=== PATIENT | female | born 1935 | race Caucasian/White ===

== ENCOUNTER 2020-01-14 09:18 | Emergency (ER) | payer MEDICARE, SELFPAY ==
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
[2020-01-14 09:28] VITALS: BP 134/74; PULSE 62; RESP 17; TEMP 36.7; O2SAT 100
--- NOTE | 2020-01-14 09:28 | ECG_ITS ---
Measurements Intervals [place] Rate: 64 P: 54 SC: 182 QRS: 3 QRSD: 95 T: -9 QT: 421 QTc: 435 Interpretive Statements SINUS RHYTHM BORDERLINE ST-T WAVE ABNORMALITY- ANTEROLAT/INF LEADS BASELINE ARTIFACT- V5 BORDERLINE ECG Electronically Signed On 01-14-2020 9:55:29 PRODUCT BUILDER by Chaparro Arambula D.O.
--- NOTE | 2020-01-14 09:38 | ED.WEAKNESS ---
HPI - Weakness General Chief complaint: Weakness Stated complaint: Weakness Time Seen by Provider: 01/14/20 09:28 Source: patient and RN notes reviewed Mode of arrival: ambulatory Limitations: no limitations History of Present Illness HPI Narrative: Pt is a 85 y/o female who presents to the ED with c/o weakness in her bilateral legs starting 2 days ago. According to the pt's son, she has a Hx of A-Fib, and is currently taking Xarelto. She notes that she has had weakness in her bilateral legs for the past several mornings. Pt reports palpitations accompanying her weakness 2 days ago, stating that her heart was pounding. She notes that she developed weakness in her bilateral legs and lightheadedness earlier this morning, which prompted her to come to the ED. Pt denies any LOC. She also reports nausea accompanying her weakness, but denies any CP, diaphoresis, vomiting, back pain, numbness/tingling, LE edema, LE pain, or dysuria. She notes that she has still been able to walk at home recently. MD Complaint: generalized weakness Onset (ago): day(s) (2) Location: LLE and RLE Associated symptoms: nausea/vomiting (nausea) and other (palpitations) Related Data Home Medications Medication Instructions Recorded Confirmed furosemide 01/14/20 potassium chloride meq PO 01/14/20 raloxifene mg 01/14/20 01/14/20 rivaroxaban [Xarelto] mg 01/14/20 solifenacin [Vesicare] mg PO 01/14/20 sotalol 01/14/20 valsartan-hydrochlorothiazide tablet 01/14/20 Allergies Allergy/AdvReac Type Severity Reaction Status Date / Time No Known Allergies Allergy Verified 01/14/20 09:32 Review of Systems Review of Systems: Narrative: CONSTITUTIONAL: Denies fever, chills, or sweats. Reports weakness in bilateral legs. CARDIOVASCULAR: Denies chest pain or LE edema. Reports palpitations. RESPIRATORY: Denies cough or dyspnea. GASTROINTESTINAL: Denies abdominal pain, vomiting, or diarrhea. Reports nausea. GENITOURINARY: Denies dysuria or hematuria. MUSCULOSKELETAL: Denies back pain, LE pain, joint pain, or myalgia. NEUROLOGIC: Denies headache, numbness, or LOC. All systems reviewed & are unremarkable except as noted in HPI and below PMFSH Past Medical History Medical History A-fib Anemia Arthritis Back pain Breast cancer, left Cataracts, bilateral CHF (congestive heart failure) Fibromyalgia Fracture of right patella Gastric ulcer GI bleed Glaucoma HLD (hyperlipidemia) HTN (hypertension) Kidney stones Osteoporosis UTI (urinary tract infection) Surgical History Surgical History History of lumpectomy of left breast Hx of cataract surgery Family History Family History (Updated 12/17/15 @ 10:57 by DOCTOR UNKNOWN) Other Cerebrovascular accident Family history of arthritis Family history of malignant neoplasm Family history of seizure disorder Social History Social History Smoking status: Never smoker Alcohol intake: never Gender identity (if verbalized by the patient): Female Exam Narrative: Exam Narrative: GENERAL: Well-appearing, well-nourished, and in no acute distress. HEAD: Normocephalic, atraumatic. EYES: PERRLA and EOMI. ENT: Nares clear, no rhinorrhea or epistaxis. Mucous membranes moist. NECK: Supple. CHEST: Clear to auscultation. No respiratory distress. HEART: Regular rate and rhythm. No murmur heard. Normal peripheral pulses. ABDOMEN: Soft, nontender, nondistended, normal active bowel sounds. EXTREMITIES: Normal range of motion. No edema. SKIN: Warm, dry, no rash. NEURO: No focal deficits. Alert and oriented. Finger to nose intact bilaterally. EOMs intact without nystagmus. No facial droop/asymmetry noted bilaterally. Grimace intact. Intact sensation in face. Hearing intact bilaterally. Shoulder shrug intact. Strength 5/5 bilateral upper extremities. Strength 5/5 bilatera
[2020-01-14 09:52] LABS: Glucose Point of Care 102 (65-105)
[2020-01-14] MEDS: SODIUM CHLORIDE 0.9% IV 1,000 ML 999 ML IV CONT (10:05)
[2020-01-14 10:12] LABS: Basophils Percent Auto 0.5 % (0.2-1.2); Eosinophils Absolute Auto 0.1 K/mm3 (0-0.3); Eosinophils Percent Auto 1.3 % (0-4.4); Hematocrit 38.8 % (37.0-47.0); Hemoglobin 12.2 g/dL (12.0-15.0); Immature Granulocyte Absolute 0.02 K/mm3 (0.00-0.031); Immature Granulocyte Percent A 0.3 % (0-0.5); Lymphocytes Absolute Auto 1.97 K/mm3 (0.9-3.2); Lymphocytes Percent Auto 24.8 % (18.3-44.2); Mean Corpuscular HGB Conc 31.4 g/dl (32-36); Mean Corpuscular Hemoglobin 29.1 pg (26-34); Mean Corpuscular Volume 92.6 fl (80-100); Mean Platelet Volume 10.3 fl (7.4-10.4); Monocytes Absolute Auto 0.6 K/mm3 (0.1-0.6); Monocytes Percent Auto 7.3 % (2.6-8.5); Neutrophils Absolute Auto 5.2 K/mm3 (1.3-6.7); Neutrophils Percent Auto 65.8 % (45.5-73.1); Platelet Count Result 201 k/mm3 (150-375); Red Blood Count 4.19 M/mm3 (4.2-5.4); Red Cell Distribution Width 16.7 % (11.5-14.5)
[2020-01-14 10:30] LABS: Alanine Aminotransferase 14 U/L (4-35); Albumin Level 3.7 g/dL (3.5-5.1); Alkaline Phosphatase 78 U/L (38-126); Aspartate Amino Transferase 22 U/L (14-36); Bilirubin,Total 0.5 mg/dL (0.2-1.3); Blood Urea Nitrogen 17 mg/dL (7-17); Calcium 10.2 mg/dL (8.4-10.2); Carbon Dioxide 33 mmol/L (22-30); Chloride 100 mmol/L (98-107); Estimated Glomerular Filt Rate > 60; Glucose 107 mg/dL (65-105); Potassium 4.2 mmol/L (3.4-5.0); Sodium 137 mmol/L (137-145)
[2020-01-14 10:42] LABS: Add Urine Microscopic? YES; Appearance Urine Clear (Clear); Bacteria Urine Trace /hpf; Bilirubin Urine Negative (Negative); Blood Urine Negative (Negative); Color Urine Straw (Yellow); Glucose Urine UA Negative (Negative); Ketones Urine Negative (Negative); Leukocyte Esterase Ur 1+ LEU/UL (Negative); Nitrate Urine Negative (Negative); Protein Urine Negative (Negative); RBC Urine 0-2 /hpf (0-2); Squamous Epithelial Cell Urine Rare /hpf (Few); Urobilinogen Urine Negative mg/dL (<2.0); WBC Urine 0-3 /hpf
[2020-01-14 10:44] LABS: Specific Grav Ur 1.004 (1.001-1.035)
[2020-01-14 10:46] LABS: Troponin I < 0.012 ng/mL (0.000-0.034)
[2020-01-14 11:07] LABS: INR 1.3
[2020-01-14 11:08] LABS: Partial Thromboplastin Time 33.7 SECONDS (22.3-36.8)
--- NOTE | 2020-01-14 11:49 | PC.NURSE ---
Pt called out to use restroom. This RN went into room and used bedside commode.
[2020-01-14 13:01] LABS: Troponin I < 0.012 ng/mL (0.000-0.034)
[2020-01-14 13:30] VITALS: BP 124/64; PULSE 61; RESP 17; O2SAT 100
== END 2020-01-14 13:32 | disposition home or self-care (01) ==
PROVIDERS: Emergency Provider Emergency Medicine; PCP Internal Medicine
DX: R53.1 Weakness (principal); R00.2 Palpitations; Z85.3 Personal history of malignant neoplasm of breast; I48.91 Unspecified atrial fibrillation; Z79.01 Long term (current) use of anticoagulants; M19.90 Unspecified osteoarthritis, unspecified site; I50.9 Heart failure, unspecified; M79.7 Fibromyalgia; H40.9 Unspecified glaucoma; E78.5 Hyperlipidemia, unspecified; I11.0 Hypertensive heart disease with heart failure; Z87.442 Personal history of urinary calculi; M81.0 Age-related osteoporosis without current pathological fracture; Z87.440 Personal history of urinary (tract) infections; Z98.49 Cataract extraction status, unspecified eye; I51.7 Cardiomegaly; K44.9 Diaphragmatic hernia without obstruction or gangrene; Z86.2 Personal history of diseases of the blood and blood-forming organs and certain disorders involving the immune mechanism
CPT/HCPCS: 36415; 70450; 71275; 80053; 81001; 82948; 84484; 85025; 85610; 85730; 93005; 96360; 96361; 99284; J7030; Q9967

== ENCOUNTER 2021-01-26 11:36 | Outpatient (CLI) | payer MEDICARE, SELFPAY ==
[2021-01-26 12:52] LABS: Anion Gap 3 mmol/L (8-16); Blood Urea Nitrogen 17 mg/dL (7-17); Calcium 10.3 mg/dL (8.4-10.2); Carbon Dioxide 35 mmol/L (22-30); Chloride 103 mmol/L (98-107); Estimated Glomerular Filt Rate > 60; Glucose 116 mg/dL (65-105); Potassium 4.1 mmol/L (3.4-5.0); Sodium 141 mmol/L (137-145)
== END 2021-01-26 11:37 | disposition home or self-care (01) ==
LOC: ANHLAB 11:40
PROVIDERS: PCP Internal Medicine; Visit Provider Nurse Practitioner Adult Health
DX: R60.0 Localized edema (principal)
CPT/HCPCS: 36415; 80048

== ENCOUNTER 2021-03-31 11:18 | Outpatient (CLI) | payer MEDICARE, SELFPAY ==
[2021-03-31 12:07] LABS: Anion Gap 3 mmol/L (8-16); Blood Urea Nitrogen 19 mg/dL (7-17); Calcium 10.1 mg/dL (8.4-10.2); Carbon Dioxide 37 mmol/L (22-30); Chloride 101 mmol/L (98-107); Estimated Glomerular Filt Rate > 60; Glucose 156 mg/dL (65-105); Potassium 5.3 mmol/L (3.4-5.0); Sodium 141 mmol/L (137-145)
== END 2021-03-31 11:19 | disposition home or self-care (01) ==
PROVIDERS: PCP Internal Medicine; Visit Provider Specialist
DX: R60.0 Localized edema (principal); I50.32 Chronic diastolic (congestive) heart failure
CPT/HCPCS: 36415; 80048

== ENCOUNTER 2021-05-04 11:52 | Outpatient (CLI) | payer MEDICARE, SELFPAY ==
[2021-05-04 12:49] LABS: Anion Gap 7 mmol/L (8-16); Blood Urea Nitrogen 16 mg/dL (7-17); Calcium 10.7 mg/dL (8.4-10.2); Carbon Dioxide 34 mmol/L (22-30); Chloride 101 mmol/L (98-107); Estimated Glomerular Filt Rate > 60; Glucose 116 mg/dL (65-105); Potassium 4.4 mmol/L (3.4-5.0); Sodium 142 mmol/L (137-145)
== END 2021-05-04 11:53 | disposition home or self-care (01) ==
LOC: ANHLAB 11:56
PROVIDERS: PCP Internal Medicine; Visit Provider Nurse Practitioner Adult Health
DX: I48.0 Paroxysmal atrial fibrillation (principal)
CPT/HCPCS: 36415; 80048

== ENCOUNTER 2023-07-01 22:53 | Emergency (ER) | payer MEDICARE, SELFPAY ==
[2023-07-01 23:01] VITALS: BP 149/92; PULSE 77; RESP 19; TEMP 36.2; O2SAT 96
--- NOTE | 2023-07-02 03:20 | PC.NURSE ---
Assumed care of patient at this time.
[2023-07-02 03:24] VITALS: BP 144/96; PULSE 84; RESP 16; O2SAT 96
--- NOTE | 2023-07-02 03:44 | ED.GENADULT ---
HPI - General Adult General Chief complaint: Dental/Oral Stated complaint: oral bleeding Time Seen by Provider: 07/02/23 02:55 History of Present Illness HPI narrative: Patient is a 8-year-old female who presents the emergency department with chief complaint of bleeding from gums. Patient reports that she had a dental extraction and reports that she was held on her anticoagulant and started the back several days ago the patient reports now she is continuing to ooze from the site and has attempted to apply teabags to the area to control the bleeding. Related Data Home Medications Medication Instructions Recorded Confirmed furosemide 40 mg tablet 01/14/20 potassium chloride 20 mEq meq PO 01/14/20 tablet,extended release(part/cryst) raloxifene 60 mg tablet mg 01/14/20 01/14/20 rivaroxaban 20 mg tablet (Xarelto) mg 01/14/20 solifenacin 5 mg tablet (Vesicare) mg PO 01/14/20 sotalol 80 mg tablet 01/14/20 valsartan 160 tablet 01/14/20 mg-hydrochlorothiazide 25 mg tablet Allergies Allergy/AdvReac Type Severity Reaction Status Date / Time No Known Allergies Allergy Verified 07/02/23 03:23 Review of Systems Review of Systems: A 10 system review of systems was completed on the patient and is negative except for what is stated in the HPI. Nursing and ancillary documentation was reviewed. [facility] Past Medical History Medical History A-fib Anemia Arthritis Back pain Breast cancer, left Cataracts, bilateral CHF (congestive heart failure) Fibromyalgia Fracture of right patella Gastric ulcer GI bleed Glaucoma HLD (hyperlipidemia) HTN (hypertension) Kidney stones Osteoporosis UTI (urinary tract infection) Surgical History Surgical History History of lumpectomy of left breast Hx of cataract surgery Family History Family History Other Cerebrovascular accident Family history of arthritis Family history of malignant neoplasm Family history of seizure disorder Social History Social History Smoking status: Never smoker Alcohol intake: never Gender identity (if verbalized by the patient): Female Exam Narrative: GENERAL: Well-appearing, well-nourished, and in no acute distress. HEAD: Normocephalic, atraumatic. EYES: PERRLA and EOMI. there is a subconjunctival hemorrhage on the right ENT: Nares clear, no rhinorrhea or epistaxis. Mucous membranes moist. Bleeding from left upper molar site where a tooth was extracted NECK: Supple. CHEST: Clear to auscultation. No respiratory distress. HEART: Regular rate and rhythm. No murmur heard. Normal peripheral pulses. ABDOMEN: Soft, nontender, nondistended, normal active bowel sounds. EXTREMITIES: Normal range of motion. No edema. SKIN: Warm, dry, no rash. NEURO: No focal deficits. Alert and oriented x3. PSYCH: Normal mood and affect. Course Vital Signs Vital signs: Vital Signs Temperature 36.2 C L 07/01/23 23:01 Pulse Rate 77 07/01/23 23:01 Respiratory Rate 19 07/01/23 23:01 Blood Pressure 149/92 H 07/01/23 23:01 Pulse Oximetry 96 07/01/23 23:01 Oxygen Delivery Room Air 07/01/23 23:01 Temperature 36.2 C L 07/01/23 23:01 Pulse Rate 84 07/02/23 03:24 Respiratory Rate 16 07/02/23 03:24 Blood Pressure 144/96 H 07/02/23 03:24 Pulse Oximetry 96 07/02/23 03:24 Oxygen Delivery Room Air 07/01/23 23:01 Medical Decision Making Vital Signs Vital Signs: Vital Signs Temperature 36.2 C L 07/01/23 23:01 Pulse Rate 77 07/01/23 23:01 Respiratory Rate 19 07/01/23 23:01 Blood Pressure 149/92 H 07/01/23 23:01 Pulse Oximetry 96 07/01/23 23:01 Oxygen Delivery Room Air 07/01/23 23:01 Temperature 36.2 C L 07/01/23 23:01 Pulse Ra
== END 2023-07-02 04:26 | disposition home or self-care (01) ==
PROVIDERS: Emergency Provider Emergency Medicine; PCP Pediatrics Adolescent Medicine
DX: K91.840 Postprocedural hemorrhage of a digestive system organ or structure following a digestive system procedure (principal); I48.91 Unspecified atrial fibrillation; I50.9 Heart failure, unspecified; I11.0 Hypertensive heart disease with heart failure; E78.5 Hyperlipidemia, unspecified; M81.0 Age-related osteoporosis without current pathological fracture; M79.7 Fibromyalgia; M19.90 Unspecified osteoarthritis, unspecified site; Z85.3 Personal history of malignant neoplasm of breast; Z87.442 Personal history of urinary calculi; Z87.440 Personal history of urinary (tract) infections; Z79.01 Long term (current) use of anticoagulants; Z98.49 Cataract extraction status, unspecified eye
CPT/HCPCS: 99282

== ENCOUNTER 2023-11-22 13:56 | Inpatient (IN) | payer MEDICARE, SELFPAY ==
[2023-11-22] VITALS (11 sets, daily range): BP systolic 101–115; BP diastolic 74–94; PULSE 79–99; RESP 15–23; TEMP 36.5–36.7; O2SAT 93–100; BMI 31.1
--- NOTE | ~2023-11-22 | XR_ITS ---
XR chest 1V portable 12/05/2023 10:01 Indication: Oxygen requirements Procedure: AP portable chest Comparison: Comparison to multiple prior studies sequentially, with oldest reviewed study dated 05/2015. Findings: Cardiomegaly with interstitial edema. Large hiatal hernia. Small pleural effusions. No pneu mothorax. No acute osseous abnormality. Impression: 1: Cardiomegaly with interstitial edema. 2: Large hiatal hernia. Reviewed, dictated and finalized at location B. TRO MECHANICAL ENGINEER Impression: 1: Cardiomegaly with interstitial edema. 2: Large hiatal hernia.
--- NOTE | ~2023-11-22 | XR_ITS ---
EXAMINATION: XR chest 2V DATE: 11/24/2023 14:18 INDICATION: Shortness of breath TECHNIQUE: frontal and lateral views of the chest were obtained. COMPARISON: Chest radiograph dated 12/02/2023 FINDINGS: Airspace opacity left mid to lower lung zone and at the posterior right lower lung zone consistent wi th small bilateral pleural effusions, left greater than right with associated atelectasis and/or pneu monia. No pulmonary edema or pneumothorax. Heart size is normal. Air-fluid level within a large hiata l hernia. Calcified mediastinal and right hilar lymph nodes consistent with old granulomatous disease . Mild thoracic kyphosis with S-shaped thoracolumbar scoliosis and severe spondylosis. IMPRESSION: 1. Small bilateral pleural effusions, left greater than right, with associated atelectasis and/or pne umonia. 2. Large hiatal hernia. Reviewed, dictated and finalized at location A. D LAYER IMPRESSION: 1. Small bilateral pleural effusions, left greater than right, with associated atelectasis and/or pneumonia. 2. Large hiatal hernia.
--- NOTE | ~2023-11-22 | US_ITS ---
EXAMINATION: US venous doppler UE DATE: 12/02/2023 11:13 INDICATION: Left upper limb swelling and induration. TECHNIQUE: Grayscale ultrasound images without and with compression and Doppler ultrasound images of the left upper extremity veins were obtained. COMPARISON: None. FINDINGS: The visualized portions of the left internal jugular vein, subclavian vein, axillary vein, brachial v eins, basilic vein, cephalic vein, radial vein, and ulnar vein are patent. There is subcutaneous lane a in the forearm. IMPRESSION: 1. No deep venous thrombosis. Reviewed, dictated and finalized at location E. D DEVELOPMENT INSTRUCTOR
--- NOTE | ~2023-11-22 | XR_ITS ---
EXAMINATION: XR chest 1V portable Exam Date/Time: 11/22/2023 15:00 COUNTY AGRICULTURAL AGENT HISTORY: EDEMA BILATERAL LOWER EXTREMITY Comparison: None. RESULT: Lines, tubes, and devices: None. Lungs and pleura: Mild diffuse reticular opacities. Segmental left lower lobe airspace disease. Left costophrenic angle blunting. Cardiomediastinal silhouette: Stable. Prominent central pulmonary arteries. Granulomatous calcificat ions. Moderate hiatal hernia. Other: No acute osseous or upper abdominal finding. Severe thoracolumbar scoliosis. IMPRESSION: Left basilar airspace disease may represent atelectasis or pneumonia. Likely small left pleural effus ion. Interstitial edema. Reviewed, dictated and finalized at location K. TY AGRICULTURAL AGENT IMPRESSION: Left basilar airspace disease may represent atelectasis or pneumonia. Likely sm all left pleural effusion. Interstitial edema.
--- NOTE | 2023-11-22 14:56 | ED.LOWEXIN ---
HPI - Extremity Injury (Lower) General Chief Complaint: Extremity Injury, Lower Stated Complaint: b/l LE swelling and pain Time Seen by Provider: 11/22/23 14:18 Related Data Home Medications Medication Instructions Recorded Confirmed furosemide 40 mg tablet 01/14/20 potassium chloride 20 mEq meq PO 01/14/20 tablet,extended release(part/cryst) raloxifene 60 mg tablet mg 01/14/20 01/14/20 rivaroxaban 20 mg tablet (Xarelto) mg 01/14/20 solifenacin 5 mg tablet (Vesicare) mg PO 01/14/20 sotalol 80 mg tablet 01/14/20 valsartan 160 tablet 01/14/20 mg-hydrochlorothiazide 25 mg tablet Allergies Allergy/AdvReac Type Severity Reaction Status Date / Time No Known Allergies Allergy Verified 07/02/23 03:23 [facility] Past Medical History Medical History A-fib Anemia Arthritis Back pain Breast cancer, left Cataracts, bilateral CHF (congestive heart failure) Fibromyalgia Fracture of right patella Gastric ulcer GI bleed Glaucoma HLD (hyperlipidemia) HTN (hypertension) Kidney stones Osteoporosis UTI (urinary tract infection) Surgical History Surgical History History of lumpectomy of left breast Hx of cataract surgery Family History Family History Other Cerebrovascular accident Family history of arthritis Family history of malignant neoplasm Family history of seizure disorder Social History Social History Smoking status: Never smoker Alcohol intake: never Gender identity (if verbalized by the patient): Female Exam Narrative: General appearance: Well-developed, well-nourished Skin: Normal color, 2+ edema lower extremity up to the knees bilaterally, weeping, superficial ulceration. Head: Normocephalic, nontraumatic Eyes: Clear conjunctiva ENT: Oropharynx normal, ears normal, nose normal Neck: Supple, nontender Chest and respiratory: Airway patent, no respiratory distress, no accessory muscle use Heart: Regular rate/rhythm Abdomen: Soft, nontender, no organomegaly, quiet bowel sounds Vascular: Left leg is colder than the right 1, I was able to to detect dorsalis pedis on the left foot Musculoskeletal: Normal range of motion, nontender back Neurologic: Alert and oriented to her name and situation on Course Vital Signs Vital signs: Vital Signs Temperature 36.7 C 11/22/23 13:49 Pulse Rate 88 11/22/23 13:49 Respiratory Rate 23 H 11/22/23 13:49 Blood Pressure 112/77 11/22/23 13:49 Pulse Oximetry 96 11/22/23 13:49 Oxygen Delivery Room Air 11/22/23 13:49 Temperature 36.7 C 11/22/23 13:49 Pulse Rate 99 11/22/23 16:30 Respiratory Rate 19 11/22/23 16:30 Blood Pressure 107/85 11/22/23 16:30 Pulse Oximetry 95 11/22/23 17:02 Oxygen Delivery Nasal Cannula 11/22/23 17:02 Oxygen Flow Rate 2 11/22/23 17:02 MDM - Extremity Injury (Lower) MDM Narrative Medical decision making narrative: Patient came from group home with edema lower extremity for while. Her son is telling me that patient gained a lot of weight over the last few weeks. History of congestive heart failure. Vital signs on arrival are stable Physical examination as above Workup today showed creatinine of 1.4, elevated BNP, no old records for comparison, chest x-ray showed pulmonary congestion. Diagnosis congestive heart failure, admit to hospitalist. Patient normally not on oxygen, 2 L nasal cannula placed on the patient in the ED in the ED patient received 20 mg of Lasix IV prior to admission
--- NOTE | 2023-11-22 14:57 | ECG_ITS ---
Measurements Intervals [place] Rate: 92 P: [place]: 0 QRS: 127 QRSD: 108 T: -19 QT: 384 QTc: 475 Interpretive Statements ATRIAL FIBRILLATION RIGHT AXIS DEVIATION RIGHT BUNDLE BRANCH BLOCK LOW QRS VOLTAGE IN PRECORDIAL LEADS BASELINE ARTIFACT- I, II, III, AVR, AVL, AVF, V2-V3 ABNORMAL ECG COMPARED TO ECG 01/14/2020 09:33:48 ATRIAL FIBRILLATION NOW PRESENT RIGHT BUNDLE-BRANCH BLOCK NOW PRESENT Electronically Signed On 11-22-2023 16:10:08 VACUUM PAN TENDER by Chaparro Arambula D.O.
[2023-11-22 15:18] LABS: Basophils Absolute Auto 0.1 K/mm3 (0.0-0.1); Basophils Percent Auto 0.7 % (0.2-1.2); Eosinophils Absolute Auto 0.1 K/mm3 (0-0.3); Hemoglobin 14.7 g/dL (12.0-15.0); Immature Granulocyte Absolute 0.02 K/mm3 (0.00-0.031); Immature Granulocyte Percent A 0.3 % (0-0.5); Lymphocytes Absolute Auto 1.81 K/mm3 (0.9-3.2); Lymphocytes Percent Auto 26.1 % (18.3-44.2); Mean Corpuscular HGB Conc 30.6 g/dl (32-36); Mean Corpuscular Hemoglobin 29.6 pg (26-34); Mean Corpuscular Volume 96.6 fl (80-100); Mean Platelet Volume 11.4 fl (7.4-10.4); Monocytes Absolute Auto 0.7 K/mm3 (0.1-0.6); Monocytes Percent Auto 9.4 % (2.6-8.5); Neutrophils Absolute Auto 4.3 K/mm3 (1.3-6.7); Neutrophils Percent Auto 61.5 % (45.5-73.1); Platelet Count Result 147 k/mm3 (150-375); Red Blood Count 4.97 M/mm3 (4.2-5.4); Red Cell Distribution Width 17.1 % (11.5-14.5); White Blood Count 6.9 K/mm3 (4.5-10.0)
[2023-11-22 15:25] LABS: Alanine Aminotransferase 22 U/L (6-35); Albumin Level 3.7 g/dL (3.5-5.1); Alkaline Phosphatase 105 U/L (38-126); Anion Gap 6 mmol/L (8-16); Aspartate Amino Transferase 39 U/L (14-36); Bilirubin,Total 0.9 mg/dL (0.2-1.3); Blood Urea Nitrogen 34 mg/dL (7-17); Carbon Dioxide 34 mmol/L (22-30); Chloride 103 mmol/L (98-107); Estimated CRCL calculation 25 ml/min; Estimated Glomerular Filt Rate 36; Glucose 85 mg/dL (65-110); Potassium 4.7 mmol/L (3.4-5.0); Sodium 143 mmol/L (137-145)
[2023-11-22 15:26] LABS: Lactic Acid Reflex 1.9 mmol/L (0.7-2.0)
[2023-11-22 15:33] LABS: CRP < 0.5 mg/dL (<1.0)
[2023-11-22 15:37] LABS: NT Pro B Type Natriuretic Pept 6580 pg/mL (19.9-100); Troponin I 0.017 ng/mL (0.000-0.034)
[2023-11-22 16:20] LABS: Appearance Urine Clear (Clear); Bacteria Urine None Seen /hpf; Bilirubin Urine Negative (Negative); Blood Urine Negative (Negative); Color Urine Yellow (Yellow); Glucose Urine UA Negative (Negative); Ketones Urine Negative (Negative); Leukocyte Esterase Ur Trace LEU/UL (Negative); Need Manual Microscopic Reviewed; Nitrate Urine Negative (Negative); Non Pathogenic Casts >20; Protein Urine 1+ mg/dL (Negative); Specific Grav Ur 1.013 (1.001-1.035); Squamous Epithelial Cell Urine None seen /hpf (Few); pH Urine 5.5 (5.0-9.0)
[2023-11-22 16:30] LABS: Alveolar/Arterial O2 Gradient 42.7 mmHg; Base Excess ABG 3.4 mEq/l (+/-2.0); Fractional Inspired Oxygen 21 %; HCO3 ABG 29.7 mEq/l (22.0-26.0); Oxygen Content ABG 16.6 %vol (16.0-22.0); PCO2 ABG 51.1 mmHg (35.0-45.0); PO2 FiO2 Ratio Arterial Blood 2.18 %; Total Hemoglobin 15.3 g/dL (12.0-18.0); pH ABG 7.382 (7.350-7.450)
[2023-11-22 16:37] LABS: Add Urine Microscopic? YES
[2023-11-22 16:43] LABS: Oxygen Saturation ABG 86.5 % (95.0-100.0)
[2023-11-22 16:44] LABS: Oxyhemoglobin 84.2 % THb (90.0-100.0)
[2023-11-22 16:45] LABS: Device ROOM AIR; Site Drawn RIGHT BRACHIAL
[2023-11-22] MEDS: FUROSEMIDE INJ 40 MG/4 ML VIAL 20 MG IV PUSH ×2 (18:36→21:01)
--- NOTE | 2023-11-22 19:02 | PC.NURSE ---
phlebotomy unable to get 2nd set of blood cultures
--- NOTE | 2023-11-22 19:59 | ADMGEN ---
This patient, Renita Laura, was admitted to Medical Room 347-. Patient/family oriented to hospital policies and general routines including ID bracelet, bed and alarms, visiting hours, pain management, procedures, bathroom and other care routines, personal items, smoking policy, room service/diet, and visiting hours. Information on how to activate the Rapid Response Team has been discussed. Patient/Family are encouraged to report perceived risks to care and to ask questions if they do not understand what they are told or what they should do.
[2023-11-23] VITALS (14 sets, daily range): BP systolic 77–113; BP diastolic 44–70; PULSE 68–99; RESP 18–21; TEMP 36.2–36.7; O2SAT 98–100
[2023-11-23 04:23] LABS: Anion Gap 11 mmol/L (8-16); Blood Urea Nitrogen 32 mg/dL (7-17); Calcium 9.6 mg/dL (8.4-10.2); Carbon Dioxide 24 mmol/L (22-30); Chloride 106 mmol/L (98-107); Estimated CRCL calculation 31 ml/min; Estimated Glomerular Filt Rate 47; Glucose 87 mg/dL (65-110); Potassium 4.3 mmol/L (3.4-5.0); Sodium 141 mmol/L (137-145)
[2023-11-23] MEDS: ESCITALOPRAM OXALATE 10 MG TABLET 20 MG PO (08:59)
[2023-11-23] MEDS: MULTIVITAMINS THERAPEUTIC TAB (*BKC) 1 TABLET PO (08:59)
[2023-11-23] MEDS: MAGNESIUM OXIDE 400 MG TABLET PO (08:59)
[2023-11-23] MEDS: LORATADINE 10 MG TABLET PO (09:00)
[2023-11-23] MEDS: METOPROLOL SUCCINATE EXT REL 50 MG TABCR PO (09:00)
[2023-11-23] MEDS: RALOXIFENE HCL (*CHEMO) 60 MG TABLET PO (09:00)
[2023-11-23] MEDS: hydroCHLOROthiazide 25 MG TABLET PO (09:00)
[2023-11-23] MEDS: POTASSIUM CHLORIDE 20 MEQ ER TABLET PO ×2 (09:00→17:27)
[2023-11-23] MEDS: OPTI-GEN TAB 1 TABLET PO (09:00)
[2023-11-23] MEDS: busPIRone HCL 5 MG TABLET PO ×3 (09:00→17:26)
[2023-11-23] MEDS: VALSARTAN 160 MG TABLET PO (09:02)
[2023-11-23] MEDS: BUMETANIDE INJ 1 MG/4 ML VIAL IV PUSH (09:06)
--- NOTE | 2023-11-23 12:43 | PM.IMHP ---
H&P: HPI History of Present Illness Date/Time: 11/23/23 12:43 Chief Complaint: Left leg cellulitis Narrative: The patient is 88-year-old female with history of atrial fib, congestive heart failure, lower extremity edema history of chronic wound, history of anxiety, was admitted to the hospital because of worsening left leg wound is oozing. Patient was tried on oral antibiotics as an outpatient and she failed the treatment patient continues to weeping wound of left lower extremity along with the swelling of both legs with +2 pitting edema. Patient denies any fever no chills some dry cough no hematemesis hemoptysis or dizziness no chest pain Review of Systems Constitutional: Constitutional: Reports weakness Eyes: Eyes: Reports no additional eye complaints ENT: Reports system reviewed and no additional complaints, except as documented Cardiovascular: Cardiovascular: Reports no additional cardiovascular complaints Respiratory: Respiratory: Reports no additional respiratory complaints Gastrointestinal: Gastrointestinal: Reports no additional gastrointestinal complaints Musculoskeletal: Musculoskeletal: Reports myalgias and Reports arthralgias Neurologic: Reports system reviewed and no additional complaints, except as documented [facility] Past Medical History Medical History (Updated 11/23/23 @ 12:57 by Raphael Lilly MD) A-fib Anemia Arthritis Back pain Breast cancer, left Cataracts, bilateral CHF (congestive heart failure) Fibromyalgia Fracture of right patella Gastric ulcer GI bleed Glaucoma HLD (hyperlipidemia) HTN (hypertension) Kidney stones Osteoporosis UTI (urinary tract infection) Surgical History Surgical History History of lumpectomy of left breast Hx of cataract surgery Family History Family History Other Cerebrovascular accident Family history of arthritis Family history of malignant neoplasm Family history of seizure disorder Social History Social History Smoking status: Never smoker Second hand tobacco smoke exposure: No Alcohol intake: never Substance use: never Substance use type: does not use Do You Feel Safe in your Home?: Yes Lack of Transportation: No Lack of Food: Never True Current Housing: I Have Housing Concerned About Future Housing: No Difficulty Paying Gas/Electric Bills: No Difficulty Paying for Meds: No Currently Unemployed: No Education: Associate Degree Difficulty w/ Childcare or Family Care: No Gender identity (if verbalized by the patient): Female Spiritual care concerns: No Meds Home Medications and Allergies Home Medications Medication Instructions Recorded Confirmed Type potassium chloride 20 mEq 20 meq PO BID 01/14/20 11/22/23 History tablet,extended release(part/cryst) raloxifene 60 mg tablet 60 mg PO DAILY 01/14/20 11/22/23 History rivaroxaban 20 mg tablet (Xarelto) 20 mg PO DAILY 01/14/20 11/22/23 History valsartan 160 1 tablet PO DAILY 01/14/20 11/22/23 History mg-hydrochlorothiazide 25 mg tablet acetaminophen 500 mg capsule 1,000 mg PO Q6H PRN Pain (Scale 11/22/23 11/22/23 History Score 1-3) albuterol sulfate 90 mcg/actuation 2 puff inhalation TID 11/22/23 11/22/23 History aerosol inhaler bumetanide 1 mg tablet 1 mg PO .NOON 11/22/23 11/22/23 History bumetanide 1 mg tablet 2 mg PO DAILY 11/22/23 11/22/23 History buspirone 5 mg tablet 5 mg PO TID 11/22/23 11/22/23 History cephalexin 500 mg capsule 500 mg PO BID 11/22/23 11/22/23 History doxycycline hyclate 100 mg capsule 100 mg PO BID 11/22/23 11/22/23 History escitalopram oxalate 10 mg tablet 20 mg PO DAILY 11/22/23 11/22/23 History fluticasone propionate 50 1 spray intranasal HS 11/22/23 11/22/23 History mcg/actuation nasal spray,suspension loratadine 10 mg tablet 10 mg PO DAILY 11/22/23
[2023-11-23 12:57] LABS: Basophils Absolute Auto 0.1 K/mm3 (0.0-0.1); Basophils Percent Auto 0.8 % (0.2-1.2); Eosinophils Absolute Auto 0.2 K/mm3 (0-0.3); Hematocrit 48.6 % (37.0-47.0); Hemoglobin 14.2 g/dL (12.0-15.0); Immature Granulocyte Absolute 0.01 K/mm3 (0.00-0.031); Immature Granulocyte Percent A 0.1 % (0-0.5); Immature Platelet Fraction Pct 6.3 % (0.9-11.2); Lymphocytes Absolute Auto 1.94 K/mm3 (0.9-3.2); Lymphocytes Percent Auto 25.4 % (18.3-44.2); Mean Corpuscular HGB Conc 29.2 g/dl (32-36); Mean Corpuscular Hemoglobin 29.2 pg (26-34); Mean Platelet Volume 11.6 fl (7.4-10.4); Monocytes Absolute Auto 1.1 K/mm3 (0.1-0.6); Neutrophils Absolute Auto 4.4 K/mm3 (1.3-6.7); Neutrophils Percent Auto 57.7 % (45.5-73.1); Platelet Count Result 138 k/mm3 (150-375); Red Blood Count 4.86 M/mm3 (4.2-5.4); Red Cell Distribution Width 17.6 % (11.5-14.5); White Blood Count 7.7 K/mm3 (4.5-10.0)
[2023-11-23] MEDS: ACETAMINOPHEN 325 MG TABLET 650 MG PO ×2 (13:04→17:26)
[2023-11-23] MEDS: levoFLOXacin 500 MG/D5W 100 ML 500 MG/100 ML BAG 100 MG IVPB (13:07)
[2023-11-23 13:49] LABS: Anisocytosis 1+ (NORMAL); Hypochromasia 1+ (NORMAL); Platelet Estimate Decreased (Adequate); Schistocytes None Seen (NORMAL); Target Cells 1+ (NORMAL)
--- NOTE | 2023-11-23 14:05 | PM.CNCAR ---
Assessment and Plan Assessment and plan (1) Acute on chronic heart failure with preserved ejection fraction (HFpEF): Code(s): I50.33 - Acute on chronic diastolic (congestive) heart failure Status: Acute Assessment and Plan: Clinically, patient presents with probable mild acute on chronic heart failure with history of preserved ejection fraction. She is currently requiring oxygen supplementation with tachypnea and evidence of pulmonary vascular congestion on chest x-ray with significant lower extremity edema and elevated proBNP. Patient is diuresing well with IV bumetanide. Transition to oral regimen. Continue IV Bumex as BP permits today transition to oral regimen beginning tomorrow unless relative hypotension is prohibitive. Heart rate reasonably controlled in atrial fibrillation. Continue Toprol XL 50 mg daily. Avoid significant hypotension and or intravascular volume depletion. Sodium restriction less than 2 g daily intake. Monitor accurate input and output, daily weight. CHF counseling. Continue telemetry 2D echocardiogram to assess LV function, valve pathology pulmonary pressures in chamber size. Further recommendation to follow as appropriate for review. (2) A-fib: Qualifiers: Atrial fibrillation type: paroxysmal Qualified Code(s): I48.0 - Paroxysmal atrial fibrillation Code(s): I48.91 - Unspecified atrial fibrillation Status: Acute Assessment and Plan: Longstanding persistent atrial fibrillation heart rate reasonably controlled. Continue Toprol XL 50 mg daily. Patient has been maintained on systemic anticoagulation with Xarelto 20 mg daily. Given creatinine clearance less than 50 appropriate dose 15 mg daily. Adjustment has been made. Monitor bleeding. Follow H&H which is stable at this time. Patient has mild thrombocytopenia. Follow trends. Check CBC in a.m.. (3) Clpto-ui-odlbbha kidney injury: Qualifiers: Acute renal failure type: unspecified Chronic kidney disease stage: stage 3 (moderate) Chronic kidney disease stage 3 subtype: unspecified whether 3a or 3b Qualified Code(s): N17.9 - Acute kidney failure, unspecified; N18.30 - Chronic kidney disease, stage 3 unspecified Code(s): N17.9 - Acute kidney failure, unspecified; N18.9 - Chronic kidney disease, unspecified Status: Acute Assessment and Plan: Creatinine 1.4 improved 1.1 since admission consistent with acute on chronic kidney injury with baseline stage III chronic kidney disease. Avoid nephrotoxic agents. Since discontinue hydrochlorothiazide given relative hypotension and acute kidney injury presentation. Continue valsartan as renal function permits yet of hypotensive I would hold for systolic blood pressure less than 110 in Hg for now. Electrolytes stable thus far. Continue to follow BMP, check in a.m.. (4) Acute hypoxemic respiratory failure: Code(s): J96.01 - Acute respiratory failure with hypoxia Status: Acute Assessment and Plan: Patient remains on O2 supplementation. Chest x-ray with evidence of interstitial edema. Wean O2 as tolerated. Continue to monitor closely. (5) Cellulitis and abscess of left leg: Code(s): L03.116 - Cellulitis of left lower limb; L02.416 - Cutaneous abscess of left lower limb Status: Acute Assessment and Plan: Management deferred to primary service. Patient is significant erythema bilateral lower extremities with open wound. Wound Care consultation noted. Continue IV antibiotics as appropriate currently on levofloxacin IV. Blood cultures pending. History of Present Illness History of Present Illness Consult date/time: Date of service: 11/23/23 14:05 Requesting physician: Raphael Lilly MD Consult reason: congestive heart failure Reason For Visit: CHF, TANISHA Narrative: Patient is a very pleasant 88-year-old female with a past medical history significant for persistent atrial fibrillation, hypertension
--- NOTE | 2023-11-23 14:39 | ECHO_ITS ---
Patient Info Name: Rneita Laura Age: 88 years : 1935 Gender: Female Ht: 62 in Wt: 169 lbs BSA: 1.86 m2 HR: 95 bpm BP: 93 / 57 mmHg Heart Rhythm: Atrial Fibrillation Technical Quality: Fair Exam Date: 11/23/2023 3:35 PM Exam Location: Echo Lab Patient Status: Inpatient Admit Date: 11/22/2023 Staff Ordering Physician: Adair Canseco MD Sausage Meat Trimmer: Smiley Jorgensen RDCS Attending Provider: Kaitlin Villafana MD Referring Physician: Ajith TRIPP; Exam Type: CA echo doppler color flow Study Info Indications - afib, chf Complete two-dimensional, color flow and Doppler transthoracic echocardiogram is performed. Summary 1. Complete two-dimensional, color flow and Doppler transthoracic echocardiogram is performed. 2. Left ventricular chamber dimension is normal. 3. Left ventricular systolic function is normal, estimated at 60-65%. 4. There is mildly increased left ventricular wall thickness. 5. Right ventricular chamber dimension is severely enlarged. 6. Right ventricular systolic function is reduced. 7. Flattening of the septum in diastole and systole consistent with right ventricular volume and pressure overload. 8. Left atrial chamber dimension is severely enlarged. 9. Right atrial chamber dimension is severely enlarged. 10. There is mild aortic valve stenosis with a peak velocity of 131 cm/s, mean gradient of 3 mmHg, and aortic valve area of 1.6 cm2. 11. There is mild aortic valve regurgitation. 12. There is mild mitral valve regurgitation. 13. There is moderate tricuspid valve regurgitation. 14. There is mild pulmonic regurgitation. 15. Pulmonary hypertension. Estimated pulmonary arterial systolic pressure is 50 mmHg. 16. There is trivial pericardial effusion. 17. Left pleural effusion noted. Left Ventricle Left ventricular chamber dimension is normal. Left ventricular systolic function is normal, estimated at 60-65%. There is mildly increased left ventricular wall thickness. Left ventricular septal wall motion is abnormal with septal motion related to bundle branch block. Right Ventricle Flattening of the septum in diastole and systole consistent with right ventricular volume and pressure overload. Right ventricular chamber dimension is severely enlarged. Right ventricular systolic function is reduced. Left Atria Left atrial chamber dimension is severely enlarged. Right Atria Right atrial chamber dimension is severely enlarged. Atrial Septum Intact interatrial septum visualized by color flow imaging. Aortic Valve The aortic valve is trileaflet. There is mild aortic valve stenosis with a peak velocity of 131 cm/s, mean gradient of 3 mmHg, and aortic valve area of 1.6 cm2. There is mild aortic valve regurgitation. There is mild aortic valve calcification. Pulmonic Valve The pulmonic valve is not well visualized. There is mild pulmonic regurgitation. Mitral Valve The mitral valve has thickened leaflets. There is mild mitral valve regurgitation. Tricuspid Valve There is moderate tricuspid valve regurgitation. Pulmonary hypertension. Estimated pulmonary arterial systolic pressure is 50 mmHg. Pericardium/Pleural Left pleural effusion noted. There is trivial pericardial effusion. Inferior Vena Cava Normal inferior vena cava with <50% collapse upon inspiration consistent with elevated right atrial pressure, 8 mmHg. Aorta The aortic root size at the sinus of Valsalva is normal. Left Ventricular Outflow Tract Name
[2023-11-23] MEDS: SODIUM CHLORIDE 0.9% IV 250 ML IV CONT (15:34)
[2023-11-23] MEDS: RIVAROXABAN 15 MG TABLET PO (17:29)
[2023-11-23] MEDS: FLUTICASONE PROPIONATE 0.05% NA SPR 16 GM BTL (*BKC) 1 SPRAY NASAL (21:32)
[2023-11-23] MEDS: SENNOSIDES 8.6 MG TABLET PO (21:32)
[2023-11-24] VITALS (10 sets, daily range): BP systolic 98–111; BP diastolic 54–77; PULSE 74–107; RESP 16–20; TEMP 36.3–36.6; O2SAT 93–100
[2023-11-24 06:10] LABS: Potassium 4.1 mmol/L (3.4-5.0)
[2023-11-24] MEDS: MULTIVITAMINS THERAPEUTIC TAB (*BKC) 1 TABLET PO (08:27)
[2023-11-24] MEDS: POTASSIUM CHLORIDE 20 MEQ ER TABLET PO ×2 (08:27→17:08)
[2023-11-24] MEDS: OPTI-GEN TAB 1 TABLET PO (08:27)
[2023-11-24] MEDS: busPIRone HCL 5 MG TABLET PO ×3 (08:27→17:08)
[2023-11-24] MEDS: LORATADINE 10 MG TABLET PO (08:27)
[2023-11-24] MEDS: RALOXIFENE HCL (*CHEMO) 60 MG TABLET PO (08:27)
[2023-11-24] MEDS: ESCITALOPRAM OXALATE 10 MG TABLET 20 MG PO (08:27)
[2023-11-24] MEDS: BUMETANIDE 1 MG TABLET 2 MG PO (08:27)
[2023-11-24] MEDS: MAGNESIUM OXIDE 400 MG TABLET PO (08:28)
[2023-11-24] MEDS: METOPROLOL SUCCINATE EXT REL 50 MG TABCR PO (08:29)
[2023-11-24] MEDS: levoFLOXacin 250 MG/D5W 50 ML 250 MG/50 ML BAG 50 MG IVPB (12:08)
--- NOTE | 2023-11-24 12:40 | PM.PNCARD ---
Progress Note: A&P Assessment and Plan (1) Acute on chronic heart failure with preserved ejection fraction (HFpEF): Code(s): I50.33 - Acute on chronic diastolic (congestive) heart failure Status: Acute Assessment and Plan: Clinically, patient presents with probable mild acute on chronic heart failure with history of preserved ejection fraction. Echocardiogram once again shows preserved LV systolic function. She does have severely enlarged RV chamber dimension and RV dysfunction. Severe biatrial enlargement. Mild , AI, MR, moderate TR, pulmonary hypertension with the estimated PASP of 50 mmHg. Diuretics currently on hold because of symptomatic hypotension yesterday. Perhaps can restart diuretics tomorrow being cautious to avoid intravascular volume depletion as she is preload dependent with her RV dysfunction. Repeat chest x-ray today Low-sodium diet Fluid restriction Strict intake and output Daily weight CHF counseling She has had atrial fibrillation for a long time in with her severe biatrial enlargement, may not be possible to restore sinus rhythm. However, in the skilled nursing making an attempt to restore sinus rhythm may help given her isolated RV dysfunction Check a BMP now She does have untreated sleep apnea. Managing her IZABELLA will be important moving forward. (2) A-fib: Qualifiers: Atrial fibrillation type: paroxysmal Qualified Code(s): I48.0 - Paroxysmal atrial fibrillation Code(s): I48.91 - Unspecified atrial fibrillation Status: Acute Assessment and Plan: Longstanding persistent atrial fibrillation heart rate reasonably controlled. Continue Toprol XL 50 mg daily. Patient has been maintained on systemic anticoagulation with Xarelto 20 mg daily. Given creatinine clearance less than 50 appropriate dose 15 mg daily. Adjustment has been made. Monitor bleeding. Follow H&H which is stable at this time. Patient has mild thrombocytopenia. Follow trends. Check CBC in a.m.. (3) Qqjxa-ut-xvbnuto kidney injury: Qualifiers: Acute renal failure type: unspecified Chronic kidney disease stage: stage 3 (moderate) Chronic kidney disease stage 3 subtype: unspecified whether 3a or 3b Qualified Code(s): N17.9 - Acute kidney failure, unspecified; N18.30 - Chronic kidney disease, stage 3 unspecified Code(s): N17.9 - Acute kidney failure, unspecified; N18.9 - Chronic kidney disease, unspecified Status: Acute Assessment and Plan: Creatinine 1.4 improved 1.1 since admission consistent with acute on chronic kidney injury with baseline stage III chronic kidney disease. Avoid nephrotoxic agents. BNP was not checked today, will order one for now. (4) Acute hypoxemic respiratory failure: Code(s): J96.01 - Acute respiratory failure with hypoxia Status: Acute Assessment and Plan: Patient remains on O2 supplementation. We will repeat a chest x-ray today as diuretics have been stopped and she was given some fluids yesterday for hypotension. (5) Cellulitis and abscess of left leg: Code(s): L03.116 - Cellulitis of left lower limb; L02.416 - Cutaneous abscess of left lower limb Status: Acute Assessment and Plan: Management deferred to primary service. Patient is significant erythema bilateral lower extremities with open wound. Wound Care consultation noted. Continue IV antibiotics as appropriate currently on levofloxacin IV. Blood cultures pending. Subjective Date/time seen: 11/24/23 12:40 Interval history: Cardiology follow-up for CHF, atrial fibrillation She became hypotensive yesterday afternoon. Therefore, diuretics have been held and she received some fluid resuscitation. She is feeling okay today, denies any chest pain or palpitations. She does have some shortness of breath. Review of Systems Review of Systems: Remainder of the review of systems is otherwise negative aside from that noted in the HPI. All s
--- NOTE | 2023-11-24 13:05 | PM.IMPN ---
Progress Note: A&P Assessment and Plan (1) Exbpm-gj-oovjgus kidney injury: Qualifiers: Acute renal failure type: unspecified Chronic kidney disease stage: stage 3 (moderate) Chronic kidney disease stage 3 subtype: unspecified whether 3a or 3b Qualified Code(s): N17.9 - Acute kidney failure, unspecified; N18.30 - Chronic kidney disease, stage 3 unspecified Code(s): N17.9 - Acute kidney failure, unspecified; N18.9 - Chronic kidney disease, unspecified Status: Acute (2) Acute on chronic heart failure with preserved ejection fraction (HFpEF): Code(s): I50.33 - Acute on chronic diastolic (congestive) heart failure Status: Acute (3) A-fib: Qualifiers: Atrial fibrillation type: paroxysmal Qualified Code(s): I48.0 - Paroxysmal atrial fibrillation Code(s): I48.91 - Unspecified atrial fibrillation Status: Acute (4) Cellulitis and abscess of left leg: Code(s): L03.116 - Cellulitis of left lower limb; L02.416 - Cutaneous abscess of left lower limb Status: Acute Plan Cellulitis IV fluid resuscitation Monitor lactic acid levels Repeat CBC CMP Two sets of Blood cultures urine cultures Monitor albumin' Monitoring of mental status. PT OT IV antibiotics?Levaquin TANISHA Avoid nephrotoxic drugs. Creatinine 1.1 Will titrate diuretic doses to blood pressure Monitor antihypertensive drugs Avoid NSAIDs. Routine CMP monitor GFR. Monitor electrolytes potassium levels. Dose antibiotics depending on creatinine clearance HFpEF 2D echo ejection fraction 60% severely enlarged right ventricle chamber Optimize Ashu inhibitors and beta-blockers?metoprolol and Diovan Daily weights BNP 6000 Antiplatelet & Statin therapy Loop diuretics as indicate Patient educated about titrating diuretics at home based on weight blood pressure and symptoms. Optimize blood pressure < 130/80 Fall risk assessment Agreed with reproducer recommended AFIB Continue Xarelto.? Continue beta-mamadou rate is well controlled. DVT prophylaxis. Xarelto GI prophylaxis. None All records reviewed Discussed plan of care with the nursing staff and with the patient in detail. Answered all questions and concerns from the patient. All labs have been reviewed. Code status updated dictation may have been done utilizing a voice recognition system. Attempts have been made to correct errors. However, there may be uncorrected grammatical, spelling, and recognition errors present. Subjective Date/time seen: 11/24/23 13:05 Interval history: Patient seen denies any complaints no chest pain shortness of breath Review of Systems Review of Systems: All systems reviewed & are unremarkable except as noted in HPI and below Exam Narrative: GENERAL: Well appearing, no acute distress. HEAD: Normocephalic, atraumatic. NECK: Supple. No adenopathy, no masses. RESPIRATORY: respirations nonlabored. , no rales, wheezing. CARDIOVASCULAR: Regular rate and rhythm without murmurs, . Peripheral pulses erythema of both legs healed ulcer left Torres small open wound right torres ABDOMINAL: Soft, nontender, nondistended, no hepatosplenomegaly. Normoactive BS. MUSCULOSKELETAL: no Epigastric and no hypochondrial tenderness SKIN: Warm, dry, NEURO: A&O X3. Moves all extremities Objective Data Vital Signs Vital Signs: Vital Signs - 24 hr 11/23/23 15:19 11/23/23 14:49 11/23/23 17:34 Temperature 36.7 C Pulse Rate 84 Respiratory Rate 18 Blood Pressure 77/44 L 99/60 L Pulse Oximetry 98 Oxygen Delivery Oxygen Flow Rate 11/23/23 16:00 11/23/23 21:23 11/23/23 20:00 Temperature 36.2 C L Pulse Rate 75 86 75 Respiratory Rate 21 H Blood Pressure 103/64 Pulse Oximetry 100 Oxygen Delivery Oxygen Flow Rate 11/23/23 20:00 11/24/23 00:00 11/24/23 04:00 Temperature Pulse Rate 78 86 Respiratory Rate Blood Pressure Pulse Oximetry 100 Oxygen Delivery Nasal Cannula
[2023-11-24 13:36] LABS: Hematocrit 43.5 % (37.0-47.0); Hemoglobin 12.8 g/dL (12.0-15.0); Mean Corpuscular HGB Conc 29.4 g/dl (32-36); Mean Corpuscular Hemoglobin 28.8 pg (26-34); Mean Platelet Volume 12.4 fl (7.4-10.4); Platelet Count Result 107 k/mm3 (150-375); Red Blood Count 4.44 M/mm3 (4.2-5.4); Red Cell Distribution Width 16.7 % (11.5-14.5); White Blood Count 6.2 K/mm3 (4.5-10.0)
[2023-11-24 14:03] LABS: Alanine Aminotransferase 19 U/L (6-35); Albumin Level 2.7 g/dL (3.5-5.1); Alkaline Phosphatase 66 U/L (38-126); Aspartate Amino Transferase 34 U/L (14-36); Bilirubin,Total 0.8 mg/dL (0.2-1.3)
[2023-11-24 14:03] LABS: Anion Gap 1 mmol/L (8-16); Blood Urea Nitrogen 27 mg/dL (7-17); Calcium 9.6 mg/dL (8.4-10.2); Carbon Dioxide 37 mmol/L (22-30); Chloride 102 mmol/L (98-107); Estimated CRCL calculation 37 ml/min; Estimated Glomerular Filt Rate 59; Glucose 110 mg/dL (65-110); Potassium 4.5 mmol/L (3.4-5.0); Sodium 140 mmol/L (137-145)
[2023-11-24] MEDS: RIVAROXABAN 15 MG TABLET PO (17:08)
[2023-11-24] MEDS: AMPICILLIN SULB 3 GM/NS 100 ML 3 GM/100 ML VIAL IVPB ×2 (17:08→23:05)
[2023-11-24] MEDS: FLUTICASONE PROPIONATE 0.05% NA SPR 16 GM BTL (*BKC) 1 SPRAY NASAL (21:24)
[2023-11-24] MEDS: SENNOSIDES 8.6 MG TABLET PO (21:24)
[2023-11-25] VITALS (11 sets, daily range): BP systolic 97–118; BP diastolic 62–76; PULSE 63–103; RESP 18–20; TEMP 36.3–36.5; O2SAT 91–93
[2023-11-25] MEDS: AMPICILLIN SULB 3 GM/NS 100 ML 3 GM/100 ML VIAL IVPB ×4 (05:49→23:39)
[2023-11-25] MEDS: RALOXIFENE HCL (*CHEMO) 60 MG TABLET PO (08:36)
[2023-11-25] MEDS: METOPROLOL SUCCINATE EXT REL 50 MG TABCR PO (08:36)
[2023-11-25] MEDS: MAGNESIUM OXIDE 400 MG TABLET PO (08:36)
[2023-11-25] MEDS: OPTI-GEN TAB 1 TABLET PO (08:36)
[2023-11-25] MEDS: POTASSIUM CHLORIDE 20 MEQ ER TABLET PO ×2 (08:36→17:15)
[2023-11-25] MEDS: MULTIVITAMINS THERAPEUTIC TAB (*BKC) 1 TABLET PO (08:36)
[2023-11-25] MEDS: ESCITALOPRAM OXALATE 10 MG TABLET 20 MG PO (08:38)
[2023-11-25] MEDS: LORATADINE 10 MG TABLET PO (08:38)
[2023-11-25] MEDS: busPIRone HCL 5 MG TABLET PO ×3 (08:38→17:15)
--- NOTE | 2023-11-25 12:11 | PM.IMPN ---
Progress Note: A&P Assessment and Plan (1) Fisxp-ln-ofkvqdw kidney injury: Qualifiers: Acute renal failure type: unspecified Chronic kidney disease stage: stage 3 (moderate) Chronic kidney disease stage 3 subtype: unspecified whether 3a or 3b Qualified Code(s): N17.9 - Acute kidney failure, unspecified; N18.30 - Chronic kidney disease, stage 3 unspecified Code(s): N17.9 - Acute kidney failure, unspecified; N18.9 - Chronic kidney disease, unspecified Status: Acute (2) Acute on chronic heart failure with preserved ejection fraction (HFpEF): Code(s): I50.33 - Acute on chronic diastolic (congestive) heart failure Status: Acute (3) A-fib: Qualifiers: Atrial fibrillation type: paroxysmal Qualified Code(s): I48.0 - Paroxysmal atrial fibrillation Code(s): I48.91 - Unspecified atrial fibrillation Status: Acute (4) Cellulitis and abscess of left leg: Code(s): L03.116 - Cellulitis of left lower limb; L02.416 - Cutaneous abscess of left lower limb Status: Acute Plan Cellulitis IV fluid resuscitation Monitor lactic acid levels Repeat CBC CMP Blood cultures negative urine cultures Enterococcus sensitive to Monitor albumin' Monitoring of mental status. PT OT IV antibiotics?unasyn TANISHA Avoid nephrotoxic drugs. Creatinine 1.1 Will titrate diuretic doses to blood pressure Monitor antihypertensive drugs Avoid NSAIDs. Routine CMP monitor GFR. Monitor electrolytes potassium levels. Dose antibiotics depending on creatinine clearance HFpEF 2D echo ejection fraction 60% severely enlarged right ventricle chamber Optimize Ashu inhibitors and beta-blockers?metoprolol and Diovan Daily weights BNP 6000 Antiplatelet & Statin therapy Loop diuretics as indicate Patient educated about titrating diuretics at home based on weight blood pressure and symptoms. Optimize blood pressure < 130/80 Fall risk assessment Agreed with craft worker recommended AFIB Continue Xarelto.? Continue beta-mamadou rate is well controlled. DVT prophylaxis. Xarelto GI prophylaxis. None All records reviewed Discussed plan of care with the nursing staff and with the patient in detail. Answered all questions and concerns from the patient. All labs have been reviewed. Code status updated dictation may have been done utilizing a voice recognition system. Attempts have been made to correct errors. However, there may be uncorrected grammatical, spelling, and recognition errors present. Subjective Date/time seen: 01/12/24 12:11 Interval history: Patient seen denies any complaints no chest pain shortness of breath Review of Systems Review of Systems: All systems reviewed & are unremarkable except as noted in HPI and below Exam Narrative: GENERAL: Well appearing, no acute distress. HEAD: Normocephalic, atraumatic. NECK: Supple. No adenopathy, no masses. RESPIRATORY: respirations nonlabored. , no rales, wheezing. CARDIOVASCULAR: Regular rate and rhythm without murmurs, . Peripheral pulses erythema of both legs healed ulcer left Torres small open wound right torres ABDOMINAL: Soft, nontender, nondistended, no hepatosplenomegaly. Normoactive BS. MUSCULOSKELETAL: no Epigastric and no hypochondrial tenderness SKIN: Warm, dry, NEURO: A&O X3. Moves all extremities Objective Data Vital Signs Vital Signs: Vital Signs - 24 hr 11/24/23 13:53 11/24/23 16:00 11/24/23 20:57 Temperature 36.6 C 36.6 C Pulse Rate 107 H 74 84 Respiratory Rate 16 18 Blood Pressure 98/54 L 111/77 Pulse Oximetry 93 94 Oxygen Delivery Oxygen Flow Rate 11/24/23 20:00 11/24/23 20:00 11/25/23 00:00 Temperature Pulse Rate 78 78 Respiratory Rate Blood Pressure Pulse Oximetry 100 Oxygen Delivery Nasal Cannula Oxygen Flow Rate 1 11/25/23 04:00 11/25/23 05:58 11/25/23 08:36 Temperature 36.4 C Pulse Rate 89 73 63 Respiratory Rate 18 Blood Pressure 118/62 Pul
[2023-11-25 13:29] LABS: Hematocrit 46.3 % (37.0-47.0); Hemoglobin 13.7 g/dL (12.0-15.0); Mean Corpuscular HGB Conc 29.6 g/dl (32-36); Mean Corpuscular Hemoglobin 28.5 pg (26-34); Mean Corpuscular Volume 96.5 fl (80-100); Platelet Count Result 138 k/mm3 (150-375); Red Cell Distribution Width 16.6 % (11.5-14.5); White Blood Count 8.1 K/mm3 (4.5-10.0)
[2023-11-25 13:56] LABS: Alanine Aminotransferase 18 U/L (6-35); Albumin Level 2.9 g/dL (3.5-5.1); Alkaline Phosphatase 79 U/L (38-126); Anion Gap 4 mmol/L (8-16); Aspartate Amino Transferase 30 U/L (14-36); Bilirubin,Total 0.8 mg/dL (0.2-1.3); Blood Urea Nitrogen 22 mg/dL (7-17); Calcium 9.6 mg/dL (8.4-10.2); Carbon Dioxide 33 mmol/L (22-30); Chloride 102 mmol/L (98-107); Estimated CRCL calculation 42 ml/min; Estimated Glomerular Filt Rate > 60; Glucose 137 mg/dL (65-110); Potassium 4.4 mmol/L (3.4-5.0); Sodium 139 mmol/L (137-145)
--- NOTE | 2023-11-25 14:41 | PM.PNCARD ---
Progress Note: A&P Assessment and Plan (1) Acute on chronic heart failure with preserved ejection fraction (HFpEF): Code(s): I50.33 - Acute on chronic diastolic (congestive) heart failure Status: Acute Assessment and Plan: Clinically, patient presents with probable mild acute on chronic heart failure with history of preserved ejection fraction. Echocardiogram once again shows preserved LV systolic function. She does have severely enlarged RV chamber dimension and RV dysfunction. Severe biatrial enlargement. Mild , AI, MR, moderate TR, pulmonary hypertension with the estimated PASP of 50 mmHg. Diuretics held yesterday because of symptomatic hypotension Will restart diuretics today being cautious to avoid intravascular volume depletion as she is preload dependent with her RV dysfunction. Low-sodium diet Fluid restriction Strict intake and output Daily weight CHF counseling She has had atrial fibrillation for a long time in with her severe biatrial enlargement, may not be possible to restore sinus rhythm. However, in the buttermaker continuous churn making an attempt to restore sinus rhythm may help given her isolated RV dysfunction Check a BMP in the morning She does have untreated sleep apnea. Managing her IZABELLA will be important moving forward. (2) A-fib: Qualifiers: Atrial fibrillation type: paroxysmal Qualified Code(s): I48.0 - Paroxysmal atrial fibrillation Code(s): I48.91 - Unspecified atrial fibrillation Status: Acute Assessment and Plan: Longstanding persistent atrial fibrillation heart rate reasonably controlled. Continue Toprol XL 50 mg daily. Patient has been maintained on systemic anticoagulation with Xarelto 20 mg daily. Given creatinine clearance less than 50 appropriate dose 15 mg daily. Adjustment has been made. Monitor bleeding. Follow H&H which is stable at this time. (3) Plzcc-cg-xxupryr kidney injury: Qualifiers: Acute renal failure type: unspecified Chronic kidney disease stage: stage 3 (moderate) Chronic kidney disease stage 3 subtype: unspecified whether 3a or 3b Qualified Code(s): N17.9 - Acute kidney failure, unspecified; N18.30 - Chronic kidney disease, stage 3 unspecified Code(s): N17.9 - Acute kidney failure, unspecified; N18.9 - Chronic kidney disease, unspecified Status: Acute Assessment and Plan: Creatinine 1.4 improved 1.1 since admission consistent with acute on chronic kidney injury with baseline stage III chronic kidney disease. Avoid nephrotoxic agents. BMP daily. (4) Acute hypoxemic respiratory failure: Code(s): J96.01 - Acute respiratory failure with hypoxia Status: Acute Assessment and Plan: Patient remains on O2 supplementation. We will repeat a chest x-ray today as diuretics have been stopped and she was given some fluids 11/24 for hypotension. (5) Cellulitis and abscess of left leg: Code(s): L03.116 - Cellulitis of left lower limb; L02.416 - Cutaneous abscess of left lower limb Status: Acute Assessment and Plan: Management deferred to primary service. Patient is significant erythema bilateral lower extremities with open wound. Wound Care consultation noted. Continue IV antibiotics as appropriate currently on levofloxacin IV. Blood cultures NGTD Subjective Date/time seen: 11/25/23 14:41 Interval history: Cardiology follow up for CHF She feels about the same today. Breathing is about the same. No chest pain. Review of Systems Review of Systems: Remainder of the review of systems is otherwise negative aside from that noted in the HPI. All systems reviewed & are unremarkable except as noted in HPI and below Constitutional: Constitutional: Reports as per HPI and Reports no additional constitutional complaints Eyes: Eyes: Reports as per HPI and Reports no additional eye complaints ENT: Reports system reviewed and no additional complaints, except as documented an
[2023-11-25] MEDS: RIVAROXABAN 15 MG TABLET PO (17:15)
[2023-11-25] MEDS: BUMETANIDE 0.5 MG TABLET PO (17:18)
[2023-11-25] MEDS: FLUTICASONE PROPIONATE 0.05% NA SPR 16 GM BTL (*BKC) 1 SPRAY NASAL (21:04)
[2023-11-25] MEDS: SENNOSIDES 8.6 MG TABLET PO (21:17)
[2023-11-26] VITALS (10 sets, daily range): BP systolic 114–122; BP diastolic 73–80; PULSE 61–124; RESP 16–18; TEMP 36.3–36.6; O2SAT 91–99
[2023-11-26] MEDS: AMPICILLIN SULB 3 GM/NS 100 ML 3 GM/100 ML VIAL IVPB ×3 (05:14→17:27)
[2023-11-26 05:59] LABS: Anion Gap 2 mmol/L (8-16); Blood Urea Nitrogen 23 mg/dL (7-17); Calcium 9.5 mg/dL (8.4-10.2); Carbon Dioxide 32 mmol/L (22-30); Chloride 104 mmol/L (98-107); Estimated CRCL calculation 42 ml/min; Estimated Glomerular Filt Rate > 60; Glucose 97 mg/dL (65-110); Potassium 4.5 mmol/L (3.4-5.0); Sodium 138 mmol/L (137-145)
[2023-11-26] MEDS: POTASSIUM CHLORIDE 20 MEQ ER TABLET PO ×2 (08:18→17:26)
[2023-11-26] MEDS: RALOXIFENE HCL (*CHEMO) 60 MG TABLET PO (08:19)
[2023-11-26] MEDS: MULTIVITAMINS THERAPEUTIC TAB (*BKC) 1 TABLET PO (08:19)
[2023-11-26] MEDS: OPTI-GEN TAB 1 TABLET PO (08:19)
[2023-11-26] MEDS: ESCITALOPRAM OXALATE 10 MG TABLET 20 MG PO (08:19)
[2023-11-26] MEDS: busPIRone HCL 5 MG TABLET PO ×3 (08:19→17:27)
[2023-11-26] MEDS: LORATADINE 10 MG TABLET PO (08:19)
[2023-11-26] MEDS: MAGNESIUM OXIDE 400 MG TABLET PO (08:19)
[2023-11-26] MEDS: METOPROLOL SUCCINATE EXT REL 50 MG TABCR PO (08:19)
--- NOTE | 2023-11-26 08:56 | PM.PNCARD ---
Progress Note: A&P Assessment and Plan (1) Acute on chronic heart failure with preserved ejection fraction (HFpEF): Code(s): I50.33 - Acute on chronic diastolic (congestive) heart failure Status: Acute Assessment and Plan: Clinically, patient presents with probable mild acute on chronic heart failure with history of preserved ejection fraction. Echocardiogram once again shows preserved LV systolic function. She does have severely enlarged RV chamber dimension and RV dysfunction. Severe biatrial enlargement. Mild , AI, MR, moderate TR, pulmonary hypertension with the estimated PASP of 50 mmHg. Diuretics held yesterday because of symptomatic hypotension Continue oral diuretics today at current dose and monitor response and BP. Low-sodium diet Fluid restriction Strict intake and output Daily weight CHF counseling She has had atrial fibrillation for a long time in with her severe biatrial enlargement, may not be possible to restore sinus rhythm. However, in the jail making an attempt to restore sinus rhythm may help given her isolated RV dysfunction Creatinine 0.8 today She does have untreated sleep apnea. Managing her IZABELLA will be important moving forward. (2) A-fib: Qualifiers: Atrial fibrillation type: paroxysmal Qualified Code(s): I48.0 - Paroxysmal atrial fibrillation Code(s): I48.91 - Unspecified atrial fibrillation Status: Acute Assessment and Plan: Longstanding persistent atrial fibrillation heart rate reasonably controlled. Continue Toprol XL 50 mg daily. Continue lower dose Xarelto at 15 mg daily Follow H&H which is stable at this time. (3) Dxzhq-xx-npmxbkl kidney injury: Qualifiers: Acute renal failure type: unspecified Chronic kidney disease stage: stage 3 (moderate) Chronic kidney disease stage 3 subtype: unspecified whether 3a or 3b Qualified Code(s): N17.9 - Acute kidney failure, unspecified; N18.30 - Chronic kidney disease, stage 3 unspecified Code(s): N17.9 - Acute kidney failure, unspecified; N18.9 - Chronic kidney disease, unspecified Status: Acute Assessment and Plan: Creatinine continues to improve (4) Acute hypoxemic respiratory failure: Code(s): J96.01 - Acute respiratory failure with hypoxia Status: Acute Assessment and Plan: Patient remains on O2 supplementation. (5) Cellulitis and abscess of left leg: Code(s): L03.116 - Cellulitis of left lower limb; L02.416 - Cutaneous abscess of left lower limb Status: Acute Assessment and Plan: Management deferred to primary service. Patient is significant erythema bilateral lower extremities with open wound. Wound Care consultation noted. Continue IV antibiotics as appropriate currently on levofloxacin IV. Blood cultures NGTD Subjective Date/time seen: 11/26/23 08:56 Interval history: Cardiology follow up for CHF She feels about the same today. Breathing is about the same. No chest pain. Date of service 11/26/2023: Just woke up. No chest pain. No other active shortness of breath. Legs are tender to touch Review of Systems Review of Systems: Remainder of the review of systems is otherwise negative aside from that noted in the HPI. All systems reviewed & are unremarkable except as noted in HPI and below Constitutional: Constitutional: Reports as per HPI and Reports no additional constitutional complaints Eyes: Eyes: Reports as per HPI and Reports no additional eye complaints ENT: Reports system reviewed and no additional complaints, except as documented and Reports as per HPI Cardiovascular: Cardiovascular: Reports as per HPI and Reports no additional cardiovascular complaints Respiratory: Respiratory: Reports as per HPI and Reports no additional respiratory complaints Gastrointestinal: Gastrointestinal: Reports as per HPI and Reports no additional gastrointestinal complaints Genitourinary: Genitourinary
[2023-11-26] MEDS: BUMETANIDE 0.5 MG TABLET PO ×2 (11:06→17:26)
--- NOTE | 2023-11-26 11:27 | PM.IMPN ---
Progress Note: A&P Assessment and Plan (1) Tmbss-jj-jitvoar kidney injury: Qualifiers: Acute renal failure type: unspecified Chronic kidney disease stage: stage 3 (moderate) Chronic kidney disease stage 3 subtype: unspecified whether 3a or 3b Qualified Code(s): N17.9 - Acute kidney failure, unspecified; N18.30 - Chronic kidney disease, stage 3 unspecified Code(s): N17.9 - Acute kidney failure, unspecified; N18.9 - Chronic kidney disease, unspecified Status: Acute (2) Acute on chronic heart failure with preserved ejection fraction (HFpEF): Code(s): I50.33 - Acute on chronic diastolic (congestive) heart failure Status: Acute (3) A-fib: Qualifiers: Atrial fibrillation type: paroxysmal Qualified Code(s): I48.0 - Paroxysmal atrial fibrillation Code(s): I48.91 - Unspecified atrial fibrillation Status: Acute (4) Cellulitis and abscess of left leg: Code(s): L03.116 - Cellulitis of left lower limb; L02.416 - Cutaneous abscess of left lower limb Status: Acute Plan Cellulitis IV fluid resuscitation Blood cultures negative urine cultures Enterococcus sensitive to PT OT IV antibiotics?unasyn TANISHA Avoid nephrotoxic drugs. Creatinine 1.1 Will titrate diuretic doses to blood pressure Monitor antihypertensive drugs Avoid NSAIDs. Routine CMP monitor GFR. Monitor electrolytes potassium levels. Dose antibiotics depending on creatinine clearance HFpEF 2D echo ejection fraction 60% severely enlarged right ventricle chamber Optimize Ashu inhibitors and beta-blockers?metoprolol and Diovan Daily weights Loop diuretics as indicate Optimize blood pressure < 130/80 Fall risk assessment Agreed with correspondence specialist recommended AFIB Continue Xarelto.? Continue beta-mamadou rate is well controlled. DVT prophylaxis. Xarelto GI prophylaxis. None All records reviewed Discussed plan of care with the nursing staff and with the patient in detail. Answered all questions and concerns from the patient. All labs have been reviewed. Code status updated dictation may have been done utilizing a voice recognition system. Attempts have been made to correct errors. However, there may be uncorrected grammatical, spelling, and recognition errors present. Subjective Date/time seen: 11/26/23 11:27 Interval history: Cardiology follow up for CHF She feels about the same today. Breathing is about the same. No chest pain. No chest pain. No other active shortness of breath. Legs are tender to touch has a blister on the right torres. Son on bedside answered all question discussed patient's care Review of Systems Review of Systems: All systems reviewed & are unremarkable except as noted in HPI and below Exam Narrative: GENERAL: Well appearing, no acute distress. HEAD: Normocephalic, atraumatic. NECK: Supple. No adenopathy, no masses. RESPIRATORY: respirations nonlabored. , no rales, wheezing. CARDIOVASCULAR: Regular rate and rhythm without murmurs, . Peripheral pulses erythema of both legs healed ulcer left Torres small open wound right CT has a new blister no open wound ABDOMINAL: Soft, nontender, nondistended, no hepatosplenomegaly. Normoactive BS. MUSCULOSKELETAL: no Epigastric and no hypochondrial tenderness SKIN: Warm, dry, NEURO: A&O X3. Moves all extremities Objective Data Vital Signs Vital Signs: Vital Signs - 24 hr 11/25/23 14:10 11/25/23 14:08 11/25/23 12:00 Temperature 36.3 C L Pulse Rate 87 81 Respiratory Rate 20 Blood Pressure 97/68 L Pulse Oximetry 92 92 Oxygen Delivery Nasal Cannula Oxygen Flow Rate 1 11/25/23 16:00 11/25/23 19:47 11/25/23 20:00 Temperature 36.5 C Pulse Rate 89 86 Respiratory Rate 20 Blood Pressure 108/76 Pulse Oximetry 91 91 Oxygen Delivery Nasal Cannula Oxygen Flow Rate 1 11/25/23 20:00 11/26/23 00:00 11/26/23 04:00 Temperature Pulse Rate 103 H 124 H 79 Respiratory Rate
[2023-11-26] MEDS: RIVAROXABAN 15 MG TABLET PO (17:26)
[2023-11-26] MEDS: SENNOSIDES 8.6 MG TABLET PO (20:40)
[2023-11-26] MEDS: FLUTICASONE PROPIONATE 0.05% NA SPR 16 GM BTL (*BKC) 1 SPRAY NASAL (20:40)
[2023-11-27] VITALS: PULSE 75
[2023-11-27] MEDS: AMPICILLIN SULB 3 GM/NS 100 ML 3 GM/100 ML VIAL IVPB ×4 (00:36→23:53)
[2023-11-27 04:00] VITALS: PULSE 89
[2023-11-27 06:00] VITALS: BP 127/89; PULSE 78; RESP 18; TEMP 36.2; O2SAT 95
[2023-11-27 08:04] LABS: Blood Urea Nitrogen 23 mg/dL (7-17); Calcium 9.9 mg/dL (8.4-10.2); Carbon Dioxide > 40 mmol/L (22-30); Chloride 101 mmol/L (98-107); Estimated CRCL calculation 42 ml/min; Estimated Glomerular Filt Rate > 60; Glucose 94 mg/dL (65-110); Potassium 4.8 mmol/L (3.4-5.0); Sodium 141 mmol/L (137-145)
--- NOTE | 2023-11-27 09:00 | PM.PNCARD ---
Progress Note: A&P Assessment and Plan (1) Acute on chronic heart failure with preserved ejection fraction (HFpEF): Code(s): I50.33 - Acute on chronic diastolic (congestive) heart failure Status: Acute Assessment and Plan: Clinically, patient presents with probable mild acute on chronic heart failure with history of preserved ejection fraction. Echocardiogram once again shows preserved LV systolic function. She does have severely enlarged RV chamber dimension and RV dysfunction. Severe biatrial enlargement. Mild , AI, MR, moderate TR, pulmonary hypertension with the estimated PASP of 50 mmHg. Continues to feel okay. Continue oral diuretics today at current dose and monitor response and BP. Low-sodium diet Fluid restriction Strict intake and output Daily weight CHF counseling She has had atrial fibrillation for a long time in with her severe biatrial enlargement, may not be possible to restore sinus rhythm. However, in the nursing home making an attempt to restore sinus rhythm may help given her isolated RV dysfunction Creatinine 0.8 today and potassium is 4.8 She does have untreated sleep apnea. Managing her IZABELLA will be important moving forward. (2) A-fib: Qualifiers: Atrial fibrillation type: paroxysmal Qualified Code(s): I48.0 - Paroxysmal atrial fibrillation Code(s): I48.91 - Unspecified atrial fibrillation Status: Acute Assessment and Plan: Longstanding persistent atrial fibrillation heart rate reasonably controlled. Continue Toprol XL 50 mg daily. Continue lower dose Xarelto at 15 mg daily Follow H&H which is stable at this time. (3) Brqml-xj-qwafwut kidney injury: Qualifiers: Acute renal failure type: unspecified Chronic kidney disease stage: stage 3 (moderate) Chronic kidney disease stage 3 subtype: unspecified whether 3a or 3b Qualified Code(s): N17.9 - Acute kidney failure, unspecified; N18.30 - Chronic kidney disease, stage 3 unspecified Code(s): N17.9 - Acute kidney failure, unspecified; N18.9 - Chronic kidney disease, unspecified Status: Acute Assessment and Plan: Creatinine continues to improve (4) Acute hypoxemic respiratory failure: Code(s): J96.01 - Acute respiratory failure with hypoxia Status: Acute Assessment and Plan: Patient remains on O2 supplementation. (5) Cellulitis and abscess of left leg: Code(s): L03.116 - Cellulitis of left lower limb; L02.416 - Cutaneous abscess of left lower limb Status: Acute Assessment and Plan: Management deferred to primary service. Patient is significant erythema bilateral lower extremities with open wound. Wound Care consultation noted. Continue IV antibiotics as appropriate currently on levofloxacin IV. Blood cultures NGTD Subjective Date/time seen: 11/27/23 09:00 Interval history: Cardiology follow up for CHF She feels about the same today. Breathing is about the same. No chest pain. Date of service 11/26/2023: Just woke up. No chest pain. No other active shortness of breath. Legs are tender to touch Date of service 11/27/2023: More awake alert today. No chest pain or shortness of breath. Legs are erythematous and wounds are noted but less swollen Review of Systems Review of Systems: Remainder of the review of systems is otherwise negative aside from that noted in the HPI. All systems reviewed & are unremarkable except as noted in HPI and below Constitutional: Constitutional: Reports as per HPI and Reports no additional constitutional complaints Eyes: Eyes: Reports as per HPI and Reports no additional eye complaints ENT: Reports system reviewed and no additional complaints, except as documented and Reports as per HPI Cardiovascular: Cardiovascular: Reports as per HPI and Reports no additional cardiovascular complaints Respiratory: Respiratory: Reports as per HPI and Reports no additional respiratory complaints G
--- NOTE | 2023-11-27 09:06 | PM.IMPN ---
Progress Note: A&P Assessment and Plan (1) Wkvac-vz-ozukpzg kidney injury: Qualifiers: Acute renal failure type: unspecified Chronic kidney disease stage: stage 3 (moderate) Chronic kidney disease stage 3 subtype: unspecified whether 3a or 3b Qualified Code(s): N17.9 - Acute kidney failure, unspecified; N18.30 - Chronic kidney disease, stage 3 unspecified Code(s): N17.9 - Acute kidney failure, unspecified; N18.9 - Chronic kidney disease, unspecified Status: Acute (2) Acute on chronic heart failure with preserved ejection fraction (HFpEF): Code(s): I50.33 - Acute on chronic diastolic (congestive) heart failure Status: Acute (3) A-fib: Qualifiers: Atrial fibrillation type: paroxysmal Qualified Code(s): I48.0 - Paroxysmal atrial fibrillation Code(s): I48.91 - Unspecified atrial fibrillation Status: Acute (4) Cellulitis and abscess of left leg: Code(s): L03.116 - Cellulitis of left lower limb; L02.416 - Cutaneous abscess of left lower limb Status: Acute Plan Cellulitis IV fluid resuscitation Blood cultures negative urine cultures Enterococcus sensitive to PT OT IV antibiotics?unasyn TANISHA Avoid nephrotoxic drugs. Creatinine 1.1 Dose antibiotics depending on creatinine clearance HFpEF 2D echo ejection fraction 60% severely enlarged right ventricle chamber Optimize Ashu inhibitors and beta-blockers?metoprolol and Diovan Fall risk assessment Agreed with web search evaluator recommended AFIB Continue Xarelto.? Continue beta-mamadou rate is well controlled. Spoke to the son in detail answered all questions may need prison placement DVT prophylaxis. Xarelto GI prophylaxis. None All records reviewed Discussed plan of care with the nursing staff and with the patient in detail. Answered all questions and concerns from the patient. All labs have been reviewed. Code status updated dictation may have been done utilizing a voice recognition system. Attempts have been made to correct errors. However, there may be uncorrected grammatical, spelling, and recognition errors present. Subjective Date/time seen: 11/27/23 09:06 Interval history: C She feels about the same today. Breathing is about the same. No chest pain. Date of service 11/26/2023: Just woke up. No chest pain. No other active shortness of breath. Legs are tender to touch Review of Systems Review of Systems: All systems reviewed & are unremarkable except as noted in HPI and below Exam Narrative: GENERAL: Well appearing, no acute distress. HEAD: Normocephalic, atraumatic. NECK: Supple. No adenopathy, no masses. RESPIRATORY: respirations nonlabored. , no rales, wheezing. CARDIOVASCULAR: Regular rate and rhythm without murmurs, . Peripheral pulses erythema of both legs healed ulcer left Mon small open wound right CT has a new blister no open wound ABDOMINAL: Soft, nontender, nondistended, no hepatosplenomegaly. Normoactive BS. MUSCULOSKELETAL: no Epigastric and no hypochondrial tenderness SKIN: Warm, dry, NEURO: A&O X3. Moves all extremities Objective Data Vital Signs Vital Signs: Vital Signs - 24 hr 11/26/23 12:00 11/26/23 14:00 11/26/23 20:34 Temperature 36.3 C L 36.6 C Pulse Rate 87 61 80 Respiratory Rate 18 16 Blood Pressure 122/80 115/73 Pulse Oximetry 91 95 Oxygen Delivery Oxygen Flow Rate 11/26/23 20:00 11/27/23 06:00 11/26/23 20:00 Temperature 36.2 C L Pulse Rate 78 80 Respiratory Rate 18 Blood Pressure 127/89 Pulse Oximetry 99 95 Oxygen Delivery Nasal Cannula Oxygen Flow Rate 1 11/27/23 00:00 11/27/23 04:00 Temperature Pulse Rate 75 89 Respiratory Rate Blood Pressure Pulse Oximetry Oxygen Delivery Oxygen Flow Rate Intake/Output Intake/Output: Intake & Output 11/24/23 11/25/23 11/26/23 11/27/23 23:59 23:59 23:59 23:59 Intake Total 2919 956 1824 100 Output Total 1200 350 700
[2023-11-27 09:16] VITALS: PULSE 80
[2023-11-27] MEDS: ESCITALOPRAM OXALATE 10 MG TABLET 20 MG PO (09:16)
[2023-11-27] MEDS: POTASSIUM CHLORIDE 20 MEQ ER TABLET PO ×2 (09:16→17:29)
[2023-11-27] MEDS: busPIRone HCL 5 MG TABLET PO ×3 (09:16→17:29)
[2023-11-27] MEDS: MULTIVITAMINS THERAPEUTIC TAB (*BKC) 1 TABLET PO (09:16)
[2023-11-27] MEDS: OPTI-GEN TAB 1 TABLET PO (09:16)
[2023-11-27] MEDS: METOPROLOL SUCCINATE EXT REL 50 MG TABCR PO (09:16)
[2023-11-27] MEDS: BUMETANIDE 0.5 MG TABLET PO ×2 (09:18→17:29)
[2023-11-27] MEDS: LORATADINE 10 MG TABLET PO (09:18)
[2023-11-27] MEDS: MAGNESIUM OXIDE 400 MG TABLET PO (09:18)
[2023-11-27] MEDS: RALOXIFENE HCL (*CHEMO) 60 MG TABLET PO (09:18)
[2023-11-27 14:00] VITALS: BP 112/83; PULSE 66; RESP 18; O2SAT 94
[2023-11-27] MEDS: RIVAROXABAN 15 MG TABLET PO (17:30)
[2023-11-27] MEDS: FLUTICASONE PROPIONATE 0.05% NA SPR 16 GM BTL (*BKC) 1 SPRAY NASAL (21:13)
[2023-11-27] MEDS: SENNOSIDES 8.6 MG TABLET PO (21:13)
[2023-11-27 21:15] VITALS: BP 102/61; PULSE 77; RESP 17; TEMP 36.3; O2SAT 91
[2023-11-28] MEDS: AMPICILLIN SULB 3 GM/NS 100 ML 3 GM/100 ML VIAL IVPB ×4 (05:55→23:32)
[2023-11-28 06:00] VITALS: BP 95/74; PULSE 66; RESP 16; TEMP 36.8; O2SAT 94
[2023-11-28 06:02] LABS: Potassium 4.9 mmol/L (3.4-5.0)
[2023-11-28] MEDS: OPTI-GEN TAB 1 TABLET PO (10:00)
[2023-11-28] MEDS: POTASSIUM CHLORIDE 20 MEQ ER TABLET PO ×2 (10:00→16:58)
[2023-11-28] MEDS: MAGNESIUM OXIDE 400 MG TABLET PO (10:00)
[2023-11-28] MEDS: MULTIVITAMINS THERAPEUTIC TAB (*BKC) 1 TABLET PO (10:00)
[2023-11-28] MEDS: RALOXIFENE HCL (*CHEMO) 60 MG TABLET PO (10:00)
[2023-11-28] MEDS: busPIRone HCL 5 MG TABLET PO ×3 (10:00→16:58)
[2023-11-28] MEDS: BUMETANIDE 0.5 MG TABLET PO ×2 (10:00→16:58)
[2023-11-28] MEDS: ESCITALOPRAM OXALATE 10 MG TABLET 20 MG PO (10:01)
[2023-11-28] MEDS: LORATADINE 10 MG TABLET PO (10:01)
[2023-11-28] MEDS: METOPROLOL SUCCINATE EXT REL 50 MG TABCR PO (10:01)
[2023-11-28 14:00] VITALS: BP 104/66; PULSE 70; RESP 18; TEMP 36.8; O2SAT 92
--- NOTE | 2023-11-28 15:14 | PM.IMPN ---
Progress Note: A&P Assessment and Plan (1) Wltbx-if-agwoosw kidney injury: Qualifiers: Acute renal failure type: unspecified Chronic kidney disease stage: stage 3 (moderate) Chronic kidney disease stage 3 subtype: unspecified whether 3a or 3b Qualified Code(s): N17.9 - Acute kidney failure, unspecified; N18.30 - Chronic kidney disease, stage 3 unspecified Code(s): N17.9 - Acute kidney failure, unspecified; N18.9 - Chronic kidney disease, unspecified Status: Acute (2) Acute on chronic heart failure with preserved ejection fraction (HFpEF): Code(s): I50.33 - Acute on chronic diastolic (congestive) heart failure Status: Acute (3) A-fib: Qualifiers: Atrial fibrillation type: paroxysmal Qualified Code(s): I48.0 - Paroxysmal atrial fibrillation Code(s): I48.91 - Unspecified atrial fibrillation Status: Acute (4) Cellulitis and abscess of left leg: Code(s): L03.116 - Cellulitis of left lower limb; L02.416 - Cutaneous abscess of left lower limb Status: Acute Plan Cellulitis; mostly due to venous insufficiency IV fluid resuscitation Blood cultures negative urine cultures Enterococcus sensitive to PT OT IV antibiotics?unasyn TANISHA Avoid nephrotoxic drugs. Creatinine 1.1 Dose antibiotics depending on creatinine clearance HFpEF 2D echo ejection fraction 60% severely enlarged right ventricle chamber Optimize Ashu inhibitors and beta-blockers?metoprolol and Diovan Fall risk assessment Agreed with shopping inspector recommended AFIB Continue Xarelto.? Continue beta-mamadou rate is well controlled. Spoke to the son in detail answered all questions may need longterm placement DVT prophylaxis. Xarelto GI prophylaxis. None All records reviewed Discussed plan of care with the nursing staff and with the patient in detail. Answered all questions and concerns from the patient. All labs have been reviewed. Code status updated dictation may have been done utilizing a voice recognition system. Attempts have been made to correct errors. However, there may be uncorrected grammatical, spelling, and recognition errors present. Time Spent With Patient Time with patient: 25 - 35 minutes Subjective Date/time seen: 11/28/23 15:14 Interval history: She does not ambulated and needs an assist device; Legs are tender to touch Review of Systems Review of Systems: All systems reviewed & are unremarkable except as noted in HPI and below Constitutional: Constitutional: Reports weakness Eyes: Eyes: Reports no additional eye complaints ENT: Reports system reviewed and no additional complaints, except as documented Cardiovascular: Cardiovascular: Reports no additional cardiovascular complaints Respiratory: Respiratory: Reports no additional respiratory complaints Gastrointestinal: Gastrointestinal: Reports no additional gastrointestinal complaints Musculoskeletal: Musculoskeletal: Reports myalgias and Reports arthralgias Neurologic: Reports system reviewed and no additional complaints, except as documented and Reports weakness Exam Narrative: GENERAL: Well appearing, no acute distress. HEAD: Normocephalic, atraumatic. NECK: Supple. No adenopathy, no masses. RESPIRATORY: respirations nonlabored. , no rales, wheezing. CARDIOVASCULAR: Regular rate and rhythm without murmurs, . Peripheral pulses erythema of both legs healed ulcer left Mon small open wound right CT has a new blister no open wound ABDOMINAL: Soft, nontender, nondistended, no hepatosplenomegaly. Normoactive BS. MUSCULOSKELETAL: no Epigastric and no hypochondrial tenderness SKIN: Warm, dry, NEURO: A&O X3. Moves all extremities Objective Data Vital Signs Vital Signs: Vital Signs - 24 hr 11/27/23 21:15 11/28/23 06:00 11/28/23 14:00 Temperature 97.4 F L 98.2 F 98.3 F Pulse Rate 77 66 70 Respiratory Rate 17 16 18 Blood Pressure 102/61 95/74 L 104/66 Pulse Oximetry 91 94 92
[2023-11-28] MEDS: RIVAROXABAN 15 MG TABLET PO (16:58)
[2023-11-28 20:00] VITALS: BP 106/74; PULSE 90; RESP 14; TEMP 36.4; O2SAT 93; O2SAT 94
[2023-11-28] MEDS: SENNOSIDES 8.6 MG TABLET PO (20:29)
[2023-11-28] MEDS: FLUTICASONE PROPIONATE 0.05% NA SPR 16 GM BTL (*BKC) 1 SPRAY NASAL (20:29)
[2023-11-29] MEDS: AMPICILLIN SULB 3 GM/NS 100 ML 3 GM/100 ML VIAL IVPB ×2 (05:38→11:58)
[2023-11-29 06:00] VITALS: BP 137/82; PULSE 88; RESP 12; TEMP 36.6; O2SAT 92
[2023-11-29] MEDS: ESCITALOPRAM OXALATE 10 MG TABLET 20 MG PO (09:24)
[2023-11-29] MEDS: RALOXIFENE HCL (*CHEMO) 60 MG TABLET PO (09:24)
[2023-11-29] MEDS: LORATADINE 10 MG TABLET PO (09:24)
[2023-11-29] MEDS: busPIRone HCL 5 MG TABLET PO ×3 (09:24→17:27)
[2023-11-29] MEDS: OPTI-GEN TAB 1 TABLET PO (09:24)
[2023-11-29] MEDS: MAGNESIUM OXIDE 400 MG TABLET PO (09:24)
[2023-11-29] MEDS: POTASSIUM CHLORIDE 20 MEQ ER TABLET PO ×2 (09:24→17:27)
[2023-11-29] MEDS: MULTIVITAMINS THERAPEUTIC TAB (*BKC) 1 TABLET PO (09:24)
[2023-11-29] MEDS: BUMETANIDE 0.5 MG TABLET PO ×2 (09:24→17:27)
[2023-11-29 09:47] VITALS: PULSE 76
[2023-11-29] MEDS: METOPROLOL SUCCINATE EXT REL 50 MG TABCR PO (09:47)
--- NOTE | 2023-11-29 11:20 | PM.PNCARD ---
Progress Note: A&P Assessment and Plan (1) Acute on chronic heart failure with preserved ejection fraction (HFpEF): Code(s): I50.33 - Acute on chronic diastolic (congestive) heart failure Status: Acute Assessment and Plan: Clinically, patient presented with probable mild acute on chronic heart failure with history of preserved ejection fraction. Echocardiogram once again shows preserved LV systolic function. She does have severely enlarged RV chamber dimension and RV dysfunction. Severe biatrial enlargement. Mild , AI, MR, moderate TR, pulmonary hypertension with the estimated PASP of 50 mmHg. Continues to feel okay. Continue Bumex 0.5mg BID> Low-sodium diet Fluid restriction Strict intake and output Daily weight CHF counseling She does have untreated sleep apnea. Managing her IZABELLA will be important moving forward. (2) A-fib: Qualifiers: Atrial fibrillation type: paroxysmal Qualified Code(s): I48.0 - Paroxysmal atrial fibrillation Code(s): I48.91 - Unspecified atrial fibrillation Status: Acute Assessment and Plan: Longstanding persistent atrial fibrillation heart rate reasonably controlled. Continue Toprol XL 50 mg daily. Continue lower dose Xarelto at 15 mg daily Follow H&H which is stable at this time. (3) Wuruk-wr-othtldt kidney injury: Qualifiers: Acute renal failure type: unspecified Chronic kidney disease stage: stage 3 (moderate) Chronic kidney disease stage 3 subtype: unspecified whether 3a or 3b Qualified Code(s): N17.9 - Acute kidney failure, unspecified; N18.30 - Chronic kidney disease, stage 3 unspecified Code(s): N17.9 - Acute kidney failure, unspecified; N18.9 - Chronic kidney disease, unspecified Status: Acute Assessment and Plan: TANISHA resolved (4) Acute hypoxemic respiratory failure: Code(s): J96.01 - Acute respiratory failure with hypoxia Status: Acute Assessment and Plan: Patient remains on O2 supplementation. (5) Cellulitis and abscess of left leg: Code(s): L03.116 - Cellulitis of left lower limb; L02.416 - Cutaneous abscess of left lower limb Status: Acute Assessment and Plan: Management deferred to primary service. Patient is significant erythema bilateral lower extremities with open wound. Wound Care consultation noted. Continue IV antibiotics as appropriate currently on levofloxacin IV. Blood cultures NGTD Plan Cardiology will sign off at this time. Please call us back if needed. Subjective Date/time seen: 11/29/23 11:20 Interval history: Cardiology follow up for CHF She feels about the same today. Breathing is about the same. No chest pain. Date of service 11/26/2023: Just woke up. No chest pain. No other active shortness of breath. Legs are tender to touch Date of service 11/27/2023: More awake alert today. No chest pain or shortness of breath. Legs are erythematous and wounds are noted but less swollen Date of service 11/29: Denies shortness of breath or chest pain. States she feels okay. Review of Systems Review of Systems: All systems reviewed & are unremarkable except as noted in HPI and below (HPI) Exam Const: General: no acute distress Other: Elderly female HENMT: Mouth: Yes moist mucous membranes Eyes: Sclera: sclerae normal Resp: Effort & Inspection: normal respiratory effort Cardio: Rhythm: abnormal rhythm irregularly irregular Neuro: Speech: normal speech Psych: Mental Status: mental status grossly normal Affect: normal affect Objective Data Vital Signs Vital Signs: Vital Signs - 24 hr 11/28/23 14:00 11/28/23 20:00 11/28/23 20:00 Temperature 36.8 C 36.4 C Pulse Rate 70 90 Respiratory Rate 18 14 Blood Pressure 104/66 106/74 Pulse Oximetry 92 93 94 Oxygen Delivery Nasal Cannula Oxygen Flow Rate 2 11/29/23 06:00 11/29/23 09:47 Temperature 36.6 C Pulse Rate 88 76 Respiratory Rate 1
[2023-11-29 14:00] VITALS: BP 104/71; PULSE 69; RESP 16; TEMP 36.6; O2SAT 96
--- NOTE | 2023-11-29 16:38 | PM.IMPN ---
Progress Note: A&P Assessment and Plan (1) Ttsdo-my-sfoeuiv kidney injury: Qualifiers: Acute renal failure type: unspecified Chronic kidney disease stage: stage 3 (moderate) Chronic kidney disease stage 3 subtype: unspecified whether 3a or 3b Qualified Code(s): N17.9 - Acute kidney failure, unspecified; N18.30 - Chronic kidney disease, stage 3 unspecified Code(s): N17.9 - Acute kidney failure, unspecified; N18.9 - Chronic kidney disease, unspecified Status: Acute (2) Acute on chronic heart failure with preserved ejection fraction (HFpEF): Code(s): I50.33 - Acute on chronic diastolic (congestive) heart failure Status: Acute (3) A-fib: Qualifiers: Atrial fibrillation type: paroxysmal Qualified Code(s): I48.0 - Paroxysmal atrial fibrillation Code(s): I48.91 - Unspecified atrial fibrillation Status: Acute (4) Cellulitis and abscess of left leg: Code(s): L03.116 - Cellulitis of left lower limb; L02.416 - Cutaneous abscess of left lower limb Status: Acute Plan Cellulitis; mostly due to venous insufficiency IV fluid resuscitation Blood cultures negative urine cultures Enterococcus sensitive to PT OT IV antibiotics?unasyn TANISHA Avoid nephrotoxic drugs. Creatinine 1.1 Dose antibiotics depending on creatinine clearance HFpEF 2D echo ejection fraction 60% severely enlarged right ventricle chamber Optimize Ashu inhibitors and beta-blockers?metoprolol and Diovan Fall risk assessment Agreed with diesel service technician recommended AFIB Continue Xarelto.? Continue beta-mamadou rate is well controlled. Spoke to the son in detail answered all questions may need fci placement DVT prophylaxis. Xarelto GI prophylaxis. None All records reviewed Discussed plan of care with the nursing staff and with the patient in detail. Answered all questions and concerns from the patient. All labs have been reviewed. Code status updated dictation may have been done utilizing a voice recognition system. Attempts have been made to correct errors. However, there may be uncorrected grammatical, spelling, and recognition errors present. Subjective Date/time seen: 11/29/23 16:38 Interval history: Cardiology follow up for CHF She feels about the same today. Breathing is about the same. No chest pain. Date of service 11/26/2023: Just woke up. No chest pain. No other active shortness of breath. Legs are tender to touch Date of service 11/27/2023: More awake alert today. No chest pain or shortness of breath. Legs are erythematous and wounds are noted but less swollen Date of service 11/29: Denies shortness of breath or chest pain. States she feels okay. Review of Systems Review of Systems: All systems reviewed & are unremarkable except as noted in HPI and below Constitutional: Constitutional: Reports weakness Eyes: Eyes: Reports no additional eye complaints ENT: Reports system reviewed and no additional complaints, except as documented Cardiovascular: Cardiovascular: Reports no additional cardiovascular complaints Respiratory: Respiratory: Reports no additional respiratory complaints Gastrointestinal: Gastrointestinal: Reports no additional gastrointestinal complaints Musculoskeletal: Musculoskeletal: Reports myalgias and Reports arthralgias Neurologic: Reports system reviewed and no additional complaints, except as documented and Reports weakness Exam Narrative: GENERAL: Well appearing, no acute distress. HEAD: Normocephalic, atraumatic. NECK: Supple. No adenopathy, no masses. RESPIRATORY: respirations nonlabored. , no rales, wheezing. CARDIOVASCULAR: Regular rate and rhythm without murmurs, . Peripheral pulses erythema of both legs healed ulcer left Mon small open wound right CT has a new blister no open wound ABDOMINAL: Soft, nontender, nondistended, no hepatosplenomegaly. Normoactive BS. MUSCULOSKELETAL: no Epigastric and no hypochondrial t
[2023-11-29] MEDS: RIVAROXABAN 15 MG TABLET PO (17:27)
[2023-11-29 21:11] VITALS: BP 103/54; PULSE 83; RESP 16; TEMP 36.6; O2SAT 92
[2023-11-29] MEDS: FLUTICASONE PROPIONATE 0.05% NA SPR 16 GM BTL (*BKC) 1 SPRAY NASAL (21:13)
[2023-11-29] MEDS: AMOXICILLIN/CLAVULANATE K 875-125 MG TAB 1 TABLET PO (21:13)
[2023-11-29] MEDS: SENNOSIDES 8.6 MG TABLET PO (21:13)
[2023-11-30 05:56] VITALS: BP 112/69; PULSE 78; RESP 18; TEMP 36.6; O2SAT 93
[2023-11-30 06:11] LABS: Potassium 5.4 mmol/L (3.4-5.0)
[2023-11-30] MEDS: AMOXICILLIN/CLAVULANATE K 875-125 MG TAB 1 TABLET PO ×2 (08:44→20:44)
[2023-11-30] MEDS: ESCITALOPRAM OXALATE 10 MG TABLET 20 MG PO (08:44)
[2023-11-30] MEDS: MAGNESIUM OXIDE 400 MG TABLET PO (08:44)
[2023-11-30] MEDS: BUMETANIDE 0.5 MG TABLET PO ×2 (08:44→17:15)
[2023-11-30] MEDS: MULTIVITAMINS THERAPEUTIC TAB (*BKC) 1 TABLET PO (08:44)
[2023-11-30] MEDS: RALOXIFENE HCL (*CHEMO) 60 MG TABLET PO (08:44)
[2023-11-30 08:45] VITALS: PULSE 86
[2023-11-30] MEDS: METOPROLOL SUCCINATE EXT REL 50 MG TABCR PO (08:45)
[2023-11-30] MEDS: busPIRone HCL 5 MG TABLET PO ×3 (08:45→17:15)
[2023-11-30] MEDS: OPTI-GEN TAB 1 TABLET PO (08:45)
[2023-11-30] MEDS: LORATADINE 10 MG TABLET PO (08:45)
[2023-11-30 11:18] VITALS: BMI 33.0
[2023-11-30 14:00] VITALS: BP 102/58; PULSE 92; RESP 18; TEMP 36.2; O2SAT 96
--- NOTE | 2023-11-30 14:40 | PCOTNOTE ---
Attempted to see Patient this session. Patient refused to participate in any activities and states she is fine, needs sleep to get better .
[2023-11-30] MEDS: RIVAROXABAN 15 MG TABLET PO (17:15)
--- NOTE | 2023-11-30 18:00 | PM.IMPN ---
Progress Note: A&P Assessment and Plan (1) Mgyva-so-urfxbcu kidney injury: Qualifiers: Acute renal failure type: unspecified Chronic kidney disease stage: stage 3 (moderate) Chronic kidney disease stage 3 subtype: unspecified whether 3a or 3b Qualified Code(s): N17.9 - Acute kidney failure, unspecified; N18.30 - Chronic kidney disease, stage 3 unspecified Code(s): N17.9 - Acute kidney failure, unspecified; N18.9 - Chronic kidney disease, unspecified Status: Acute (2) Acute on chronic heart failure with preserved ejection fraction (HFpEF): Code(s): I50.33 - Acute on chronic diastolic (congestive) heart failure Status: Acute (3) A-fib: Qualifiers: Atrial fibrillation type: paroxysmal Qualified Code(s): I48.0 - Paroxysmal atrial fibrillation Code(s): I48.91 - Unspecified atrial fibrillation Status: Acute (4) Cellulitis and abscess of left leg: Code(s): L03.116 - Cellulitis of left lower limb; L02.416 - Cutaneous abscess of left lower limb Status: Acute Plan Cellulitis; mostly due to venous insufficiency IV fluid resuscitation Blood cultures negative urine cultures Enterococcus sensitive to PT OT IV antibiotics?unasyn Physical deconditioning. SNF placement TANISHA Avoid nephrotoxic drugs. Creatinine 1.1 Dose antibiotics depending on creatinine clearance HFpEF 2D echo ejection fraction 60% severely enlarged right ventricle chamber Optimize Ashu inhibitors and beta-blockers?metoprolol and Diovan Fall risk assessment Agreed with curriculum developer recommended AFIB Continue Xarelto.? Continue beta-mamadou rate is well controlled. Spoke to the son in detail answered all questions may need jail placement DVT prophylaxis. Xarelto GI prophylaxis. None All records reviewed Discussed plan of care with the nursing staff and with the patient in detail. Answered all questions and concerns from the patient. All labs have been reviewed. Code status updated Time Spent With Patient Time with patient: 25 - 35 minutes Subjective Date/time seen: 11/30/23 18:00 Interval history: Cardiology follow up for CHF She feels about the same today. Breathing is about the same. No chest pain. 11/26/2023: Just woke up. No chest pain. No other active shortness of breath. Legs are tender to touch 11/27/2023: More awake alert today. No chest pain or shortness of breath. Legs are erythematous and wounds are noted but less swollen 11/29: Denies shortness of breath or chest pain. States she feels okay. 11/30/23: Placement plans underway; wound care Review of Systems Review of Systems: All systems reviewed & are unremarkable except as noted in HPI and below Constitutional: Constitutional: Reports weakness Eyes: Eyes: Reports no additional eye complaints ENT: Reports system reviewed and no additional complaints, except as documented Cardiovascular: Cardiovascular: Reports no additional cardiovascular complaints Respiratory: Respiratory: Reports no additional respiratory complaints Gastrointestinal: Gastrointestinal: Reports no additional gastrointestinal complaints Musculoskeletal: Musculoskeletal: Reports myalgias and Reports arthralgias Neurologic: Reports system reviewed and no additional complaints, except as documented and Reports weakness Exam Narrative: GENERAL: Well appearing, no acute distress. HEAD: Normocephalic, atraumatic. NECK: Supple. No adenopathy, no masses. RESPIRATORY: respirations nonlabored. , no rales, wheezing. CARDIOVASCULAR: Regular rate and rhythm without murmurs, . Peripheral pulses erythema of both legs healed ulcer left Mon small open wound right CT has a new blister no open wound ABDOMINAL: Soft, nontender, nondistended, no hepatosplenomegaly. Normoactive BS. MUSCULOSKELETAL: no Epigastric and no hypochondrial tenderness SKIN: Warm, dry, NEURO: A&O X3. Moves all extremities Objective Raymond
[2023-11-30 20:00] VITALS: PULSE 95; RESP 18; O2SAT 94
[2023-11-30] MEDS: FLUTICASONE PROPIONATE 0.05% NA SPR 16 GM BTL (*BKC) 1 SPRAY NASAL (20:44)
[2023-11-30] MEDS: SENNOSIDES 8.6 MG TABLET PO (20:44)
[2023-11-30 20:58] VITALS: BP 102/70; PULSE 95; RESP 18; TEMP 36.4; O2SAT 94
[2023-12-01] VITALS (8 sets, daily range): BP systolic 99–118; BP diastolic 63–66; PULSE 75–87; RESP 16–20; TEMP 36.4–36.8; O2SAT 95–97
[2023-12-01] MEDS: BUMETANIDE 0.5 MG TABLET PO ×2 (09:50→17:22)
[2023-12-01] MEDS: LORATADINE 10 MG TABLET PO (09:50)
[2023-12-01] MEDS: busPIRone HCL 5 MG TABLET PO ×3 (09:51→17:22)
[2023-12-01] MEDS: MAGNESIUM OXIDE 400 MG TABLET PO (09:51)
[2023-12-01] MEDS: ESCITALOPRAM OXALATE 10 MG TABLET 20 MG PO (09:51)
[2023-12-01] MEDS: RALOXIFENE HCL (*CHEMO) 60 MG TABLET PO (09:51)
[2023-12-01] MEDS: OPTI-GEN TAB 1 TABLET PO (09:51)
[2023-12-01] MEDS: MULTIVITAMINS THERAPEUTIC TAB (*BKC) 1 TABLET PO (09:51)
[2023-12-01] MEDS: METOPROLOL SUCCINATE EXT REL 50 MG TABCR PO (09:52)
--- NOTE | 2023-12-01 15:37 | PM.IMPN ---
Progress Note: A&P Assessment and Plan (1) Wafwp-ye-pgaowpv kidney injury: Qualifiers: Acute renal failure type: unspecified Chronic kidney disease stage: stage 3 (moderate) Chronic kidney disease stage 3 subtype: unspecified whether 3a or 3b Qualified Code(s): N17.9 - Acute kidney failure, unspecified; N18.30 - Chronic kidney disease, stage 3 unspecified Code(s): N17.9 - Acute kidney failure, unspecified; N18.9 - Chronic kidney disease, unspecified Status: Acute (2) Acute on chronic heart failure with preserved ejection fraction (HFpEF): Code(s): I50.33 - Acute on chronic diastolic (congestive) heart failure Status: Acute (3) A-fib: Qualifiers: Atrial fibrillation type: paroxysmal Qualified Code(s): I48.0 - Paroxysmal atrial fibrillation Code(s): I48.91 - Unspecified atrial fibrillation Status: Acute (4) Cellulitis and abscess of left leg: Code(s): L03.116 - Cellulitis of left lower limb; L02.416 - Cutaneous abscess of left lower limb Status: Acute Plan Cellulitis; mostly due to venous insufficiency IV fluid resuscitation Blood cultures negative urine cultures Enterococcus sensitive to PT OT IV antibiotics?unasyn Will DC Unasyn Physical deconditioning. SNF placement TANISHA Avoid nephrotoxic drugs. Creatinine 1.1 Dose antibiotics depending on creatinine clearance HFpEF 2D echo ejection fraction 60% severely enlarged right ventricle chamber Optimize Ashu inhibitors and beta-blockers?metoprolol and Diovan Fall risk assessment Agreed with account representative recommended AFIB Continue Xarelto.? Continue beta-mamadou rate is well controlled. Spoke to the son in detail answered all questions may need retirement placement DVT prophylaxis. Xarelto GI prophylaxis. None Code status DNR Disposition: Placement plans underway Time Spent With Patient Time with patient: 25 - 35 minutes Subjective Date/time seen: 12/01/23 15:37 Interval history: Cardiology follow up for CHF She feels about the same today. Breathing is about the same. No chest pain. 11/26/2023: Just woke up. No chest pain. No other active shortness of breath. Legs are tender to touch 11/27/2023: More awake alert today. No chest pain or shortness of breath. Legs are erythematous and wounds are noted but less swollen 11/29: Denies shortness of breath or chest pain. States she feels okay. 11/30/23: Placement plans underway; wound care 12/01/23: Seen and examined; tired-looking Review of Systems Review of Systems: All systems reviewed & are unremarkable except as noted in HPI and below Constitutional: Constitutional: Reports weakness Eyes: Eyes: Reports no additional eye complaints ENT: Reports system reviewed and no additional complaints, except as documented Cardiovascular: Cardiovascular: Reports no additional cardiovascular complaints Respiratory: Respiratory: Reports no additional respiratory complaints Gastrointestinal: Gastrointestinal: Reports no additional gastrointestinal complaints Musculoskeletal: Musculoskeletal: Reports myalgias and Reports arthralgias Integumentary/Breasts: Skin/Breast: Reports dry skin Neurologic: Reports system reviewed and no additional complaints, except as documented and Reports weakness Exam Narrative: GENERAL: Well appearing, no acute distress. HEAD: Normocephalic, atraumatic. NECK: Supple. No adenopathy, no masses. RESPIRATORY: respirations nonlabored. , no rales, wheezing. CARDIOVASCULAR: Regular rate and rhythm without murmurs, . Peripheral pulses erythema of both legs healed ulcer left Mon small open wound right CT has a new blister no open wound ABDOMINAL: Soft, nontender, nondistended, no hepatosplenomegaly. Normoactive BS. MUSCULOSKELETAL: no Epigastric and no hypochondrial tenderness SKIN: Warm, dry, NEURO: A&O X3. Moves all extremities Objective Data Vital Signs Vital Signs: Vital S
[2023-12-01] MEDS: RIVAROXABAN 15 MG TABLET PO (17:22)
[2023-12-01] MEDS: SENNOSIDES 8.6 MG TABLET PO (20:37)
[2023-12-01] MEDS: FLUTICASONE PROPIONATE 0.05% NA SPR 16 GM BTL (*BKC) 1 SPRAY NASAL (20:37)
[2023-12-02 05:26] VITALS: BP 101/64; PULSE 92; RESP 14; TEMP 36.4; O2SAT 99
[2023-12-02 06:06] LABS: Potassium 4.6 mmol/L (3.4-5.0)
[2023-12-02 08:00] VITALS: PULSE 88; RESP 14; O2SAT 99
[2023-12-02] MEDS: POTASSIUM CHLORIDE 20 MEQ ER TABLET PO ×2 (09:12→16:14)
[2023-12-02] MEDS: MAGNESIUM OXIDE 400 MG TABLET PO (09:13)
[2023-12-02] MEDS: RALOXIFENE HCL (*CHEMO) 60 MG TABLET PO (09:13)
[2023-12-02] MEDS: BUMETANIDE 0.5 MG TABLET PO ×2 (09:13→16:14)
[2023-12-02] MEDS: OPTI-GEN TAB 1 TABLET PO (09:13)
[2023-12-02] MEDS: MULTIVITAMINS THERAPEUTIC TAB (*BKC) 1 TABLET PO (09:13)
[2023-12-02] MEDS: ESCITALOPRAM OXALATE 10 MG TABLET 20 MG PO (09:13)
[2023-12-02] MEDS: LORATADINE 10 MG TABLET PO (09:13)
[2023-12-02] MEDS: busPIRone HCL 5 MG TABLET PO ×3 (09:13→16:14)
[2023-12-02 09:15] VITALS: PULSE 88
[2023-12-02] MEDS: METOPROLOL SUCCINATE EXT REL 50 MG TABCR PO (09:15)
[2023-12-02 14:00] VITALS: BP 103/69; PULSE 57; RESP 15; TEMP 36.6; O2SAT 100
[2023-12-02] MEDS: RIVAROXABAN 15 MG TABLET PO (16:14)
--- NOTE | 2023-12-02 16:28 | PM.IMPN ---
Progress Note: A&P Assessment and Plan (1) Ldzso-it-qnzdspb kidney injury: Qualifiers: Acute renal failure type: unspecified Chronic kidney disease stage: stage 3 (moderate) Chronic kidney disease stage 3 subtype: unspecified whether 3a or 3b Qualified Code(s): N17.9 - Acute kidney failure, unspecified; N18.30 - Chronic kidney disease, stage 3 unspecified Code(s): N17.9 - Acute kidney failure, unspecified; N18.9 - Chronic kidney disease, unspecified Status: Acute (2) Acute on chronic heart failure with preserved ejection fraction (HFpEF): Code(s): I50.33 - Acute on chronic diastolic (congestive) heart failure Status: Acute (3) A-fib: Qualifiers: Atrial fibrillation type: paroxysmal Qualified Code(s): I48.0 - Paroxysmal atrial fibrillation Code(s): I48.91 - Unspecified atrial fibrillation Status: Acute (4) Cellulitis and abscess of left leg: Code(s): L03.116 - Cellulitis of left lower limb; L02.416 - Cutaneous abscess of left lower limb Status: Acute Plan Cellulitis; mostly due to venous insufficiency IV fluid resuscitation Blood cultures negative urine cultures Enterococcus sensitive to PT OT IV antibiotics?unasyn Will DC Unasyn; on Cephalexin Physical deconditioning. SNF placement TANISHA Avoid nephrotoxic drugs. Creatinine 1.1 Dose antibiotics depending on creatinine clearance HFpEF 2D echo ejection fraction 60% severely enlarged right ventricle chamber Optimize Ashu inhibitors and beta-blockers?metoprolol and Diovan Fall risk assessment On Bumex AFIB Continue Xarelto.? Continue beta-mamadou rate is well controlled. Spoke to the son in detail answered all questions may need assisted placement DVT prophylaxis. Xarelto GI prophylaxis. None Code status DNR Disposition: Placement plans underway; awaiting insurance clearance Subjective Date/time seen: 12/02/23 16:28 Interval history: Cardiology follow up for CHF She feels about the same today. Breathing is about the same. No chest pain. 11/26/2023: Just woke up. No chest pain. No other active shortness of breath. Legs are tender to touch 11/27/2023: More awake alert today. No chest pain or shortness of breath. Legs are erythematous and wounds are noted but less swollen 11/29: Denies shortness of breath or chest pain. States she feels okay. 11/30/23: Placement plans underway; wound care 12/01/23: Seen and examined; tired-looking 12/02/23: More lucid today; denies fresh concerns; not in painful or respiratory distress Review of Systems Review of Systems: All systems reviewed & are unremarkable except as noted in HPI and below Constitutional: Constitutional: Reports weakness Eyes: Eyes: Reports no additional eye complaints ENT: Reports system reviewed and no additional complaints, except as documented Cardiovascular: Cardiovascular: Reports no additional cardiovascular complaints Respiratory: Respiratory: Reports no additional respiratory complaints Gastrointestinal: Gastrointestinal: Reports no additional gastrointestinal complaints Musculoskeletal: Musculoskeletal: Reports myalgias and Reports arthralgias Integumentary/Breasts: Skin/Breast: Reports dry skin and Reports wounds (Bilateral shins; venous stasis ulcers) Neurologic: Reports system reviewed and no additional complaints, except as documented and Reports weakness Exam Narrative: GENERAL: Well appearing, no acute distress. HEAD: Normocephalic, atraumatic. NECK: Supple. No adenopathy, no masses. RESPIRATORY: respirations nonlabored. , no rales, wheezing. CARDIOVASCULAR: Regular rate and rhythm without murmurs, . Peripheral pulses erythema of both legs healed ulcer left Mon small open wound right CT has a new blister no open wound ABDOMINAL: Soft, nontender, nondistended, no hepatosplenomegaly. Normoactive BS. MUSCULOSKELETAL: no Epigastric and no hypochondrial tenderness SKIN: Warm,
[2023-12-02 20:00] VITALS: O2SAT 97
[2023-12-02 20:43] VITALS: BP 107/75; PULSE 83; RESP 21; TEMP 36.5; O2SAT 100
[2023-12-02] MEDS: SENNOSIDES 8.6 MG TABLET PO (22:52)
[2023-12-02] MEDS: FLUTICASONE PROPIONATE 0.05% NA SPR 16 GM BTL (*BKC) 1 SPRAY NASAL (22:52)
[2023-12-03 06:00] VITALS: BP 98/84; PULSE 108; RESP 16; TEMP 36.4; O2SAT 94
[2023-12-03 08:00] VITALS: O2SAT 94
[2023-12-03] MEDS: busPIRone HCL 5 MG TABLET PO ×3 (09:09→16:54)
[2023-12-03] MEDS: POTASSIUM CHLORIDE 20 MEQ ER TABLET PO ×2 (09:09→16:54)
[2023-12-03] MEDS: RALOXIFENE HCL (*CHEMO) 60 MG TABLET PO (09:09)
[2023-12-03] MEDS: LORATADINE 10 MG TABLET PO (09:09)
[2023-12-03] MEDS: MAGNESIUM OXIDE 400 MG TABLET PO (09:09)
[2023-12-03] MEDS: BUMETANIDE 0.5 MG TABLET PO ×2 (09:09→16:54)
[2023-12-03] MEDS: OPTI-GEN TAB 1 TABLET PO (09:09)
[2023-12-03] MEDS: ESCITALOPRAM OXALATE 10 MG TABLET 20 MG PO (09:09)
[2023-12-03] MEDS: MULTIVITAMINS THERAPEUTIC TAB (*BKC) 1 TABLET PO (09:09)
[2023-12-03 09:12] VITALS: PULSE 82
[2023-12-03] MEDS: METOPROLOL SUCCINATE EXT REL 50 MG TABCR PO (09:12)
[2023-12-03 14:00] VITALS: BP 92/54; PULSE 89; RESP 18; TEMP 36.2; O2SAT 99
[2023-12-03] MEDS: RIVAROXABAN 15 MG TABLET PO (16:54)
--- NOTE | 2023-12-03 17:31 | PM.IMPN ---
Progress Note: A&P Assessment and Plan (1) UTI (urinary tract infection) due to Enterococcus: Code(s): N39.0 - Urinary tract infection, site not specified; B95.2 - Enterococcus as the cause of diseases classified elsewhere Status: Acute Assessment and Plan: History of recurrent urinary infections. Enterococcus on culture. 12/03 start nitrofurantoin 100 mg twice daily for 7 days. (2) Venous stasis ulcer: Code(s): I83.009 - Varicose veins of unspecified lower extremity with ulcer of unspecified site; L97.909 - Non-pressure chronic ulcer of unspecified part of unspecified lower leg with unspecified severity Status: Acute Assessment and Plan: 12/03 discussed with patient and granddaughter need to elevate legs when at rest. Add Telfa to gauze and Yinka dressing daily. (3) Acute on chronic heart failure with preserved ejection fraction (HFpEF): Code(s): I50.33 - Acute on chronic diastolic (congestive) heart failure Status: Acute Assessment and Plan: Likely at baseline Continue bumetanide 0.5 mg (4) A-fib: Qualifiers: Atrial fibrillation type: paroxysmal Qualified Code(s): I48.0 - Paroxysmal atrial fibrillation Code(s): I48.91 - Unspecified atrial fibrillation Status: Acute Assessment and Plan: Rate controlled (5) Cellulitis and abscess of left leg: Code(s): L03.116 - Cellulitis of left lower limb; L02.416 - Cutaneous abscess of left lower limb Status: Acute Assessment and Plan: Resolved (6) Kpjko-mb-lpqcsra kidney injury: Qualifiers: Acute renal failure type: unspecified Chronic kidney disease stage: stage 3 (moderate) Chronic kidney disease stage 3 subtype: unspecified whether 3a or 3b Qualified Code(s): N17.9 - Acute kidney failure, unspecified; N18.30 - Chronic kidney disease, stage 3 unspecified Code(s): N17.9 - Acute kidney failure, unspecified; N18.9 - Chronic kidney disease, unspecified Status: Acute Assessment and Plan: Resolved Subjective Date/time seen: 12/03/23 17:31 Interval history: Per nursing staff she is less confused today. Denied pain. Shortness of breath with exertion. Not keeping oxygen on. Tends to desaturate when asleep. Eating well. No GI or complaints. No chest pain. Swelling in legs a little better. Puffiness and hands a little better. Tolerating meds. Granddaughter is at bedside. Patient lives in [facility]. Review of Systems Review of Systems: All systems reviewed & are unremarkable except as noted in HPI and below Exam Narrative: GENERAL: Elderly female in no acute distress. HEAD: Normocephalic, atraumatic. NECK: No JVD. RESPIRATORY: respirations nonlabored. Clear to auscultation. CARDIOVASCULAR: S1 and S2 normal to auscultation. regular rate and rhythm without murmurs, ABDOMINAL: Soft, nontender, nondistended, no hepatosplenomegaly. Normoactive BS. MUSCULOSKELETAL: No gross deformities to visual inspection. SKIN: Venous stasis changes bilateral mid to distal lower extremities. About 3 cm ulceration with fat visible left mid anterior leg. Tender to palpation. Minimal surrounding erythema. Serous discharge in moderate amount. NEURO: Cranial nerves symmetric to visual inspection. moves all extremities PSYCH: Pleasant and cooperative. Alert. Oriented to person and knows she is in hospital but not which one. Did not know the year or month. Objective Data Vital Signs Vital Signs: Vital Signs - 24 hr 12/02/23 20:43 12/02/23 20:00 12/03/23 06:00 Temperature 97.7 F 97.6 F Pulse Rate 83 108 H Respiratory Rate 21 H 16 Blood Pressure 107/75 98/84 L Pulse Oximetry 100 97 94 Oxygen Delivery Nasal Cannula Oxygen Flow Rate 2 12/03/23 08:28 12/03/23 09:12 12/03/23 08:00 Temperature Pulse Rate 82 Respiratory Rate Blood Pressure Pulse Oximetry 94 Oxygen Delivery Nasal Cannula Nasal
[2023-12-03 19:59] VITALS: BP 103/66; PULSE 78; RESP 16; TEMP 36.6; O2SAT 92
[2023-12-03 20:00] VITALS: O2SAT 100
[2023-12-03] MEDS: NITROFURANTOIN MONOHYD MACROCR 100 MG CAP PO (20:03)
[2023-12-03] MEDS: SENNOSIDES 8.6 MG TABLET PO (20:04)
[2023-12-03] MEDS: FLUTICASONE PROPIONATE 0.05% NA SPR 16 GM BTL (*BKC) 1 SPRAY NASAL (20:04)
[2023-12-03] MEDS: ACETAMINOPHEN 325 MG TABLET 650 MG PO (20:04)
[2023-12-04] VITALS (7 sets, daily range): BP systolic 110–122; BP diastolic 74–87; PULSE 65–84; RESP 18; TEMP 36.5–36.6; O2SAT 91–97
[2023-12-04] MEDS: OPTI-GEN TAB 1 TABLET PO (08:54)
[2023-12-04] MEDS: MULTIVITAMINS THERAPEUTIC TAB (*BKC) 1 TABLET PO (08:54)
[2023-12-04] MEDS: BUMETANIDE 0.5 MG TABLET PO ×2 (08:54→18:08)
[2023-12-04] MEDS: ESCITALOPRAM OXALATE 10 MG TABLET 20 MG PO (08:54)
[2023-12-04] MEDS: POTASSIUM CHLORIDE 20 MEQ ER TABLET PO (08:55)
[2023-12-04] MEDS: METOPROLOL SUCCINATE EXT REL 50 MG TABCR PO (08:55)
[2023-12-04] MEDS: LORATADINE 10 MG TABLET PO (08:55)
[2023-12-04] MEDS: MAGNESIUM OXIDE 400 MG TABLET PO (08:55)
[2023-12-04] MEDS: busPIRone HCL 5 MG TABLET PO ×3 (08:55→18:08)
[2023-12-04] MEDS: RALOXIFENE HCL (*CHEMO) 60 MG TABLET PO (08:55)
[2023-12-04 09:11] LABS: Hematocrit 45.6 % (37.0-47.0); Hemoglobin 13.4 g/dL (12.0-15.0); Mean Corpuscular HGB Conc 29.4 g/dl (32-36); Mean Corpuscular Volume 98.7 fl (80-100); Mean Platelet Volume 10.8 fl (7.4-10.4); Platelet Count Result 136 k/mm3 (150-375); Red Blood Count 4.62 M/mm3 (4.2-5.4); White Blood Count 6.6 K/mm3 (4.5-10.0)
[2023-12-04] MEDS: NITROFURANTOIN MONOHYD MACROCR 100 MG CAP PO ×2 (09:24→20:32)
[2023-12-04 09:52] LABS: Anion Gap 3 mmol/L (8-16); Blood Urea Nitrogen 20 mg/dL (7-17); Carbon Dioxide 35 mmol/L (22-30); Chloride 100 mmol/L (98-107); Estimated CRCL calculation 48 ml/min; Estimated Glomerular Filt Rate > 60; Glucose 73 mg/dL (65-110); Potassium 5.1 mmol/L (3.4-5.0); Sodium 138 mmol/L (137-145)
--- NOTE | 2023-12-04 09:55 | PM.IMPN ---
Progress Note: A&P Assessment and Plan (1) UTI (urinary tract infection) due to Enterococcus: Code(s): N39.0 - Urinary tract infection, site not specified; B95.2 - Enterococcus as the cause of diseases classified elsewhere Status: Acute Assessment and Plan: History of recurrent urinary infections. Enterococcus on culture. 12/03 started nitrofurantoin 100 mg twice daily for 7 days (through 12/09). Await SNF bed per care coordination. (2) Venous stasis ulcer: Code(s): I83.009 - Varicose veins of unspecified lower extremity with ulcer of unspecified site; L97.909 - Non-pressure chronic ulcer of unspecified part of unspecified lower leg with unspecified severity Status: Acute Assessment and Plan: 12/03 discussed with patient and granddaughter need to elevate legs when at rest. Added Telfa to gauze and Yinka dressing daily. (3) Acute on chronic heart failure with preserved ejection fraction (HFpEF): Code(s): I50.33 - Acute on chronic diastolic (congestive) heart failure Status: Acute Assessment and Plan: Likely at baseline Continue bumetanide 0.5 mg BID and metroprolol ER 50 mg daily (4) A-fib: Qualifiers: Atrial fibrillation type: paroxysmal Qualified Code(s): I48.0 - Paroxysmal atrial fibrillation Code(s): I48.91 - Unspecified atrial fibrillation Status: Acute Assessment and Plan: Rate controlled and anticoagulated (5) Cellulitis and abscess of left leg: Code(s): L03.116 - Cellulitis of left lower limb; L02.416 - Cutaneous abscess of left lower limb Status: Acute Assessment and Plan: Resolved (6) Blflz-za-ribxzri kidney injury: Qualifiers: Acute renal failure type: unspecified Chronic kidney disease stage: stage 3 (moderate) Chronic kidney disease stage 3 subtype: unspecified whether 3a or 3b Qualified Code(s): N17.9 - Acute kidney failure, unspecified; N18.30 - Chronic kidney disease, stage 3 unspecified Code(s): N17.9 - Acute kidney failure, unspecified; N18.9 - Chronic kidney disease, unspecified Status: Acute Assessment and Plan: Resolved Subjective Date/time seen: 12/04/23 09:55 Interval history: Tolerating diet. Eating fairly well. Denied pain. Short of breath with exertion. Denied GI or issues. Review of Systems Review of Systems: All systems reviewed & are unremarkable except as noted in HPI and below Exam Narrative: GENERAL: Elderly female in no acute distress. HEAD: Normocephalic, atraumatic. NECK: No JVD. RESPIRATORY: respirations nonlabored. Clear to auscultation. CARDIOVASCULAR: S1 and S2 normal to auscultation. regular rate and rhythm without murmurs, ABDOMINAL: Soft, nontender, nondistended, no hepatosplenomegaly. Normoactive BS. MUSCULOSKELETAL: No gross deformities to visual inspection. SKIN: Venous stasis changes bilateral mid to distal lower extremities. About 3 cm ulceration with fat visible left mid anterior leg. Tender to palpation. Minimal surrounding erythema. Serous discharge in moderate amount. NEURO: Cranial nerves symmetric to visual inspection. moves all extremities PSYCH: Pleasant and cooperative. Alert. Oriented to person. Thought she was on a train to [facility]. When told she would be going to a residential facility she asked if it would be on land. Objective Data Vital Signs Vital Signs: Vital Signs - 24 hr 12/03/23 14:00 12/03/23 19:59 12/03/23 20:00 Temperature 97.2 F L 97.9 F Pulse Rate 89 78 Respiratory Rate 18 16 Blood Pressure 92/54 L 103/66 Pulse Oximetry 99 92 100 Oxygen Delivery Nasal Cannula Oxygen Flow Rate 2 12/04/23 05:40 12/04/23 08:55 Temperature 97.9 F Pulse Rate 65 84 Respiratory Rate 18 Blood Pressure 115/74 Pulse Oximetry 97 Oxygen Delivery Oxygen Flow Rate Intake/Output Intake/Output: Intake & Output 12/01/23 12/02/23 12/03/23 12/04/23 23:5
[2023-12-04] MEDS: RIVAROXABAN 15 MG TABLET PO (18:08)
[2023-12-04] MEDS: FLUTICASONE PROPIONATE 0.05% NA SPR 16 GM BTL (*BKC) 1 SPRAY NASAL (20:32)
[2023-12-04] MEDS: SENNOSIDES 8.6 MG TABLET PO (20:32)
[2023-12-05] VITALS (9 sets, daily range): BP systolic 104–120; BP diastolic 59–85; PULSE 71–99; RESP 16–20; TEMP 36–36.9; O2SAT 92–99
[2023-12-05 05:45] LABS: Anion Gap 2 mmol/L (8-16); Blood Urea Nitrogen 19 mg/dL (7-17); Calcium 10.2 mg/dL (8.4-10.2); Carbon Dioxide 37 mmol/L (22-30); Chloride 97 mmol/L (98-107); Estimated CRCL calculation 48 ml/min; Estimated Glomerular Filt Rate > 60; Glucose 109 mg/dL (65-110); Potassium 5.2 mmol/L (3.4-5.0); Sodium 136 mmol/L (137-145)
[2023-12-05] MEDS: BUMETANIDE 0.5 MG TABLET PO ×2 (08:05→16:12)
[2023-12-05] MEDS: busPIRone HCL 5 MG TABLET PO ×3 (08:05→16:12)
[2023-12-05] MEDS: NITROFURANTOIN MONOHYD MACROCR 100 MG CAP PO ×2 (08:05→21:03)
[2023-12-05] MEDS: OPTI-GEN TAB 1 TABLET PO (08:05)
[2023-12-05] MEDS: MAGNESIUM OXIDE 400 MG TABLET PO (08:05)
[2023-12-05] MEDS: METOPROLOL SUCCINATE EXT REL 50 MG TABCR PO (08:06)
[2023-12-05] MEDS: POTASSIUM CHLORIDE 20 MEQ ER TABLET PO (08:06)
[2023-12-05] MEDS: LORATADINE 10 MG TABLET PO (08:06)
[2023-12-05] MEDS: ESCITALOPRAM OXALATE 10 MG TABLET 20 MG PO (08:06)
[2023-12-05] MEDS: RALOXIFENE HCL (*CHEMO) 60 MG TABLET PO (08:06)
[2023-12-05] MEDS: MULTIVITAMINS THERAPEUTIC TAB (*BKC) 1 TABLET PO (08:06)
[2023-12-05] MEDS: TOLNAFTATE 1% POWDER 45 GM BTL 1 APPLIC TOPICAL ×2 (08:12→21:03)
[2023-12-05] MEDS: OLANZapine 10 MG INJ VIAL 5 MG IM (10:29)
[2023-12-05 10:46] LABS: NT Pro B Type Natriuretic Pept 7120 pg/mL (19.9-100)
--- NOTE | 2023-12-05 11:50 | PCNFU ---
Nutrition Follow-Up Complete: Inadequate Oral Intake as related to CHF as evidenced by poor po intake reported. Goal: Adequate Intake of at least 75% of meals/supplements patient has limited progress towards goal. We will continue current goal. Pt current nutrition is heart healthy with 1800 ml FR. Last recorded weight is 81.2 kg, up from 77.1 kg on admit. Bowel Motility: +Bm reported 12/05 Labs Reviewed:Na 136, K 5.2 Meds Noted:KCL tablet, Lexapro, MVI, Mag ox, Bumex Skin: WNL Additional Notes: Patient remains on a heart healthy diet with 1800 ml FR. Spoke with nursing today in regards to intake. Eating 20% for breakfast today. Intakes have been fair. Patient does need assistance with meals. Diet supplements of Ensure compact remain on lunch and dinner trays for additional 220 kcals and 9 gms protein. PO intake encouraged. RD will monitor weight, labs, skin, oral intake, meds every 5 days.
--- NOTE | 2023-12-05 15:21 | PM.DS ---
DS: Admitting Diagnosis Discharge Date 12/06/23 Admitting Diagnosis Left leg wound HFpEF TANISHA on CKD3 Physical deconditioning DS: Discharge Diagnosis Discharge Diagnosis Plan Assessment and Plan (1) Bqrmr-ek-wjzrvnk kidney injury: ?Qualifiers: ?Acute renal failure type:?unspecified??Chronic kidney disease stage:?stage 3 (moderate)??Chronic kidney disease stage 3 subtype:?unspecified whether 3a or 3b? Qualified Code(s):?N17.9 - Acute kidney failure, unspecified; N18.30 - Chronic kidney disease, stage 3 unspecified ?Code(s): N17.9 - Acute kidney failure, unspecified; N18.9 - Chronic kidney disease, unspecified ?Status:?Acute (2) Acute on chronic heart failure with preserved ejection fraction (HFpEF): ?Code(s): I50.33 - Acute on chronic diastolic (congestive) heart failure ?Status:?Acute (3) A-fib: ?Qualifiers: ?Atrial fibrillation type:?paroxysmal? Qualified Code(s):?I48.0 - Paroxysmal atrial fibrillation ?Code(s): I48.91 - Unspecified atrial fibrillation ?Status:?Acute (4) Cellulitis and abscess of left leg Venous stasis ulccers ?Code(s): L03.116 - Cellulitis of left lower limb; L02.416 - Cutaneous abscess of left lower limb ?Status:?Acute 12/06/23: Wound care 5. UTI, Enterococcus spp: Will DC on Ma 6. Physical deconditioning. Will DC to SNF; falls precautions and preventions Plan Cellulitis; mostly due to venous insufficiency IV fluid resuscitation ?Blood cultures negative urine cultures Enterococcus sensitive to PT OT IV antibiotics?s/p unasyn; Augmentin TANISHA Avoid nephrotoxic drugs. Creatinine 1.1 Dose antibiotics depending on creatinine clearance HFpEF 2D echo ejection fraction 60% severely enlarged right ventricle chamber Optimize Ashu inhibitors and beta-blockers?metoprolol and Diovan Fall risk assessment Agreed with clam shucking machine tender recommended AFIB? Continue Xarelto.? Continue beta-mamadou rate is well controlled. Spoke to the son?in detail answered all questions may need snf placement DVT prophylaxis.? Xarelto GI prophylaxis.? None Code status updated DS: Summary Hospital Course Reason for hospitalization: Left leg wound Physical deconditioning TANISHA on CKD 3 Hospital Course: The patient is 88-year-old female with history of atrial fib, congestive heart failure, lower extremity edema history of chronic wound, history of anxiety, was admitted to the hospital because of worsening left leg wound is oozing.? Patient was tried on oral antibiotics as an outpatient and she failed the treatment patient continues to weeping wound of left lower extremity along with the swelling of both legs with +2 pitting edema.? Patient denies any fever no chills some dry cough no hematemesis hemoptysis or dizziness no chest pain ECHO Summary ? 1. Complete two-dimensional, color flow and Doppler transthoracic echocardiogram is performed. ? 2. Left ventricular chamber dimension is normal. ? 3. Left ventricular systolic function is normal, estimated at 60-65%. ? 4. There is mildly increased left ventricular wall thickness. ? 5. Right ventricular chamber dimension is severely enlarged. ? 6. Right ventricular systolic function is reduced. ? 7. Flattening of the septum in diastole and systole consistent with right ventricular volume and pressure overload. ? 8. Left atrial chamber dimension is severely enlarged. ? 9. Right atrial chamber dimension is severely enlarged. ? 10. There is mild aortic valve stenosis with a peak velocity of 131 cm/s, mean gradient of 3 mmHg, and aortic valve area of 1.6 cm2. ? 11. There is mild aortic valve regurgitation. ? 12. There is mild mitral valve regurgitation. ? 13. There is moderate tricuspid valve regurgitation. ? 14. There is mild pulmonic regurgitation. ? 15. Pulmonary hypertension. Estimated pulmonary arterial systolic pressure is 50 mmHg. ? 16. There is trivial pericardial effusion. ? 17. Left pleural effusion noted.
--- NOTE | 2023-12-05 15:28 | PM.IMPN ---
Progress Note: A&P Assessment and Plan (1) UTI (urinary tract infection) due to Enterococcus: Code(s): N39.0 - Urinary tract infection, site not specified; B95.2 - Enterococcus as the cause of diseases classified elsewhere Status: Acute Assessment and Plan: Enterococcus spp on Nitrofurantoin (2) Venous stasis ulcer: Code(s): I83.009 - Varicose veins of unspecified lower extremity with ulcer of unspecified site; L97.909 - Non-pressure chronic ulcer of unspecified part of unspecified lower leg with unspecified severity Status: Acute Assessment and Plan: Dressing; (3) Acute on chronic heart failure with preserved ejection fraction (HFpEF): Code(s): I50.33 - Acute on chronic diastolic (congestive) heart failure Status: Acute (4) A-fib: Qualifiers: Atrial fibrillation type: paroxysmal Qualified Code(s): I48.0 - Paroxysmal atrial fibrillation Code(s): I48.91 - Unspecified atrial fibrillation Status: Acute (5) Cellulitis and abscess of left leg: Code(s): L03.116 - Cellulitis of left lower limb; L02.416 - Cutaneous abscess of left lower limb Status: Acute Assessment and Plan: s/p Unasyn, Augmentin Likely more due to venous stasis ulcer. (6) Ywnfu-wf-xbcdmzl kidney injury: Qualifiers: Acute renal failure type: unspecified Chronic kidney disease stage: stage 3 (moderate) Chronic kidney disease stage 3 subtype: unspecified whether 3a or 3b Qualified Code(s): N17.9 - Acute kidney failure, unspecified; N18.30 - Chronic kidney disease, stage 3 unspecified Code(s): N17.9 - Acute kidney failure, unspecified; N18.9 - Chronic kidney disease, unspecified Status: Acute Plan Assessment and Plan (1) Byibj-rf-visncib kidney injury: ?Qualifiers: ?Acute renal failure type:?unspecified??Chronic kidney disease stage:?stage 3 (moderate)??Chronic kidney disease stage 3 subtype:?unspecified whether 3a or 3b? Qualified Code(s):?N17.9 - Acute kidney failure, unspecified; N18.30 - Chronic kidney disease, stage 3 unspecified ?Code(s): N17.9 - Acute kidney failure, unspecified; N18.9 - Chronic kidney disease, unspecified ?Status:?Acute (2) Acute on chronic heart failure with preserved ejection fraction (HFpEF): ?Code(s): I50.33 - Acute on chronic diastolic (congestive) heart failure ?Status:?Acute (3) A-fib: ?Qualifiers: ?Atrial fibrillation type:?paroxysmal? Qualified Code(s):?I48.0 - Paroxysmal atrial fibrillation ?Code(s): I48.91 - Unspecified atrial fibrillation ?Status:?Acute (4) Cellulitis and abscess of left leg: ?Code(s): L03.116 - Cellulitis of left lower limb; L02.416 - Cutaneous abscess of left lower limb ?Status:?Acute 5. UTI, Enterococcus spp: Will DC on Ma Plan Cellulitis; mostly due to venous insufficiency IV fluid resuscitation ?Blood cultures negative urine cultures Enterococcus sensitive to PT OT IV antibiotics?s/p unasyn; Augmentin TANISHA Avoid nephrotoxic drugs. Creatinine 1.1 Dose antibiotics depending on creatinine clearance HFpEF 2D echo ejection fraction 60% severely enlarged right ventricle chamber Optimize Ashu inhibitors and beta-blockers?metoprolol and Diovan Fall risk assessment Agreed with film projector operator recommended AFIB? Continue Xarelto.? Continue beta-mamadou rate is well controlled. Spoke to the son?in detail answered all questions may need fdc placement DVT prophylaxis.? Xarelto GI prophylaxis.? None Code status updated Subjective Date/time seen: 12/05/23 15:28 Interval history: Seen and examined today; seeming to be experiencing visual hallucinations Review of Systems Review of Systems: All systems reviewed & are unremarkable except as noted in HPI and below Constitutional: Constitutional: Reports weakness Eyes: Eyes: Reports no additional eye complaints ENT: Reports system reviewed and no additi
[2023-12-05] MEDS: ACETAMINOPHEN 325 MG TABLET 650 MG PO (16:10)
[2023-12-05] MEDS: RIVAROXABAN 15 MG TABLET PO (16:12)
--- NOTE | 2023-12-05 18:20 | PC.NURSE ---
Pt received discharge orders per Dr. Rubalcava. Care coordination spoke with Dr. Rubalcava about the pt not being medically stable for discharge due to her orientation status. This RN spoke with Dr. Rubalcava regarding pt's orientation status. Discussed pt having dementia and being A&Ox1-2 at baseline. Pt did receive zyprexa this morning due to yelling out frequently and not being redirectable. Discussed the possibility of the pt being delirious due to her not sleeping at all last night. Verbal orders per Dr. Rubalcava to continue with discharge in the afternoon due to pt being stable and at baseline mentation. Received call from care coordination regarding the pt not having all of the paperwork completed at [facility] to accept the pt at this time. Called and updated nursing staff at [facility] and pt's son, Nhan, that the pt will not be transferring tonight due to paperwork issues and will most likely be transferring first thing in the morning once these issues are sorted out.
[2023-12-05 20:16] LABS: SARS-CoV-2 RNA PCR Negative (Negative)
[2023-12-05] MEDS: SENNOSIDES 8.6 MG TABLET PO (21:03)
[2023-12-05] MEDS: FLUTICASONE PROPIONATE 0.05% NA SPR 16 GM BTL (*BKC) 1 SPRAY NASAL (21:03)
[2023-12-06 04:54] VITALS: BP 103/68; PULSE 84; RESP 18; TEMP 36.1; O2SAT 96
[2023-12-06 07:49] VITALS: O2SAT 97
[2023-12-06 08:00] VITALS: PULSE 60; RESP 18; O2SAT 97
[2023-12-06] MEDS: RALOXIFENE HCL (*CHEMO) 60 MG TABLET PO (08:34)
[2023-12-06] MEDS: POTASSIUM CHLORIDE 20 MEQ ER TABLET PO (08:34)
[2023-12-06] MEDS: MAGNESIUM OXIDE 400 MG TABLET PO (08:34)
[2023-12-06 08:35] VITALS: PULSE 60
[2023-12-06] MEDS: METOPROLOL SUCCINATE EXT REL 50 MG TABCR PO (08:35)
[2023-12-06] MEDS: NITROFURANTOIN MONOHYD MACROCR 100 MG CAP PO (08:36)
[2023-12-06] MEDS: LORATADINE 10 MG TABLET PO (08:36)
[2023-12-06] MEDS: BUMETANIDE 0.5 MG TABLET PO (08:36)
[2023-12-06] MEDS: OPTI-GEN TAB 1 TABLET PO (08:36)
[2023-12-06] MEDS: MULTIVITAMINS THERAPEUTIC TAB (*BKC) 1 TABLET PO (08:36)
[2023-12-06] MEDS: busPIRone HCL 5 MG TABLET PO ×2 (08:36→12:44)
[2023-12-06] MEDS: TOLNAFTATE 1% POWDER 45 GM BTL 1 APPLIC TOPICAL (08:39)
[2023-12-06] MEDS: ESCITALOPRAM OXALATE 10 MG TABLET 20 MG PO (10:12)
[2023-12-06 13:02] VITALS: BP 120/73; PULSE 80; RESP 17; TEMP 36.7; O2SAT 96
== END 2023-12-06 13:44 | DRG 602 ==
LOC: ANHED 17:10 → ANH3MED 18:58
PROVIDERS: Internal Medicine; Nurse Practitioner; Admitting Provider Family Medicine; Emergency Provider Emergency Medicine; Visit Provider Internal Medicine
DX: L03.116 Cellulitis of left lower limb (principal); I50.33 Acute on chronic diastolic (congestive) heart failure; J96.01 Acute respiratory failure with hypoxia; I13.0 Hypertensive heart and chronic kidney disease with heart failure and stage 1 through stage 4 chronic kidney disease, or unspecified chronic kidney disease; N17.9 Acute kidney failure, unspecified; I48.11 Longstanding persistent atrial fibrillation; N39.0 Urinary tract infection, site not specified; L97.829 Non-pressure chronic ulcer of other part of left lower leg with unspecified severity; L02.416 Cutaneous abscess of left lower limb; B95.2 Enterococcus as the cause of diseases classified elsewhere; D64.9 Anemia, unspecified; E78.5 Hyperlipidemia, unspecified; F41.9 Anxiety disorder, unspecified; G47.33 Obstructive sleep apnea (adult) (pediatric); I83.028 Varicose veins of left lower extremity with ulcer other part of lower leg; M81.0 Age-related osteoporosis without current pathological fracture; N18.30 Chronic kidney disease, stage 3 unspecified; Z28.21 Immunization not carried out because of patient refusal; Z11.52 Encounter for screening for COVID-19; Z79.01 Long term (current) use of anticoagulants; Z85.3 Personal history of malignant neoplasm of breast; Z98.49 Cataract extraction status, unspecified eye
CPT/HCPCS: 36415; 36600; 71045; 71046; 80048; 80053; 80076; 81001; 82805; 83605; 83880; 84132; 84484; 85025; 85027; 85055; 86140; 87040; 87077; 87086; 87088; 87186; 87635; 93005; 93306; 93971; 97110; 97116; 97162; 97166; 97530; 97535; 99285; A9270; J0295; J1939; J1940; J1956; J2359; J7050

== ENCOUNTER 2023-12-12 17:18 | Inpatient (IN) | payer MEDICARE, SELFPAY ==
--- NOTE | ~2023-12-12 | CT_ITS ---
EXAMINATION: CT brain wo con DATE: 12/12/2023 20:24 INDICATION: AMS . TECHNIQUE: Computed tomography (CT) of the head was performed without intravenous contrast. The mA wa s adjusted according to patient size. Iterative reconstruction technique was employed. The dose-lengt h product was 681.00 mGy-cm. COMPARISON: 01/14/2020. FINDINGS: No acute intracranial hemorrhage or extra-axial fluid collection. No hydrocephalus or herniation. 1.8 cm isodense extra-axial mass projecting off the left side of the interhemispheric fissure, near the vertex. No acute ischemic infarct. Unremarkable dural venous sinus attenuation. No acute osseous abnormality. Bilateral mastoid fluid. Middle ear fluid on the left. The remaining aerated spaces are clear. Mild atrophy and chronic white matter change. Atherosclerotic intracranial calcification. Bilateral l ens replacements. IMPRESSION: Bilateral mastoid fluid and left-sided middle ear fluid. No osseous erosions. Correlate for clinical findings of left otomastoiditis. Otherwise, no acute intracranial process. 1.8 cm extra-axial mass projecting off the left side of the interhemispheric fissure, likely meningio ma. Reviewed, dictated and finalized at location K. S ATTENDANT BUILDING MATERIALS IMPRESSION: Bilateral mastoid fluid and left-sided middle ear fluid. No osseous erosions. C orrelate for clinical findings of left otomastoiditis. Otherwise, no acute intracranial process. 1.8 cm extra-axial mass projecting off the left side of the interhemispheric fi ssure, likely meningioma.
--- NOTE | ~2023-12-12 | XR_ITS ---
EXAMINATION: XR chest 1V portable Exam Date/Time: 12/12/2023 17:47 YEAST FERMENTATION ATTENDANT HISTORY: sob Comparison: 12/05/2023; CTPA 01/14/2020. RESULT: Lines, tubes, and devices: None. Lungs and pleura: Mild diffuse reticular opacities. Moderate right and mild left costophrenic angle blunting. Hazy graded opacity in the right lower lung. Cardiomediastinal silhouette: Stable. Large hiatal hernia. Cardiomegaly. Dilated central pulmonary a rteries as can be seen with pulmonary arterial hypertension. Other: No acute osseous or upper abdominal finding. IMPRESSION: Mild interstitial edema. Moderate left and small right pleural effusions, with bibasilar atelectasis. Infection not excluded. Reviewed, dictated and finalized at location K. T FERMENTATION ATTENDANT
--- NOTE | ~2023-12-12 | CT_ITS ---
EXAMINATION: CT chest abdomen pelvis wo con DATE: 12/16/2023 14:22 INDICATION: Acute respiratory failure. TECHNIQUE: Computed tomography (CT) of the chest, abdomen, and pelvis was performed without intraveno us contrast. Automated exposure control and iterative reconstruction technique were employed. The dos e-length product was 1423.42 mGy-cm. COMPARISON: Chest CT 01/14/2020, CT abdomen and pelvis 01/23/2019 FINDINGS: CHEST CT: There are moderate-sized pleural effusions. There is dependent atelectasis bilaterally. There is smoo th septal thickening in the lungs, consistent mild pulmonary edema. Calcified right lung nodules and calcified right hilar and mediastinal lymph nodes are consistent with old granulomatous disease. Ther e are nodules in the thyroid measuring up to 13 mm, likely not clinically significant. Cardiomegaly i s noted. There are coronary artery calcifications. No pericardial effusion. The central pulmonary is enlarged, consistent with pulmonary arterial hypertension. There is ectasia of ascending aorta measur ing 4.1 cm. There is a large sliding hiatal hernia. There is an 11 mm mass in the medial inferior lef t breast. There is thoracic dextroscoliosis and severe spondylosis. ABDOMEN/PELVIS CT: There is periportal edema in the liver. Liver surface nodularity is noted, consistent with cirrhosis. The gallbladder is distended. Gallbladder wall thickening may be secondary to chronic liver disease and/or interstitial edema. Calcifications in the spleen are consistent with old granulomatous disease . The pancreas, adrenal glands, and kidneys are normal. There is a small volume of ascites. Body wall edema is noted. There is edema of the intra-abdominal fat. There is a Alves catheter in expected pos ition. There is a right inguinal hernia containing fat. There is diverticulosis of the colon without evidence of diverticulitis. The appendix is not visualized. There is calcified atherosclerosis of the aorta and many of the other arteries. There is thoracolumbar levoscoliosis and severe spondylosis. IMPRESSION: 1. Moderate-sized pleural effusions. 2. Mild pulmonary edema. 3. Large sliding hiatal hernia. 4. 11 mm mass in left breast. A diagnostic mammogram is recommended. 5. Cirrhosis of the liver. 6. Small volume of ascites. Reviewed, dictated and finalized at location A. EY RODMAN
--- NOTE | ~2023-12-12 | US_ITS ---
EXAMINATION: US breast LT complete HISTORY: Left breast mass on CT scan TECHNIQUE: Complete left breast ultrasound is performed including all four quadrants and the subareol ar breast FINDINGS: There is an 11 mm x 8 mm oval, hypoechoic mass with irregular margins, posterior acoustic s hadowing, and internal vascularity at the 6:00 location, 1 cm from the nipple corresponding to the CT finding. No additional mass is identified. IMPRESSION: Suspicious left breast mass. If further evaluation is desired, bilateral diagnostic mammogram and ult rasound guided biopsy are recommended. BI-RADS category 4, suspicious findings. Reviewed, dictated and finalized at location A. TH UNIT CLERK IMPRESSION: Suspicious left breast mass. If further evaluation is desired, bilateral diagno stic mammogram and ultrasound guided biopsy are recommended. BI-RADS category 4, suspicious findings.
--- NOTE | ~2023-12-12 | XR_ITS ---
EXAMINATION: XR chest 1V portable DATE: 12/27/2023 15:36 INDICATION: Shortness of breath TECHNIQUE: frontal view of the chest was obtained. COMPARISON: Chest radiograph dated 12/21/2023 FINDINGS: Cardiomegaly with pulmonary vascular congestion. Persistent dense airspace opacities in the left mid and lower lung zone consistent with moderate size pleural effusion and associated basilar atelectasis and/or pneumonia.. Basilar predominant hazy airspace opacity in the right mid and lower lung zone wi th blunting at the right costophrenic angle consistent with additional small right pleural effusion a nd associated basilar atelectasis and/or pneumonia. No pneumothorax or definitive pulmonary edema. Ca lcified right hilar and mediastinal lymph nodes consistent with old granulomatous disease. Gas within a moderate-sized hiatal hernia. 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 Moderate S -shaped scoliosis of the thoracic and lumbar spine with severe spondylosis. IMPRESSION: 1. Bilateral pleural effusions, moderate on the left and small on the right. 2. Associated opacities in the left mid to lower and right lower lung zones consistent with associate d atelectasis and/or pneumonia. 3. Cardiomegaly with prominent pulmonary vascular congestion but without radha pulmonary edema. 4. Moderate-sized hiatal hernia. Reviewed, dictated and finalized at location A. HOLOGIST CHIEF IMPRESSION: 1. Bilateral pleural effusions, moderate on the left and small on the right. 2. Associated opacities in the left mid to lower and right lower lung zones con sistent with associated atelectasis and/or pneumonia. 3. Cardiomegaly with prominent pulmonary vascular congestion but without radha pulmonary edema. 4. Moderate-sized hiatal hernia.
--- NOTE | ~2023-12-12 | XR_ITS ---
Portable chest x-ray Comparison: 12/12/2023 Clinical History: CHF Findings: Moderate left pleural effusion and small right pleural effusion are present. There is prob able mild bibasilar pulmonary edema/atelectasis. Cardiomediastinal silhouette is stable. Stable scol iosis noted. Impression: Moderate left pleural effusion and small right pleural effusion. Probable bibasilar pulmonary edema/atelectasis. Reviewed, dictated and finalized at location . CULTURAL EQUIPMENT MECHANIC Impression: Moderate left pleural effusion and small right pleural effusion. Probable bibasilar pulmonary edema/atelectasis.
[2023-12-12 17:17] VITALS: BP 111/70; PULSE 102; RESP 28; TEMP 36.9; O2SAT 96
--- NOTE | 2023-12-12 17:28 | ECG_ITS ---
Measurements Intervals [place] Rate: 86 P: MN: 0 QRS: 124 QRSD: 117 T: -8 QT: 373 QTc: 449 Interpretive Statements ATRIAL FIBRILLATION RIGHT AXIS DEVIATION RIGHT BUNDLE BRANCH BLOCK BASELINE ARTIFACT- I, II, AVR, AVF, V1-V3 ABNORMAL ECG COMPARED TO ECG 11/22/2023 15:13:03 NO SIGNIFICANT CHANGES Electronically Signed On 12-12-2023 19:43:56 AUTOMATIC PRESSER by Chaparro Arambula D.O.
[2023-12-12 17:29] VITALS: O2SAT 97
[2023-12-12 17:42] VITALS: O2SAT 97
[2023-12-12 18:38] LABS: Basophils Absolute Auto 0.1 K/mm3 (0.0-0.1); Basophils Percent Auto 0.8 % (0.2-1.2); Eosinophils Absolute Auto 0.1 K/mm3 (0-0.3); Hematocrit 42.8 % (37.0-47.0); Hemoglobin 12.6 g/dL (12.0-15.0); Immature Granulocyte Absolute 0.02 K/mm3 (0.00-0.031); Immature Granulocyte Percent A 0.3 % (0-0.5); Lymphocytes Absolute Auto 1.23 K/mm3 (0.9-3.2); Lymphocytes Percent Auto 18.5 % (18.3-44.2); Mean Corpuscular HGB Conc 29.4 g/dl (32-36); Mean Corpuscular Hemoglobin 28.8 pg (26-34); Mean Corpuscular Volume 97.9 fl (80-100); Mean Platelet Volume 10.4 fl (7.4-10.4); Monocytes Absolute Auto 0.8 K/mm3 (0.1-0.6); Monocytes Percent Auto 11.4 % (2.6-8.5); Neutrophils Absolute Auto 4.5 K/mm3 (1.3-6.7); Platelet Count Result 169 k/mm3 (150-375); Red Blood Count 4.37 M/mm3 (4.2-5.4); Red Cell Distribution Width 17.4 % (11.5-14.5); White Blood Count 6.7 K/mm3 (4.5-10.0)
[2023-12-12 18:48] LABS: Alanine Aminotransferase 20 U/L (6-35); Albumin Level 3.3 g/dL (3.5-5.1); Alkaline Phosphatase 81 U/L (38-126); Anion Gap 1 mmol/L (8-16); Aspartate Amino Transferase 31 U/L (14-36); Bilirubin,Total 0.8 mg/dL (0.2-1.3); Blood Urea Nitrogen 15 mg/dL (7-17); Calcium 9.8 mg/dL (8.4-10.2); Carbon Dioxide 36 mmol/L (22-30); Chloride 100 mmol/L (98-107); Estimated CRCL calculation 41 ml/min; Estimated Glomerular Filt Rate 59; Glucose 98 mg/dL (65-110); Potassium 5.1 mmol/L (3.4-5.0); Sodium 137 mmol/L (137-145)
[2023-12-12 18:55] LABS: Hypochromasia 1+ (NORMAL); Ovalocytes 1+ (NORMAL); Platelet Estimate Adequate (Adequate); Schistocytes None Seen (NORMAL)
[2023-12-12 19:26] VITALS: BP 111/73; PULSE 81; RESP 19
--- NOTE | 2023-12-12 19:26 | PC.NURSE ---
Report given to Zelda WATKINS, all questions answered
--- NOTE | 2023-12-12 20:12 | ED.GENADULT ---
HPI - General Adult General Chief complaint: Shortness of Breath/Dyspnea Stated complaint: low o2 Time Seen by Provider: 12/12/23 18:55 History of Present Illness HPI narrative: This is an 88-year-old female presenting with shortness of breath. patient was discharged from our hospital on December 05 after an admission for urinary tract infection and CHF exacerbation. Since she got back to the [facility]p / rehab facility she has been more weak than usual. Her mental status has decreased now she is having increased oxygen requirements. Patient herself is A&O x1 and is only complaining of mild shortness of breath and denies any other complaints. DNR DNI Related Data Home Medications Medication Instructions Recorded Confirmed potassium chloride 20 mEq 20 meq PO BID 01/14/20 12/07/23 tablet,extended release(part/cryst) raloxifene 60 mg tablet 60 mg PO DAILY 01/14/20 12/07/23 rivaroxaban 20 mg tablet (Xarelto) 20 mg PO DAILY 01/14/20 12/07/23 valsartan 160 1 tablet PO DAILY 01/14/20 12/07/23 mg-hydrochlorothiazide 25 mg tablet acetaminophen 500 mg capsule 1,000 mg PO Q6H PRN Pain (Scale 11/22/23 12/07/23 Score 1-3) albuterol sulfate 90 mcg/actuation 2 puff inhalation TID 11/22/23 12/07/23 aerosol inhaler bumetanide 1 mg tablet 1 mg PO .NOON 11/22/23 12/07/23 buspirone 5 mg tablet 5 mg PO TID 11/22/23 12/07/23 escitalopram oxalate 10 mg tablet 20 mg PO DAILY 11/22/23 12/07/23 fluticasone propionate 50 1 spray intranasal HS 11/22/23 12/07/23 mcg/actuation nasal spray,suspension loratadine 10 mg tablet 10 mg PO DAILY 11/22/23 12/07/23 magnesium oxide 400 mg (241.3 mg 400 mg PO DAILY 11/22/23 12/07/23 magnesium) tablet metoprolol succinate 50 mg 50 mg PO DAILY 11/22/23 12/07/23 tablet,extended release 24 hr multivitamin with folic acid 400 1 tablet PO DAILY 11/22/23 12/07/23 mcg tablet (Tab-A-Bita) nystatin 100,000 unit/gram topical 1 applic topical PRN PRN yeast 11/22/23 12/07/23 cream sennosides 8.6 mg tablet (senna) 8.6 mg PO HS 11/22/23 12/07/23 vit C 250 mg-vit E 90 mg-zinc 40 1 tablet PO DAILY 11/22/23 12/07/23 mg-copper 1 ih-huyrsv-uhsdkp capsule (PreserVision AREDS-2) Allergies Allergy/AdvReac Type Severity Reaction Status Date / Time No Known Allergies Allergy Verified 07/02/23 03:23 [facility] Past Medical History Medical History A-fib Anemia Arthritis Back pain Breast cancer, left Cataracts, bilateral CHF (congestive heart failure) Fibromyalgia Fracture of right patella Gastric ulcer GI bleed Glaucoma HLD (hyperlipidemia) HTN (hypertension) Kidney stones Osteoporosis UTI (urinary tract infection) Surgical History Surgical History History of lumpectomy of left breast Hx of cataract surgery Family History Family History Other Cerebrovascular accident Family history of arthritis Family history of malignant neoplasm Family history of seizure disorder Social History Social History Smoking status: Never smoker Second hand tobacco smoke exposure: No Alcohol intake: never Substance use: never Substance use type: does not use Do You Feel Safe in your Home?: Yes Lack of Transportation: No Lack of Food: Never True Current Housing: I Have Housing Concerned About Future Housing: No Difficulty Paying Gas/Electric Bills: No Difficulty Paying for Meds: No Currently Unemployed: No Education: Associate Degree Difficulty w/ Childcare or Family Care: No Gender identity (if verbalized by the patient): Female Spiritual care concerns: No Exam Narrative: APPEARANCE: No apparent distress. Head: atraumatic. EYES: EOMI, NOSE: Atraumatic NECK: Trachea midline RESPIRATORY: hypoxic on room air, no increased respiratory rat
[2023-12-12 20:32] LABS: Lipase 38 U/L (23-300); Magnesium 2.3 mg/dL (1.6-2.3)
[2023-12-12 20:36] LABS: INR 2.8; Prothrombin Time 31.3 Seconds (11.1-14.7)
[2023-12-12 20:37] LABS: Partial Thromboplastin Time 39.6 SECONDS (22.3-36.8)
[2023-12-12 20:42] LABS: NT Pro B Type Natriuretic Pept 7630 pg/mL (19.9-100)
[2023-12-12 20:50] LABS: Troponin I 0.021 ng/mL (0.000-0.034)
[2023-12-12 21:06] VITALS: BP 106/92; PULSE 83; RESP 18; O2SAT 98
[2023-12-12 21:20] LABS: Lactic Acid Reflex 1.3 mmol/L (0.7-2.0)
[2023-12-12 21:35] LABS: Influenza A QL RT-PCR Negative (Negative); Influenza B QL RT-PCR Negative (Negative); RSV RNA, RT-PCR Negative (Negative); SARS-CoV-2 RNA PCR Negative (Negative)
[2023-12-12 22:01] LABS: Appearance Urine Clear (Clear); Bacteria Urine None Seen /hpf; Bilirubin Urine Negative (Negative); Blood Urine Negative (Negative); Color Urine Yellow (Yellow); Glucose Urine UA Negative (Negative); Ketones Urine Negative (Negative); Leukocyte Esterase Ur 1+ LEU/UL (Negative); Nitrate Urine Negative (Negative); Protein Urine 1+ mg/dL (Negative); RBC Urine 0-2 /hpf (0-2); Specific Grav Ur 1.011 (1.001-1.035); Squamous Epithelial Cell Urine None seen /hpf (Few); WBC Urine 21-50 /hpf
[2023-12-12 22:08] LABS: Mucus Urine Present /lpf
[2023-12-12 22:10] LABS: Add Urine Microscopic? YES
[2023-12-12] MEDS: ACETAMINOPHEN 500 MG TABLET 1000 MG PO (22:13)
[2023-12-12] MEDS: oxyCODONE HCL (*CRX) 5 MG TAB IR PO (22:13)
[2023-12-12] MEDS: FUROSEMIDE INJ 40 MG/4 ML VIAL 20 MG IV PUSH (23:47)
[2023-12-12 23:50] VITALS: BP 114/86; PULSE 82; RESP 16; O2SAT 100
[2023-12-12] MEDS: AMPICILLIN SULB 1.5 GM/NS 50ML 1.5 GM/50 ML VIAL IVPB (23:50)
[2023-12-13] VITALS (7 sets, daily range): BP systolic 91–124; BP diastolic 55–88; PULSE 78–89; RESP 16–20; TEMP 36–37; O2SAT 92–100; BMI 34.0
[2023-12-13 01:15] LABS: Troponin I 0.029 ng/mL (0.000-0.034)
--- NOTE | 2023-12-13 01:53 | ADMGEN ---
This patient, Renita Laura, was admitted to [facility] Surg Room 333-01. Patient/family oriented to hospital policies and general routines including ID bracelet, bed and alarms, visiting hours, pain management, procedures, bathroom and other care routines, personal items, smoking policy, room service/diet, and visiting hours. Information on how to activate the Rapid Response Team has been discussed. Patient/Family are encouraged to report perceived risks to care and to ask questions if they do not understand what they are told or what they should do.
--- NOTE | 2023-12-13 01:53 | ADMGEN ---
This patient, Renita Laura, was admitted to [facility] Surg Room 333-01. Patient/family oriented to hospital policies and general routines including ID bracelet, bed and alarms, visiting hours, pain management, procedures, bathroom and other care routines, personal items, smoking policy, room service/diet, and visiting hours. Information on how to activate the Rapid Response Team has been discussed. Patient/Family are encouraged to report perceived risks to care and to ask questions if they do not understand what they are told or what they should do.
[2023-12-13] MEDS: AMPICILLIN SULB 1.5 GM/NS 50ML 1.5 GM/50 ML VIAL IVPB ×3 (05:17→18:46)
--- NOTE | 2023-12-13 18:11 | PM.IMHP ---
H&P: HPI History of Present Illness Date/Time: 12/13/23 18:11 Chief Complaint: Shortness of breath Narrative: A 8-year-old female with a history of atrial fibrillation on Xarelto, heart failure preserved ejection fraction, anxiety, chronic wounds, dementia with a baseline a and O x1, history of breast cancer, chronic anemia, fibromyalgia, history of gastric ulcer and GI bleed, hypertension, hyperlipidemia. She was recently discharged from [place] to [facility] for rehab. That was for UTI and CHF. She returns as she had been having increasing oxygen requirements. Patient given Unasyn and Lasix 20 mg in the ER. Review of Systems Review of Systems: All systems reviewed & are unremarkable except as noted in HPI and below (Subjective) PMFSH Past Medical History Medical History A-fib Anemia Arthritis Back pain Breast cancer, left Cataracts, bilateral CHF (congestive heart failure) Fibromyalgia Fracture of right patella Gastric ulcer GI bleed Glaucoma HLD (hyperlipidemia) HTN (hypertension) Kidney stones Osteoporosis UTI (urinary tract infection) Surgical History Surgical History History of lumpectomy of left breast Hx of cataract surgery Family History Family History Other Cerebrovascular accident Family history of arthritis Family history of malignant neoplasm Family history of seizure disorder Social History Social History Smoking status: Never smoker Second hand tobacco smoke exposure: No Alcohol intake: never Substance use: never Substance use type: does not use Do You Feel Safe in your Home?: Yes Lack of Transportation: No Lack of Food: Never True Current Housing: I Have Housing Concerned About Future Housing: No Difficulty Paying Gas/Electric Bills: No Difficulty Paying for Meds: No Currently Unemployed: No Education: Associate Degree Difficulty w/ Childcare or Family Care: No Gender identity (if verbalized by the patient): Female Spiritual care concerns: No Meds Home Medications and Allergies Home Medications Medication Instructions Recorded Confirmed Type potassium chloride 20 mEq 20 meq PO BID 01/14/20 12/13/23 History tablet,extended release(part/cryst) raloxifene 60 mg tablet 60 mg PO DAILY 01/14/20 12/13/23 History rivaroxaban 20 mg tablet (Xarelto) 20 mg PO DAILY 01/14/20 12/13/23 History valsartan 160 1 tablet PO DAILY 01/14/20 12/13/23 History mg-hydrochlorothiazide 25 mg tablet acetaminophen 500 mg capsule 1,000 mg PO Q6H PRN Pain (Scale 11/22/23 12/13/23 History Score 1-3) albuterol sulfate 90 mcg/actuation 2 puff inhalation TID 11/22/23 12/13/23 History aerosol inhaler bumetanide 1 mg tablet 1 mg PO .NOON 11/22/23 12/13/23 History buspirone 5 mg tablet 5 mg PO TID 11/22/23 12/13/23 History escitalopram oxalate 10 mg tablet 20 mg PO DAILY 11/22/23 12/13/23 History fluticasone propionate 50 1 spray intranasal HS 11/22/23 12/13/23 History mcg/actuation nasal spray,suspension loratadine 10 mg tablet 10 mg PO DAILY 11/22/23 12/13/23 History magnesium oxide 400 mg (241.3 mg 400 mg PO DAILY 11/22/23 12/13/23 History magnesium) tablet metoprolol succinate 50 mg 50 mg PO DAILY 11/22/23 12/13/23 History tablet,extended release 24 hr multivitamin with folic acid 400 1 tablet PO DAILY 11/22/23 12/13/23 History mcg tablet (Tab-A-Bita) nystatin 100,000 unit/gram topical 1 applic topical PRN PRN yeast 11/22/23 12/13/23 History cream sennosides 8.6 mg tablet (senna) 8.6 mg PO HS 11/22/23 12/13/23 History vit C 250 mg-vit E 90 mg-zinc 40 1 tablet PO DAILY 11/22/23 12/13/23 History mg-copper 1 [id number] capsule (PreserVision AREDS-2) nitrofurantoin macrocrystal 100 mg 100 mg PO Q12H #10 caps 11/15
[2023-12-13] MEDS: busPIRone HCL 5 MG TABLET PO (20:39)
[2023-12-13] MEDS: FUROSEMIDE INJ 40 MG/4 ML VIAL IV PUSH (20:39)
[2023-12-13] MEDS: FLUTICASONE PROPIONATE 0.05% NA SPR 16 GM BTL (*BKC) 1 SPRAY NASAL (20:39)
[2023-12-13] MEDS: RIVAROXABAN 20 MG TABLET PO (20:39)
[2023-12-13] MEDS: SENNOSIDES 8.6 MG TABLET PO (20:39)
[2023-12-14] VITALS (8 sets, daily range): BP systolic 94–110; BP diastolic 60–78; PULSE 85–95; RESP 20–24; TEMP 36.2–36.8; O2SAT 94–99
[2023-12-14] MEDS: AMPICILLIN SULB 1.5 GM/NS 50ML 1.5 GM/50 ML VIAL IVPB ×5 (00:03→23:15)
[2023-12-14 07:09] LABS: Basophils Percent Auto 0.6 % (0.2-1.2); Eosinophils Absolute Auto 0.2 K/mm3 (0-0.3); Eosinophils Percent Auto 2.8 % (0-4.4); Hematocrit 41.2 % (37.0-47.0); Hemoglobin 11.8 g/dL (12.0-15.0); Immature Granulocyte Absolute 0.01 K/mm3 (0.00-0.031); Immature Granulocyte Percent A 0.1 % (0-0.5); Lymphocytes Absolute Auto 2.11 K/mm3 (0.9-3.2); Mean Corpuscular HGB Conc 28.6 g/dl (32-36); Mean Corpuscular Hemoglobin 28.2 pg (26-34); Mean Corpuscular Volume 98.6 fl (80-100); Mean Platelet Volume 10.7 fl (7.4-10.4); Monocytes Absolute Auto 0.8 K/mm3 (0.1-0.6); Monocytes Percent Auto 11.3 % (2.6-8.5); Neutrophils Absolute Auto 3.7 K/mm3 (1.3-6.7); Neutrophils Percent Auto 54.2 % (45.5-73.1); Platelet Count Result 159 k/mm3 (150-375); Red Blood Count 4.18 M/mm3 (4.2-5.4); Red Cell Distribution Width 17.4 % (11.5-14.5); White Blood Count 6.8 K/mm3 (4.5-10.0)
[2023-12-14 07:39] LABS: Anion Gap 6 mmol/L (8-16); Blood Urea Nitrogen 14 mg/dL (7-17); Calcium 9.3 mg/dL (8.4-10.2); Carbon Dioxide 35 mmol/L (22-30); Chloride 97 mmol/L (98-107); Estimated CRCL calculation 52 ml/min; Estimated Glomerular Filt Rate > 60; Glucose 72 mg/dL (65-110); Potassium 3.7 mmol/L (3.4-5.0); Sodium 138 mmol/L (137-145)
[2023-12-14] MEDS: METOPROLOL SUCCINATE EXT REL 50 MG TABCR PO (08:16)
[2023-12-14] MEDS: OPTI-GEN TAB 1 TABLET PO (08:16)
[2023-12-14] MEDS: MAGNESIUM OXIDE 400 MG TABLET PO (08:16)
[2023-12-14] MEDS: MULTIVITAMINS THERAPEUTIC TAB (*BKC) 1 TABLET PO (08:16)
[2023-12-14] MEDS: LORATADINE 10 MG TABLET PO (08:16)
[2023-12-14] MEDS: busPIRone HCL 5 MG TABLET PO ×3 (08:16→17:07)
[2023-12-14] MEDS: ESCITALOPRAM OXALATE 10 MG TABLET 20 MG PO (08:17)
[2023-12-14] MEDS: FUROSEMIDE INJ 40 MG/4 ML VIAL IV PUSH ×2 (08:17→17:07)
[2023-12-14] MEDS: RALOXIFENE HCL (*CHEMO) 60 MG TABLET PO (08:17)
[2023-12-14 09:02] LABS: Anisocytosis 1+ (NORMAL); Hypochromasia 1+ (NORMAL); Platelet Estimate Adequate (Adequate); Schistocytes None Seen (NORMAL)
[2023-12-14] MEDS: ALBUTEROL SULFATE (*SP) AEROSOL 1 PUFF 2 PUFF INHALATION ×2 (09:15→16:51)
[2023-12-14] MEDS: POTASSIUM CHLORIDE 20 MEQ ER TABLET PO ×2 (10:49→17:07)
[2023-12-14] MEDS: VALSARTAN 160 MG TABLET PO (10:49)
[2023-12-14] MEDS: hydroCHLOROthiazide 25 MG TABLET PO (10:49)
--- NOTE | 2023-12-14 16:02 | PM.IMPN ---
Progress Note: A&P Assessment and Plan (1) Respiratory failure: Code(s): J96.90 - Respiratory failure, unspecified, unspecified whether with hypoxia or hypercapnia Status: Acute (2) Acute UTI: Code(s): N39.0 - Urinary tract infection, site not specified Status: Acute (3) Acute on chronic heart failure with preserved ejection fraction (HFpEF): Code(s): I50.33 - Acute on chronic diastolic (congestive) heart failure Status: Acute Plan A 8-year-old female with a history of atrial fibrillation on Xarelto, heart failure preserved ejection fraction, anxiety, chronic wounds, dementia with a baseline a and O x1, history of breast cancer, chronic anemia, fibromyalgia, history of gastric ulcer and GI bleed, hypertension, hyperlipidemia.? She was recently discharged from [place] to [facility] for rehab.? That was for UTI and CHF.? She returns as she had been having increasing oxygen requirements. #Acute hypoxic respiratory failure -due to heart failure. Stable. Wean oxygen #Acutely decompensated heart failure preserved ejection fraction -lower extremity edema mildly improved -continue Lasix 40 mg IV b.i.d. #UTI -prelim urine culture growing Gram-negative bacilli. Susceptibilities to follow. For now continue ampicillin. FEN: Saline lock IV GI prophylaxis: None indicated DVT prophylaxis: Continue home Xarelto Lines: Peripheral IV Code Status: DNR Dispo: Stable Subjective Date/time seen: 12/14/23 16:02 Interval history: No acute overnight events. Patient is pleasantly confused but follows commands and can carry out a conversation. She denies any shortness of breath and cannot elicit any other symptoms. Review of Systems Review of Systems: All systems reviewed & are unremarkable except as noted in HPI and below (Subjective) Exam Const: General: comfortable and no acute distress Other: Pleasantly confused. A and O x1 Eyes: Pupils: Equal, round and reactive pupils present Neck: Neck: supple Resp: Effort & Inspection: normal respiratory effort Auscultation: crackles (Scant) and diminished lung sounds (Difficult to auscultate.) Extrem: General: edema Objective Data Vital Signs Vital Signs: Vital Signs - 24 hr 12/13/23 20:05 12/13/23 20:00 12/14/23 04:25 Temperature 98.6 F 98.3 F Pulse Rate 89 94 Respiratory Rate 16 20 Blood Pressure 124/71 110/60 Pulse Oximetry 98 98 99 Oxygen Delivery Nasal Cannula Oxygen Flow Rate 4 12/14/23 08:16 12/14/23 09:16 12/14/23 08:00 Temperature Pulse Rate 94 Respiratory Rate Blood Pressure Pulse Oximetry 94 95 Oxygen Delivery Nasal Cannula Nasal Cannula Oxygen Flow Rate 3 2 12/14/23 14:00 Temperature 97.2 F L Pulse Rate 85 Respiratory Rate 24 H Blood Pressure 100/78 Pulse Oximetry 97 Oxygen Delivery Oxygen Flow Rate Intake/Output Intake/Output: Intake & Output 12/11/23 12/12/23 12/13/23 12/14/23 23:59 23:59 23:59 23:59 Intake Total 640 870 Output Total 300 1525 Balance 340 -655 Meds/Results Medications: Active Medications Generic Name Dose Route Start Last Admin Trade Name Freq PRN Reason Stop Dose Admin Acetaminophen 1,000 mg 12/13/23 18:10 Acetaminophen 500 Mg Tablet PO Q6H PRN Pain (Scale Score 1-3) Albuterol 2 puff 12/14/23 00:00 12/14/23 12:54 Albuterol Sulfate (*Sp) Aerosol 1 Puff INHALATION Not Given Q8HRT TOD Buspirone HCl 5 mg 12/13/23 18:20 12/14/23 11:50 Buspirone Hcl 5 Mg Tablet PO 5 mg TID TOD Administration Escitalopram Oxalate 20 mg 12/14/23 09:00 12/14/23 08:17 Escitalopram Oxalate 10 Mg Tablet PO 20 mg DAILY TOD Administration Fluticasone Propionate 1 spray 12/13/23 21:00 12/13/23 20:39 Fluticasone Propionate 0.05% Na Spr 16 Gm Btl (*Bkc) NASAL 1 spray HS TOD Administration Furosemide 40 mg 12/13/23 18:15 12/14/23 08:17 Furosemide Inj 40 Mg/4 Ml Vial IV PUSH 40 mg
[2023-12-14] MEDS: RIVAROXABAN 20 MG TABLET PO (17:07)
--- NOTE | 2023-12-14 19:43 | PC.NURSE ---
Spoke with Dr. Crockett at this time r/t patient having increased anxiety, yelling out and not being able to sleep last night and currently yelling out about being scared she is dying, after multiple attempts of reassurance. New order received for ativan 1 mg IVP x1.
[2023-12-14] MEDS: SENNOSIDES 8.6 MG TABLET PO (20:59)
[2023-12-14] MEDS: FLUTICASONE PROPIONATE 0.05% NA SPR 16 GM BTL (*BKC) 1 SPRAY NASAL (21:00)
[2023-12-14] MEDS: LORazepam INJ (*CRX) 2 MG/ML VIAL 1 MG IV PUSH (21:55)
[2023-12-15] VITALS (11 sets, daily range): BP systolic 97–118; BP diastolic 62–88; PULSE 78–100; RESP 16–20; TEMP 36.4–36.8; O2SAT 95–100
--- NOTE | 2023-12-15 01:46 | PCRCNOTE ---
Window of time for administration has passed. See next scheduled administration.
[2023-12-15] MEDS: AMPICILLIN SULB 1.5 GM/NS 50ML 1.5 GM/50 ML VIAL IVPB ×2 (05:46→12:43)
[2023-12-15] MEDS: ALBUTEROL SULFATE (*SP) AEROSOL 1 PUFF 2 PUFF INHALATION ×2 (07:09→13:40)
[2023-12-15 08:25] LABS: Basophils Percent Auto 0.6 % (0.2-1.2); Eosinophils Absolute Auto 0.2 K/mm3 (0-0.3); Eosinophils Percent Auto 2.5 % (0-4.4); Hematocrit 42.4 % (37.0-47.0); Hemoglobin 12.7 g/dL (12.0-15.0); Immature Granulocyte Absolute 0.01 K/mm3 (0.00-0.031); Immature Granulocyte Percent A 0.2 % (0-0.5); Lymphocytes Absolute Auto 1.45 K/mm3 (0.9-3.2); Lymphocytes Percent Auto 22.2 % (18.3-44.2); Mean Corpuscular Hemoglobin 29.1 pg (26-34); Mean Corpuscular Volume 97.2 fl (80-100); Mean Platelet Volume 10.4 fl (7.4-10.4); Monocytes Absolute Auto 0.9 K/mm3 (0.1-0.6); Monocytes Percent Auto 13.3 % (2.6-8.5); Neutrophils Percent Auto 61.2 % (45.5-73.1); Platelet Count Result 143 k/mm3 (150-375); Red Blood Count 4.36 M/mm3 (4.2-5.4); Red Cell Distribution Width 17.4 % (11.5-14.5); White Blood Count 6.5 K/mm3 (4.5-10.0)
[2023-12-15 08:50] LABS: Alanine Aminotransferase 15 U/L (6-35); Albumin Level 2.7 g/dL (3.5-5.1); Alkaline Phosphatase 66 U/L (38-126); Aspartate Amino Transferase 27 U/L (14-36); Bilirubin,Total 0.7 mg/dL (0.2-1.3); Blood Urea Nitrogen 12 mg/dL (7-17); Calcium 9.3 mg/dL (8.4-10.2); Carbon Dioxide > 40 mmol/L (22-30); Chloride 95 mmol/L (98-107); Estimated CRCL calculation 59 ml/min; Estimated Glomerular Filt Rate > 60; Glucose 83 mg/dL (65-110); Potassium 3.6 mmol/L (3.4-5.0); Sodium 138 mmol/L (137-145)
--- NOTE | 2023-12-15 09:25 | PM.IMPN ---
Progress Note: A&P Assessment and Plan (1) Respiratory failure: Code(s): J96.90 - Respiratory failure, unspecified, unspecified whether with hypoxia or hypercapnia Status: Acute (2) Acute UTI: Code(s): N39.0 - Urinary tract infection, site not specified Status: Acute (3) Acute on chronic heart failure with preserved ejection fraction (HFpEF): Code(s): I50.33 - Acute on chronic diastolic (congestive) heart failure Status: Acute Plan A 8-year-old female with a history of atrial fibrillation on Xarelto, heart failure preserved ejection fraction, anxiety, chronic wounds, dementia with a baseline a and O x1, history of breast cancer, chronic anemia, fibromyalgia, history of gastric ulcer and GI bleed, hypertension, hyperlipidemia.? She was recently discharged from [place] to [facility] for rehab.? That was for UTI and CHF.? She returns as she had been having increasing oxygen requirements. #Acute hypoxic respiratory failure -due to heart failure.? Stable.? Wean oxygen Patient needs 3 L oxygen #Acutely decompensated heart failure preserved ejection fraction -lower extremity edema mildly improved -pt is on Lasix 40 mg IV b.i.d., sodium bicarbonate trending up, sodium bicarbonate 40 today Switch from Lasix to acetazolamide 250 mg IV daily #UTI -prelim urine culture growing Gram-negative bacilli.? Susceptibilities to follow.? For now continue ampicillin. 12/15: urine culture grows Citrobacter youngae, switch to ceftriaxone IV FEN:? Saline lock IV GI prophylaxis:? None indicated DVT prophylaxis:? Continue home Xarelto Lines:? Peripheral IV Code Status:? DNR Dispo:? Stable Subjective Date/time seen: 12/15/23 09:25 Interval history: I saw exam patient, patient was somnolent, arousable with verbal commands, unable to provide history patient is afebrile, blood pressure stable, Exam Narrative: GENERAL: Pleasant, in no acute distress. Well-nourished. - EYES: EOMI. Anicteric. - HENT: Moist mucous membranes. - LUNGS: Coarse breath sound bilateral base no wheezing, rhonchi, - CARDIOVASCULAR: Regular rate and rhythm. No murmur. No JVD. - ABDOMEN: Soft, non-tender and non-distended. No palpable masses. - EXTREMITIES: No edema. Peripheral pulses 2+. Non-tender. - NEUROLOGIC: General weakness, moving all extremities, - PSYCHIATRIC: Somnolent, arousable, not oriented x3,. Appropriate mood and affect. - SKIN: No rashes or lesions. Warm. - LYMPH: No cervical lymphadenopathy. Objective Data Vital Signs Vital Signs: Vital Signs - 24 hr 12/14/23 14:00 12/14/23 21:51 12/14/23 20:00 Temperature 97.2 F L Pulse Rate 85 95 Respiratory Rate 24 H Blood Pressure 100/78 109/69 Pulse Oximetry 97 97 Oxygen Delivery Nasal Cannula Oxygen Flow Rate 4 12/14/23 20:55 12/15/23 05:03 12/15/23 07:10 Temperature 97.9 F 98.2 F Pulse Rate 93 87 80 Respiratory Rate 20 20 18 Blood Pressure 94/68 L 118/78 Pulse Oximetry 96 100 99 Oxygen Delivery Nasal Cannula Oxygen Flow Rate 3 12/15/23 07:10 Temperature Pulse Rate 80 Respiratory Rate 18 Blood Pressure Pulse Oximetry Oxygen Delivery Oxygen Flow Rate Intake/Output Intake/Output: Intake & Output 12/12/23 12/13/23 12/14/23 12/15/23 23:59 23:59 23:59 23:59 Intake Total 640 1760 200 Output Total 300 4425 500 Balance 060 -5193 -300 Meds/Results Medications: Active Medications Generic Name Dose Route Start Last Admin Trade Name Freq PRN Reason Stop Dose Admin Acetaminophen 1,000 mg 12/13/23 18:10 Acetaminophen 500 Mg Tablet PO Q6H PRN Pain (Scale Score 1-3) Albuterol 2 puff 12/14/23 00:00 12/15/23 07:09 Albuterol Sulfate (*Sp) Aerosol 1 Puff INHALATION 2 puff Q8HRT TOD Administration Buspirone HCl 5 mg 12/13/23 18:20 12/14/23 17:07 Buspirone Hcl 5 Mg Tablet PO 5 mg TID TOD Administration Escitalopram Oxalate 20 mg 12/14/23 09:00 12/14/23 08:17 Esc
[2023-12-15] MEDS: RALOXIFENE HCL (*CHEMO) 60 MG TABLET PO (09:34)
[2023-12-15] MEDS: FUROSEMIDE INJ 40 MG/4 ML VIAL IV PUSH (09:34)
[2023-12-15] MEDS: MULTIVITAMINS THERAPEUTIC TAB (*BKC) 1 TABLET PO (09:34)
[2023-12-15] MEDS: LORATADINE 10 MG TABLET PO (09:35)
[2023-12-15] MEDS: POTASSIUM CHLORIDE 20 MEQ ER TABLET PO ×2 (09:35→18:04)
[2023-12-15] MEDS: OPTI-GEN TAB 1 TABLET PO (09:35)
[2023-12-15] MEDS: hydroCHLOROthiazide 25 MG TABLET PO (09:35)
[2023-12-15] MEDS: ESCITALOPRAM OXALATE 10 MG TABLET 20 MG PO (09:35)
[2023-12-15] MEDS: MAGNESIUM OXIDE 400 MG TABLET PO (09:35)
[2023-12-15] MEDS: busPIRone HCL 5 MG TABLET PO ×3 (09:35→18:04)
[2023-12-15] MEDS: VALSARTAN 160 MG TABLET PO (09:35)
[2023-12-15] MEDS: METOPROLOL SUCCINATE EXT REL 50 MG TABCR PO (09:39)
--- NOTE | 2023-12-15 10:29 | PCPTNOTE ---
attempted PT eval, pt could not keep her eyes open when speaking, will attempt eval at a later time
--- NOTE | 2023-12-15 14:05 | PCPTNOTE ---
attempted evaluation, unable to wake pt with verbal and tactile stimulus, will attempt Pt evulation at a later time
[2023-12-15] MEDS: RIVAROXABAN 20 MG TABLET PO (18:03)
[2023-12-15] MEDS: cefTRIAXone 2 GM/NS 100 ML 2 GM/100 ML BAG IVPB (18:04)
[2023-12-15] MEDS: acetaZOLAMIDE SODIUM FOR INJ 500 MG VIAL 250 MG IV PUSH (18:08)
[2023-12-15] MEDS: FLUTICASONE PROPIONATE 0.05% NA SPR 16 GM BTL (*BKC) 1 SPRAY NASAL (20:59)
[2023-12-15] MEDS: SENNOSIDES 8.6 MG TABLET PO (20:59)
[2023-12-15] MEDS: ACETAMINOPHEN 500 MG TABLET 1000 MG PO (21:16)
[2023-12-16] VITALS (14 sets, daily range): BP systolic 95–107; BP diastolic 43–79; PULSE 66–99; RESP 12–33; TEMP 36–36.8; O2SAT 90–100
[2023-12-16] MEDS: busPIRone HCL 5 MG TABLET PO ×4 (00:12→17:45)
[2023-12-16] MEDS: QUEtiapine FUMARATE 25 MG TABLET PO (00:37)
--- NOTE | 2023-12-16 02:46 | PC.NURSE ---
Patient conts to have increased anxiety and agitation this evening. Patient yells out and screams that she thinks she is dying, or in [facility], etc. Can be briefly redirected. Frequently pulls NC off. Dr. Pascual made aware and one time dose of buspar ordered and one time po seroquel ordered. Not effective at this time. Patient has stated that she is unable to sleep. Has made a few attempts to get out of bed unassisted, bed alarm in use. Will cont to monitor and re-evaluate.
--- NOTE | 2023-12-16 07:30 | PM.IMPN ---
Progress Note: A&P Assessment and Plan (1) Respiratory failure: Code(s): J96.90 - Respiratory failure, unspecified, unspecified whether with hypoxia or hypercapnia Status: Acute (2) Acute UTI: Code(s): N39.0 - Urinary tract infection, site not specified Status: Acute (3) Acute on chronic heart failure with preserved ejection fraction (HFpEF): Code(s): I50.33 - Acute on chronic diastolic (congestive) heart failure Status: Acute (4) A-fib: Qualifiers: Atrial fibrillation type: paroxysmal Qualified Code(s): I48.0 - Paroxysmal atrial fibrillation Code(s): I48.91 - Unspecified atrial fibrillation Status: Acute Plan A 8-year-old female with a history of atrial fibrillation on Xarelto, heart failure preserved ejection fraction, anxiety, chronic wounds, dementia with a baseline a and O x1, history of breast cancer, chronic anemia, fibromyalgia, history of gastric ulcer and GI bleed, hypertension, hyperlipidemia.? She was recently discharged from [place] to half-way for rehab.? That was for UTI and CHF.? She returns as she had been having increasing oxygen requirements. #Acute hypoxic respiratory failure -due to heart failure.? Stable.? Wean oxygen 12/15 Patient needs 3 L oxygen 12/16 order ABG : PH 7.332, pCO2 78.6, PO2 6.9. Decompensated respiratory acidosis due to CO2 retention Place patient on BiPAP order CT/chest: 1. Moderate-sized pleural effusions. 2. Mild pulmonary edema. 3. Large sliding hiatal hernia. 4. 11 mm mass in left breast. A diagnostic mammogram is recommended. 5. Cirrhosis of the liver. 6. Small volume of ascites. Consult vault installer for evaluation treatment #Acutely decompensated heart failure preserved ejection fraction -lower extremity edema mildly improved 12/15 pt is on Lasix 40 mg IV b.i.d., sodium bicarbonate trending up, bicarbonate 40 today, discontinue Lasix, start Diamox 250 mg IV daily 2: bicarbonate > 40 today, patient 7.332, pCO2 78.6, discontinue Diamox, resume Lasix 40 mg b.i.d. IV push echo 11/23/23 ? 1. Complete two-dimensional, color flow and Doppler transthoracic echocardiogram is performed. ? 2. Left ventricular chamber dimension is normal. ? 3. Left ventricular systolic function is normal, estimated at 60-65%. ? 4. There is mildly increased left ventricular wall thickness. ? 5. Right ventricular chamber dimension is severely enlarged. ? 6. Right ventricular systolic function is reduced. ? 7. Flattening of the septum in diastole and systole consistent with right ventricular volume and pressure overload. ? 8. Left atrial chamber dimension is severely enlarged. ? 9. Right atrial chamber dimension is severely enlarged. ? 10. There is mild aortic valve stenosis with a peak velocity of 131 cm/s, mean gradient of 3 mmHg, and aortic valve area of 1.6 cm2. ? 11. There is mild aortic valve regurgitation. ? 12. There is mild mitral valve regurgitation. ? 13. There is moderate tricuspid valve regurgitation. ? 14. There is mild pulmonic regurgitation. ? 15. Pulmonary hypertension. Estimated pulmonary arterial systolic pressure is 50 mmHg. ? 16. There is trivial pericardial effusion. ? 17. Left pleural effusion noted. c/w performance reporter for evaluation and treatment #UTI -prelim urine culture growing Gram-negative bacilli.? Susceptibilities to follow.? For now continue ampicillin. 2/: urine culture grows Citrobacter youngae, switch to ceftriaxone IV Metabolic alkalosis Bicarbonate over 40 Continue acetazolamide 250 mg IV daily Hypokalemia replete with potassium chloride Hypertension 2/2 Blood pressure soft benign Hold hypertension medication Chronic AFib Rate is controlled Continue Xarelto p.o. metoprolol 50 mg daily p.o. Left breast mass 11 mm mass in left breast is identified on CT scan Consult general surgeon for evaluation and treatment FEN:? Saline lock IV GI prophylaxis:? None indicated DVT prophylaxis:? Continue home
[2023-12-16 08:10] LABS: Basophils Percent Auto 0.5 % (0.2-1.2); Eosinophils Absolute Auto 0.1 K/mm3 (0-0.3); Eosinophils Percent Auto 1.5 % (0-4.4); Hemoglobin 12.4 g/dL (12.0-15.0); Immature Granulocyte Absolute 0.03 K/mm3 (0.00-0.031); Immature Granulocyte Percent A 0.4 % (0-0.5); Immature Platelet Fraction Pct 5.4 % (0.9-11.2); Lymphocytes Absolute Auto 1.26 K/mm3 (0.9-3.2); Lymphocytes Percent Auto 17.2 % (18.3-44.2); Mean Corpuscular HGB Conc 29.5 g/dl (32-36); Mean Corpuscular Hemoglobin 28.9 pg (26-34); Mean Corpuscular Volume 97.9 fl (80-100); Mean Platelet Volume 10.6 fl (7.4-10.4); Monocytes Percent Auto 13.6 % (2.6-8.5); Neutrophils Absolute Auto 4.9 K/mm3 (1.3-6.7); Neutrophils Percent Auto 66.8 % (45.5-73.1); Platelet Count Result 136 k/mm3 (150-375); Red Blood Count 4.29 M/mm3 (4.2-5.4); Red Cell Distribution Width 17.2 % (11.5-14.5); White Blood Count 7.3 K/mm3 (4.5-10.0)
[2023-12-16 08:21] LABS: Anisocytosis 1+ (NORMAL); Hypochromasia 1+ (NORMAL); Ovalocytes 1+ (NORMAL); Platelet Estimate Decreased (Adequate); Schistocytes None Seen (NORMAL)
[2023-12-16 08:23] LABS: Blood Urea Nitrogen 12 mg/dL (7-17); Calcium 9.4 mg/dL (8.4-10.2); Carbon Dioxide > 40 mmol/L (22-30); Chloride 95 mmol/L (98-107); Estimated CRCL calculation 50 ml/min; Estimated Glomerular Filt Rate > 60; Glucose 107 mg/dL (65-110); Magnesium 2.1 mg/dL (1.6-2.3); Phosphorus 2.8 mg/dL (2.5-4.5); Potassium 3.3 mmol/L (3.4-5.0); Sodium 139 mmol/L (137-145)
[2023-12-16] MEDS: acetaZOLAMIDE SODIUM FOR INJ 500 MG VIAL 250 MG IV PUSH (09:03)
[2023-12-16] MEDS: LORATADINE 10 MG TABLET PO (09:06)
[2023-12-16] MEDS: RALOXIFENE HCL (*CHEMO) 60 MG TABLET PO (09:06)
[2023-12-16] MEDS: ACETAMINOPHEN 500 MG TABLET 1000 MG PO (09:06)
[2023-12-16] MEDS: POTASSIUM CHLORIDE 20 MEQ ER TABLET PO ×2 (09:06→17:45)
[2023-12-16] MEDS: MAGNESIUM OXIDE 400 MG TABLET PO (09:07)
[2023-12-16] MEDS: ESCITALOPRAM OXALATE 10 MG TABLET 20 MG PO (09:07)
[2023-12-16] MEDS: OPTI-GEN TAB 1 TABLET PO (09:07)
[2023-12-16] MEDS: MULTIVITAMINS THERAPEUTIC TAB (*BKC) 1 TABLET PO (09:07)
[2023-12-16] MEDS: KCL 20MEQ/0.9% SOD CHL 1,000 ML 100 ML IV CONT ×2 (09:07→20:49)
[2023-12-16] MEDS: ALBUTEROL SULFATE (*SP) AEROSOL 1 PUFF 2 PUFF INHALATION ×3 (09:16→23:50)
[2023-12-16 10:09] LABS: Alveolar/Arterial O2 Gradient 66.9 mmHg; Base Excess ABG 11.4 mEq/l (+/-2.0); Fractional Inspired Oxygen 32 %; HCO3 ABG 40.7 mEq/l (22.0-26.0); Oxygen Content ABG 17.5 %vol (16.0-22.0); Oxygen Saturation ABG 91.9 % (95.0-100.0); Oxyhemoglobin 91.9 % THb (90.0-100.0); PO2 ABG 69.3 mmHg (80.0-100.0); PO2 FiO2 Ratio Arterial Blood 2.17 %; Total Hemoglobin 13.5 g/dL (12.0-18.0); pH ABG 7.332 (7.350-7.450)
[2023-12-16 10:11] LABS: Device NASAL CANNULA; Modified Allen's Test Pass; PCO2 ABG 78.6 mmHg (35.0-45.0); Site Drawn RIGHT RADIAL
[2023-12-16 11:17] LABS: NT Pro B Type Natriuretic Pept 7000 pg/mL (19.9-100)
--- NOTE | 2023-12-16 14:08 | PM.CNPUL ---
Assessment and Plan Assessment and plan (1) Respiratory failure with hypoxia and hypercapnia: Code(s): J96.91 - Respiratory failure, unspecified with hypoxia; J96.92 - Respiratory failure, unspecified with hypercapnia Status: Acute Assessment and Plan: Patient has chronic hypercarbic and hypoxemic respiratory failure. She was recently [facility] 2 L [facility]. She previously had a blood gas of 7.38/51/51 with a serum bicarbonate of 34 on 11/22/2023. Currently the patient has evidence of fluid overload and a blood gas on 3 L of 7.33/79/69 with a serum bicarbonate of greater than 40. The family states she is a never smoker. Etiology of acute on chronic hypoxemic and hypercarbic respiratory in failure includes fluid overload, restrictive lung disease from kyphoscoliosis, untreated obstructive sleep apnea and/or obesity hypoventilation syndrome. 12/16/23: When I enter the room the patient was on BiPAP set rate of 4 pressures 12/5 and 35%. She had what appeared to be Redd-Garcia respirations while on the BiPAP with tidal volumes ranging from 160 at the low and as she ramped up her tidal volumes increased to 350. She was having long pauses. She was awakened said that the machine was too heavy. I switched her to noninvasive ventilator mode with AVAPS and placed her on a rate of 16, tidal volume 450, EPAP 5, minimal inspiratory pressure 6, maximal inspiratory pressure 25, inspiratory time 1.1, rise of 5, 28% FiO2. Saturations were 98%. Plan: Patient could not tolerate BiPAP given her abnormal respiratory pattern and she said the machine was uncomfortable on these settings. She is tolerating noninvasive ventilation with the AVAPS mode. She is more awake now. i will continue these settings and check an ABG in the morning prior to removal of the machine. I will order CT scan of the chest to assess for a restrictive lung disease, mucus plugging, pleural effusions, infection and fluid overload. I will send a repeat COVID, influenza and RSV study to document she is not infected. Recommend as aggressive diuresis as tolerated by her cardiac and renal systems per the hospitalist team. Currently her weight is 85.2 with an admission weight of 89 kg. She is -2.9 L since admission. Patient is on ceftriaxone for UTI. Patient is on [place] a band 20 q.day for her atrial fibrillation. She has no wheezing currently. Her home meds list albuterol 2 puffs t.i.d. and will continue this for the time being. The patient is 88, has dementia with A&O x1, she is very debilitated and weak and cannot remove a BiPAP mask if needed. She has a sitter at the bedside. I explained to the son that the patient is not an ideal BiPAP candidate but at this time the BiPAP is required to provide her with adequate ventilation. He understands these risks and wishes to continue with BiPAP. He confirmed the patient is DNR. Discussed with Dr. Rutherford, will follow with you History of Present Illness History of Present Illness Consult date: 12/16/23 Chief complaint: CHF/UTI Narrative: 12/16/2023: This is a new pulmonary consult for chronic hypoxemic and hypercarbic respiratory failure. 88-year-old with a history of hypertension, hyperlipidemia, atrial fibrillation on Xarelto, dementia A&O x1, gastric ulcers, left breast cancer, congestive heart failure, right heart failure and fluid overload. Per the family she is a never smoker. Patient was recently admitted to the hospital on 11/22/2023 with losing lower extremities, fluid overload, UTI and acute kidney injury and treated with antibiotics and diuresis. Patient was discharged to [facility] on what appears to be 2 L nasal cannula. Blood gas during that admission was 7.38/51/51 and her serum bicarbonate was 34. Echocardiogram on 11/23/2023 showed LVEF 60-65%, severely enlarged right ventricle with decreased function, severely enlarged left atrium, severely enlarged right atrium, mild , mild AR,
--- NOTE | 2023-12-16 14:10 | PCOTNOTE ---
Per RN, Patient not to be seen at this time. Patient is having a decline and is planned to be transferred off the floor to IMU.
[2023-12-16 14:29] LABS: Influenza A QL RT-PCR Negative (Negative); Influenza B QL RT-PCR Negative (Negative); RSV RNA, RT-PCR Negative (Negative); SARS-CoV-2 RNA PCR Negative (Negative)
--- NOTE | 2023-12-16 17:00 | PC.NURSE ---
Patient transferred to IMU for continuous bipap for a high CO2 per Dr. Borrero request. Upon arrival patient is resting on bipap with no labored breathing.
[2023-12-16] MEDS: levoFLOXacin 750 MG TABLET PO (17:45)
[2023-12-16] MEDS: RIVAROXABAN 20 MG TABLET PO (17:45)
[2023-12-16] MEDS: FUROSEMIDE INJ 40 MG/4 ML VIAL IV PUSH (17:45)
--- NOTE | 2023-12-16 18:12 | PC.NURSE ---
This patient, Renita Laura, was received from [facility] on 12/16/23 at 1700. Patient/family oriented to unit policies and routines. report received from Keri WATKINS
[2023-12-17] VITALS (25 sets, daily range): BP systolic 96–113; BP diastolic 60–72; PULSE 79–118; RESP 17–21; TEMP 36.1–36.9; O2SAT 90–99
[2023-12-17] MEDS: SENNOSIDES 8.6 MG TABLET PO ×2 (00:35→21:14)
[2023-12-17] MEDS: FLUTICASONE PROPIONATE 0.05% NA SPR 16 GM BTL (*BKC) 1 SPRAY NASAL ×2 (00:35→21:14)
[2023-12-17 05:33] LABS: Basophils Percent Auto 0.3 % (0.2-1.2); Eosinophils Percent Auto 0.6 % (0-4.4); Hematocrit 42.8 % (37.0-47.0); Immature Granulocyte Absolute 0.02 K/mm3 (0.00-0.031); Immature Granulocyte Percent A 0.3 % (0-0.5); Immature Platelet Fraction Pct 4.9 % (0.9-11.2); Lymphocytes Absolute Auto 1.32 K/mm3 (0.9-3.2); Mean Corpuscular HGB Conc 30.4 g/dl (32-36); Mean Corpuscular Hemoglobin 28.8 pg (26-34); Mean Corpuscular Volume 94.7 fl (80-100); Mean Platelet Volume 11.2 fl (7.4-10.4); Monocytes Absolute Auto 0.8 K/mm3 (0.1-0.6); Monocytes Percent Auto 12.2 % (2.6-8.5); Neutrophils Absolute Auto 4.1 K/mm3 (1.3-6.7); Neutrophils Percent Auto 65.6 % (45.5-73.1); Platelet Count Result 137 k/mm3 (150-375); Red Blood Count 4.52 M/mm3 (4.2-5.4); Red Cell Distribution Width 17.2 % (11.5-14.5); White Blood Count 6.3 K/mm3 (4.5-10.0)
[2023-12-17 05:54] LABS: Anion Gap 3 mmol/L (8-16); Blood Urea Nitrogen 12 mg/dL (7-17); Calcium 9.9 mg/dL (8.4-10.2); Carbon Dioxide 37 mmol/L (22-30); Chloride 99 mmol/L (98-107); Estimated CRCL calculation 45 ml/min; Estimated Glomerular Filt Rate > 60; Glucose 79 mg/dL (65-110); Phosphorus 1.4 mg/dL (2.5-4.5); Potassium 3.3 mmol/L (3.4-5.0); Sodium 139 mmol/L (137-145)
--- NOTE | 2023-12-17 06:05 | PCRCNOTE ---
unable to obtain morning ABG scheduled for 0600. RT attempted twice, then contacted another therapist who was unsuccessful as well. RT let nurse know and recommended a VBG be obtained. RT will let day shift therapist know
[2023-12-17] MEDS: ALBUTEROL SULFATE (*SP) AEROSOL 1 PUFF 2 PUFF INHALATION ×2 (08:33→16:29)
--- NOTE | 2023-12-17 09:14 | PM.CNCAR ---
Assessment and Plan Assessment and plan (1) Acute on chronic heart failure with preserved ejection fraction (HFpEF): Code(s): I50.33 - Acute on chronic diastolic (congestive) heart failure Status: Acute Assessment and Plan: 88-year-old female with CHF with preserved ejection fraction, right heart failure, persistent atrial fibrillation on anticoagulation with rivaroxaban, hypertension. Patient has acute chronic CHF with preserved ejection fraction and right heart failure with significant volume overload. -continue diuresis with furosemide with close monitoring of electrolytes and renal function. Add spironolactone 25 mg p.o. daily. May start other standard medical treatment when able. -patient is DNR -spoke with patient's family including her son about patient's current clinical condition. Her overall prognosis is guarded. DNR status is appropriate. (2) Persistent atrial fibrillation: Code(s): I48.19 - Other persistent atrial fibrillation Status: Acute Assessment and Plan: Rate control with metoprolol succinate, and anticoagulation with rivaroxaban. (3) Respiratory failure with hypoxia and hypercapnia: Code(s): J96.91 - Respiratory failure, unspecified with hypoxia; J96.92 - Respiratory failure, unspecified with hypercapnia Status: Acute Assessment and Plan: Pulmonology evaluation and management. Patient currently on BiPAP. History of Present Illness History of Present Illness Consult date/time: 12/17/23 09:14 Requesting physician: Elijah Phillips MD Reason For Visit: CHF/UTI Narrative: DATE OF CONSULT: 12/17/2023 REASON FOR CONSULT: CHF REQUESTING PHYSICIAN:MD Alan CHIEF COMPLAINT: Worsening shortness of breath HPI: 88-year-old female with CHF with preserved ejection fraction, right heart failure, persistent atrial fibrillation on anticoagulation with rivaroxaban, hypertension. Patient presented to the hospital on 12/12/2023 with complaints of worsening shortness of breath. She was recently [facility] to the [facility] after she was admitted with CHF and UTI. At the time of evaluation, patient's family including her son was in the patient's room. Information was gathered from extensive review of the chart, from patient and her son. At baseline, patient use to use walker for ambulation few weeks ago. She has been experiencing worsening shortness of breath for about 3 weeks. No chest pain. EKG at presentation on my personal interpretation shows atrial fibrillation with controlled ventricular response, right bundle branch block. NT proBNP 7000. Serial troponins negative. ABG showed elevated CO2 and decreased O2. Chest x-ray showed Mild interstitial edema, moderate left and small right pleural effusions, with bibasilar atelectasis. CT abdomen/pelvis showed moderate-sized pleural effusion; mild pulmonary edema, large sliding hernia, cirrhosis of liver with small volume ascites in addition to the findings. . Recent echo from 11/23/2023 reportedly showed normal LVEF, severe RV and RA enlargement, mild with HUGH 1.6 cm2, moderate pulmonary hypertension, RVSP 50 mmHg. During hospitalization, patient was hypoxemic and was placed on BiPAP. On telemetry, she has been in atrial fibrillation with controlled ventricular response. Review of Systems Review of Systems: General: Positive for fatigue Psychological: Positive for anxiety Ophthalmic: negative for loss of vision ENT: Negative for epistaxis, headaches Allergy and immunology: Negative for hives, nasal congestion Hematologic and lymphatic: Negative for overt bleeding problems Endocrine: Negative for hot flashes, palpitations Respiratory: Negative for cough, positive for worsening dyspnea Cardiovascular: Negative for chest pain, positive for worsening dyspnea, leg swelling Gastrointestinal: Negative for abdominal pain Musculoskeletal: Positive for left shoulder pain Neurological: Positive for generalized wea
[2023-12-17 09:24] LABS: Fractional Inspired Oxygen 28 %; HCO3 VBG 33.4 mEq/l (24.0-30.0); PCO2 VBG 39.5 mmHg (42.0-48.0); PO2 VBG 42.9 mmHg (35.0-45.0)
[2023-12-17 09:26] LABS: pH VBG 7.545 (7.300-7.400)
[2023-12-17 09:27] LABS: Device BIPAP; Expiratory Pressure 5 cmH2O
[2023-12-17] MEDS: MULTIVITAMINS THERAPEUTIC TAB (*BKC) 1 TABLET PO (09:29)
[2023-12-17] MEDS: MAGNESIUM OXIDE 400 MG TABLET PO (09:30)
[2023-12-17] MEDS: LORATADINE 10 MG TABLET PO (09:30)
[2023-12-17] MEDS: busPIRone HCL 5 MG TABLET PO ×3 (09:30→18:10)
[2023-12-17] MEDS: RALOXIFENE HCL (*CHEMO) 60 MG TABLET PO (09:30)
[2023-12-17] MEDS: OPTI-GEN TAB 1 TABLET PO (09:30)
[2023-12-17] MEDS: ESCITALOPRAM OXALATE 10 MG TABLET 20 MG PO (09:30)
[2023-12-17] MEDS: FUROSEMIDE INJ 40 MG/4 ML VIAL IV PUSH ×2 (09:31→18:09)
[2023-12-17] MEDS: POTASSIUM CHLORIDE 20 MEQ PACKET (FOR LIQUID) 40 MEQ PO ×2 (09:44→18:10)
--- NOTE | 2023-12-17 10:04 | PM.IMPN ---
Progress Note: A&P Assessment and Plan (1) Respiratory failure: Code(s): J96.90 - Respiratory failure, unspecified, unspecified whether with hypoxia or hypercapnia Status: Acute (2) Acute UTI: Code(s): N39.0 - Urinary tract infection, site not specified Status: Acute (3) Acute on chronic heart failure with preserved ejection fraction (HFpEF): Code(s): I50.33 - Acute on chronic diastolic (congestive) heart failure Status: Acute (4) A-fib: Qualifiers: Atrial fibrillation type: paroxysmal Qualified Code(s): I48.0 - Paroxysmal atrial fibrillation Code(s): I48.91 - Unspecified atrial fibrillation Status: Acute Plan A 8-year-old female with a history of atrial fibrillation on Xarelto, heart failure preserved ejection fraction, anxiety, chronic wounds, dementia with a baseline a and O x1, history of breast cancer, chronic anemia, fibromyalgia, history of gastric ulcer and GI bleed, hypertension, hyperlipidemia.? [facility] That was for UTI and CHF.? She returns as she had been having increasing oxygen requirements. #Acute hypoxic respiratory failure -due to heart failure.? Stable.? Wean oxygen 12/15 Patient needs 3 L oxygen 12/16 order ABG : PH 7.332, pCO2 78.6, PO2 6.9. Decompensated respiratory acidosis due to CO2 retention Place patient on BiPAP order CT/chest: 1. Moderate-sized pleural effusions. 2. Mild pulmonary edema. 3. Large sliding hiatal hernia. 4. 11 mm mass in left breast. A diagnostic mammogram is recommended. 5. Cirrhosis of the liver. 6. Small volume of ascites. Consult parcel post order clerk for evaluation treatment #Acutely decompensated heart failure preserved ejection fraction -lower extremity edema mildly improved 12/15 pt is on Lasix 40 mg IV b.i.d., sodium bicarbonate trending up, bicarbonate 40 today, discontinue Lasix, start Diamox 250 mg IV daily 2: bicarbonate > 40 today, patient 7.332, pCO2 78.6, discontinue Diamox, resume Lasix 40 mg b.i.d. IV push echo 11/23/23 ? 1. Complete two-dimensional, color flow and Doppler transthoracic echocardiogram is performed. ? 2. Left ventricular chamber dimension is normal. ? 3. Left ventricular systolic function is normal, estimated at 60-65%. ? 4. There is mildly increased left ventricular wall thickness. ? 5. Right ventricular chamber dimension is severely enlarged. ? 6. Right ventricular systolic function is reduced. ? 7. Flattening of the septum in diastole and systole consistent with right ventricular volume and pressure overload. ? 8. Left atrial chamber dimension is severely enlarged. ? 9. Right atrial chamber dimension is severely enlarged. ? 10. There is mild aortic valve stenosis with a peak velocity of 131 cm/s, mean gradient of 3 mmHg, and aortic valve area of 1.6 cm2. ? 11. There is mild aortic valve regurgitation. ? 12. There is mild mitral valve regurgitation. ? 13. There is moderate tricuspid valve regurgitation. ? 14. There is mild pulmonic regurgitation. ? 15. Pulmonary hypertension. Estimated pulmonary arterial systolic pressure is 50 mmHg. ? 16. There is trivial pericardial effusion. ? 17. Left pleural effusion noted. c/w operating room orderly for evaluation and treatment ?Patient wore NIV overnight and sats were 95%. [place] Block Setter took?her off NIV and placed her on 2 L and she was in no distress with sats 97%. #UTI -prelim urine culture growing Gram-negative bacilli.? Susceptibilities to follow.? For now continue ampicillin. 2: urine culture grows Citrobacter youngae, switch to ceftriaxone IV 22: Changed to Levaquin p.o. per parcel post order clerk Metabolic alkalosis Bicarbonate over 40 Continue acetazolamide 250 mg IV daily Hypokalemia replete with potassium chloride 40 mg b.i.d. p.o. Hypertension 2/2 Blood pressure soft benign Hold hypertension medication Chronic AFib Rate is controlled Continue Xarelto p.o. metoprolol 50 mg daily p.o. L
[2023-12-17] MEDS: SPIRONOLACTONE 25 MG TABLET PO (11:53)
--- NOTE | 2023-12-17 11:54 | PM.PNPUL ---
Progress Note: A&P Assessment and Plan (1) Respiratory failure with hypoxia and hypercapnia: Code(s): J96.91 - Respiratory failure, unspecified with hypoxia; J96.92 - Respiratory failure, unspecified with hypercapnia Status: Acute Assessment and Plan: Patient has chronic hypercarbic and hypoxemic respiratory failure.? She was recently discharged on 2 L nasal cannula to the [facility].? She previously had a blood gas of 7.38/51/51 with a serum bicarbonate of 34 on 11/22/2023.? Currently the patient has evidence of fluid overload and a blood gas on 3 L of 7.33/79/69 with a serum bicarbonate of greater than 40.? The family states she is a never smoker. Etiology of acute on chronic hypoxemic and hypercarbic respiratory in failure includes fluid overload, restrictive lung disease from kyphoscoliosis (son states she had lost 4-5 inches inheight), untreated obstructive sleep apnea and/or obesity hypoventilation syndrome. 12/16/23: When I enter the room the patient was on BiPAP set rate of 4 pressures 12/5 and 35%.? She had what appeared to be Redd-Garcia respirations while on the BiPAP with tidal volumes ranging from 160 at the low and as she ramped up her tidal volumes increased to 350.? She was having long pauses.? She was awakened said that the machine was too heavy.? I switched her to noninvasive ventilator mode with AVAPS and placed her on a rate of 16, tidal volume 450, EPAP 5, minimal inspiratory pressure 6, maximal inspiratory pressure 25, inspiratory time 1.1, rise of 5, 28% FiO2.? Saturations were 98%. Plan:? Patient could not tolerate BiPAP given her abnormal respiratory pattern and she said the machine was uncomfortable on these settings.? She is tolerating noninvasive ventilation with the AVAPS mode.? She is more awake now.? i will continue these settings and check an ABG in the morning prior to removal of the machine.? I will order CT scan of the chest to assess for a restrictive lung disease, mucus plugging, pleural effusions, infection and fluid overload.? I will send a repeat COVID, influenza and RSV study to document she is not infected.? Recommend as aggressive diuresis as tolerated by her cardiac and renal systems per the hospitalist team.? Currently her weight is 85.2 with an admission weight of 89 kg.? She is -2.9 L since admission.? Patient is on ceftriaxone for UTI.? Patient is on [place] a band 20 q.day for her atrial fibrillation.? She has no wheezing currently.? Her home meds list albuterol 2 puffs t.i.d. and will continue this for the time being. The patient is 88, has dementia with A&O x1, she is very debilitated and weak and cannot remove a BiPAP mask if needed.? She has a sitter at the bedside.? I explained to the son that the patient is not an ideal BiPAP candidate but at this time the BiPAP is required to provide her with adequate ventilation.? He understands these risks and wishes to continue with BiPAP.? He confirmed the patient is DNR. Later in the day CT C/A/P with Moderate pleural effusions with compressive atelectasis, pulmonary septal thickening, mild pulmonary edema, cirrhosis, small ascites, body wall edema. 12/17/23: Patient wore NIV overnight and sats were 95%. Patient had VBG on above settings 7.55/39/43. She was awake and communicative and sasid she was breathing well on NIV. I took her off NIV and placed her on 2 L and she was in no distress with sats 97%. Plan:Will plan on noninvasive ventilation p.r.n. during the day, when she naps and when she sleeps. I will decrease her minute ventilation on her noninvasive ventilator And have decreased her respiratory rate from 16-14 and have decreased her tidal volume from 450-400.Check an ABG in the morning prior to removal. Agree with diuresis at lasix 40 IV BID. Net diuresis since admission in 2.8 L. Levaquin Day 2 for UTI and possible pneumonia (Day 4 total antibiotics. OOB as tolerated. Discussed with Dr. Rutherford, will follow with you Subjective Date/time seen:
[2023-12-17] MEDS: ACETAMINOPHEN 500 MG TABLET 1000 MG PO (12:05)
--- NOTE | 2023-12-17 15:16 | WPDCN ---
Assessment and Plan Assessment and plan (1) Left breast mass: Code(s): N63.20 - Unspecified lump in the left breast, unspecified quadrant Status: Acute Assessment and Plan: Patient admitted to the hospital respiratory distress. Incidental finding of a 11mm mass in the upper medial portion of the left breast on CT scan of the chest abdomen pelvis. The patient does have a history of left breast cancer the past and has undergone lumpectomy in the past. Will get a left breast ultrasound to see if we can further characterize the mass. Get a diagnostic left breast mammogram may be more challenged given her debilitated state. For now there is no obvious plan to perform a biopsy while she is acutely ill from her pulmonary issues. Can see the patient back in the office if she can recover to the point be discharged from the hospital again. We will try just much the workup during this admission as we can. HPI Data of Consult Date/Time: 12/17/23 15:16 Requesting Physician: Aamir Crockett MD Primary Care Provider: PHYSICIAN NOT ON STAFF Consult Narrative Reason for consult: Left breast mass Narrative: Renita Laura is a 88 year old female who was admitted to the hospital with respiratory distress from rehab. She has multiple comorbid conditions which include atrial fibrillation on Eliquis, heart failure, chronic anemia, hypertension, and history of left breast cancer for which it appears she had a left lumpectomy. Patient is poor historian and does not actually even remember having the left breast cancer. It is noted in her medical records that she has this diagnosis. She is currently being treated for her above-mentioned medical problems and on a CT scan of the chest showed a 11mm mass in the inferior medial portion of the left breast. Patient has not had a mammogram in quite some time. Review of Systems Review of Systems: The remainder of the review of systems to include constitutional, HEENT, cardiovascular, respiratory, GI, , integumentary, musculoskeletal, endocrine, immunologic, hematologic, psychiatric, and neurologic are all negative except for which is mentioned above in the HPI. [facility] Past Medical History Medical History A-fib Anemia Arthritis Back pain Breast cancer, left Cataracts, bilateral CHF (congestive heart failure) Fibromyalgia Fracture of right patella Gastric ulcer GI bleed Glaucoma HLD (hyperlipidemia) HTN (hypertension) Kidney stones Osteoporosis UTI (urinary tract infection) Surgical History Surgical History History of lumpectomy of left breast Hx of cataract surgery Family History Family History Other Cerebrovascular accident Family history of arthritis Family history of malignant neoplasm Family history of seizure disorder Social History Social History Smoking status: Never smoker Second hand tobacco smoke exposure: No Alcohol intake: never Substance use: never Substance use type: does not use Do You Feel Safe in your Home?: Yes Lack of Transportation: No Lack of Food: Never True Current Housing: I Have Housing Concerned About Future Housing: No Difficulty Paying Gas/Electric Bills: No Difficulty Paying for Meds: No Currently Unemployed: No Education: Associate Degree Difficulty w/ Childcare or Family Care: No Gender identity (if verbalized by the patient): Female Spiritual care concerns: No Meds Home Medications and Allergies Home Medications Medication Instructions Recorded Confirmed Type potassium chloride 20 mEq 20 meq PO BID 01/14/20 12/13/23 History tablet,extended release(part/cryst) raloxifene 60 mg tablet 60 mg PO DAILY 01/14/20 12/13/23 History rivaroxaban 20 mg tablet (Xarelto)
--- NOTE | 2023-12-17 16:01 | PCOTNOTE ---
Attempted OT re-sheng, patient refused stating that she would try tomorrow due to being too tired and emotional. Will follow.
[2023-12-17] MEDS: RIVAROXABAN 20 MG TABLET PO (18:10)
[2023-12-17] MEDS: levoFLOXacin 750 MG TABLET PO (18:11)
[2023-12-18] VITALS (24 sets, daily range): BP systolic 92–108; BP diastolic 64–73; PULSE 78–134; RESP 17–28; TEMP 36.2–37; O2SAT 93–98
[2023-12-18] MEDS: ALBUTEROL SULFATE (*SP) AEROSOL 1 PUFF 2 PUFF INHALATION ×4 (00:15→23:12)
[2023-12-18 05:01] LABS: Alveolar/Arterial O2 Gradient 91.3 mmHg; Fractional Inspired Oxygen 28 %; Oxygen Content ABG 16.2 %vol (16.0-22.0); Total Hemoglobin 13.1 g/dL (12.0-18.0)
[2023-12-18 05:05] LABS: pH ABG 7.516 (7.350-7.450)
[2023-12-18 05:06] LABS: Base Excess ABG 7.2 mEq/l (+/-2.0); HCO3 ABG 30.6 mEq/l (22.0-26.0); Oxygen Saturation ABG 93.5 % (95.0-100.0); Oxyhemoglobin 88.5 % THb (90.0-100.0); PCO2 ABG 38.7 mmHg (35.0-45.0); PO2 ABG 60.7 mmHg (80.0-100.0); PO2 FiO2 Ratio Arterial Blood 2.17 %
[2023-12-18 05:07] LABS: Device NON-INVASIVE VENT
[2023-12-18 05:08] LABS: Non-Invasive Vent Rate 14 /MIN
[2023-12-18 05:09] LABS: Non-Invasive Expiratory Pressure 5 CMH2O
[2023-12-18 05:42] LABS: Anion Gap 4 mmol/L (8-16); Blood Urea Nitrogen 12 mg/dL (7-17); Calcium 9.4 mg/dL (8.4-10.2); Carbon Dioxide 27 mmol/L (22-30); Chloride 103 mmol/L (98-107); Estimated CRCL calculation 50 ml/min; Estimated Glomerular Filt Rate > 60; Glucose 81 mg/dL (65-110); Magnesium 2.7 mg/dL (1.6-2.3); Phosphorus 2.1 mg/dL (2.5-4.5); Potassium 3.8 mmol/L (3.4-5.0); Sodium 134 mmol/L (137-145)
--- NOTE | 2023-12-18 06:59 | PCRCNOTE ---
VBG obtained this morning, run through abg machine as such, but label was abg per RT error.
[2023-12-18 07:05] LABS: Basophils Percent Auto 0.6 % (0.2-1.2); Eosinophils Absolute Auto 0.2 K/mm3 (0-0.3); Eosinophils Percent Auto 2.4 % (0-4.4); Hematocrit 40.9 % (37.0-47.0); Hemoglobin 12.1 g/dL (12.0-15.0); Immature Granulocyte Absolute 0.02 K/mm3 (0.00-0.031); Immature Granulocyte Percent A 0.3 % (0-0.5); Immature Platelet Fraction Pct 5.6 % (0.9-11.2); Lymphocytes Absolute Auto 1.73 K/mm3 (0.9-3.2); Lymphocytes Percent Auto 27.2 % (18.3-44.2); Mean Corpuscular HGB Conc 29.6 g/dl (32-36); Mean Corpuscular Hemoglobin 28.3 pg (26-34); Mean Corpuscular Volume 95.8 fl (80-100); Mean Platelet Volume 10.5 fl (7.4-10.4); Monocytes Absolute Auto 0.7 K/mm3 (0.1-0.6); Monocytes Percent Auto 11.5 % (2.6-8.5); Neutrophils Absolute Auto 3.7 K/mm3 (1.3-6.7); Platelet Count Result 125 k/mm3 (150-375); Red Blood Count 4.27 M/mm3 (4.2-5.4); Red Cell Distribution Width 18.1 % (11.5-14.5); White Blood Count 6.4 K/mm3 (4.5-10.0)
[2023-12-18 07:29] LABS: Anisocytosis 1+ (NORMAL); Hypochromasia 1+ (NORMAL); Platelet Estimate Decreased (Adequate); Schistocytes None Seen (NORMAL)
--- NOTE | 2023-12-18 07:37 | PM.PNPUL ---
Progress Note: A&P Assessment and Plan (1) Respiratory failure with hypoxia and hypercapnia: Code(s): J96.91 - Respiratory failure, unspecified with hypoxia; J96.92 - Respiratory failure, unspecified with hypercapnia Status: Acute Assessment and Plan: Patient has chronic hypercarbic and hypoxemic respiratory failure.? She was recently [facility] on 2 L [facility] to [facility].? She previously had a blood gas of 7.38/51/51 with a serum bicarbonate of 34 on 11/22/2023.? Currently the patient has evidence of fluid overload and a blood gas on 3 L of 7.33/79/69 with a serum bicarbonate of greater than 40.? The family states she is a never smoker. Etiology of acute on chronic hypoxemic and hypercarbic respiratory in failure includes fluid overload, restrictive lung disease from kyphoscoliosis (son states she had lost 4-5 inches inheight), untreated obstructive sleep apnea and/or obesity hypoventilation syndrome. 12/16/23: When I enter the room the patient was on BiPAP set rate of 4 pressures 12/5 and 35%.? She had what appeared to be Redd-Garcia respirations while on the BiPAP with tidal volumes ranging from 160 at the low and as she ramped up her tidal volumes increased to 350.? She was having long pauses.? She was awakened said that the machine was too heavy.? I switched her to noninvasive ventilator mode with AVAPS and placed her on a rate of 16, tidal volume 450, EPAP 5, minimal inspiratory pressure 6, maximal inspiratory pressure 25, inspiratory time 1.1, rise of 5, 28% FiO2.? Saturations were 98%. Plan:? Patient could not tolerate BiPAP given her abnormal respiratory pattern and she said the machine was uncomfortable on these settings.? She is tolerating noninvasive ventilation with the AVAPS mode.? She is more awake now.? i will continue these settings and check an ABG in the morning prior to removal of the machine.? I will order CT scan of the chest to assess for a restrictive lung disease, mucus plugging, pleural effusions, infection and fluid overload.? I will send a repeat COVID, influenza and RSV study to document she is not infected.? Recommend as aggressive diuresis as tolerated by her cardiac and renal systems per the hospitalist team.? Currently her weight is 85.2 with an admission weight of 89 kg.? She is -2.9 L since admission.? Patient is on ceftriaxone for UTI.? Patient is on [place] a band 20 q.day for her atrial fibrillation.? She has no wheezing currently.? Her home meds list albuterol 2 puffs t.i.d. and will continue this for the time being. The patient is 88, has dementia with A&O x1, she is very debilitated and weak and cannot remove a BiPAP mask if needed.? She has a sitter at the bedside.? I explained to the son that the patient is not an ideal BiPAP candidate but at this time the BiPAP is required to provide her with adequate ventilation.? He understands these risks and wishes to continue with BiPAP.? He confirmed the patient is DNR. Later in the day CT C/A/P with Moderate pleural effusions with compressive atelectasis, pulmonary septal thickening, mild pulmonary edema, cirrhosis, small ascites, body wall edema. 12/17/23: Patient wore NIV overnight and sats were 95%. Patient had VBG on above settings 7.55/39/43. She was awake and communicative and sasid she was breathing well on NIV. I took her off NIV and placed her on 2 L and she was in no distress with sats 97%. Plan:Will plan on noninvasive ventilation p.r.n. during the day, when she naps and when she sleeps. I will decrease her minute ventilation on her noninvasive ventilator And have decreased her respiratory rate from 16 to 14 and have decreased her tidal volume from 450 to 400.Check an ABG in the morning prior to removal. Agree with diuresis at lasix 40 IV BID. Net diuresis since admission in 2.8 L. Levaquin Day 2 for UTI and possible pneumonia (Day 4 total antibiotics. OOB as tolerated. 12/18/23: Patient was off the noninvasive ventilator all day yesterday and w
[2023-12-18] MEDS: POTASSIUM CHLORIDE 20 MEQ PACKET (FOR LIQUID) 40 MEQ PO ×2 (08:59→18:13)
[2023-12-18] MEDS: OPTI-GEN TAB 1 TABLET PO (09:00)
[2023-12-18] MEDS: FUROSEMIDE INJ 40 MG/4 ML VIAL IV PUSH ×2 (09:00→18:14)
[2023-12-18] MEDS: SPIRONOLACTONE 25 MG TABLET PO (09:00)
[2023-12-18] MEDS: RALOXIFENE HCL (*CHEMO) 60 MG TABLET PO (09:00)
[2023-12-18] MEDS: busPIRone HCL 5 MG TABLET PO ×3 (09:00→18:13)
[2023-12-18] MEDS: MAGNESIUM OXIDE 400 MG TABLET PO (09:00)
[2023-12-18] MEDS: ESCITALOPRAM OXALATE 10 MG TABLET 20 MG PO (09:00)
[2023-12-18] MEDS: LORATADINE 10 MG TABLET PO (09:00)
[2023-12-18] MEDS: MULTIVITAMINS THERAPEUTIC TAB (*BKC) 1 TABLET PO (09:00)
--- NOTE | 2023-12-18 10:44 | PM.PNCARD ---
Progress Note: A&P Assessment and Plan (1) Acute on chronic heart failure with preserved ejection fraction (HFpEF): Code(s): I50.33 - Acute on chronic diastolic (congestive) heart failure Status: Acute Assessment and Plan: 88-year-old female with CHF with preserved ejection fraction, right heart failure, persistent atrial fibrillation on anticoagulation with rivaroxaban, hypertension. Patient has acute chronic CHF with preserved ejection fraction and right heart failure with significant volume overload. -continue diuresis with furosemide with close monitoring of electrolytes and renal function. Continue spironolactone 25 mg p.o. daily. May start other standard medical treatment when able. -patient is DNR -spoke with patient's family including her son yesterday about patient's current clinical condition. Her overall prognosis is guarded. DNR status is appropriate. (2) Persistent atrial fibrillation: Code(s): I48.19 - Other persistent atrial fibrillation Status: Acute Assessment and Plan: Rate control with metoprolol succinate, and anticoagulation with rivaroxaban. PT OT evaluation for gait stability. (3) Respiratory failure with hypoxia and hypercapnia: Code(s): J96.91 - Respiratory failure, unspecified with hypoxia; J96.92 - Respiratory failure, unspecified with hypercapnia Status: Acute Assessment and Plan: Pulmonology evaluation and management. Subjective Date/time seen: 12/18/23 10:44 Interval history: Date of service: 12/18/2023 Interval history: Patient reports improvement in her shortness of breath. Previously, she was on BiPAP, currently sitting up in the chair and on supplemental oxygen through nasal cannula. On telemetry, she is in atrial fibrillation with heart rates in 100s. Review of Systems Review of Systems: General: Positive for fatigue Psychological: Positive for anxiety Ophthalmic: negative for loss of vision ENT: Negative for epistaxis, headaches Allergy and immunology: Negative for hives, nasal congestion Hematologic and lymphatic: Negative for overt bleeding problems Endocrine: Negative for hot flashes, palpitations Respiratory: Negative for cough, positive for dyspnea which is improving Cardiovascular: Negative for chest pain Gastrointestinal: Negative for abdominal pain Musculoskeletal: Positive for left shoulder pain Neurological: Positive for generalized weakness Dermatological: Positive for skin discoloration in lower extremities Exam Narrative: PHYSICAL EXAMINATION: GENERAL: Elderly female, alert, sitting up in the chair MENTAL STATUS: No agitation EYES: Extraocular movements intact, no pallor EARS: External ears appear normal, hearing grossly normal NOSE: Normal and patent, no discharge MOUTH: Mucous membranes moist, tongue normal NECK: Supple, no JVD CHEST: Coarse breath sounds bilaterally HEART: Tachycardia, irregularly irregular rhythm ABDOMEN: Soft, nontender NEUROLOGICAL: Alert, no agitation MUSCULOSKELETAL: no amputation EXTREMITIES: Bilateral pedal edema SKIN: Erythema bilateral lower extremities PSYCHIATRIC: No agitation Objective Data Vital Signs Vital Signs: Vital Signs - 24 hr 12/17/23 11:19 12/17/23 14:24 12/17/23 15:21 Temperature 36.9 C 36.6 C Pulse Rate 106 H 110 H Respiratory Rate 19 21 H Blood Pressure 113/71 106/68 Pulse Oximetry 97 99 94 Oxygen Delivery Nasal Cannula Oxygen Flow Rate 2 Fraction of Inspired Oxygen 12/17/23 12:00 12/17/23 16:00 12/17/23 12:00 Temperature Pulse Rate 118 H Respiratory Rate Blood Pressure Pulse Oximetry 94 90 Oxygen Delivery Nasal Cannula Nasal Cannula Oxygen Flow Rate 2 2 Fraction of Inspired Oxygen 12/17/23 14:00 12/17/23 16:00 12/17/23 16:30 Temperature Pulse Rate 104 H 103 H 104 H Respiratory Rate 20 Blood Pressure Pulse Oximetry Oxygen Delivery Oxygen Flow
--- NOTE | 2023-12-18 11:08 | PM.IMPN ---
Progress Note: A&P Assessment and Plan (1) Respiratory failure: Code(s): J96.90 - Respiratory failure, unspecified, unspecified whether with hypoxia or hypercapnia Status: Acute Assessment and Plan: 2/ oxygen weaned to 1 L by nasal cannula. (2) Acute on chronic heart failure with preserved ejection fraction (HFpEF): Code(s): I50.33 - Acute on chronic diastolic (congestive) heart failure Status: Acute Assessment and Plan: Improved with diuresis, continue and consider transition to PO diuretics soon. (3) A-fib: Qualifiers: Atrial fibrillation type: paroxysmal Qualified Code(s): I48.0 - Paroxysmal atrial fibrillation Code(s): I48.91 - Unspecified atrial fibrillation Status: Acute Assessment and Plan: 12/18 rate control remained suboptimal. Increase metoprolol ER from 50-100 mg p.o. daily. Soft blood pressure noted but improvement and rate may improve perfusion. If BP drops, could reduce valsartan. Continue Xarelto. (4) Acute UTI: Code(s): N39.0 - Urinary tract infection, site not specified Status: Acute Assessment and Plan: To complete Levaquin December 21. (5) Left breast mass: Code(s): N63.20 - Unspecified lump in the left breast, unspecified quadrant Status: Acute Assessment and Plan: 12/18 U/s breast performed around 11:20 AM and results pending. (6) Cirrhosis of liver: Code(s): K74.60 - Unspecified cirrhosis of liver Status: Acute Assessment and Plan: Etiology unclear. 12/18 ordered chronic viral hepatitis screen, LKM1 Ab, and iron panel. (7) Thrombocytopenia: Code(s): D69.6 - Thrombocytopenia, unspecified Status: Acute Assessment and Plan: Chronic, mildly worsened. Possibly related to cirrhosis and splenic sequestration. 12/18 125k, monitor. Subjective Date/time seen: 12/18/23 11:08 Interval history: Tolerating diet. Denied palpitations chest pain or shortness of breath at rest. Review of Systems Review of Systems: Accuracy of system reviews dubious due to mental status. All systems reviewed & are unremarkable except as noted in HPI and below Exam Narrative: - GENERAL: Pleasant, in no acute distress. Well-nourished. - EYES: PERRL. Anicteric. - HENT: Moist mucous membranes. - NECK: No JVD. - LUNGS: Coarse breath sound bilateral base no wheezing, rhonchi. - CARDIOVASCULAR: S1 and S2 normal. Rate tachycardiac and irregular. No audible murmur. - ABDOMEN: Soft, non-tender and non-distended. No palpable masses. - EXTREMITIES: No edema. - NEUROLOGIC: CN's symmetric to inspection. Symmetric, generalized weakness. - PSYCHIATRIC: Alert. Oriented to person, not to place year or month. - SKIN: No rashes or lesions visible. Objective Data Vital Signs Vital Signs: Vital Signs - 24 hr 12/17/23 11:19 12/17/23 14:24 12/17/23 15:21 Temperature 98.4 F 97.8 F Pulse Rate 106 H 110 H Respiratory Rate 19 21 H Blood Pressure 113/71 106/68 Pulse Oximetry 97 99 94 Oxygen Delivery Nasal Cannula Oxygen Flow Rate 2 Fraction of Inspired Oxygen 12/17/23 12:00 12/17/23 16:00 12/17/23 12:00 Temperature Pulse Rate 118 H Respiratory Rate Blood Pressure Pulse Oximetry 94 90 Oxygen Delivery Nasal Cannula Nasal Cannula Oxygen Flow Rate 2 2 Fraction of Inspired Oxygen 12/17/23 14:00 12/17/23 16:00 12/17/23 16:30 Temperature Pulse Rate 104 H 103 H 104 H Respiratory Rate 20 Blood Pressure Pulse Oximetry Oxygen Delivery Oxygen Flow Rate Fraction of Inspired Oxygen 12/17/23 18:00 12/17/23 20:00 12/17/23 20:00 Temperature 97.0 F L Pulse Rate 112 H 103 H 111 H Respiratory Rate 21 H Blood Pressure 100/68 Pulse Oximetry 99 Oxygen Delivery Oxygen Flow Rate Fraction of Inspired Oxygen 12/17/23 20:00 12/17/23 22:00 12/17/23 23:28 Temperature 97.8 F Pulse Rate
--- NOTE | 2023-12-18 11:08 | P.PNIM_ITS ---
Progress Note: A&P Assessment and Plan (1) Respiratory failure: Code(s): J96.90 - Respiratory failure, unspecified, unspecified whether with hypoxia or hypercapnia Status: Acute Assessment and Plan: * 2/4 oxygen weaned to 1 L by nasal cannula. (2) Acute on chronic heart failure with preserved ejection fraction (HFpEF): Code(s): I50.33 - Acute on chronic diastolic (congestive) heart failure Status: Acute Assessment and Plan: * Improved with diuresis, continue and consider transition to PO diuretics soon. (3) A-fib: Qualifiers: Atrial fibrillation type: paroxysmal Qualified Code(s): I48.0 - Paroxysmal atrial fibrillation Code(s): I48.91 - Unspecified atrial fibrillation Status: Acute Assessment and Plan: * 2/4 rate control remained suboptimal. Increase metoprolol ER from 50-100 mg p.o. daily. Soft blood pressure noted but improvement and rate may improve perfusion. If BP drops, could reduce valsartan. * Continue Xarelto. (4) Acute UTI: Code(s): N39.0 - Urinary tract infection, site not specified Status: Acute Assessment and Plan: * To complete Levaquin December 21. (5) Left breast mass: Code(s): N63.20 - Unspecified lump in the left breast, unspecified quadrant Status: Acute Assessment and Plan: * 2/4 U/s breast performed around 11:20 AM and results pending. (6) Cirrhosis of liver: Code(s): K74.60 - Unspecified cirrhosis of liver Status: Acute Assessment and Plan: * Etiology unclear. * 2/4 ordered chronic viral hepatitis screen, LKM1 Ab, and iron panel. (7) Thrombocytopenia: Code(s): D69.6 - Thrombocytopenia, unspecified Status: Acute Assessment and Plan: * Chronic, mildly worsened. * Possibly related to cirrhosis and splenic sequestration. * 2/4 125k, monitor. Subjective Date/time seen: 12/18/23 11:08 Interval history: Tolerating diet. Denied palpitations chest pain or shortness of breath at rest. Review of Systems Review of Systems: Accuracy of system reviews dubious due to mental status. All systems reviewed & are unremarkable except as noted in HPI and below Exam Narrative: - GENERAL: Pleasant, in no acute distr ess. Well-nourished. - EYES: PERRL. Anicteric. - HENT: Moist mucous membranes. - NECK: No JVD. - LUNGS: Coarse breath sound bilateral base no wheezing, rhonchi. - CARDIOVASCULAR: S1 and S2 normal. Ra te tachycardiac and irregular. No audible murmur. - ABDOMEN: Soft, non-tender and non-dist ended. No palpable masses. - EXTREMITIES: No edema. - NEUROLOGIC: CN's symmetric to inspect ion. Symmetric, generalized weakness. - PSYCHIATRIC: Alert. Oriented to pers on, not to place year or month. - SKIN: No rashes or lesions visible. Objective Data Vital Signs Vital Signs: Vital Signs - 24 hr 12/17/23 11:19 12/17/23 14:24 12/17/23 15:21 Temperature 98.4 F 97.8 F Pulse Rate 106 H 110 H Respirator
--- NOTE | 2023-12-18 11:42 | PCPTNOTE ---
PT reeval performed this date due to pt transfer to IMU for respiratory issues. She is now stabilized and PT continue treatment with same goals and plan of care.
--- NOTE | 2023-12-18 11:46 | PCOTNOTE ---
OT reeval completed this date due to patient transfering to IMU for respiratory issues. She is now stable, OT will resume treatment with POC and goals.
[2023-12-18] MEDS: METOPROLOL SUCCINATE EXT REL 50 MG TABCR PO (12:07)
[2023-12-18] MEDS: RIVAROXABAN 20 MG TABLET PO (18:13)
[2023-12-18] MEDS: levoFLOXacin 750 MG TABLET PO (18:13)
[2023-12-18] MEDS: SENNOSIDES 8.6 MG TABLET PO (22:33)
[2023-12-18] MEDS: FLUTICASONE PROPIONATE 0.05% NA SPR 16 GM BTL (*BKC) 1 SPRAY NASAL (22:33)
[2023-12-19] VITALS (19 sets, daily range): BP systolic 92–107; BP diastolic 61–77; PULSE 76–115; RESP 20–28; TEMP 36.3–37.1; O2SAT 94–99
[2023-12-19 04:41] LABS: Immature Platelet Fraction Pct 6.7 % (0.9-11.2); Mean Corpuscular Hemoglobin 28.6 pg (26-34); Mean Corpuscular Volume 95.2 fl (80-100); Mean Platelet Volume 10.8 fl (7.4-10.4); Platelet Count Result 135 k/mm3 (150-375); Red Cell Distribution Width 18.1 % (11.5-14.5); White Blood Count 5.4 K/mm3 (4.5-10.0)
[2023-12-19 04:53] LABS: Anion Gap 1 mmol/L (8-16); Blood Urea Nitrogen 10 mg/dL (7-17); Calcium 9.7 mg/dL (8.4-10.2); Carbon Dioxide 36 mmol/L (22-30); Chloride 101 mmol/L (98-107); Estimated CRCL calculation 45 ml/min; Estimated Glomerular Filt Rate > 60; Glucose 84 mg/dL (65-110); Potassium 3.9 mmol/L (3.4-5.0); Sodium 138 mmol/L (137-145)
[2023-12-19 05:19] LABS: Iron 58 ug/dL (37-170)
[2023-12-19 05:29] LABS: Percent Iron Saturation 20 % (20-50)
[2023-12-19 05:49] LABS: Hepatitis B Surface Antigen Negative (Negative)
[2023-12-19 06:06] LABS: Hepatitis C Virus Antibody Negative (Negative)
[2023-12-19] MEDS: ALBUTEROL SULFATE (*SP) AEROSOL 1 PUFF 2 PUFF INHALATION ×3 (08:25→23:27)
[2023-12-19] MEDS: SPIRONOLACTONE 25 MG TABLET PO (08:45)
[2023-12-19] MEDS: busPIRone HCL 5 MG TABLET PO ×3 (08:45→17:15)
[2023-12-19] MEDS: MAGNESIUM OXIDE 400 MG TABLET PO (08:45)
[2023-12-19] MEDS: FUROSEMIDE INJ 40 MG/4 ML VIAL IV PUSH ×2 (08:45→17:15)
[2023-12-19] MEDS: RALOXIFENE HCL (*CHEMO) 60 MG TABLET PO (08:45)
[2023-12-19] MEDS: ESCITALOPRAM OXALATE 10 MG TABLET 20 MG PO (08:45)
[2023-12-19] MEDS: OPTI-GEN TAB 1 TABLET PO (08:45)
[2023-12-19] MEDS: POTASSIUM CHLORIDE 20 MEQ PACKET (FOR LIQUID) 40 MEQ PO ×2 (08:45→17:15)
[2023-12-19] MEDS: LORATADINE 10 MG TABLET PO (08:46)
[2023-12-19] MEDS: MULTIVITAMINS THERAPEUTIC TAB (*BKC) 1 TABLET PO (08:46)
--- NOTE | 2023-12-19 10:19 | PM.PNPUL ---
Progress Note: A&P Assessment and Plan (1) Respiratory failure with hypoxia and hypercapnia: Code(s): J96.91 - Respiratory failure, unspecified with hypoxia; J96.92 - Respiratory failure, unspecified with hypercapnia Status: Acute Assessment and Plan: This 88-year-old female patient has a known medical history that includes left ventricular diastolic dysfunction, atrial fibrillation, elevated pulmonary artery systolic pressure as per previous echo measurement, significantly enlarged left atrium, and signs of right ventricular failure. This garrison her second hospital admission within a 30-day span due to shortness of breath and hypoxemic hypercapnic respiratory failure, both symptoms of acute on chronic congestive heart failure. A chest CT scan revealed small bilateral pleural effusions, prominent pulmonary artery, and mild kyphoscoliosis. The patient has shown a positive response to diuretic treatment and BiPAP support for her hypercapnic respiratory failure. Currently, she is fully conscious and does not report any respiratory symptoms while receiving supplemental oxygen through a nasal cannula. Upon physical examination, she still presents decreased breath sounds and crackles at the bases due to bilateral pleural effusions. A review of a past chest CT from 2019 also showed prominent pulmonary arteries, signifying chronic pulmonary hypertension, a secondary effect of left ventricular diastolic dysfunction. It is likely that the patient has other non-cardiac factors contributing to chronic nocturnal hypoxemia and pulmonary hypertension, such as sleep disordered breathing. Additionally, her kyphoscoliosis could potentially contribute to nocturnal hypoventilation and hypoxemia. Plan: We will maintain the current supportive treatment for congestive heart failure. The patient will need to continue with BiPAP support during the night. It is highly probable that she will require ventilatory support at home to manage chronic hypercapnia. We will conduct an ApneaLink study prior to her discharge. (2) CHF (congestive heart failure): Code(s): I50.9 - Heart failure, unspecified Status: Acute (3) TANISHA (acute kidney injury): Code(s): N17.9 - Acute kidney failure, unspecified Status: Acute (4) A-fib: Qualifiers: Atrial fibrillation type: paroxysmal Qualified Code(s): I48.0 - Paroxysmal atrial fibrillation Code(s): I48.91 - Unspecified atrial fibrillation Status: Acute (5) Venous stasis ulcer: Qualifiers: Venous stasis ulcer site: other part of lower leg Varicose vein presence: without varicose veins Laterality: unspecified laterality Non-pressure ulcer stage: unspecified non-pressure ulcer stage Qualified Code(s): I87.2 - Venous insufficiency (chronic) (peripheral); L97.809 - Non-pressure chronic ulcer of other part of unspecified lower leg with unspecified severity Code(s): I83.009 - Varicose veins of unspecified lower extremity with ulcer of unspecified site; L97.909 - Non-pressure chronic ulcer of unspecified part of unspecified lower leg with unspecified severity Status: Acute (6) [id number] kidney injury: Qualifiers: Acute renal failure type: unspecified Chronic kidney disease stage: stage 3 (moderate) Chronic kidney disease stage 3 subtype: unspecified whether 3a or 3b Qualified Code(s): N17.9 - Acute kidney failure, unspecified; N18.30 - Chronic kidney disease, stage 3 unspecified Code(s): N17.9 - Acute kidney failure, unspecified; N18.9 - Chronic kidney disease, unspecified Status: Acute (7) Acute on chronic heart failure with preserved ejection fraction (HFpEF): Code(s): I50.33 - Acute on chronic diastolic (congestive) heart failure Status: Acute Subjective Date/time seen: 12/19/23 10:19 Interval history: Patient reports no new respiratory complaints. She has no shortness of breath while on supplemental oxygen.
[2023-12-19] MEDS: METOPROLOL SUCCINATE EXT REL 50 MG TABCR 100 MG PO (13:23)
--- NOTE | 2023-12-19 13:56 | PM.PNCARD ---
Progress Note: A&P Assessment and Plan (1) Acute on chronic heart failure with preserved ejection fraction (HFpEF): Code(s): I50.33 - Acute on chronic diastolic (congestive) heart failure Status: Acute Assessment and Plan: 88-year-old female with CHF with preserved ejection fraction, right heart failure, persistent atrial fibrillation on anticoagulation with rivaroxaban, hypertension. Patient has acute chronic CHF with preserved ejection fraction and right heart failure with significant volume overload. -Unsure if documented I&O is correct, but if so she is not diuresing much. -continue diuresis with IV furosemide with close monitoring of electrolytes and renal function. Stable today. -Continue spironolactone 25 mg p.o. daily. -May start other standard medical treatment when able (addition of medical therapy limited by BP) (2) Persistent atrial fibrillation: Code(s): I48.19 - Other persistent atrial fibrillation Status: Acute Assessment and Plan: Rate control with metoprolol succinate, and anticoagulation with rivaroxaban. PT OT evaluation for gait stability. (3) Respiratory failure with hypoxia and hypercapnia: Code(s): J96.91 - Respiratory failure, unspecified with hypoxia; J96.92 - Respiratory failure, unspecified with hypercapnia Status: Acute Assessment and Plan: Pulmonology evaluation and management. Subjective Date/time seen: 12/19/23 13:56 Interval history: Date of service: 12/18/2023 Interval history: Patient reports improvement in her shortness of breath. Previously, she was on BiPAP, currently sitting up in the chair and on supplemental oxygen through nasal cannula. On telemetry, she is in atrial fibrillation with heart rates in 100s. Date of service 12/19/23: She is feeling better today. On O2 per nasal cannula sitting up in the chair. Atrial fibrillation seen on telemetry with rate controlled. Review of Systems Review of Systems: General: Positive for fatigue Psychological: Positive for anxiety Ophthalmic: negative for loss of vision ENT: Negative for epistaxis, headaches Allergy and immunology: Negative for hives, nasal congestion Hematologic and lymphatic: Negative for overt bleeding problems Endocrine: Negative for hot flashes, palpitations Respiratory: Negative for cough, positive for dyspnea which is improving Cardiovascular: Negative for chest pain Gastrointestinal: Negative for abdominal pain Musculoskeletal: Positive for left shoulder pain Neurological: Positive for generalized weakness Dermatological: Positive for skin discoloration in lower extremities Exam Narrative: PHYSICAL EXAMINATION: GENERAL: Elderly female, alert, sitting up in the chair MENTAL STATUS: No agitation EYES: Extraocular movements intact, no pallor EARS: External ears appear normal, hearing grossly normal NOSE: Normal and patent, no discharge MOUTH: Mucous membranes moist, tongue normal NECK: Supple, no JVD CHEST: Coarse breath sounds bilaterally HEART: Tachycardia, irregularly irregular rhythm ABDOMEN: Soft, nontender NEUROLOGICAL: Alert, no agitation MUSCULOSKELETAL: no amputation EXTREMITIES: Bilateral pedal edema SKIN: Erythema bilateral lower extremities PSYCHIATRIC: No agitation Objective Data Vital Signs Vital Signs: Vital Signs - 24 hr 12/18/23 14:00 12/18/23 15:55 12/18/23 16:00 Temperature 36.7 C Pulse Rate 105 H 103 H 104 H Respiratory Rate 24 H Blood Pressure 106/71 Pulse Oximetry 97 Oxygen Delivery Oxygen Flow Rate Fraction of Inspired Oxygen 12/18/23 16:00 12/18/23 18:00 12/18/23 19:25 Temperature 36.3 C L Pulse Rate 97 97 Respiratory Rate 20 Blood Pressure 108/73 Pulse Oximetry 97 97 Oxygen Delivery Nasal Cannula Oxygen Flow Rate 1 Fraction of Inspired Oxygen 12/18/23 20:45 12/18/23 20:00 12/18/23 20:00 Temperature Pulse Rate 87
--- NOTE | 2023-12-19 14:59 | P.PNIM_ITS ---
Progress Note: A&P Assessment and Plan (1) Respiratory failure: Code(s): J96.90 - Respiratory failure, unspecified, unspecified whether with hypoxia or hypercapnia Status: Acute Assessment and Plan: * 2/4 oxygen weaned to 1 L by nasal cannula. * pt wearing BIPAP at night * move to medical floor * consult made to palliative care (2) Acute on chronic heart failure with preserved ejection fraction (HFpEF): Code(s): I50.33 - Acute on chronic diastolic (congestive) heart failure Status: Acute Assessment and Plan: * Improved with diuresis, continue and consider transition to PO diuretics soon. * presently pt remains on iv lasix (3) A-fib: Qualifiers: Atrial fibrillation type: paroxysmal Qualified Code(s): I48.0 - Paroxysmal atrial fibrillation Code(s): I48.91 - Unspecified atrial fibrillation Status: Acute Assessment and Plan: * 2/4 rate control remained suboptimal. Increase metoprolol ER from 50-100 mg p.o. daily. Soft blood pressure noted but improvement and rate may improve perfusion. If BP drops, could reduce valsartan. * Continue Xarelto. (4) Acute UTI: Code(s): N39.0 - Urinary tract infection, site not specified Status: Acute Assessment and Plan: * To complete Levaquin December 21. (5) Left breast mass: Code(s): N63.20 - Unspecified lump in the left breast, unspecified quadrant Status: Acute Assessment and Plan: * 2/4 U/s breast performed around 11:20 AM and results pending. (6) Cirrhosis of liver: Code(s): K74.60 - Unspecified cirrhosis of liver Status: Acute Assessment and Plan: * Etiology unclear. * 2/4 ordered chronic viral hepatitis screen, LKM1 Ab, and iron panel. (7) Thrombocytopenia: Code(s): D69.6 - Thrombocytopenia, unspecified Status: Acute Assessment and Plan: * Chronic, mildly worsened. * Possibly related to cirrhosis and splenic sequestration. continue to monitor Subjective Date/time seen: 12/19/23 14:59 Interval history: 88-year-old female with a history of atrial fibrillation on Xarelto, heart failure preserved ejection fraction, anxiety, chronic wounds, dementia with a baseline a and O x1, history of breast cancer, chronic anemia, fibromyalgia, history of gastric ulcer and GI bleed, hypertension, hyperlipidemia.? [facility] [place] [facility] That was for UTI and CHF.? She returns as she had been having increasing oxygen requirements. Pt using BIPAP at night and 1 liter in the day overall prognosis is poor Pt seen by cardiology and pulmonology here consider palliative care/ hospice consult on DC Review of Systems Review of Systems: Somewhat confused/ Pleasantly confused Exam Narrative: - GENERAL: elderly frail cognitive issu es - EYES: PERRL. Anicteric. - HENT: Moist mucous membranes. - NECK: No JVD. - LUNGS: Coarse breath sound bilateral base no wheezing, rhonchi. - CARDIOVASCULAR: S1 and S2 normal. Ra te tachycardiac and irregular. No audible murmur. - ABDOMEN: Soft, non-tender and non-dist ended. No palpable masses. - EXTREMITIES: No edema.
--- NOTE | 2023-12-19 14:59 | PM.IMPN ---
Progress Note: A&P Assessment and Plan (1) Respiratory failure: Code(s): J96.90 - Respiratory failure, unspecified, unspecified whether with hypoxia or hypercapnia Status: Acute Assessment and Plan: 2/4 oxygen weaned to 1 L by nasal cannula. pt wearing BIPAP at night move to medical floor consult made to palliative care (2) Acute on chronic heart failure with preserved ejection fraction (HFpEF): Code(s): I50.33 - Acute on chronic diastolic (congestive) heart failure Status: Acute Assessment and Plan: Improved with diuresis, continue and consider transition to PO diuretics soon. presently pt remains on iv lasix (3) A-fib: Qualifiers: Atrial fibrillation type: paroxysmal Qualified Code(s): I48.0 - Paroxysmal atrial fibrillation Code(s): I48.91 - Unspecified atrial fibrillation Status: Acute Assessment and Plan: 2/ rate control remained suboptimal. Increase metoprolol ER from 50-100 mg p.o. daily. Soft blood pressure noted but improvement and rate may improve perfusion. If BP drops, could reduce valsartan. Continue Xarelto. (4) Acute UTI: Code(s): N39.0 - Urinary tract infection, site not specified Status: Acute Assessment and Plan: To complete Levaquin December 21. (5) Left breast mass: Code(s): N63.20 - Unspecified lump in the left breast, unspecified quadrant Status: Acute Assessment and Plan: 2/ U/s breast performed around 11:20 AM and results pending. (6) Cirrhosis of liver: Code(s): K74.60 - Unspecified cirrhosis of liver Status: Acute Assessment and Plan: Etiology unclear. 2/4 ordered chronic viral hepatitis screen, LKM1 Ab, and iron panel. (7) Thrombocytopenia: Code(s): D69.6 - Thrombocytopenia, unspecified Status: Acute Assessment and Plan: Chronic, mildly worsened. Possibly related to cirrhosis and splenic sequestration. continue to monitor Subjective Date/time seen: 12/19/23 14:59 Interval history: 88-year-old female with a history of atrial fibrillation on Xarelto, heart failure preserved ejection fraction, anxiety, chronic wounds, dementia with a baseline a and O x1, history of breast cancer, chronic anemia, fibromyalgia, history of gastric ulcer and GI bleed, hypertension, hyperlipidemia.? She was recently discharged from [place] [facility] for [facility].? That was for UTI and CHF.? She returns as she had been having increasing oxygen requirements. Pt using BIPAP at night and 1 liter in the day overall prognosis is poor Pt seen by cardiology and pulmonology here consider palliative care/ hospice consult on DC Review of Systems Review of Systems: Somewhat confused/ Pleasantly confused Exam Narrative: - GENERAL: elderly frail cognitive issues - EYES: PERRL. Anicteric. - HENT: Moist mucous membranes. - NECK: No JVD. - LUNGS: Coarse breath sound bilateral base no wheezing, rhonchi. - CARDIOVASCULAR: S1 and S2 normal. Rate tachycardiac and irregular. No audible murmur. - ABDOMEN: Soft, non-tender and non-distended. No palpable masses. - EXTREMITIES: No edema. - NEUROLOGIC: CN's symmetric to inspection. Symmetric, generalized weakness. - PSYCHIATRIC: Alert. Oriented to person, not to place year or month. - SKIN: No rashes or lesions visible. Objective Data Vital Signs Vital Signs: Vital Signs - 24 hr 12/18/23 15:55 12/18/23 16:00 12/18/23 16:00 Temperature 36.7 C Pulse Rate 103 H 104 H Respiratory Rate 24 H Blood Pressure 106/71 Pulse Oximetry 97 97 Oxygen Delivery Nasal Cannula Oxygen Flow Rate 1 Fraction of Inspired Oxygen 12/18/23 18:00 12/18/23 19:25 12/18/23 20:45 Temperature 36.3 C L Pulse Rate 97 97 Respiratory Rate 20 Blood Pressure 108/73 Pulse Oximetry 97 98 Oxygen Delivery Nasal Cannula Oxygen Flow Rate 1 Fraction of Inspired Oxygen 12/18
[2023-12-19] MEDS: RIVAROXABAN 20 MG TABLET PO (17:15)
[2023-12-19] MEDS: levoFLOXacin 750 MG TABLET PO (17:15)
[2023-12-19] MEDS: SENNOSIDES 8.6 MG TABLET PO (21:26)
[2023-12-19] MEDS: FLUTICASONE PROPIONATE 0.05% NA SPR 16 GM BTL (*BKC) 1 SPRAY NASAL (21:26)
[2023-12-20] VITALS (8 sets, daily range): BP systolic 92–94; BP diastolic 62–71; PULSE 80–98; RESP 16–25; TEMP 36.1–37; O2SAT 90–100
[2023-12-20 06:41] LABS: Anion Gap 2 mmol/L (8-16); Blood Urea Nitrogen 13 mg/dL (7-17); Calcium 10.2 mg/dL (8.4-10.2); Carbon Dioxide 33 mmol/L (22-30); Chloride 102 mmol/L (98-107); Estimated CRCL calculation 37 ml/min; Estimated Glomerular Filt Rate 52; Glucose 102 mg/dL (65-110); Potassium 4.6 mmol/L (3.4-5.0); Sodium 137 mmol/L (137-145)
[2023-12-20] MEDS: RALOXIFENE HCL (*CHEMO) 60 MG TABLET PO (08:19)
[2023-12-20] MEDS: METOPROLOL SUCCINATE EXT REL 50 MG TABCR 100 MG PO (08:19)
[2023-12-20] MEDS: busPIRone HCL 5 MG TABLET PO ×3 (08:21→17:14)
[2023-12-20] MEDS: LORATADINE 10 MG TABLET PO (08:21)
[2023-12-20] MEDS: OPTI-GEN TAB 1 TABLET PO (08:21)
[2023-12-20] MEDS: POTASSIUM CHLORIDE 20 MEQ PACKET (FOR LIQUID) 40 MEQ PO ×2 (08:21→17:14)
[2023-12-20] MEDS: SPIRONOLACTONE 25 MG TABLET PO (08:21)
[2023-12-20] MEDS: MULTIVITAMINS THERAPEUTIC TAB (*BKC) 1 TABLET PO (08:21)
[2023-12-20] MEDS: MAGNESIUM OXIDE 400 MG TABLET PO (08:21)
[2023-12-20] MEDS: ESCITALOPRAM OXALATE 10 MG TABLET 20 MG PO (08:21)
[2023-12-20] MEDS: FUROSEMIDE INJ 40 MG/4 ML VIAL IV PUSH ×2 (08:22→17:13)
[2023-12-20] MEDS: ALBUTEROL SULFATE (*SP) AEROSOL 1 PUFF 2 PUFF INHALATION ×2 (09:24→17:42)
--- NOTE | 2023-12-20 15:03 | P.PNIM_ITS ---
Progress Note: A&P Assessment and Plan (1) Respiratory failure: Code(s): J96.90 - Respiratory failure, unspecified, unspecified whether with hypoxia or hypercapnia Status: Acute Assessment and Plan: * 2/4 oxygen weaned to 1 L by nasal cannula. * pt wearing BIPAP at night * move to medical floor * consult made to palliative care (2) Acute on chronic heart failure with preserved ejection fraction (HFpEF): Code(s): I50.33 - Acute on chronic diastolic (congestive) heart failure Status: Acute Assessment and Plan: * Improved with diuresis, continue and consider transition to PO diuretics soon. * presently pt remains on iv lasix (3) A-fib: Qualifiers: Atrial fibrillation type: paroxysmal Qualified Code(s): I48.0 - Paroxysmal atrial fibrillation Code(s): I48.91 - Unspecified atrial fibrillation Status: Acute Assessment and Plan: * 2/4 rate control remained suboptimal. Increase metoprolol ER from 50-100 mg p.o. daily. Soft blood pressure noted but improvement and rate may improve perfusion. If BP drops, could reduce valsartan. * Continue Xarelto. (4) Acute UTI: Code(s): N39.0 - Urinary tract infection, site not specified Status: Acute Assessment and Plan: * To complete Levaquin December 21. (5) Left breast mass: Code(s): N63.20 - Unspecified lump in the left breast, unspecified quadrant Status: Acute Assessment and Plan: * 2/4 U/S breast showed suspicious mass * discussed with son about goals of care for left breast mass and he will discuss with his brother and make a decision (6) Cirrhosis of liver: Code(s): K74.60 - Unspecified cirrhosis of liver Status: Acute Assessment and Plan: * Etiology unclear. * 2/4 ordered chronic viral hepatitis screen, LKM1 Ab, and iron panel. (7) Thrombocytopenia: Code(s): D69.6 - Thrombocytopenia, unspecified Status: Acute Assessment and Plan: * Chronic, mildly worsened. * Possibly related to cirrhosis and splenic sequestration. continue to monitor Subjective Date/time seen: 12/20/23 15:03 Interval history: Date of service: 12/18/2023 Interval history: Patient reports improvement in her shortness of breath. Previously, she was on BiPAP, currently sitting up in the chair and on supplemental oxygen through nasal cannula. On telemetry, she is in atrial fibrillation with heart rates in 100s. Date of service 12/19/23: She is feeling better today. On O2 per nasal cannula sitting up in the chair. Atrial fibrillation seen on telemetry with rate controlled. discussed with son about left breast mass goals of care adn he stated he will discuss with his brother and make a decision Review of Systems Review of Systems: Somewhat confused/ Pleasantly confused All systems reviewed & are unremarkable except as noted in HPI and below Exam Narrative: - GENERAL: elderly frail cognitive issu es - EYES: PERRL. Anicteric. - HENT: Moist mucous membranes. - NECK: No JVD. - LUNGS: Coarse breath sound bilateral base no wheezing, rhonchi. - CARDIOVASCULAR: S1 and S2 normal. Ra te tachycardiac and irregular. No audible murmur. - ABDOMEN: Soft, non-
--- NOTE | 2023-12-20 15:03 | PM.IMPN ---
Progress Note: A&P Assessment and Plan (1) Respiratory failure: Code(s): J96.90 - Respiratory failure, unspecified, unspecified whether with hypoxia or hypercapnia Status: Acute Assessment and Plan: 2/ oxygen weaned to 1 L by nasal cannula. pt wearing BIPAP at night move to medical floor consult made to palliative care (2) Acute on chronic heart failure with preserved ejection fraction (HFpEF): Code(s): I50.33 - Acute on chronic diastolic (congestive) heart failure Status: Acute Assessment and Plan: Improved with diuresis, continue and consider transition to PO diuretics soon. presently pt remains on iv lasix (3) A-fib: Qualifiers: Atrial fibrillation type: paroxysmal Qualified Code(s): I48.0 - Paroxysmal atrial fibrillation Code(s): I48.91 - Unspecified atrial fibrillation Status: Acute Assessment and Plan: 2 rate control remained suboptimal. Increase metoprolol ER from 50-100 mg p.o. daily. Soft blood pressure noted but improvement and rate may improve perfusion. If BP drops, could reduce valsartan. Continue Xarelto. (4) Acute UTI: Code(s): N39.0 - Urinary tract infection, site not specified Status: Acute Assessment and Plan: To complete Levaquin December 21. (5) Left breast mass: Code(s): N63.20 - Unspecified lump in the left breast, unspecified quadrant Status: Acute Assessment and Plan: 2 U/S breast showed suspicious mass discussed with son about goals of care for left breast mass and he will discuss with his brother and make a decision (6) Cirrhosis of liver: Code(s): K74.60 - Unspecified cirrhosis of liver Status: Acute Assessment and Plan: Etiology unclear. 12/18 ordered chronic viral hepatitis screen, LKM1 Ab, and iron panel. (7) Thrombocytopenia: Code(s): D69.6 - Thrombocytopenia, unspecified Status: Acute Assessment and Plan: Chronic, mildly worsened. Possibly related to cirrhosis and splenic sequestration. continue to monitor Subjective Date/time seen: 12/20/23 15:03 Interval history: Date of service: 12/18/2023 Interval history: Patient reports improvement in her shortness of breath. Previously, she was on BiPAP, currently sitting up in the chair and on supplemental oxygen through nasal cannula. On telemetry, she is in atrial fibrillation with heart rates in 100s. Date of service 12/19/23: She is feeling better today. On O2 per nasal cannula sitting up in the chair. Atrial fibrillation seen on telemetry with rate controlled. discussed with son about left breast mass goals of care adn he stated he will discuss with his brother and make a decision Review of Systems Review of Systems: Somewhat confused/ Pleasantly confused All systems reviewed & are unremarkable except as noted in HPI and below Exam Narrative: - GENERAL: elderly frail cognitive issues - EYES: PERRL. Anicteric. - HENT: Moist mucous membranes. - NECK: No JVD. - LUNGS: Coarse breath sound bilateral base no wheezing, rhonchi. - CARDIOVASCULAR: S1 and S2 normal. Rate tachycardiac and irregular. No audible murmur. - ABDOMEN: Soft, non-tender and non-distended. No palpable masses. - EXTREMITIES: No edema. - NEUROLOGIC: CN's symmetric to inspection. Symmetric, generalized weakness. - PSYCHIATRIC: Alert. Oriented to person, not to place year or month. - SKIN: No rashes or lesions visible. Const: General: comfortable and no acute distress Other: Pleasantly confused. A and O x1 Eyes: Pupils: Equal, round and reactive pupils present Neck: Neck: supple Resp: Effort & Inspection: normal respiratory effort Auscultation: crackles (Scant) and diminished lung sounds (Difficult to auscultate.) Cardio: Rate: regular rate Rhythm: regular rhythm Heart sounds: no gallops, no murmurs and no rubs Neuro: Cranial nerves: Yes Equal, r
--- NOTE | 2023-12-20 15:33 | PM.PNPUL ---
Progress Note: A&P Assessment and Plan (1) Respiratory failure with hypoxia and hypercapnia: Code(s): J96.91 - Respiratory failure, unspecified with hypoxia; J96.92 - Respiratory failure, unspecified with hypercapnia Status: Acute Assessment and Plan: This 88-year-old female patient has a known medical history that includes left ventricular diastolic dysfunction, atrial fibrillation, elevated pulmonary artery systolic pressure as per previous echo measurement, significantly enlarged left atrium, and signs of right ventricular failure. This garrison her second hospital admission within a 30-day span due to shortness of breath and hypoxemic hypercapnic respiratory failure, both symptoms of acute on chronic congestive heart failure. A chest CT scan revealed small bilateral pleural effusions, prominent pulmonary artery, and mild kyphoscoliosis. The patient has shown a positive response to diuretic treatment and BiPAP support for her hypercapnic respiratory failure. Currently, she is fully conscious and does not report any respiratory symptoms while receiving supplemental oxygen through a nasal cannula. Upon physical examination, she still presents decreased breath sounds and crackles at the bases due to bilateral pleural effusions. A review of a past chest CT from 2019 also showed prominent pulmonary arteries, signifying chronic pulmonary hypertension, a secondary effect of left ventricular diastolic dysfunction. It is likely that the patient has other non-cardiac factors contributing to chronic nocturnal hypoxemia and pulmonary hypertension, such as sleep disordered breathing. Additionally, her kyphoscoliosis could potentially contribute to nocturnal hypoventilation and hypoxemia. The patient did not utilize BiPAP support during the previous night. Upon inquiry, she expressed her discomfort with the facemask. She also communicated her preference to avoid using masks and ventilatory support post-discharge from the hospital. Plan: We aim to conduct a repeat chest x-ray in the morning to monitor the size of the bilateral pleural effusions. We will continue to oversee the patient's progress in conjunction with you. (2) CHF (congestive heart failure): Code(s): I50.9 - Heart failure, unspecified Status: Acute (3) TANISHA (acute kidney injury): Code(s): N17.9 - Acute kidney failure, unspecified Status: Acute (4) A-fib: Qualifiers: Atrial fibrillation type: paroxysmal Qualified Code(s): I48.0 - Paroxysmal atrial fibrillation Code(s): I48.91 - Unspecified atrial fibrillation Status: Acute (5) Venous stasis ulcer: Qualifiers: Venous stasis ulcer site: other part of lower leg Varicose vein presence: without varicose veins Laterality: unspecified laterality Non-pressure ulcer stage: unspecified non-pressure ulcer stage Qualified Code(s): I87.2 - Venous insufficiency (chronic) (peripheral); L97.809 - Non-pressure chronic ulcer of other part of unspecified lower leg with unspecified severity Code(s): I83.009 - Varicose veins of unspecified lower extremity with ulcer of unspecified site; L97.909 - Non-pressure chronic ulcer of unspecified part of unspecified lower leg with unspecified severity Status: Acute (6) [id number] kidney injury: Qualifiers: Acute renal failure type: unspecified Chronic kidney disease stage: stage 3 (moderate) Chronic kidney disease stage 3 subtype: unspecified whether 3a or 3b Qualified Code(s): N17.9 - Acute kidney failure, unspecified; N18.30 - Chronic kidney disease, stage 3 unspecified Code(s): N17.9 - Acute kidney failure, unspecified; N18.9 - Chronic kidney disease, unspecified Status: Acute (7) Acute on chronic heart failure with preserved ejection fraction (HFpEF): Code(s): I50.33 - Acute on chronic diastolic (congestive) heart failure Status: Acute Subjective Date/time seen: 12/20/23 15:33 Interval h
--- NOTE | 2023-12-20 16:34 | PM.PNGS ---
Progress Note: A&P Assessment and Plan (1) Left breast mass: Code(s): N63.20 - Unspecified lump in the left breast, unspecified quadrant Status: Acute Assessment and Plan: Incidental finding of a 11mm mass in the upper medial portion of the left breast on CT scan of the chest abdomen pelvis. The patient does have a history of left breast cancer and has undergone lumpectomy in the past. Left breast ultrasound showed a suspicious left breast mass measuring 11 mm x 8 mm, BI-RADS category 4. We would recommend the patient follow-up with Dr. Farooq in the office after discharge for further outpatient workup. She will need a diagnostic mammogram and possibly a core needle biopsy. No plans for any further workup while she is inpatient. This can be done once her acute respiratory issues resolve. Plan I have discussed the patient's case and plan of care with Dr. Farooq. Subjective Subjective Date/Time Seen: 12/20/23 16:34 Interval history: This is an 88-year-old woman who was admitted with acute respiratory failure, who we were asked to see in surgical consultation for a left breast mass found on CT of the chest in the setting of previous breast cancer. She had a breast ultrasound that showed an 11mm x 8 mm suspicious left breast mass BI-RADS category 4. Radiologist recommends bilateral diagnostic mammogram and ultrasound-guided biopsy. She is seen today on the medical floor. No specific complaints at the time of my exam. She reports her breathing has improved since admission. Exam Const: General: comfortable and no acute distress Orientation/consciousness: confusion Chest: Breast/axilla inspection: normal inspection of the breasts Breast/axilla palpation: normal palpation of the breasts and no axillary lymphadenopathy Other: No obvious palpable masses on bilateral breasts. Objective Data Vital Signs Vital Signs: Vital Signs - 24 hr 12/19/23 22:00 12/19/23 23:28 12/19/23 23:32 Temperature 98.8 F Pulse Rate 84 86 115 H Respiratory Rate 20 20 23 H Blood Pressure 92/69 L Pulse Oximetry 95 98 Oxygen Delivery BiPAP Oxygen Flow Rate 12/20/23 03:28 12/20/23 04:47 12/20/23 06:00 Temperature 98.6 F Pulse Rate 90 Respiratory Rate 25 H 20 Blood Pressure 93/71 L Pulse Oximetry 99 96 92 Oxygen Delivery BiPAP Nasal Cannula Oxygen Flow Rate 1 12/20/23 08:19 12/20/23 08:00 12/20/23 08:15 Temperature 97.5 F L Pulse Rate 92 98 Respiratory Rate 16 Blood Pressure 93/62 L Pulse Oximetry 90 94 Oxygen Delivery Nasal Cannula Oxygen Flow Rate 2 12/20/23 14:00 Temperature 96.9 F L Pulse Rate 89 Respiratory Rate 20 Blood Pressure 94/64 L Pulse Oximetry 99 Oxygen Delivery Oxygen Flow Rate Intake/Output Intake/Output: Intake & Output 12/17/23 12/18/23 12/19/23 12/20/23 23:59 23:59 23:59 23:59 Intake Total 0 980 1280 200 Output Total 2300 1300 1600 200 Balance -2300 -320 -320 0 Meds/Results Medications: Active Medications Generic Name Dose Route Start Last Admin Trade Name Freq PRN Reason Stop Dose Admin Acetaminophen 1,000 mg 12/13/23 18:10 12/17/23 12:05 Acetaminophen 500 Mg Tablet PO 1,000 mg Q6H PRN Administration Pain (Scale Score 1-3) Albuterol 2 puff 12/14/23 00:00 12/20/23 09:24 Albuterol Sulfate (*Sp) Aerosol 1 Puff INHALATION 2 puff Q8HRT TOD Administration Buspirone HCl 5 mg 12/13/23 18:20 12/20/23 12:24 Buspirone Hcl 5 Mg Tablet PO 5 mg TID TOD Administration Dextrose 12.5 gm 12/18/23 11:34 Dextrose 50% 25 Gm/50 Ml Syringe IV PUSH PRN PRN Hypoglycemia Protocol Escitalopram Oxalate 20 mg 12/14/23 09:00 12/20/23 08:21 Escitalopram Oxalate 10 Mg Tablet PO 20 mg DAILY TOD Administration Fluticasone Propionate 1 spray 12/13/23 21:00 12/19/23 21:26 Fluticasone Propionate 0.05% Na Spr 16 Gm Btl (*Bkc) NASAL 1 spray HS TOD Administration Furosemide 40
[2023-12-20] MEDS: levoFLOXacin 750 MG TABLET PO (17:13)
[2023-12-20] MEDS: RIVAROXABAN 20 MG TABLET PO (17:14)
[2023-12-20] MEDS: SENNOSIDES 8.6 MG TABLET PO (21:01)
[2023-12-20] MEDS: FLUTICASONE PROPIONATE 0.05% NA SPR 16 GM BTL (*BKC) 1 SPRAY NASAL (21:02)
[2023-12-21] VITALS (7 sets, daily range): BP systolic 92–110; BP diastolic 65–84; PULSE 69–90; RESP 14–20; TEMP 35.8–36.6; O2SAT 93–100
[2023-12-21] MEDS: ALBUTEROL SULFATE (*SP) AEROSOL 1 PUFF 2 PUFF INHALATION ×3 (00:07→16:25)
[2023-12-21 06:17] LABS: Basophils Absolute Auto 0.1 K/mm3 (0.0-0.1); Basophils Percent Auto 0.8 % (0.2-1.2); Eosinophils Absolute Auto 0.1 K/mm3 (0-0.3); Eosinophils Percent Auto 1.8 % (0-4.4); Hematocrit 43.5 % (37.0-47.0); Hemoglobin 12.9 g/dL (12.0-15.0); Immature Granulocyte Absolute 0.02 K/mm3 (0.00-0.031); Immature Granulocyte Percent A 0.3 % (0-0.5); Immature Platelet Fraction Pct 6.4 % (0.9-11.2); Lymphocytes Absolute Auto 1.56 K/mm3 (0.9-3.2); Lymphocytes Percent Auto 20.4 % (18.3-44.2); Mean Corpuscular HGB Conc 29.7 g/dl (32-36); Mean Corpuscular Hemoglobin 28.4 pg (26-34); Mean Corpuscular Volume 95.8 fl (80-100); Mean Platelet Volume 10.8 fl (7.4-10.4); Monocytes Absolute Auto 0.6 K/mm3 (0.1-0.6); Monocytes Percent Auto 8.1 % (2.6-8.5); Neutrophils Absolute Auto 5.3 K/mm3 (1.3-6.7); Neutrophils Percent Auto 68.6 % (45.5-73.1); Platelet Count Result 113 k/mm3 (150-375); Red Blood Count 4.54 M/mm3 (4.2-5.4); Red Cell Distribution Width 18.2 % (11.5-14.5); White Blood Count 7.7 K/mm3 (4.5-10.0)
[2023-12-21 06:31] LABS: Alanine Aminotransferase 22 U/L (6-35); Albumin Level 2.8 g/dL (3.5-5.1); Alkaline Phosphatase 66 U/L (38-126); Anion Gap 0 mmol/L (8-16); Aspartate Amino Transferase 40 U/L (14-36); Bilirubin,Total 0.8 mg/dL (0.2-1.3); Blood Urea Nitrogen 18 mg/dL (7-17); Carbon Dioxide 34 mmol/L (22-30); Chloride 103 mmol/L (98-107); Estimated CRCL calculation 36 ml/min; Estimated Glomerular Filt Rate 52; Glucose 88 mg/dL (65-110); Potassium 5.4 mmol/L (3.4-5.0); Sodium 137 mmol/L (137-145)
[2023-12-21 06:32] LABS: Lactic Acid Reflex 1.3 mmol/L (0.7-2.0)
[2023-12-21 06:57] LABS: Anisocytosis 1+ (NORMAL); Macrocytosis 1+ (NORMAL); Platelet Estimate Decreased (Adequate); Schistocytes None Seen (NORMAL)
[2023-12-21] MEDS: METOPROLOL SUCCINATE EXT REL 50 MG TABCR 100 MG PO (09:00)
[2023-12-21] MEDS: RALOXIFENE HCL (*CHEMO) 60 MG TABLET PO (09:00)
[2023-12-21] MEDS: MAGNESIUM OXIDE 400 MG TABLET PO (09:00)
[2023-12-21] MEDS: ESCITALOPRAM OXALATE 10 MG TABLET 20 MG PO (09:01)
[2023-12-21] MEDS: MULTIVITAMINS THERAPEUTIC TAB (*BKC) 1 TABLET PO (09:01)
[2023-12-21] MEDS: OPTI-GEN TAB 1 TABLET PO (09:01)
[2023-12-21] MEDS: LORATADINE 10 MG TABLET PO (09:01)
[2023-12-21] MEDS: busPIRone HCL 5 MG TABLET PO ×3 (09:01→17:02)
[2023-12-21] MEDS: SPIRONOLACTONE 25 MG TABLET PO (09:01)
[2023-12-21] MEDS: POTASSIUM CHLORIDE 20 MEQ PACKET (FOR LIQUID) 40 MEQ PO ×2 (09:02→17:02)
[2023-12-21] MEDS: FUROSEMIDE INJ 40 MG/4 ML VIAL IV PUSH ×2 (09:03→17:02)
--- NOTE | 2023-12-21 12:52 | PM.PNPUL ---
Progress Note: A&P Assessment and Plan (1) Respiratory failure with hypoxia and hypercapnia: Code(s): J96.91 - Respiratory failure, unspecified with hypoxia; J96.92 - Respiratory failure, unspecified with hypercapnia Status: Acute Assessment and Plan: Our patient, an 88-year-old female, has a medical history that encompasses left ventricular diastolic dysfunction, atrial fibrillation, elevated pulmonary artery systolic pressure according to previous echo measurement, a significantly enlarged left atrium, and indications of right ventricular failure. This is her second admission to the hospital within a month due to dyspnea and hypoxemic hypercapnic respiratory failure, both indicative of acute on chronic congestive heart failure. A chest CT scan highlighted small bilateral pleural effusions, a noticeable pulmonary artery, and mild kyphoscoliosis. She has responded well to diuretic therapy and BiPAP support for her hypercapnic respiratory failure. At present, she is fully alert and does not express any respiratory symptoms while on supplemental oxygen through a nasal cannula. However, her physical examination still reveals decreased breath sounds and crackles at the bases due to bilateral pleural effusions. A review of a previous chest CT from 2019 also displayed prominent pulmonary arteries, indicative of chronic pulmonary hypertension, a secondary effect of left ventricular diastolic dysfunction. Today's chest x-ray revealed cardiomegaly and bilateral pleural effusions, with the left being more significant than the right. It's probable that non-cardiac factors, such as sleep-disordered breathing, are contributing to her chronic nocturnal hypoxemia and pulmonary hypertension. Additionally, her kyphoscoliosis could potentially contribute to nocturnal hypoventilation and hypoxemia. Today, I had an extensive discussion with the patient and her sons about continuing BiPAP support for sleep-disordered breathing/nocturnal hypoventilation that contributes to her uncontrolled cardiac status. The patient reiterated that she does not want to continue with the face mask and BiPAP support as she finds them intolerable. She has not been using BiPAP support at night for the last two days. The patient's sons expressed that they will try to persuade her to continue with BiPAP support. Plan: We will continue with conservative treatment, supplemental oxygen, and diuresis for persistent pleural effusions, and encourage out-of-bed to chair activity. We will also encourage nighttime BiPAP use. (2) CHF (congestive heart failure): Code(s): I50.9 - Heart failure, unspecified Status: Acute (3) TANISHA (acute kidney injury): Code(s): N17.9 - Acute kidney failure, unspecified Status: Acute (4) A-fib: Qualifiers: Atrial fibrillation type: paroxysmal Qualified Code(s): I48.0 - Paroxysmal atrial fibrillation Code(s): I48.91 - Unspecified atrial fibrillation Status: Acute (5) Venous stasis ulcer: Qualifiers: Venous stasis ulcer site: other part of lower leg Varicose vein presence: without varicose veins Laterality: unspecified laterality Non-pressure ulcer stage: unspecified non-pressure ulcer stage Qualified Code(s): I87.2 - Venous insufficiency (chronic) (peripheral); L97.809 - Non-pressure chronic ulcer of other part of unspecified lower leg with unspecified severity Code(s): I83.009 - Varicose veins of unspecified lower extremity with ulcer of unspecified site; L97.909 - Non-pressure chronic ulcer of unspecified part of unspecified lower leg with unspecified severity Status: Acute (6) Qdcti-[id number]-pceybhw kidney injury: Qualifiers: Acute renal failure type: unspecified Chronic kidney disease stage: stage 3 (moderate) Chronic kidney disease stage 3 subtype: unspecified whether 3a or 3b Qualified Code(s): N17.9 - Acute kidney failure, unspecified; N18.30 - Chronic kidney disease, stage
--- NOTE | 2023-12-21 13:55 | PCOTNOTE ---
Attempted to see Patient at this time. Patient stated she had just returned back to bed and stated she is waiting to have tests ran. Patient declined participating in services at [facility] time.
--- NOTE | 2023-12-21 16:50 | P.PNIM_ITS ---
Progress Note: A&P Assessment and Plan (1) Respiratory failure: Code(s): J96.90 - Respiratory failure, unspecified, unspecified whether with hypoxia or hypercapnia Status: Acute Assessment and Plan: * 2/4 oxygen weaned to 1 L by nasal cannula. * pt wearing BIPAP at night * move to medical floor * consult made to palliative care (2) Acute on chronic heart failure with preserved ejection fraction (HFpEF): Code(s): I50.33 - Acute on chronic diastolic (congestive) heart failure Status: Acute Assessment and Plan: * Improved with diuresis, continue and consider transition to PO diuretics soon. * presently pt remains on iv lasix * EF about 2 weeks ago from outpatient records showed ef 60-65% (3) A-fib: Qualifiers: Atrial fibrillation type: paroxysmal Qualified Code(s): I48.0 - Paroxysmal atrial fibrillation Code(s): I48.91 - Unspecified atrial fibrillation Status: Acute Assessment and Plan: * 2/4 rate control remained suboptimal. Increase metoprolol ER from 50-100 mg p.o. daily. Soft blood pressure noted but improvement and rate may improve perfusion. If BP drops, could reduce valsartan. * Continue Xarelto. (4) Acute UTI: Code(s): N39.0 - Urinary tract infection, site not specified Status: Acute Assessment and Plan: * To complete Levaquin December 21. (5) Left breast mass: Code(s): N63.20 - Unspecified lump in the left breast, unspecified quadrant Status: Acute Assessment and Plan: * 2/4 U/S breast showed suspicious mass * gen surgery evaluated and recommend f/u with Dr Farooq for biopsy and further outpatient workup (6) Cirrhosis of liver: Code(s): K74.60 - Unspecified cirrhosis of liver Status: Acute Assessment and Plan: * Etiology unclear. * 2/4 ordered chronic viral hepatitis screen, LKM1 Ab, and iron panel. (7) Thrombocytopenia: Code(s): D69.6 - Thrombocytopenia, unspecified Status: Acute Assessment and Plan: * Chronic, mildly worsened. plts 113 * Possibly related to cirrhosis and splenic sequestration. continue to monitor Subjective Date/time seen: 12/21/23 16:50 Interval history: Patient has no new respiratory symptoms. Reportedly patient did not use BiPAP again last night. She remains on supplemental oxygen via nasal cannula. Cardiology managing diuresis and treatment for congestive heart failure. recent ECHo showed ef 60-65% from outpatient study awaiting SNF Review of Systems Review of Systems: Somewhat confused/ Pleasantly confused All systems reviewed & are unremarkable except as noted in HPI and below Exam Narrative: - GENERAL: elderly frail cognitive issu es - EYES: PERRL. Anicteric. - HENT: Moist mucous membranes. - NECK: No JVD. - LUNGS: Coarse breath sound bilateral base no wheezing, rhonchi. - CARDIOVASCULAR: S1 and S2 normal. Ra te tachycardiac and irregular. No audible murmur. - ABDOMEN: Soft, non-tender and non-dist ended. No palpable masses. - EXTREMITIES: No edema. - NEUROLOGIC: CN's symmetric to inspect ion. Symmetric, generalized weakness.
--- NOTE | 2023-12-21 16:50 | PM.IMPN ---
Progress Note: A&P Assessment and Plan (1) Respiratory failure: Code(s): J96.90 - Respiratory failure, unspecified, unspecified whether with hypoxia or hypercapnia Status: Acute Assessment and Plan: 2/ oxygen weaned to 1 L by nasal cannula. pt wearing BIPAP at night move to medical floor consult made to palliative care (2) Acute on chronic heart failure with preserved ejection fraction (HFpEF): Code(s): I50.33 - Acute on chronic diastolic (congestive) heart failure Status: Acute Assessment and Plan: Improved with diuresis, continue and consider transition to PO diuretics soon. presently pt remains on iv lasix EF about 2 weeks ago from outpatient records showed ef 60-65% (3) A-fib: Qualifiers: Atrial fibrillation type: paroxysmal Qualified Code(s): I48.0 - Paroxysmal atrial fibrillation Code(s): I48.91 - Unspecified atrial fibrillation Status: Acute Assessment and Plan: 2 rate control remained suboptimal. Increase metoprolol ER from 50-100 mg p.o. daily. Soft blood pressure noted but improvement and rate may improve perfusion. If BP drops, could reduce valsartan. Continue Xarelto. (4) Acute UTI: Code(s): N39.0 - Urinary tract infection, site not specified Status: Acute Assessment and Plan: To complete Levaquin December 21. (5) Left breast mass: Code(s): N63.20 - Unspecified lump in the left breast, unspecified quadrant Status: Acute Assessment and Plan: 2/ U/S breast showed suspicious mass gen surgery evaluated and recommend f/u with Dr Farooq for biopsy and further outpatient workup (6) Cirrhosis of liver: Code(s): K74.60 - Unspecified cirrhosis of liver Status: Acute Assessment and Plan: Etiology unclear. 2/ ordered chronic viral hepatitis screen, LKM1 Ab, and iron panel. (7) Thrombocytopenia: Code(s): D69.6 - Thrombocytopenia, unspecified Status: Acute Assessment and Plan: Chronic, mildly worsened. plts 113 Possibly related to cirrhosis and splenic sequestration. continue to monitor Subjective Date/time seen: 12/21/23 16:50 Interval history: Patient has no new respiratory symptoms. Reportedly patient did not use BiPAP again last night. She remains on supplemental oxygen via nasal cannula. Cardiology managing diuresis and treatment for congestive heart failure. recent ECHo showed ef 60-65% from outpatient study awaiting SNF Review of Systems Review of Systems: Somewhat confused/ Pleasantly confused All systems reviewed & are unremarkable except as noted in HPI and below Exam Narrative: - GENERAL: elderly frail cognitive issues - EYES: PERRL. Anicteric. - HENT: Moist mucous membranes. - NECK: No JVD. - LUNGS: Coarse breath sound bilateral base no wheezing, rhonchi. - CARDIOVASCULAR: S1 and S2 normal. Rate tachycardiac and irregular. No audible murmur. - ABDOMEN: Soft, non-tender and non-distended. No palpable masses. - EXTREMITIES: No edema. - NEUROLOGIC: CN's symmetric to inspection. Symmetric, generalized weakness. - PSYCHIATRIC: Alert. Oriented to person, not to place year or month. - SKIN: No rashes or lesions visible. Const: General: comfortable and no acute distress Other: Pleasantly confused. A and O x1 Eyes: Pupils: Equal, round and reactive pupils present Neck: Neck: supple Resp: Effort & Inspection: normal respiratory effort Auscultation: crackles (Scant) and diminished lung sounds (Difficult to auscultate.) Cardio: Rate: regular rate Rhythm: regular rhythm Heart sounds: no gallops, no murmurs and no rubs Neuro: Cranial nerves: Yes Equal, round and reactive pupils present Extrem: General: edema Objective Data Vital Signs Vital Signs: Vital Signs - 24 hr 12/20/23 20:10 12/21/23 00:08 12/21/23 00:12 Temperature 97.8 F Pulse Rate 80 84 Respiratory Rate 18 20
[2023-12-21] MEDS: RIVAROXABAN 20 MG TABLET PO (17:02)
[2023-12-21] MEDS: levoFLOXacin 750 MG TABLET PO (17:03)
--- NOTE | 2023-12-21 17:21 | PM.PNCARD ---
Progress Note: A&P Assessment and Plan (1) Acute on chronic heart failure with preserved ejection fraction (HFpEF): Code(s): I50.33 - Acute on chronic diastolic (congestive) heart failure Status: Acute Assessment and Plan: 88-year-old female with CHF with preserved ejection fraction, right heart failure, persistent atrial fibrillation on anticoagulation with rivaroxaban, hypertension. Patient has acute chronic CHF with preserved ejection fraction and right heart failure with significant volume overload. Legs apparently looking better, but CXR is not. NOt diuresing muhc by I's and O's; has catheter. STill on 2 L NC. Renal fxn stable. -continue diuresis with IV furosemide but increase to 60 g IVP for a couple of days, with close monitoring of electrolytes and renal function. Stable today. -Continue spironolactone 25 mg p.o. daily. -May start other standard medical treatment when able (addition of medical therapy limited by BP) (2) Persistent atrial fibrillation: Code(s): I48.19 - Other persistent atrial fibrillation Status: Acute Assessment and Plan: Rate control with metoprolol succinate, and anticoagulation with rivaroxaban. Borderline tachy. (3) Respiratory failure with hypoxia and hypercapnia: Code(s): J96.91 - Respiratory failure, unspecified with hypoxia; J96.92 - Respiratory failure, unspecified with hypercapnia Status: Acute Assessment and Plan: Pulmonology evaluation and management. Subjective Date/time seen: 12/21/23 17:21 Interval history: Acute on chronic diastolic CHF, persistent atrial fibrillation, respiratory failure. Also history of cirrhosis, thrombocytopenia, date of service: 12/18/2023 Interval history: Patient reports improvement in her shortness of breath. Previously, she was on BiPAP, currently sitting up in the chair and on supplemental oxygen through nasal cannula. On telemetry, she is in atrial fibrillation with heart rates in 100s. Date of service 12/19/23: She is feeling better today. On O2 per nasal cannula sitting up in the chair. Atrial fibrillation seen on telemetry with rate controlled. Continue IV Lasix and p.o. spironolactone. Date of service 12/21/2023: Pt denies SOB. Son at bedside. SBP 92-110 mmHg. Remains on 2 L nasal cannula; used BiPAP last night. Palliative care consulted. CXR today: MOderate left effusion, mild R effusion, mild CHF. ON my personal review, does't look much different fr 12/12/2023. Review of Systems Review of Systems: No SOB at rest, no CP, abdom pain, palps, less edema Exam Const: General: cooperative and comfortable; No confusion Orientation/consciousness: oriented to person, patient oriented x3 and No confusion Other: Pillow around post neck HENMT: Mouth: Yes moist mucous membranes Eyes: General: appearance normal, both eyes and all related structures Neck: Neck: supple Resp: Effort & Inspection: normal respiratory effort Auscultation: rales (few rales LLL) and diminished lung sounds (both bases) Cardio: Rate: regular rate and tachycardic Rhythm: regular rhythm and abnormal rhythm irregularly irregular GI: Inspection: normal to inspection GI Palp: No abdominal tenderness Skin: General skin exam: normal color Neuro: General: oriented to person and No confusion Extrem: Right lower extremity: edema Left lower extremity: edema Other: Mild LE edema bilaterally, mild to mod edema of abdom wall, buttocks, upper thighs Psych: Appearance: grossly normal Mental Status: mental status grossly normal Objective Data Vital Signs Vital Signs: Vital Signs - 24 hr 12/20/23 20:10 12/21/23 00:08 12/21/23 00:12 Temperature 97.8 F Pulse Rate 80 84 Respiratory Rate 18 20 Blood Pressure 92/67 L Pulse Oximetry 100 93 Oxygen Delivery Nasal Cannula Oxygen Flow Rate 2 12/21/23 05:15 12/21/23 09:00 12/21/23 09:27 Temperature 96.5 F L Puls
[2023-12-21] MEDS: FUROSEMIDE INJ 40 MG/4 ML VIAL 20 MG IV PUSH (18:25)
[2023-12-21] MEDS: SENNOSIDES 8.6 MG TABLET PO (20:45)
[2023-12-21] MEDS: FLUTICASONE PROPIONATE 0.05% NA SPR 16 GM BTL (*BKC) 1 SPRAY NASAL (20:45)
[2023-12-22] VITALS (10 sets, daily range): BP systolic 93–104; BP diastolic 66–86; PULSE 73–98; RESP 16–22; TEMP 36.4–37; O2SAT 93–100; BMI 33.5
[2023-12-22] MEDS: ALBUTEROL SULFATE (*SP) AEROSOL 1 PUFF 2 PUFF INHALATION ×3 (01:47→15:41)
[2023-12-22] MEDS: ACETAMINOPHEN 500 MG TABLET 1000 MG PO (03:21)
[2023-12-22 06:57] LABS: Basophils Percent Auto 0.4 % (0.2-1.2); Eosinophils Absolute Auto 0.2 K/mm3 (0-0.3); Eosinophils Percent Auto 2.7 % (0-4.4); Hematocrit 42.2 % (37.0-47.0); Hemoglobin 12.5 g/dL (12.0-15.0); Immature Granulocyte Absolute 0.02 K/mm3 (0.00-0.031); Immature Granulocyte Percent A 0.3 % (0-0.5); Immature Platelet Fraction Pct 6.4 % (0.9-11.2); Lymphocytes Absolute Auto 1.87 K/mm3 (0.9-3.2); Lymphocytes Percent Auto 26.4 % (18.3-44.2); Mean Corpuscular HGB Conc 29.6 g/dl (32-36); Mean Corpuscular Hemoglobin 28.7 pg (26-34); Mean Platelet Volume 10.9 fl (7.4-10.4); Monocytes Absolute Auto 0.6 K/mm3 (0.1-0.6); Monocytes Percent Auto 8.5 % (2.6-8.5); Neutrophils Absolute Auto 4.4 K/mm3 (1.3-6.7); Neutrophils Percent Auto 61.7 % (45.5-73.1); Platelet Count Result 107 k/mm3 (150-375); Red Blood Count 4.35 M/mm3 (4.2-5.4); Red Cell Distribution Width 17.7 % (11.5-14.5); White Blood Count 7.1 K/mm3 (4.5-10.0)
[2023-12-22 07:14] LABS: Alanine Aminotransferase 32 U/L (6-35); Albumin Level 2.6 g/dL (3.5-5.1); Alkaline Phosphatase 61 U/L (38-126); Anion Gap 1 mmol/L (8-16); Aspartate Amino Transferase 52 U/L (14-36); Bilirubin,Total 0.7 mg/dL (0.2-1.3); Blood Urea Nitrogen 20 mg/dL (7-17); Calcium 9.9 mg/dL (8.4-10.2); Carbon Dioxide 36 mmol/L (22-30); Chloride 100 mmol/L (98-107); Estimated CRCL calculation 40 ml/min; Estimated Glomerular Filt Rate 59; Glucose 91 mg/dL (65-110); Sodium 137 mmol/L (137-145)
[2023-12-22 07:49] LABS: Anisocytosis 1+ (NORMAL); Ovalocytes 1+ (NORMAL); Target Cells 1+ (NORMAL)
[2023-12-22 07:50] LABS: Schistocytes None Seen (NORMAL)
[2023-12-22] MEDS: FUROSEMIDE INJ 100 MG/10 ML VIAL 60 MG IV PUSH (08:37)
[2023-12-22] MEDS: OPTI-GEN TAB 1 TABLET PO (08:37)
[2023-12-22] MEDS: METOPROLOL SUCCINATE EXT REL 50 MG TABCR 100 MG PO (08:37)
[2023-12-22] MEDS: LORATADINE 10 MG TABLET PO (08:37)
[2023-12-22] MEDS: MULTIVITAMINS THERAPEUTIC TAB (*BKC) 1 TABLET PO (08:37)
[2023-12-22] MEDS: POTASSIUM CHLORIDE 20 MEQ PACKET (FOR LIQUID) 40 MEQ PO ×2 (08:38→16:28)
[2023-12-22] MEDS: ESCITALOPRAM OXALATE 10 MG TABLET 20 MG PO (08:38)
[2023-12-22] MEDS: busPIRone HCL 5 MG TABLET PO ×3 (08:38→16:29)
[2023-12-22] MEDS: RALOXIFENE HCL (*CHEMO) 60 MG TABLET PO (08:38)
[2023-12-22] MEDS: SPIRONOLACTONE 25 MG TABLET PO (08:38)
[2023-12-22] MEDS: MAGNESIUM OXIDE 400 MG TABLET PO (08:38)
--- NOTE | 2023-12-22 09:47 | PM.PNCARD ---
Progress Note: A&P Assessment and Plan (1) Acute on chronic heart failure with preserved ejection fraction (HFpEF): Code(s): I50.33 - Acute on chronic diastolic (congestive) heart failure Status: Acute Assessment and Plan: 88-year-old female with CHF with preserved ejection fraction, right heart failure, persistent atrial fibrillation on anticoagulation with rivaroxaban, hypertension. Patient has acute chronic CHF with preserved ejection fraction and right heart failure with significant volume overload. Legs apparently looking better, but CXR is not. Better diuresis on 60mg IVP b.i.d. -continue diuresis with furosemide but will shift to 80mg p.o. b.i.d. today. -needs more diuresis before discharge -monitor renal function and electolytes -Continue spironolactone 25 mg p.o. daily. -May start other standard medical treatment when able (addition of medical therapy limited by BP) (2) Persistent atrial fibrillation: Code(s): I48.19 - Other persistent atrial fibrillation Status: Acute Assessment and Plan: Rate control with metoprolol succinate, and anticoagulation with rivaroxaban. Borderline tachy. (3) Respiratory failure with hypoxia and hypercapnia: Code(s): J96.91 - Respiratory failure, unspecified with hypoxia; J96.92 - Respiratory failure, unspecified with hypercapnia Status: Acute Assessment and Plan: Pulmonology evaluation and management. Subjective Date/time seen: 12/22/23 09:47 Interval history: Acute on chronic diastolic CHF, persistent atrial fibrillation, respiratory failure. Also history of cirrhosis, thrombocytopenia, date of service: 12/18/2023 Interval history: Patient reports improvement in her shortness of breath. Previously, she was on BiPAP, currently sitting up in the chair and on supplemental oxygen through nasal cannula. On telemetry, she is in atrial fibrillation with heart rates in 100s. Date of service 12/19/23: She is feeling better today. On O2 per nasal cannula sitting up in the chair. Atrial fibrillation seen on telemetry with rate controlled. Continue IV Lasix and p.o. spironolactone. Date of service 12/21/2023: Pt denies SOB. Son at bedside. SBP 92-110 mmHg. Remains on 2 L nasal cannula; used BiPAP last night. Palliative care consulted. CXR today: MOderate left effusion, mild R effusion, mild CHF. ON my personal review, does't look much different 12/12/2023. Date of service 12/22/2023: Feeling well today. Denies shortness of breath. Edema perhaps slightly improved Review of Systems Review of Systems: No SOB at rest, no CP, abdom pain, palps, less edema Neurologic: Denies confusion Psychiatric: Psychiatric: Denies confusion Exam Const: General: cooperative and comfortable; No confusion Orientation/consciousness: oriented to person, patient oriented x3 and No confusion Other: Pillow around post neck HENMT: Mouth: Yes moist mucous membranes Eyes: General: appearance normal, both eyes and all related structures Neck: Neck: supple Resp: Effort & Inspection: normal respiratory effort Auscultation: rales (few rales LLL) and diminished lung sounds (both bases) Cardio: Rate: regular rate and tachycardic Rhythm: regular rhythm and abnormal rhythm irregularly irregular GI: Inspection: normal to inspection Skin: General skin exam: normal color Neuro: General: oriented to person, patient oriented x3 and No confusion Extrem: Right lower extremity: edema Left lower extremity: edema Other: Mild LE edema bilaterally, mild edema of abdom wall, buttocks, upper thighs Psych: Appearance: grossly normal Mental Status: mental status grossly normal Objective Data Vital Signs Vital Signs: Vital Signs - 24 hr 12/21/23 14:00 12/21/23 20:45 12/22/23 01:48 Temperature 36.6 C 36.1 C L Pulse Rate 82 69 73 Respiratory Rate 14 20 Blood Pressure 110/68 92/65 L Pulse Oximetry 100 100 93 Ox
[2023-12-22 11:32] LABS: SARS-CoV-2 RNA PCR Negative (Negative)
[2023-12-22 12:32] LABS: LKM 1 Antibody <=20.0 U (<=20.0)
--- NOTE | 2023-12-22 14:57 | P.PNIM_ITS ---
Progress Note: A&P Assessment and Plan (1) Respiratory failure: Code(s): J96.90 - Respiratory failure, unspecified, unspecified whether with hypoxia or hypercapnia Status: Acute Assessment and Plan: * 2/4 oxygen weaned to 1 L by nasal cannula. * pt wearing BIPAP at night * move to medical floor * (2) Acute on chronic heart failure with preserved ejection fraction (HFpEF): Code(s): I50.33 - Acute on chronic diastolic (congestive) heart failure Status: Acute Assessment and Plan: * Improved with diuresis, continue and consider transition to PO diuretics soon. * Diuresis per cardiology * EF about 2 weeks ago from outpatient records showed ef 60-65% * Nighttime bIPAP to be set up by adult live in caregiver (3) A-fib: Qualifiers: Atrial fibrillation type: paroxysmal Qualified Code(s): I48.0 - Paroxysmal atrial fibrillation Code(s): I48.91 - Unspecified atrial fibrillation Status: Acute Assessment and Plan: * 2/4 rate control remained suboptimal. Increase metoprolol ER from 50-100 mg p.o. daily. Soft blood pressure noted but improvement and rate may improve perfusion. If BP drops, could reduce valsartan. * Continue Xarelto. (4) Acute UTI: Code(s): N39.0 - Urinary tract infection, site not specified Status: Acute Assessment and Plan: * Tcompleted Abx * UC positive for Citrobacter, (5) Left breast mass: Code(s): N63.20 - Unspecified lump in the left breast, unspecified quadrant Status: Acute Assessment and Plan: * 2/4 U/S breast showed suspicious mass * gen surgery evaluated and recommend f/u with Dr Farooq for biopsy and further outpatient workup (6) Cirrhosis of liver: Code(s): K74.60 - Unspecified cirrhosis of liver Status: Acute Assessment and Plan: * Etiology unclear. * 2/4 ordered chronic viral hepatitis screen, LKM1 Ab, and iron panel. (7) Thrombocytopenia: Code(s): D69.6 - Thrombocytopenia, unspecified Status: Acute Assessment and Plan: * Chronic, mildly worsened. plts 107 * Possibly related to cirrhosis and splenic sequestration. continue to monitor Subjective Date/time seen: 12/22/23 14:57 Interval history: CHF exacerbation, now on room air card optimizing diuresis, possible discharge to SNF tomorrow if cleared by cards Already set up for outpatient follow for breast leasion Review of Systems Review of Systems: Somewhat confused/ Pleasantly confused All systems reviewed & are unremarkable except as noted in HPI and below Exam Narrative: - GENERAL: elderly frail cognitive issu es - EYES: PERRL. Anicteric. - HENT: Moist mucous membranes. - NECK: No JVD. - LUNGS: Coarse breath sound bilateral base no wheezing, rhonchi. - CARDIOVASCULAR: S1 and S2 normal. Ra te tachycardiac and irregular. No audible murmur. - ABDOMEN: Soft, non-tender and non-dist ended. No palpable masses. - EXTREMITIES: No edema. - NEUROLOGIC: CN's symmetric to inspect ion. Symmetric, generalized weakness. - PSYCHIATRIC: Alert. Oriented to pers on, not to enrrique
--- NOTE | 2023-12-22 14:57 | PM.IMPN ---
Progress Note: A&P Assessment and Plan (1) Respiratory failure: Code(s): J96.90 - Respiratory failure, unspecified, unspecified whether with hypoxia or hypercapnia Status: Acute Assessment and Plan: 2/4 oxygen weaned to 1 L by nasal cannula. pt wearing BIPAP at night move to medical floor (2) Acute on chronic heart failure with preserved ejection fraction (HFpEF): Code(s): I50.33 - Acute on chronic diastolic (congestive) heart failure Status: Acute Assessment and Plan: Improved with diuresis, continue and consider transition to PO diuretics soon. Diuresis per cardiology EF about 2 weeks ago from outpatient records showed ef 60-65% Nighttime bIPAP to be set up by direct support professional caregiver (3) A-fib: Qualifiers: Atrial fibrillation type: paroxysmal Qualified Code(s): I48.0 - Paroxysmal atrial fibrillation Code(s): I48.91 - Unspecified atrial fibrillation Status: Acute Assessment and Plan: 2/4 rate control remained suboptimal. Increase metoprolol ER from 50-100 mg p.o. daily. Soft blood pressure noted but improvement and rate may improve perfusion. If BP drops, could reduce valsartan. Continue Xarelto. (4) Acute UTI: Code(s): N39.0 - Urinary tract infection, site not specified Status: Acute Assessment and Plan: Tcompleted Abx UC positive for Citrobacter, (5) Left breast mass: Code(s): N63.20 - Unspecified lump in the left breast, unspecified quadrant Status: Acute Assessment and Plan: 2/4 U/S breast showed suspicious mass gen surgery evaluated and recommend f/u with Dr Farooq for biopsy and further outpatient workup (6) Cirrhosis of liver: Code(s): K74.60 - Unspecified cirrhosis of liver Status: Acute Assessment and Plan: Etiology unclear. 2/4 ordered chronic viral hepatitis screen, LKM1 Ab, and iron panel. (7) Thrombocytopenia: Code(s): D69.6 - Thrombocytopenia, unspecified Status: Acute Assessment and Plan: Chronic, mildly worsened. plts 107 Possibly related to cirrhosis and splenic sequestration. continue to monitor Subjective Date/time seen: 12/22/23 14:57 Interval history: CHF exacerbation, now on room air card optimizing diuresis, possible discharge to SNF tomorrow if cleared by cards Already set up for outpatient follow for breast leasion Review of Systems Review of Systems: Somewhat confused/ Pleasantly confused All systems reviewed & are unremarkable except as noted in HPI and below Exam Narrative: - GENERAL: elderly frail cognitive issues - EYES: PERRL. Anicteric. - HENT: Moist mucous membranes. - NECK: No JVD. - LUNGS: Coarse breath sound bilateral base no wheezing, rhonchi. - CARDIOVASCULAR: S1 and S2 normal. Rate tachycardiac and irregular. No audible murmur. - ABDOMEN: Soft, non-tender and non-distended. No palpable masses. - EXTREMITIES: No edema. - NEUROLOGIC: CN's symmetric to inspection. Symmetric, generalized weakness. - PSYCHIATRIC: Alert. Oriented to person, not to place year or month. - SKIN: No rashes or lesions visible. Const: General: comfortable and no acute distress Other: Pleasantly confused. A and O x1 Eyes: Pupils: Equal, round and reactive pupils present Neck: Neck: supple Resp: Effort & Inspection: normal respiratory effort Auscultation: crackles (Scant) and diminished lung sounds (Difficult to auscultate.) Cardio: Rate: regular rate Rhythm: regular rhythm Heart sounds: no gallops, no murmurs and no rubs Neuro: Cranial nerves: Yes Equal, round and reactive pupils present Extrem: General: edema Objective Data Vital Signs Vital Signs: Vital Signs - 24 hr 12/21/23 20:45 12/22/23 01:48 12/22/23 01:48 Temperature 97 F L Pulse Rate 69 73 73 Respiratory Rate 20 16 Blood Pressure 92/65 L Pulse Oximetry 100 93 Oxygen Delivery Nasal Cannula Oxygen Fl
--- NOTE | 2023-12-22 15:45 | PM.PNPUL ---
Progress Note: A&P Assessment and Plan (1) Respiratory failure with hypoxia and hypercapnia: Code(s): J96.91 - Respiratory failure, unspecified with hypoxia; J96.92 - Respiratory failure, unspecified with hypercapnia Status: Acute Assessment and Plan: Our patient, an 88-year-old female, has a medical history that encompasses left ventricular diastolic dysfunction, atrial fibrillation, elevated pulmonary artery systolic pressure according to previous echo measurement, a significantly enlarged left atrium, and indications of right ventricular failure. This is her second admission to the hospital within a month due to dyspnea and hypoxemic hypercapnic respiratory failure, both indicative of acute on chronic congestive heart failure. A chest CT scan highlighted small bilateral pleural effusions, a noticeable pulmonary artery, and mild kyphoscoliosis. She has responded well to diuretic therapy and BiPAP support for her hypercapnic respiratory failure. At present, she is fully alert and does not express any respiratory symptoms while on supplemental oxygen through a nasal cannula. However, her physical examination still reveals decreased breath sounds and crackles at the bases due to bilateral pleural effusions. A review of a previous chest CT from 2019 also displayed prominent pulmonary arteries, indicative of chronic pulmonary hypertension, a secondary effect of left ventricular diastolic dysfunction. Today's chest x-ray revealed cardiomegaly and bilateral pleural effusions, with the left being more significant than the right. It's probable that non-cardiac factors, such as sleep-disordered breathing, are contributing to her chronic nocturnal hypoxemia and pulmonary hypertension. Additionally, her kyphoscoliosis could potentially contribute to nocturnal hypoventilation and hypoxemia. The patient reportedly utilized BiPAP support last night and is currently breathing room air. The intended course of action is to discharge the patient to a fci. The patient stands to gain from continued BiPAP support due to her ongoing need for supplemental oxygen. A chest x-ray has revealed cardiomegaly and pleural effusions, which are linked to congestive heart failure. Given the patient's history of kyphoscoliosis and pulmonary hypertension, the BiPAP will provide necessary support at night to maintain normal oxygen saturation levels and mitigate the effects of chronic hypercapnia on cardiorespiratory symptoms. The patient has been using BiPAP AVAPS during this admission but has experienced difficulties adjusting to the pressures. We plan to transition her to a plain BiPAP, using pressures 12/6, rate of 14, with supplemental oxygen bleed in at 3 liters per minute. An ApneaLink test will be conducted on the those settings tonight. (2) CHF (congestive heart failure): Code(s): I50.9 - Heart failure, unspecified Status: Acute (3) TANISHA (acute kidney injury): Code(s): N17.9 - Acute kidney failure, unspecified Status: Acute (4) A-fib: Qualifiers: Atrial fibrillation type: paroxysmal Qualified Code(s): I48.0 - Paroxysmal atrial fibrillation Code(s): I48.91 - Unspecified atrial fibrillation Status: Acute (5) Venous stasis ulcer: Qualifiers: Venous stasis ulcer site: other part of lower leg Varicose vein presence: without varicose veins Laterality: unspecified laterality Non-pressure ulcer stage: unspecified non-pressure ulcer stage Qualified Code(s): I87.2 - Venous insufficiency (chronic) (peripheral); L97.809 - Non-pressure chronic ulcer of other part of unspecified lower leg with unspecified severity Code(s): I83.009 - Varicose veins of unspecified lower extremity with ulcer of unspecified site; L97.909 - Non-pressure chronic ulcer of unspecified part of unspecified lower leg with unspecified severity Status: Acute (6) [id number] kidney injury: Qualifiers: Acute renal
[2023-12-22] MEDS: RIVAROXABAN 20 MG TABLET PO (16:29)
[2023-12-22] MEDS: FUROSEMIDE 80 MG TABLET PO (16:29)
[2023-12-22] MEDS: SENNOSIDES 8.6 MG TABLET PO (20:51)
[2023-12-22] MEDS: FLUTICASONE PROPIONATE 0.05% NA SPR 16 GM BTL (*BKC) 1 SPRAY NASAL (20:51)
[2023-12-23] VITALS (9 sets, daily range): BP systolic 92–96; BP diastolic 61–69; PULSE 61–86; RESP 14–20; TEMP 35.6–36.6; O2SAT 95–100
[2023-12-23] MEDS: ALBUTEROL SULFATE (*SP) AEROSOL 1 PUFF 2 PUFF INHALATION ×3 (07:01→23:25)
[2023-12-23 07:15] LABS: Basophils Absolute Auto 0.1 K/mm3 (0.0-0.1); Basophils Percent Auto 0.8 % (0.2-1.2); Eosinophils Absolute Auto 0.2 K/mm3 (0-0.3); Eosinophils Percent Auto 2.4 % (0-4.4); Hematocrit 42.6 % (37.0-47.0); Hemoglobin 12.4 g/dL (12.0-15.0); Immature Granulocyte Absolute 0.02 K/mm3 (0.00-0.031); Immature Granulocyte Percent A 0.3 % (0-0.5); Immature Platelet Fraction Pct 6.6 % (0.9-11.2); Lymphocytes Absolute Auto 1.77 K/mm3 (0.9-3.2); Lymphocytes Percent Auto 28.7 % (18.3-44.2); Mean Corpuscular HGB Conc 29.1 g/dl (32-36); Mean Corpuscular Hemoglobin 28.9 pg (26-34); Mean Corpuscular Volume 99.3 fl (80-100); Mean Platelet Volume 10.3 fl (7.4-10.4); Monocytes Absolute Auto 0.6 K/mm3 (0.1-0.6); Monocytes Percent Auto 9.7 % (2.6-8.5); Neutrophils Absolute Auto 3.6 K/mm3 (1.3-6.7); Neutrophils Percent Auto 58.1 % (45.5-73.1); Platelet Count Result 86 k/mm3 (150-375); Red Blood Count 4.29 M/mm3 (4.2-5.4); Red Cell Distribution Width 17.6 % (11.5-14.5); White Blood Count 6.2 K/mm3 (4.5-10.0)
[2023-12-23 07:23] LABS: Alanine Aminotransferase 35 U/L (6-35); Albumin Level 2.7 g/dL (3.5-5.1); Alkaline Phosphatase 56 U/L (38-126); Anion Gap 1 mmol/L (8-16); Aspartate Amino Transferase 51 U/L (14-36); Bilirubin,Total 0.7 mg/dL (0.2-1.3); Blood Urea Nitrogen 21 mg/dL (7-17); Calcium 9.6 mg/dL (8.4-10.2); Carbon Dioxide 32 mmol/L (22-30); Chloride 101 mmol/L (98-107); Estimated CRCL calculation 40 ml/min; Estimated Glomerular Filt Rate 59; Glucose 85 mg/dL (65-110); Magnesium 2.3 mg/dL (1.6-2.3); Potassium 4.9 mmol/L (3.4-5.0); Sodium 134 mmol/L (137-145)
--- NOTE | 2023-12-23 08:50 | PM.PNPUL ---
Progress Note: A&P Assessment and Plan (1) Respiratory failure with hypoxia and hypercapnia: Code(s): J96.91 - Respiratory failure, unspecified with hypoxia; J96.92 - Respiratory failure, unspecified with hypercapnia Status: Acute Assessment and Plan: Our patient, an 88-year-old female, has a medical history that encompasses left ventricular diastolic dysfunction, atrial fibrillation, elevated pulmonary artery systolic pressure according to previous echo measurement, a significantly enlarged left atrium, and indications of right ventricular failure. This is her second admission to the hospital within a month due to dyspnea and hypoxemic hypercapnic respiratory failure, both indicative of acute on chronic congestive heart failure. A chest CT scan highlighted small bilateral pleural effusions, a noticeable pulmonary artery, and mild kyphoscoliosis. She has responded well to diuretic therapy and BiPAP support for her hypercapnic respiratory failure. At present, she is fully alert and does not express any respiratory symptoms while on supplemental oxygen through a nasal cannula. However, her physical examination still reveals decreased breath sounds and crackles at the bases due to bilateral pleural effusions. A review of a previous chest CT from 2019 also displayed prominent pulmonary arteries, indicative of chronic pulmonary hypertension, a secondary effect of left ventricular diastolic dysfunction. Today's chest x-ray revealed cardiomegaly and bilateral pleural effusions, with the left being more significant than the right. It's probable that non-cardiac factors, such as sleep-disordered breathing, are contributing to her chronic nocturnal hypoxemia and pulmonary hypertension. Additionally, her kyphoscoliosis could potentially contribute to nocturnal hypoventilation and hypoxemia. The patient reportedly utilized BiPAP support last night and is currently breathing room air. The intended course of action is to discharge the patient to a custodial. The patient stands to gain from continued BiPAP support due to her ongoing need for supplemental oxygen. A chest x-ray has revealed cardiomegaly and pleural effusions, which are linked to congestive heart failure. Given the patient's history of kyphoscoliosis and pulmonary hypertension, the BiPAP will provide necessary support at night to maintain normal oxygen saturation levels and mitigate the effects of chronic hypercapnia on cardiorespiratory symptoms. The patient has been using BiPAP AVAPS during this admission but has experienced difficulties adjusting to the pressures. She was placed on BiPAP support 12/6, rate 14 and supplemental oxygen 3 liters/minute last night. Patient tolerated BiPAP settings well. ApneaLink on those settings showed no evidence of oxyhemoglobin desaturation. Plan: From a respiratory standpoint the patient can be discharged to half-way facility where she can utilize BiPAP 12/6, respiratory rate 14 a supplemental oxygen 3 liters/minute at night. Patient will need evaluation for home oxygen during the day. Will sign off please call with any questions. (2) CHF (congestive heart failure): Code(s): I50.9 - Heart failure, unspecified Status: Acute (3) TANISHA (acute kidney injury): Code(s): N17.9 - Acute kidney failure, unspecified Status: Acute (4) A-fib: Qualifiers: Atrial fibrillation type: paroxysmal Qualified Code(s): I48.0 - Paroxysmal atrial fibrillation Code(s): I48.91 - Unspecified atrial fibrillation Status: Acute (5) Venous stasis ulcer: Qualifiers: Venous stasis ulcer site: other part of lower leg Varicose vein presence: without varicose veins Laterality: unspecified laterality Non-pressure ulcer stage: unspecified non-pressure ulcer stage Qualified Code(s): I87.2 - Venous insufficiency (chronic) (peripheral); L97.809 - Non-pressure chronic ulcer of other part of unspecified lower leg with unspec
[2023-12-23] MEDS: LORATADINE 10 MG TABLET PO (09:04)
[2023-12-23] MEDS: MAGNESIUM OXIDE 400 MG TABLET PO (09:05)
[2023-12-23] MEDS: ESCITALOPRAM OXALATE 10 MG TABLET 20 MG PO (09:05)
[2023-12-23] MEDS: METOPROLOL SUCCINATE EXT REL 50 MG TABCR 100 MG PO (09:05)
[2023-12-23] MEDS: busPIRone HCL 5 MG TABLET PO ×3 (09:05→18:10)
[2023-12-23] MEDS: SPIRONOLACTONE 25 MG TABLET PO (09:05)
[2023-12-23] MEDS: POTASSIUM CHLORIDE 20 MEQ PACKET (FOR LIQUID) 40 MEQ PO ×2 (09:05→18:10)
[2023-12-23] MEDS: MULTIVITAMINS THERAPEUTIC TAB (*BKC) 1 TABLET PO (09:05)
[2023-12-23] MEDS: OPTI-GEN TAB 1 TABLET PO (09:05)
[2023-12-23] MEDS: RALOXIFENE HCL (*CHEMO) 60 MG TABLET PO (09:05)
[2023-12-23] MEDS: FUROSEMIDE 80 MG TABLET PO ×2 (09:06→18:11)
--- NOTE | 2023-12-23 09:07 | PM.PNCARD ---
Progress Note: A&P Assessment and Plan (1) Acute on chronic heart failure with preserved ejection fraction (HFpEF): Code(s): I50.33 - Acute on chronic diastolic (congestive) heart failure Status: Acute Assessment and Plan: 88-year-old female with CHF with preserved ejection fraction, right heart failure, persistent atrial fibrillation on anticoagulation with rivaroxaban, hypertension. Patient has acute chronic CHF with preserved ejection fraction and right heart failure with significant volume overload. -continue diuresis furosemide but increase to 80mg b.i.d. - difficult to assess diuresis now that voss is out; doubt output is being documented accurately. Per RN, though, pt. was told in report that patient made good urine overnight. -Continue spironolactone 25 mg p.o. daily. -May start other standard medical treatment when able (addition of medical therapy limited by BP) (2) Persistent atrial fibrillation: Code(s): I48.19 - Other persistent atrial fibrillation Status: Acute Assessment and Plan: Rate control with metoprolol succinate, and anticoagulation with rivaroxaban. Borderline tachy. (3) Respiratory failure with hypoxia and hypercapnia: Code(s): J96.91 - Respiratory failure, unspecified with hypoxia; J96.92 - Respiratory failure, unspecified with hypercapnia Status: Acute Assessment and Plan: Pulmonology evaluation and management. Subjective Date/time seen: 12/23/23 09:07 Interval history: Acute on chronic diastolic CHF, persistent atrial fibrillation, respiratory failure. Also history of cirrhosis, thrombocytopenia, date of service: 12/18/2023 Interval history: Patient reports improvement in her shortness of breath. Previously, she was on BiPAP, currently sitting up in the chair and on supplemental oxygen through nasal cannula. On telemetry, she is in atrial fibrillation with heart rates in 100s. Date of service 12/19/23: She is feeling better today. On O2 per nasal cannula sitting up in the chair. Atrial fibrillation seen on telemetry with rate controlled. Continue IV Lasix and p.o. spironolactone. Date of service 12/21/2023: Pt denies SOB. Son at bedside. SBP 92-110 mmHg. Remains on 2 L nasal cannula; used BiPAP last night. Palliative care consulted. CXR today: MOderate left effusion, mild R effusion, mild CHF. ON my personal review, does't look much different fr 12/12/2023. Date of service 12/23/2023: Feeling better every day. No shortness of breath. Review of Systems Review of Systems: No SOB at rest, no CP, abdom pain, palps, less edema Neurologic: Denies confusion Psychiatric: Psychiatric: Denies confusion Exam Const: General: cooperative and comfortable; No confusion Orientation/consciousness: oriented to person, patient oriented x3 and No confusion Other: Pillow around post neck HENMT: Mouth: Yes moist mucous membranes Eyes: General: appearance normal, both eyes and all related structures Neck: Neck: supple Resp: Effort & Inspection: normal respiratory effort Auscultation: rales (few rales LLL) and diminished lung sounds (both bases) Cardio: Rate: regular rate and tachycardic Rhythm: regular rhythm and abnormal rhythm irregularly irregular GI: Inspection: normal to inspection Skin: General skin exam: normal color Neuro: General: oriented to person, patient oriented x3 and No confusion Extrem: Right lower extremity: edema Left lower extremity: edema Other: Mild LE edema bilaterally, mild to mod edema of abdom wall, buttocks, upper thighs Psych: Appearance: grossly normal Mental Status: mental status grossly normal Objective Data Vital Signs Vital Signs: Vital Signs - 24 hr 12/22/23 13:15 12/22/23 14:00 12/22/23 15:46 Temperature 36.6 C Pulse Rate 81 Respiratory Rate 22 H Blood Pressure 98/66 L Pulse Oximetry 100 96 93 Oxygen Delivery Nasal Cannula Room Air
--- NOTE | 2023-12-23 13:57 | P.PNIM_ITS ---
Progress Note: A&P Assessment and Plan (1) Respiratory failure: Code(s): J96.90 - Respiratory failure, unspecified, unspecified whether with hypoxia or hypercapnia Status: Acute Assessment and Plan: * 2/4 oxygen weaned to 1 L by nasal cannula. * pt wearing BIPAP at night * Pulmonary following Related to CHF Recommend BiPAP at 12/6 with respiratory rate of 14 and supplemental oxygen 3 liter/minute at night per Pulmonary. * (2) Acute on chronic heart failure with preserved ejection fraction (HFpEF): Code(s): I50.33 - Acute on chronic diastolic (congestive) heart failure Status: Acute Assessment and Plan: * Improved with diuresis, continue and transition to oral Lasix per Cardiology * Diuresis per cardiology * EF about 2 weeks ago from outpatient records showed ef 60-65% * Nighttime bIPAP to be set up by animal care provider (3) A-fib: Qualifiers: Atrial fibrillation type: paroxysmal Qualified Code(s): I48.0 - Paroxysmal atrial fibrillation Code(s): I48.91 - Unspecified atrial fibrillation Status: Acute Assessment and Plan: * 2/4 rate control remained suboptimal. Increase metoprolol ER from 50-100 mg p.o. daily. Soft blood pressure noted but improvement and rate may improve perfusion. If BP drops, could reduce valsartan. * Continue Xarelto. (4) Acute UTI: Code(s): N39.0 - Urinary tract infection, site not specified Status: Acute Assessment and Plan: * Tcompleted Abx * UC positive for Citrobacter, (5) Left breast mass: Code(s): N63.20 - Unspecified lump in the left breast, unspecified quadrant Status: Acute Assessment and Plan: * 2/4 U/S breast showed suspicious mass * gen surgery evaluated and recommend f/u with Dr Farooq for biopsy and further outpatient workup (6) Cirrhosis of liver: Code(s): K74.60 - Unspecified cirrhosis of liver Status: Acute Assessment and Plan: * Etiology unclear. * 2/4 ordered chronic viral hepatitis screen, LKM1 Ab, and iron panel. (7) Thrombocytopenia: Code(s): D69.6 - Thrombocytopenia, unspecified Status: Acute Assessment and Plan: * Chronic, mildly worsened. plts 107 * Possibly related to cirrhosis and splenic sequestration. continue to monitor Subjective Date/time seen: 12/23/23 13:57 Interval history: Feels well overnight events. Breathing is getting better every day. Diuretics has been switched to oral Review of Systems Review of Systems: All systems reviewed & are unremarkable except as noted in HPI and below Exam Narrative: - GENERAL: elderly frail cognitive issu es - EYES: PERRL. Anicteric. - HENT: Moist mucous membranes. - NECK: No JVD. - LUNGS: Coarse breath sound bilateral base no wheezing, rhonchi. - CARDIOVASCULAR: S1 and S2 normal. Ra te tachycardiac and irregular. No audible murmur. - ABDOMEN: Soft, non-tender and non-dist ended. No palpable masses. - EXTREMITIES: No edema. - NEUROLOGIC: CN's symmetric to inspect ion. Symmetric, generalized weakness. - PSYCHIATRIC: Alert. Oriented to pers on, n
--- NOTE | 2023-12-23 13:57 | PM.IMPN ---
Progress Note: A&P Assessment and Plan (1) Respiratory failure: Code(s): J96.90 - Respiratory failure, unspecified, unspecified whether with hypoxia or hypercapnia Status: Acute Assessment and Plan: 2/4 oxygen weaned to 1 L by nasal cannula. pt wearing BIPAP at night Pulmonary following Related to CHF Recommend BiPAP at 12/6 with respiratory rate of 14 and supplemental oxygen 3 liter/minute at night per Pulmonary. (2) Acute on chronic heart failure with preserved ejection fraction (HFpEF): Code(s): I50.33 - Acute on chronic diastolic (congestive) heart failure Status: Acute Assessment and Plan: Improved with diuresis, continue and transition to oral Lasix per Cardiology Diuresis per cardiology EF about 2 weeks ago from outpatient records showed ef 60-65% Nighttime bIPAP to be set up by career based intervention coordinator (3) A-fib: Qualifiers: Atrial fibrillation type: paroxysmal Qualified Code(s): I48.0 - Paroxysmal atrial fibrillation Code(s): I48.91 - Unspecified atrial fibrillation Status: Acute Assessment and Plan: 2/4 rate control remained suboptimal. Increase metoprolol ER from 50-100 mg p.o. daily. Soft blood pressure noted but improvement and rate may improve perfusion. If BP drops, could reduce valsartan. Continue Xarelto. (4) Acute UTI: Code(s): N39.0 - Urinary tract infection, site not specified Status: Acute Assessment and Plan: Tcompleted Abx UC positive for Citrobacter, (5) Left breast mass: Code(s): N63.20 - Unspecified lump in the left breast, unspecified quadrant Status: Acute Assessment and Plan: 2/4 U/S breast showed suspicious mass gen surgery evaluated and recommend f/u with Dr Farooq for biopsy and further outpatient workup (6) Cirrhosis of liver: Code(s): K74.60 - Unspecified cirrhosis of liver Status: Acute Assessment and Plan: Etiology unclear. 2/4 ordered chronic viral hepatitis screen, LKM1 Ab, and iron panel. (7) Thrombocytopenia: Code(s): D69.6 - Thrombocytopenia, unspecified Status: Acute Assessment and Plan: Chronic, mildly worsened. plts 107 Possibly related to cirrhosis and splenic sequestration. continue to monitor Subjective Date/time seen: 12/23/23 13:57 Interval history: Feels well overnight events. Breathing is getting better every day. Diuretics has been switched to oral Review of Systems Review of Systems: All systems reviewed & are unremarkable except as noted in HPI and below Exam Narrative: - GENERAL: elderly frail cognitive issues - EYES: PERRL. Anicteric. - HENT: Moist mucous membranes. - NECK: No JVD. - LUNGS: Coarse breath sound bilateral base no wheezing, rhonchi. - CARDIOVASCULAR: S1 and S2 normal. Rate tachycardiac and irregular. No audible murmur. - ABDOMEN: Soft, non-tender and non-distended. No palpable masses. - EXTREMITIES: No edema. - NEUROLOGIC: CN's symmetric to inspection. Symmetric, generalized weakness. - PSYCHIATRIC: Alert. Oriented to person, not to place year or month. - SKIN: No rashes or lesions visible. Objective Data Vital Signs Vital Signs: Vital Signs - 24 hr 12/22/23 14:00 12/22/23 15:46 12/22/23 17:45 Temperature 97.8 F Pulse Rate 81 Respiratory Rate 22 H Blood Pressure 98/66 L Pulse Oximetry 96 93 Oxygen Delivery Room Air Room Air Oxygen Flow Rate Fraction of Inspired Oxygen 12/22/23 21:35 12/22/23 22:40 12/22/23 22:40 Temperature 98.6 F Pulse Rate 75 98 Respiratory Rate 20 22 H Blood Pressure 104/86 Pulse Oximetry 100 94 94 Oxygen Delivery BiPAP BiPAP Oxygen Flow Rate Fraction of Inspired Oxygen 32 12/23/23 02:28 12/23/23 06:00 12/23/23 07:00 Temperature 96.1 F L Pulse Rate 80 86 83 Respiratory Rate 18 18 18 Blood Pressure 94/69 L Pulse Oximetry 95 100 99 Oxygen Delivery BiPAP Nasal Cannula
[2023-12-23] MEDS: RIVAROXABAN 20 MG TABLET PO (18:11)
[2023-12-23] MEDS: FLUTICASONE PROPIONATE 0.05% NA SPR 16 GM BTL (*BKC) 1 SPRAY NASAL (19:48)
[2023-12-23] MEDS: SENNOSIDES 8.6 MG TABLET PO (19:51)
[2023-12-24] VITALS (8 sets, daily range): BP systolic 92–98; BP diastolic 54–65; PULSE 70–112; RESP 16–24; TEMP 35.6–36.4; O2SAT 95–99
[2023-12-24 07:19] LABS: Basophils Percent Auto 0.6 % (0.2-1.2); Eosinophils Absolute Auto 0.2 K/mm3 (0-0.3); Eosinophils Percent Auto 4.9 % (0-4.4); Hematocrit 37.3 % (37.0-47.0); Hemoglobin 11.5 g/dL (12.0-15.0); Immature Granulocyte Absolute 0.01 K/mm3 (0.00-0.031); Immature Granulocyte Percent A 0.2 % (0-0.5); Immature Platelet Fraction Pct 5.5 % (0.9-11.2); Lymphocytes Percent Auto 26.6 % (18.3-44.2); Mean Corpuscular HGB Conc 30.8 g/dl (32-36); Mean Corpuscular Volume 94.2 fl (80-100); Mean Platelet Volume 11.5 fl (7.4-10.4); Monocytes Absolute Auto 0.5 K/mm3 (0.1-0.6); Monocytes Percent Auto 9.6 % (2.6-8.5); Neutrophils Absolute Auto 2.8 K/mm3 (1.3-6.7); Neutrophils Percent Auto 58.1 % (45.5-73.1); Platelet Count Result 80 k/mm3 (150-375); Red Blood Count 3.96 M/mm3 (4.2-5.4); Red Cell Distribution Width 17.2 % (11.5-14.5); White Blood Count 4.9 K/mm3 (4.5-10.0)
[2023-12-24 07:36] LABS: Alanine Aminotransferase 29 U/L (6-35); Albumin Level 2.4 g/dL (3.5-5.1); Alkaline Phosphatase 53 U/L (38-126); Anion Gap -1 mmol/L (8-16); Aspartate Amino Transferase 38 U/L (14-36); Bilirubin,Total 0.6 mg/dL (0.2-1.3); Blood Urea Nitrogen 20 mg/dL (7-17); Calcium 9.6 mg/dL (8.4-10.2); Carbon Dioxide 37 mmol/L (22-30); Chloride 99 mmol/L (98-107); Estimated CRCL calculation 50 ml/min; Estimated Glomerular Filt Rate > 60; Glucose 88 mg/dL (65-110); Magnesium 1.9 mg/dL (1.6-2.3); Potassium 4.3 mmol/L (3.4-5.0); Sodium 135 mmol/L (137-145)
[2023-12-24] MEDS: OPTI-GEN TAB 1 TABLET PO (08:53)
[2023-12-24] MEDS: ESCITALOPRAM OXALATE 10 MG TABLET 20 MG PO (08:53)
[2023-12-24] MEDS: FUROSEMIDE 80 MG TABLET PO ×2 (08:53→17:09)
[2023-12-24] MEDS: MAGNESIUM OXIDE 400 MG TABLET PO (08:54)
[2023-12-24] MEDS: SPIRONOLACTONE 25 MG TABLET PO (08:54)
[2023-12-24] MEDS: RALOXIFENE HCL (*CHEMO) 60 MG TABLET PO (08:54)
[2023-12-24] MEDS: MULTIVITAMINS THERAPEUTIC TAB (*BKC) 1 TABLET PO (08:54)
[2023-12-24] MEDS: busPIRone HCL 5 MG TABLET PO ×3 (08:54→17:09)
[2023-12-24] MEDS: LORATADINE 10 MG TABLET PO (08:54)
[2023-12-24] MEDS: POTASSIUM CHLORIDE 20 MEQ PACKET (FOR LIQUID) 40 MEQ PO ×2 (08:55→17:09)
[2023-12-24] MEDS: METOPROLOL SUCCINATE EXT REL 50 MG TABCR 100 MG PO (08:55)
--- NOTE | 2023-12-24 09:04 | PM.PNCARD ---
Progress Note: A&P Assessment and Plan (1) Acute on chronic heart failure with preserved ejection fraction (HFpEF): Code(s): I50.33 - Acute on chronic diastolic (congestive) heart failure Status: Acute Assessment and Plan: 88-year-old female with CHF with preserved ejection fraction, right heart failure, persistent atrial fibrillation on anticoagulation with rivaroxaban, hypertension. Patient has acute chronic CHF with preserved ejection fraction and right heart failure with significant volume overload. -continue current dose of furosemide.- difficult to assess diuresis now that voss is out; doubt output is being documented accurately. -Continue spironolactone 25 mg p.o. daily. -May start other standard medical treatment when able (addition of medical therapy limited by BP) (2) Persistent atrial fibrillation: Code(s): I48.19 - Other persistent atrial fibrillation Status: Acute Assessment and Plan: Rate control with metoprolol succinate, and anticoagulation with rivaroxaban. Borderline tachy. (3) Respiratory failure with hypoxia and hypercapnia: Code(s): J96.91 - Respiratory failure, unspecified with hypoxia; J96.92 - Respiratory failure, unspecified with hypercapnia Status: Acute Assessment and Plan: Pulmonology evaluation and management. Subjective Date/time seen: 12/24/23 09:04 Interval history: Acute on chronic diastolic CHF, persistent atrial fibrillation, respiratory failure. Also history of cirrhosis, thrombocytopenia, date of service: 12/18/2023 Interval history: Patient reports improvement in her shortness of breath. Previously, she was on BiPAP, currently sitting up in the chair and on supplemental oxygen through nasal cannula. On telemetry, she is in atrial fibrillation with heart rates in 100s. Date of service 12/19/23: She is feeling better today. On O2 per nasal cannula sitting up in the chair. Atrial fibrillation seen on telemetry with rate controlled. Continue IV Lasix and p.o. spironolactone. Date of service 12/21/2023: Pt denies SOB. Son at bedside. SBP 92-110 mmHg. Remains on 2 L nasal cannula; used BiPAP last night. Palliative care consulted. CXR today: MOderate left effusion, mild R effusion, mild CHF. ON my personal review, does't look much different fr 12/12/2023. Date of service 12/23/2023: Feeling better every day. No shortness of breath. Date of service 12/24/2023: Resting in bed comfortably without chest pain or shortness of breath. Review of Systems Review of Systems: No SOB at rest, no CP, abdom pain, palps, less edema Constitutional: Constitutional: Denies body ache(s) Cardiovascular: Cardiovascular: Denies chest pain Gastrointestinal: Gastrointestinal: Denies abdominal pain Neurologic: Denies confusion Psychiatric: Psychiatric: Denies confusion Exam Const: General: cooperative and comfortable; No confusion Orientation/consciousness: oriented to person, patient oriented x3 and No confusion Other: Pillow around post neck HENMT: Mouth: Yes moist mucous membranes Eyes: General: appearance normal, both eyes and all related structures Neck: Neck: supple Resp: Effort & Inspection: normal respiratory effort Auscultation: rales (few rales LLL) and diminished lung sounds (both bases) Cardio: Rate: regular rate Rhythm: abnormal rhythm irregularly irregular GI: Inspection: normal to inspection Skin: General skin exam: normal color Neuro: General: oriented to person, patient oriented x3 and No confusion Extrem: Right lower extremity: edema Left lower extremity: edema Other: Mild LE edema bilaterally, mild edema of abdom wall, buttocks, upper thighs Psych: Appearance: grossly normal Mental Status: mental status grossly normal Objective Data Vital Signs Vital Signs: Vital Signs - 24 hr 12/23/23 14:00 12/23/23 14:54 12/23/23 22:00 Temperature 36.6 C 36.1 C L Pu
[2023-12-24] MEDS: ALBUTEROL SULFATE (*SP) AEROSOL 1 PUFF 2 PUFF INHALATION ×2 (10:17→14:44)
--- NOTE | 2023-12-24 12:05 | PC.NURSE ---
On 12/24/23, the WANT AD RECEIVER, Shelia, provided care and [facility]. I have reviewed the WANT AD RECEIVER's documentation and agree with the findings.
--- NOTE | 2023-12-24 13:36 | P.PNIM_ITS ---
Progress Note: A&P Assessment and Plan (1) Respiratory failure: Code(s): J96.90 - Respiratory failure, unspecified, unspecified whether with hypoxia or hypercapnia Status: Acute Assessment and Plan: * 2/4 oxygen weaned to 1 L by nasal cannula. * pt wearing BIPAP at night * Pulmonary following Related to CHF Recommend BiPAP at 12/6 with respiratory rate of 14 and supplemental oxygen 3 liter/minute at night per Pulmonary. * (2) Acute on chronic heart failure with preserved ejection fraction (HFpEF): Code(s): I50.33 - Acute on chronic diastolic (congestive) heart failure Status: Acute Assessment and Plan: * Improved with diuresis, continue and transition to oral Lasix per Cardiology * Diuresis per cardiology * EF about 2 weeks ago from outpatient records showed ef 60-65% * Nighttime bIPAP to be set up by home care manager (3) A-fib: Qualifiers: Atrial fibrillation type: paroxysmal Qualified Code(s): I48.0 - Paroxysmal atrial fibrillation Code(s): I48.91 - Unspecified atrial fibrillation Status: Acute Assessment and Plan: * 2/4 rate control remained suboptimal. Increase metoprolol ER from 50-100 mg p.o. daily. Soft blood pressure noted but improvement and rate may improve perfusion. If BP drops, could reduce valsartan. * Continue Xarelto. (4) Acute UTI: Code(s): N39.0 - Urinary tract infection, site not specified Status: Acute Assessment and Plan: * Tcompleted Abx * UC positive for Citrobacter, (5) Left breast mass: Code(s): N63.20 - Unspecified lump in the left breast, unspecified quadrant Status: Acute Assessment and Plan: * 2/4 U/S breast showed suspicious mass * gen surgery evaluated and recommend f/u with Dr Farooq for biopsy and further outpatient workup (6) Cirrhosis of liver: Code(s): K74.60 - Unspecified cirrhosis of liver Status: Acute Assessment and Plan: * Etiology unclear. * 2/4 ordered chronic viral hepatitis screen, LKM1 Ab, and iron panel. (7) Thrombocytopenia: Code(s): D69.6 - Thrombocytopenia, unspecified Status: Acute Assessment and Plan: * Chronic, mildly worsened. plts 107 * Possibly related to cirrhosis and splenic sequestration. continue to monitor Subjective Date/time seen: 12/24/23 13:36 Interval history: No overnight events. Feels okay. Work with therapy. On oral Lasix. Review of Systems Review of Systems: All systems reviewed & are unremarkable except as noted in HPI and below Exam Narrative: - GENERAL: elderly frail cognitive issu es - EYES: PERRL. Anicteric. - HENT: Moist mucous membranes. - NECK: No JVD. - LUNGS: Coarse breath sound bilateral base no wheezing, rhonchi. - CARDIOVASCULAR: S1 and S2 normal. Ra te tachycardiac and irregular. No audible murmur. - ABDOMEN: Soft, non-tender and non-dist ended. No palpable masses. - EXTREMITIES: No edema. - NEUROLOGIC: CN's symmetric to inspect ion. Symmetric, generalized weakness. - PSYCHIATRIC: Alert. Oriented to pers on, not to place year or month.
--- NOTE | 2023-12-24 13:36 | PM.IMPN ---
Progress Note: A&P Assessment and Plan (1) Respiratory failure: Code(s): J96.90 - Respiratory failure, unspecified, unspecified whether with hypoxia or hypercapnia Status: Acute Assessment and Plan: 2/4 oxygen weaned to 1 L by nasal cannula. pt wearing BIPAP at night Pulmonary following Related to CHF Recommend BiPAP at 12/6 with respiratory rate of 14 and supplemental oxygen 3 liter/minute at night per Pulmonary. (2) Acute on chronic heart failure with preserved ejection fraction (HFpEF): Code(s): I50.33 - Acute on chronic diastolic (congestive) heart failure Status: Acute Assessment and Plan: Improved with diuresis, continue and transition to oral Lasix per Cardiology Diuresis per cardiology EF about 2 weeks ago from outpatient records showed ef 60-65% Nighttime bIPAP to be set up by manager urgent care (3) A-fib: Qualifiers: Atrial fibrillation type: paroxysmal Qualified Code(s): I48.0 - Paroxysmal atrial fibrillation Code(s): I48.91 - Unspecified atrial fibrillation Status: Acute Assessment and Plan: 2/4 rate control remained suboptimal. Increase metoprolol ER from 50-100 mg p.o. daily. Soft blood pressure noted but improvement and rate may improve perfusion. If BP drops, could reduce valsartan. Continue Xarelto. (4) Acute UTI: Code(s): N39.0 - Urinary tract infection, site not specified Status: Acute Assessment and Plan: Tcompleted Abx UC positive for Citrobacter, (5) Left breast mass: Code(s): N63.20 - Unspecified lump in the left breast, unspecified quadrant Status: Acute Assessment and Plan: 2/4 U/S breast showed suspicious mass gen surgery evaluated and recommend f/u with Dr Farooq for biopsy and further outpatient workup (6) Cirrhosis of liver: Code(s): K74.60 - Unspecified cirrhosis of liver Status: Acute Assessment and Plan: Etiology unclear. 2/4 ordered chronic viral hepatitis screen, LKM1 Ab, and iron panel. (7) Thrombocytopenia: Code(s): D69.6 - Thrombocytopenia, unspecified Status: Acute Assessment and Plan: Chronic, mildly worsened. plts 107 Possibly related to cirrhosis and splenic sequestration. continue to monitor Subjective Date/time seen: 12/24/23 13:36 Interval history: No overnight events. Feels okay. Work with therapy. On oral Lasix. Review of Systems Review of Systems: All systems reviewed & are unremarkable except as noted in HPI and below Exam Narrative: - GENERAL: elderly frail cognitive issues - EYES: PERRL. Anicteric. - HENT: Moist mucous membranes. - NECK: No JVD. - LUNGS: Coarse breath sound bilateral base no wheezing, rhonchi. - CARDIOVASCULAR: S1 and S2 normal. Rate tachycardiac and irregular. No audible murmur. - ABDOMEN: Soft, non-tender and non-distended. No palpable masses. - EXTREMITIES: No edema. - NEUROLOGIC: CN's symmetric to inspection. Symmetric, generalized weakness. - PSYCHIATRIC: Alert. Oriented to person, not to place year or month. - SKIN: No rashes or lesions visible. Objective Data Vital Signs Vital Signs: Vital Signs - 24 hr 12/23/23 14:00 12/23/23 14:54 12/23/23 22:00 Temperature 97.8 F 97 F L Pulse Rate 80 84 77 Respiratory Rate 20 18 20 Blood Pressure 92/61 L 96/69 L Pulse Oximetry 98 98 Oxygen Delivery Oxygen Flow Rate 12/23/23 20:00 12/23/23 23:25 12/23/23 23:25 Temperature Pulse Rate 61 61 Respiratory Rate 14 14 Blood Pressure Pulse Oximetry 98 99 Oxygen Delivery Nasal Cannula BiPAP Oxygen Flow Rate 2 12/24/23 02:38 12/24/23 06:00 12/24/23 08:55 Temperature 97.4 F L Pulse Rate 70 71 84 Respiratory Rate 18 16 Blood Pressure 98/63 L Pulse Oximetry 95 99 Oxygen Delivery BiPAP Oxygen Flow Rate 12/24/23 08:50 Temperature Pulse Rate Respiratory Rate Blood Pressure Pulse Oximetry Oxyg
[2023-12-24] MEDS: RIVAROXABAN 20 MG TABLET PO (17:09)
[2023-12-24] MEDS: FLUTICASONE PROPIONATE 0.05% NA SPR 16 GM BTL (*BKC) 1 SPRAY NASAL (19:48)
[2023-12-25] VITALS (9 sets, daily range): BP systolic 88–100; BP diastolic 56–80; PULSE 71–87; RESP 18–21; TEMP 36.6; O2SAT 90–99
[2023-12-25] MEDS: ALBUTEROL SULFATE (*SP) AEROSOL 1 PUFF 2 PUFF INHALATION ×4 (00:42→23:33)
[2023-12-25 06:58] LABS: Basophils Absolute Auto 0.1 K/mm3 (0.0-0.1); Basophils Percent Auto 0.8 % (0.2-1.2); Eosinophils Absolute Auto 0.1 K/mm3 (0-0.3); Eosinophils Percent Auto 1.3 % (0-4.4); Hematocrit 41.5 % (37.0-47.0); Hemoglobin 12.9 g/dL (12.0-15.0); Immature Granulocyte Absolute 0.02 K/mm3 (0.00-0.031); Immature Granulocyte Percent A 0.3 % (0-0.5); Immature Platelet Fraction Pct 7.9 % (0.9-11.2); Lymphocytes Absolute Auto 1.54 K/mm3 (0.9-3.2); Lymphocytes Percent Auto 21.4 % (18.3-44.2); Mean Corpuscular HGB Conc 31.1 g/dl (32-36); Mean Corpuscular Volume 93.3 fl (80-100); Mean Platelet Volume 11.5 fl (7.4-10.4); Monocytes Absolute Auto 0.8 K/mm3 (0.1-0.6); Monocytes Percent Auto 11.3 % (2.6-8.5); Neutrophils Absolute Auto 4.7 K/mm3 (1.3-6.7); Neutrophils Percent Auto 64.9 % (45.5-73.1); Nucleated Red Blood Cells Perc 0.3 % (0.0-0.2); Platelet Count Result 88 k/mm3 (150-375); Red Blood Count 4.45 M/mm3 (4.2-5.4); Red Cell Distribution Width 17.5 % (11.5-14.5); White Blood Count 7.2 K/mm3 (4.5-10.0)
[2023-12-25 07:19] LABS: Alanine Aminotransferase 36 U/L (6-35); Albumin Level 3.1 g/dL (3.5-5.1); Alkaline Phosphatase 73 U/L (38-126); Anion Gap 1 mmol/L (8-16); Aspartate Amino Transferase 50 U/L (14-36); Bilirubin,Total 1.1 mg/dL (0.2-1.3); Blood Urea Nitrogen 25 mg/dL (7-17); Calcium 10.2 mg/dL (8.4-10.2); Carbon Dioxide 38 mmol/L (22-30); Chloride 96 mmol/L (98-107); Estimated CRCL calculation 28 ml/min; Estimated Glomerular Filt Rate 39; Glucose 99 mg/dL (65-110); Magnesium 2.2 mg/dL (1.6-2.3); Potassium 5.7 mmol/L (3.4-5.0); Sodium 135 mmol/L (137-145)
[2023-12-25] MEDS: OPTI-GEN TAB 1 TABLET PO (08:33)
[2023-12-25] MEDS: MULTIVITAMINS THERAPEUTIC TAB (*BKC) 1 TABLET PO (08:34)
[2023-12-25] MEDS: FUROSEMIDE 80 MG TABLET PO ×2 (08:34→17:31)
[2023-12-25] MEDS: busPIRone HCL 5 MG TABLET PO ×3 (08:34→17:31)
[2023-12-25] MEDS: LORATADINE 10 MG TABLET PO (08:34)
[2023-12-25] MEDS: RALOXIFENE HCL (*CHEMO) 60 MG TABLET PO (08:34)
[2023-12-25] MEDS: MAGNESIUM OXIDE 400 MG TABLET PO (08:34)
[2023-12-25] MEDS: ESCITALOPRAM OXALATE 10 MG TABLET 20 MG PO (08:34)
[2023-12-25] MEDS: SPIRONOLACTONE 25 MG TABLET PO (08:34)
[2023-12-25] MEDS: POTASSIUM CHLORIDE 20 MEQ PACKET (FOR LIQUID) 40 MEQ PO (08:35)
[2023-12-25] MEDS: METOPROLOL SUCCINATE EXT REL 50 MG TABCR 100 MG PO (08:35)
--- NOTE | 2023-12-25 09:36 | PM.PNCARD ---
Progress Note: A&P Assessment and Plan (1) Acute on chronic heart failure with preserved ejection fraction (HFpEF): Code(s): I50.33 - Acute on chronic diastolic (congestive) heart failure Status: Acute Assessment and Plan: 88-year-old female with CHF with preserved ejection fraction, right heart failure, persistent atrial fibrillation on anticoagulation with rivaroxaban, hypertension. Patient has acute chronic CHF with preserved ejection fraction and right heart failure with significant volume overload. -continue current dose of furosemide.- difficult to assess diuresis now that voss is out; doubt output is being documented accurately. -she has a significant electrolyte imbalance today with hyperkalemia, acute renal failure. Will repeat a BMP stat to ensure accuracy but will hold spironolactone for now. Discontinue potassium. -May start other standard medical treatment when able (addition of medical therapy limited by BP) (2) Persistent atrial fibrillation: Code(s): I48.19 - Other persistent atrial fibrillation Status: Acute Assessment and Plan: Rate control with metoprolol succinate, and anticoagulation with rivaroxaban. Borderline tachy. (3) Respiratory failure with hypoxia and hypercapnia: Code(s): J96.91 - Respiratory failure, unspecified with hypoxia; J96.92 - Respiratory failure, unspecified with hypercapnia Status: Acute Assessment and Plan: Pulmonology evaluation and management. (4) Electrolyte imbalance: Code(s): E87.8 - Other disorders of electrolyte and fluid balance, not elsewhere classified Status: Acute Assessment and Plan: As detailed above. Repeat BMP stat. Hold potassium. Hold spironolactone. Subjective Date/time seen: 12/25/23 09:36 Interval history: Acute on chronic diastolic CHF, persistent atrial fibrillation, respiratory failure. Also history of cirrhosis, thrombocytopenia, date of service: 12/18/2023 Interval history: Patient reports improvement in her shortness of breath. Previously, she was on BiPAP, currently sitting up in the chair and on supplemental oxygen through nasal cannula. On telemetry, she is in atrial fibrillation with heart rates in 100s. Date of service 12/19/23: She is feeling better today. On O2 per nasal cannula sitting up in the chair. Atrial fibrillation seen on telemetry with rate controlled. Continue IV Lasix and p.o. spironolactone. Date of service 12/21/2023: Pt denies SOB. Son at bedside. SBP 92-110 mmHg. Remains on 2 L nasal cannula; used BiPAP last night. Palliative care consulted. CXR today: MOderate left effusion, mild R effusion, mild CHF. ON my personal review, does't look much different fr 12/12/2023. Date of service 12/23/2023: Feeling better every day. No shortness of breath. Date of service 12/24/2023: Resting in bed comfortably without chest pain or shortness of breath. Date of service 12/25/2023: Swelling is still present but denies any chest pain or shortness of breath. Review of Systems Review of Systems: No SOB at rest, no CP, abdom pain, palps, less edema Constitutional: Constitutional: Denies body ache(s) Cardiovascular: Cardiovascular: Denies chest pain Gastrointestinal: Gastrointestinal: Denies abdominal pain Neurologic: Denies confusion Psychiatric: Psychiatric: Denies confusion Exam Const: General: cooperative and comfortable; No confusion Orientation/consciousness: oriented to person, patient oriented x3 and No confusion Other: Pillow around post neck HENMT: Mouth: Yes moist mucous membranes Eyes: General: appearance normal, both eyes and all related structures Neck: Neck: supple Resp: Effort & Inspection: normal respiratory effort Auscultation: rales (few rales LLL) and diminished lung sounds (both bases) Cardio: Rate: regular rate and tachycardic Rhythm: regular rhythm and abnormal rhythm irregularly irregular G
[2023-12-25 10:23] LABS: Anion Gap 0 mmol/L (8-16); Blood Urea Nitrogen 26 mg/dL (7-17); Calcium 10.1 mg/dL (8.4-10.2); Carbon Dioxide 39 mmol/L (22-30); Chloride 96 mmol/L (98-107); Estimated CRCL calculation 30 ml/min; Estimated Glomerular Filt Rate 42; Glucose 143 mg/dL (65-110); Potassium 6.1 mmol/L (3.4-5.0); Sodium 135 mmol/L (137-145)
--- NOTE | 2023-12-25 10:30 | P.PNIM_ITS ---
Progress Note: A&P Assessment and Plan (1) Respiratory failure: Code(s): J96.90 - Respiratory failure, unspecified, unspecified whether with hypoxia or hypercapnia Status: Acute Assessment and Plan: * 2/4 oxygen weaned to 1 L by nasal cannula. * pt wearing BIPAP at night * Pulmonary following Related to CHF Recommend BiPAP at 12/6 with respiratory rate of 14 and supplemental oxygen 3 liter/minute at night per Pulmonary. * (2) Acute on chronic heart failure with preserved ejection fraction (HFpEF): Code(s): I50.33 - Acute on chronic diastolic (congestive) heart failure Status: Acute Assessment and Plan: * Improved with diuresis, continue and transition to oral Lasix per Cardiology * Diuresis per cardiology on oral Lasix spironolactone held due to hyperkalemia. Recheck BMP with stable creatinine * EF about 2 weeks ago from outpatient records showed ef 60-65% * Nighttime bIPAP to be set up by managed care coordinator (3) A-fib: Qualifiers: Atrial fibrillation type: paroxysmal Qualified Code(s): I48.0 - Paroxysmal atrial fibrillation Code(s): I48.91 - Unspecified atrial fibrillation Status: Acute Assessment and Plan: * 2/4 rate control remained suboptimal. Increase metoprolol ER from 50-100 mg p.o. daily. Soft blood pressure noted but improvement and rate may improve perfusion. If BP drops, could reduce valsartan. Valsartan currently on hold * Continue Xarelto. (4) Acute UTI: Code(s): N39.0 - Urinary tract infection, site not specified Status: Acute Assessment and Plan: * Tcompleted Abx * UC positive for Citrobacter, (5) Left breast mass: Code(s): N63.20 - Unspecified lump in the left breast, unspecified quadrant Status: Acute Assessment and Plan: * 2/4 U/S breast showed suspicious mass * gen surgery evaluated and recommend f/u with Dr Farooq for biopsy and further outpatient workup (6) Cirrhosis of liver: Code(s): K74.60 - Unspecified cirrhosis of liver Status: Acute Assessment and Plan: * Etiology unclear. * 2/4 ordered chronic viral hepatitis screen, LKM1 Ab, and iron panel. (7) Thrombocytopenia: Code(s): D69.6 - Thrombocytopenia, unspecified Status: Acute Assessment and Plan: * Chronic, mildly worsened. plts 107 * Possibly related to cirrhosis and splenic sequestration. continue to monitor Subjective Date/time seen: 12/25/23 10:30 Interval history: No overnight events. Feels okay. Labs reviewed. Increase potassium noted. Review of Systems Review of Systems: All systems reviewed & are unremarkable except as noted in HPI and below Exam Narrative: - GENERAL: elderly frail cognitive issu es - EYES: PERRL. Anicteric. - HENT: Moist mucous membranes. - NECK: No JVD. - LUNGS: Coarse breath sound bilateral base no wheezing, rhonchi. - CARDIOVASCULAR: S1 and S2 normal. Ra te controlled and irregular. No audible murmur. - ABDOMEN: Soft, non-tender and non-dist ended. No palpable masses. - EXTREMITIES: No edema. - NEUROLOGIC: CN's symmetric to inspect ion. Symmetric, generalized weakness.
--- NOTE | 2023-12-25 10:30 | PM.IMPN ---
Progress Note: A&P Assessment and Plan (1) Respiratory failure: Code(s): J96.90 - Respiratory failure, unspecified, unspecified whether with hypoxia or hypercapnia Status: Acute Assessment and Plan: 2/4 oxygen weaned to 1 L by nasal cannula. pt wearing BIPAP at night Pulmonary following Related to CHF Recommend BiPAP at 12/6 with respiratory rate of 14 and supplemental oxygen 3 liter/minute at night per Pulmonary. (2) Acute on chronic heart failure with preserved ejection fraction (HFpEF): Code(s): I50.33 - Acute on chronic diastolic (congestive) heart failure Status: Acute Assessment and Plan: Improved with diuresis, continue and transition to oral Lasix per Cardiology Diuresis per cardiology on oral Lasix spironolactone held due to hyperkalemia. Recheck BMP with stable creatinine EF about 2 weeks ago from outpatient records showed ef 60-65% Nighttime bIPAP to be set up by respiratory care assistant (3) A-fib: Qualifiers: Atrial fibrillation type: paroxysmal Qualified Code(s): I48.0 - Paroxysmal atrial fibrillation Code(s): I48.91 - Unspecified atrial fibrillation Status: Acute Assessment and Plan: 2/4 rate control remained suboptimal. Increase metoprolol ER from 50-100 mg p.o. daily. Soft blood pressure noted but improvement and rate may improve perfusion. If BP drops, could reduce valsartan. Valsartan currently on hold Continue Xarelto. (4) Acute UTI: Code(s): N39.0 - Urinary tract infection, site not specified Status: Acute Assessment and Plan: Tcompleted Abx UC positive for Citrobacter, (5) Left breast mass: Code(s): N63.20 - Unspecified lump in the left breast, unspecified quadrant Status: Acute Assessment and Plan: 2/4 U/S breast showed suspicious mass gen surgery evaluated and recommend f/u with Dr Farooq for biopsy and further outpatient workup (6) Cirrhosis of liver: Code(s): K74.60 - Unspecified cirrhosis of liver Status: Acute Assessment and Plan: Etiology unclear. 2/4 ordered chronic viral hepatitis screen, LKM1 Ab, and iron panel. (7) Thrombocytopenia: Code(s): D69.6 - Thrombocytopenia, unspecified Status: Acute Assessment and Plan: Chronic, mildly worsened. plts 107 Possibly related to cirrhosis and splenic sequestration. continue to monitor Subjective Date/time seen: 12/25/23 10:30 Interval history: No overnight events. Feels okay. Labs reviewed. Increase potassium noted. Review of Systems Review of Systems: All systems reviewed & are unremarkable except as noted in HPI and below Exam Narrative: - GENERAL: elderly frail cognitive issues - EYES: PERRL. Anicteric. - HENT: Moist mucous membranes. - NECK: No JVD. - LUNGS: Coarse breath sound bilateral base no wheezing, rhonchi. - CARDIOVASCULAR: S1 and S2 normal. Rate controlled and irregular. No audible murmur. - ABDOMEN: Soft, non-tender and non-distended. No palpable masses. - EXTREMITIES: No edema. - NEUROLOGIC: CN's symmetric to inspection. Symmetric, generalized weakness. - PSYCHIATRIC: Alert. Oriented to person, not to place year or month. - SKIN: No rashes or lesions visible. Objective Data Vital Signs Vital Signs: Vital Signs - 24 hr 12/24/23 13:50 12/24/23 19:41 12/24/23 21:30 Temperature 97.5 F L Pulse Rate 112 H 76 Respiratory Rate 20 24 H Blood Pressure 92/65 L Pulse Oximetry 95 95 96 Oxygen Delivery Nasal Cannula BiPAP Oxygen Flow Rate 2 12/24/23 22:00 12/25/23 00:43 12/25/23 05:00 Temperature 96.1 F L 98 F Pulse Rate 71 71 87 Respiratory Rate 16 18 18 Blood Pressure 95/54 L 99/63 L Pulse Oximetry 95 96 99 Oxygen Delivery BiPAP Oxygen Flow Rate 12/25/23 08:35 12/25/23 10:11 Temperature Pulse Rate 72 Respiratory Rate Blood Pressure Pulse Oximetry 96 Oxygen Delivery Nasal Cannula Oxygen Flow
[2023-12-25] MEDS: SODIUM ZIRCONIUM CYCLOSILICATE 10 GM POWD.PACK PO ×2 (10:50→18:37)
[2023-12-25] MEDS: ACETAMINOPHEN 500 MG TABLET 1000 MG PO (13:47)
--- NOTE | 2023-12-25 14:18 | PC.NURSE ---
On 12/25/23, the CLINICAL APPEALS SPECIALIST, Shelia, provided care and completed [facility] documentation on this patient. I have reviewed the CLINICAL APPEALS SPECIALIST's documentation and agree with the findings.
[2023-12-25 17:25] LABS: Anion Gap 1 mmol/L (8-16); Blood Urea Nitrogen 29 mg/dL (7-17); Calcium 10.5 mg/dL (8.4-10.2); Carbon Dioxide 34 mmol/L (22-30); Chloride 98 mmol/L (98-107); Estimated CRCL calculation 30 ml/min; Estimated Glomerular Filt Rate 42; Glucose 125 mg/dL (65-110); Potassium 5.8 mmol/L (3.4-5.0); Sodium 133 mmol/L (137-145)
[2023-12-25] MEDS: RIVAROXABAN 20 MG TABLET PO (17:31)
[2023-12-25] MEDS: SENNOSIDES 8.6 MG TABLET PO (20:12)
[2023-12-25] MEDS: FLUTICASONE PROPIONATE 0.05% NA SPR 16 GM BTL (*BKC) 1 SPRAY NASAL (20:17)
[2023-12-26] VITALS (13 sets, daily range): BP systolic 83–119; BP diastolic 47–63; PULSE 69–81; RESP 18–22; TEMP 36.1–36.6; O2SAT 94–100
--- NOTE | 2023-12-26 08:34 | PCPTNOTE ---
Attempted to see patient for PT, however patient was eating breakfast.
[2023-12-26] MEDS: ALBUTEROL SULFATE (*SP) AEROSOL 1 PUFF 2 PUFF INHALATION ×3 (08:47→23:30)
[2023-12-26 08:50] LABS: Basophils Absolute Auto 0.1 K/mm3 (0.0-0.1); Eosinophils Absolute Auto 0.3 K/mm3 (0-0.3); Eosinophils Percent Auto 3.5 % (0-4.4); Hematocrit 40.6 % (37.0-47.0); Hemoglobin 12.5 g/dL (12.0-15.0); Immature Granulocyte Absolute 0.01 K/mm3 (0.00-0.031); Immature Granulocyte Percent A 0.1 % (0-0.5); Immature Platelet Fraction Pct 7.6 % (0.9-11.2); Lymphocytes Absolute Auto 2.24 K/mm3 (0.9-3.2); Lymphocytes Percent Auto 31.6 % (18.3-44.2); Mean Corpuscular HGB Conc 30.8 g/dl (32-36); Mean Corpuscular Hemoglobin 29.1 pg (26-34); Mean Corpuscular Volume 94.6 fl (80-100); Mean Platelet Volume 11.7 fl (7.4-10.4); Monocytes Absolute Auto 0.7 K/mm3 (0.1-0.6); Monocytes Percent Auto 10.5 % (2.6-8.5); Neutrophils Absolute Auto 3.8 K/mm3 (1.3-6.7); Neutrophils Percent Auto 53.3 % (45.5-73.1); Platelet Count Result 78 k/mm3 (150-375); Red Blood Count 4.29 M/mm3 (4.2-5.4); Red Cell Distribution Width 17.7 % (11.5-14.5); White Blood Count 7.1 K/mm3 (4.5-10.0)
[2023-12-26 08:59] LABS: Blood Urea Nitrogen 30 mg/dL (7-17); Calcium 10.2 mg/dL (8.4-10.2); Carbon Dioxide > 40 mmol/L (22-30); Chloride 95 mmol/L (98-107); Estimated CRCL calculation 33 ml/min; Estimated Glomerular Filt Rate 47; Glucose 88 mg/dL (65-110); Magnesium 2.2 mg/dL (1.6-2.3); Potassium 4.7 mmol/L (3.4-5.0); Sodium 135 mmol/L (137-145)
[2023-12-26 09:11] LABS: Hypochromasia 3+ (NORMAL); Ovalocytes 2+ (NORMAL); Platelet Estimate Decreased (Adequate); Schistocytes None Seen (NORMAL)
[2023-12-26] MEDS: busPIRone HCL 5 MG TABLET PO ×3 (10:16→16:20)
[2023-12-26] MEDS: ESCITALOPRAM OXALATE 10 MG TABLET 20 MG PO (10:16)
[2023-12-26] MEDS: MAGNESIUM OXIDE 400 MG TABLET PO (10:17)
[2023-12-26] MEDS: MULTIVITAMINS THERAPEUTIC TAB (*BKC) 1 TABLET PO (10:17)
[2023-12-26] MEDS: LORATADINE 10 MG TABLET PO (10:17)
[2023-12-26] MEDS: RALOXIFENE HCL (*CHEMO) 60 MG TABLET PO (10:18)
[2023-12-26] MEDS: OPTI-GEN TAB 1 TABLET PO (11:38)
--- NOTE | 2023-12-26 11:39 | PC.NURSE ---
DR PARIKH NOTIFIED OF BP 86/51 AND AM LASIX AND METOPROLOL HELD
--- NOTE | 2023-12-26 13:29 | P.PNIM_ITS ---
Progress Note: A&P Assessment and Plan (1) Respiratory failure: Code(s): J96.90 - Respiratory failure, unspecified, unspecified whether with hypoxia or hypercapnia Status: Acute Assessment and Plan: * 2/4 oxygen weaned to 1 L by nasal cannula. * pt wearing BIPAP at night * Pulmonary following Related to CHF Recommend BiPAP at 12/6 with respiratory rate of 14 and supplemental oxygen 3 liter/minute at night per Pulmonary. * (2) Acute on chronic heart failure with preserved ejection fraction (HFpEF): Code(s): I50.33 - Acute on chronic diastolic (congestive) heart failure Status: Acute Assessment and Plan: * Improved with diuresis, continue and transition to oral Lasix per Cardiology * Diuresis per cardiology on oral Lasix spironolactone held due to hyperkalemia. Recheck BMP with stable creatinine * EF about 2 weeks ago from outpatient records showed ef 60-65% * Nighttime bIPAP to be set up by health care specialist * Diuresis limited due to borderline blood pressure. Add albumin Hyperkalemia has improved with holding spironolactone and 2 does Lokelma ye ster. Will continue to monitor (3) A-fib: Qualifiers: Atrial fibrillation type: paroxysmal Qualified Code(s): I48.0 - Paroxysmal atrial fibrillation Code(s): I48.91 - Unspecified atrial fibrillation Status: Acute Assessment and Plan: * 2/4 rate control remained suboptimal. Increase metoprolol ER from 50-100 mg p.o. daily. Soft blood pressure noted but improvement and rate may improve perfusion. If BP drops, could reduce valsartan. Valsartan currently on hold * Continue Xarelto. (4) Acute UTI: Code(s): N39.0 - Urinary tract infection, site not specified Status: Acute Assessment and Plan: * Tcompleted Abx * UC positive for Citrobacter, (5) Left breast mass: Code(s): N63.20 - Unspecified lump in the left breast, unspecified quadrant Status: Acute Assessment and Plan: * 2/4 U/S breast showed suspicious mass * gen surgery evaluated and recommend f/u with Dr Farooq for biopsy and further outpatient workup (6) Cirrhosis of liver: Code(s): K74.60 - Unspecified cirrhosis of liver Status: Acute Assessment and Plan: * Etiology unclear. * 2/4 ordered chronic viral hepatitis screen, LKM1 Ab, and iron panel. (7) Thrombocytopenia: Code(s): D69.6 - Thrombocytopenia, unspecified Status: Acute Assessment and Plan: * Chronic, mildly worsened. plts 107 * Possibly related to cirrhosis and splenic sequestration. continue to monitor Subjective Date/time seen: 12/26/23 13:29 Interval history: No overnight events blood pressure is borderline leg swelling still persists. Urine output is low Review of Systems Review of Systems: All systems reviewed & are unremarkable except as noted in HPI and below Exam Narrative: - GENERAL: elderly frail cognitive issu es - EYES: PERRL. Anicteric. - HENT: Moist mucous membranes. - NECK: No JVD. - LUNGS: Coarse breath sound bilateral base no wheezing, rhonchi. - CARDIOVASCULAR: S1 and S2 normal. Ra te controlled and irregular. No audible murmur. - ABDOMEN: Soft, non-tender and non-dist ended. No palpable ma
--- NOTE | 2023-12-26 13:29 | PM.IMPN ---
Progress Note: A&P Assessment and Plan (1) Respiratory failure: Code(s): J96.90 - Respiratory failure, unspecified, unspecified whether with hypoxia or hypercapnia Status: Acute Assessment and Plan: 2/4 oxygen weaned to 1 L by nasal cannula. pt wearing BIPAP at night Pulmonary following Related to CHF Recommend BiPAP at 12/6 with respiratory rate of 14 and supplemental oxygen 3 liter/minute at night per Pulmonary. (2) Acute on chronic heart failure with preserved ejection fraction (HFpEF): Code(s): I50.33 - Acute on chronic diastolic (congestive) heart failure Status: Acute Assessment and Plan: Improved with diuresis, continue and transition to oral Lasix per Cardiology Diuresis per cardiology on oral Lasix spironolactone held due to hyperkalemia. Recheck BMP with stable creatinine EF about 2 weeks ago from outpatient records showed ef 60-65% Nighttime bIPAP to be set up by pet caregiver Diuresis limited due to borderline blood pressure. Add albumin Hyperkalemia has improved with holding spironolactone and 2 does Lokelma yesterday. Will continue to monitor (3) A-fib: Qualifiers: Atrial fibrillation type: paroxysmal Qualified Code(s): I48.0 - Paroxysmal atrial fibrillation Code(s): I48.91 - Unspecified atrial fibrillation Status: Acute Assessment and Plan: 2/4 rate control remained suboptimal. Increase metoprolol ER from 50-100 mg p.o. daily. Soft blood pressure noted but improvement and rate may improve perfusion. If BP drops, could reduce valsartan. Valsartan currently on hold Continue Xarelto. (4) Acute UTI: Code(s): N39.0 - Urinary tract infection, site not specified Status: Acute Assessment and Plan: Tcompleted Abx UC positive for Citrobacter, (5) Left breast mass: Code(s): N63.20 - Unspecified lump in the left breast, unspecified quadrant Status: Acute Assessment and Plan: 2/4 U/S breast showed suspicious mass gen surgery evaluated and recommend f/u with Dr Farooq for biopsy and further outpatient workup (6) Cirrhosis of liver: Code(s): K74.60 - Unspecified cirrhosis of liver Status: Acute Assessment and Plan: Etiology unclear. 2/4 ordered chronic viral hepatitis screen, LKM1 Ab, and iron panel. (7) Thrombocytopenia: Code(s): D69.6 - Thrombocytopenia, unspecified Status: Acute Assessment and Plan: Chronic, mildly worsened. plts 107 Possibly related to cirrhosis and splenic sequestration. continue to monitor Subjective Date/time seen: 12/26/23 13:29 Interval history: No overnight events blood pressure is borderline leg swelling still persists. Urine output is low Review of Systems Review of Systems: All systems reviewed & are unremarkable except as noted in HPI and below Exam Narrative: - GENERAL: elderly frail cognitive issues - EYES: PERRL. Anicteric. - HENT: Moist mucous membranes. - NECK: No JVD. - LUNGS: Coarse breath sound bilateral base no wheezing, rhonchi. - CARDIOVASCULAR: S1 and S2 normal. Rate controlled and irregular. No audible murmur. - ABDOMEN: Soft, non-tender and non-distended. No palpable masses. - EXTREMITIES: No edema. - NEUROLOGIC: CN's symmetric to inspection. Symmetric, generalized weakness. - PSYCHIATRIC: Alert. Oriented to person, not to place year or month. - SKIN: No rashes or lesions visible. Objective Data Vital Signs Vital Signs: Vital Signs - 24 hr 12/25/23 14:00 12/25/23 22:00 12/25/23 23:34 Temperature 97.8 F 98 F Pulse Rate 78 80 79 Respiratory Rate 20 20 21 H Blood Pressure 100/80 88/56 L Pulse Oximetry 97 90 97 Oxygen Delivery BiPAP Oxygen Flow Rate Fraction of Inspired Oxygen 12/26/23 01:05 12/25/23 20:00 12/26/23 05:42 Temperature Pulse Rate 72 72 72 Respiratory Rate 18 18 18 Blood Pressure Pulse Oximetry 98 98 98 Oxygen Delivery
[2023-12-26] MEDS: RIVAROXABAN 20 MG TABLET PO (16:20)
[2023-12-26] MEDS: FUROSEMIDE 80 MG TABLET PO (16:20)
[2023-12-26] MEDS: ALBUMIN HUMAN 25% 25 GM/100 ML 100 ML IVPB ×2 (16:20→23:47)
[2023-12-26] MEDS: FLUTICASONE PROPIONATE 0.05% NA SPR 16 GM BTL (*BKC) 1 SPRAY NASAL (21:13)
[2023-12-27] VITALS (12 sets, daily range): BP systolic 80–115; BP diastolic 56–72; PULSE 69–76; RESP 18–20; TEMP 35.9–36.5; O2SAT 94–100
[2023-12-27] MEDS: ALBUMIN HUMAN 25% 25 GM/100 ML 100 ML IVPB ×4 (05:03→23:00)
[2023-12-27 08:12] LABS: Basophils Percent Auto 0.7 % (0.2-1.2); Eosinophils Absolute Auto 0.2 K/mm3 (0-0.3); Eosinophils Percent Auto 3.3 % (0-4.4); Hematocrit 35.9 % (37.0-47.0); Hemoglobin 10.9 g/dL (12.0-15.0); Immature Granulocyte Absolute 0.01 K/mm3 (0.00-0.031); Immature Granulocyte Percent A 0.2 % (0-0.5); Immature Platelet Fraction Pct 10.4 % (0.9-11.2); Lymphocytes Absolute Auto 1.86 K/mm3 (0.9-3.2); Lymphocytes Percent Auto 30.4 % (18.3-44.2); Mean Corpuscular HGB Conc 30.4 g/dl (32-36); Mean Corpuscular Hemoglobin 28.9 pg (26-34); Mean Corpuscular Volume 95.2 fl (80-100); Mean Platelet Volume 11.5 fl (7.4-10.4); Monocytes Absolute Auto 0.7 K/mm3 (0.1-0.6); Monocytes Percent Auto 10.9 % (2.6-8.5); Neutrophils Absolute Auto 3.3 K/mm3 (1.3-6.7); Neutrophils Percent Auto 54.5 % (45.5-73.1); Platelet Count Result 60 k/mm3 (150-375); Red Blood Count 3.77 M/mm3 (4.2-5.4); Red Cell Distribution Width 17.4 % (11.5-14.5); White Blood Count 6.1 K/mm3 (4.5-10.0)
[2023-12-27] MEDS: ALBUTEROL SULFATE (*SP) AEROSOL 1 PUFF 2 PUFF INHALATION ×2 (08:26→14:55)
[2023-12-27 08:39] LABS: Alanine Aminotransferase 22 U/L (6-35); Albumin Level 3.4 g/dL (3.5-5.1); Alkaline Phosphatase 53 U/L (38-126); Aspartate Amino Transferase 29 U/L (14-36); Bilirubin,Total 0.7 mg/dL (0.2-1.3); Blood Urea Nitrogen 28 mg/dL (7-17); Calcium 10.3 mg/dL (8.4-10.2); Carbon Dioxide > 40 mmol/L (22-30); Chloride 96 mmol/L (98-107); Estimated CRCL calculation 45 ml/min; Estimated Glomerular Filt Rate > 60; Glucose 101 mg/dL (65-110); Magnesium 2.1 mg/dL (1.6-2.3); Potassium 5.2 mmol/L (3.4-5.0); Sodium 136 mmol/L (137-145)
[2023-12-27] MEDS: METOPROLOL SUCCINATE EXT REL 50 MG TABCR 100 MG PO (08:56)
[2023-12-27] MEDS: LORATADINE 10 MG TABLET PO (08:57)
[2023-12-27] MEDS: MULTIVITAMINS THERAPEUTIC TAB (*BKC) 1 TABLET PO (08:57)
[2023-12-27] MEDS: FUROSEMIDE 80 MG TABLET PO ×2 (08:57→16:39)
[2023-12-27] MEDS: busPIRone HCL 5 MG TABLET PO ×3 (08:57→16:39)
[2023-12-27] MEDS: OPTI-GEN TAB 1 TABLET PO (08:57)
[2023-12-27] MEDS: RALOXIFENE HCL (*CHEMO) 60 MG TABLET PO (08:57)
[2023-12-27] MEDS: MAGNESIUM OXIDE 400 MG TABLET PO (08:57)
[2023-12-27] MEDS: ESCITALOPRAM OXALATE 10 MG TABLET 20 MG PO (08:58)
[2023-12-27] MEDS: ACETAMINOPHEN 500 MG TABLET 1000 MG PO (09:25)
[2023-12-27 09:30] LABS: Hypochromasia 1+ (NORMAL); Ovalocytes 1+ (NORMAL); Platelet Estimate Decreased (Adequate); Schistocytes None Seen (NORMAL); Target Cells 1+ (NORMAL)
--- NOTE | 2023-12-27 10:18 | PM.PNCARD ---
Progress Note: A&P Assessment and Plan (1) Acute on chronic heart failure with preserved ejection fraction (HFpEF): Code(s): I50.33 - Acute on chronic diastolic (congestive) heart failure Status: Acute Assessment and Plan: 88-year-old female with CHF with preserved ejection fraction, right heart failure, persistent atrial fibrillation on anticoagulation with rivaroxaban, hypertension. Patient has acute chronic CHF with preserved ejection fraction and right heart failure with significant volume overload. -continue current dose of furosemide.- difficult to assess diuresis now that voss is out; doubt output is being documented accurately. Will check a chest Xray -Holding spironolactone, KCL because of hyperkalemia -May start other standard medical treatment when able (addition of medical therapy limited by BP) (2) Persistent atrial fibrillation: Code(s): I48.19 - Other persistent atrial fibrillation Status: Acute Assessment and Plan: Rate control with metoprolol succinate, and anticoagulation with rivaroxaban. Borderline tachy. (3) Respiratory failure with hypoxia and hypercapnia: Code(s): J96.91 - Respiratory failure, unspecified with hypoxia; J96.92 - Respiratory failure, unspecified with hypercapnia Status: Acute Assessment and Plan: Pulmonology evaluation and management. (4) Electrolyte imbalance: Code(s): E87.8 - Other disorders of electrolyte and fluid balance, not elsewhere classified Status: Acute Assessment and Plan: K+ 5.2 today. Hold potassium. Hold spironolactone. Subjective Date/time seen: 12/27/23 10:18 Interval history: Acute on chronic diastolic CHF, persistent atrial fibrillation, respiratory failure. Also history of cirrhosis, thrombocytopenia, date of service: 12/18/2023 Interval history: Patient reports improvement in her shortness of breath. Previously, she was on BiPAP, currently sitting up in the chair and on supplemental oxygen through nasal cannula. On telemetry, she is in atrial fibrillation with heart rates in 100s. Date of service 12/19/23: She is feeling better today. On O2 per nasal cannula sitting up in the chair. Atrial fibrillation seen on telemetry with rate controlled. Continue IV Lasix and p.o. spironolactone. Date of service 12/21/2023: Pt denies SOB. Son at bedside. SBP 92-110 mmHg. Remains on 2 L nasal cannula; used BiPAP last night. Palliative care consulted. CXR today: MOderate left effusion, mild R effusion, mild CHF. ON my personal review, does't look much different fr 12/12/2023. Date of service 12/23/2023: Feeling better every day. No shortness of breath. Date of service 12/24/2023: Resting in bed comfortably without chest pain or shortness of breath. Date of service 12/25/2023: Swelling is still present but denies any chest pain or shortness of breath. Date of service 12/27/2023: No acute events overnight. Still has swelling but it is slowly improving, less swelling above the knees to the abdomen. She states she is feeling mildly short of breath. Review of Systems Constitutional: Constitutional: Denies body ache(s) Cardiovascular: Cardiovascular: Denies chest pain Gastrointestinal: Gastrointestinal: Denies abdominal pain Neurologic: Denies confusion Psychiatric: Psychiatric: Denies confusion Exam Const: General: cooperative and comfortable; No confusion Orientation/consciousness: oriented to person, patient oriented x3 and No confusion HENMT: Mouth: Yes moist mucous membranes Eyes: General: appearance normal, both eyes and all related structures Neck: Neck: supple Resp: Effort & Inspection: normal respiratory effort Auscultation: diminished lung sounds (both bases) Cardio: Rate: regular rate Rhythm: regular rhythm and abnormal rhythm irregularly irregular GI: Inspection: normal to inspection Skin: General skin exam: normal color Neuro: General: o
--- NOTE | 2023-12-27 12:48 | P.PNIM_ITS ---
Progress Note: A&P Assessment and Plan (1) Respiratory failure: Code(s): J96.90 - Respiratory failure, unspecified, unspecified whether with hypoxia or hypercapnia Status: Acute Assessment and Plan: * 2/4 oxygen weaned to 1 L by nasal cannula. * pt wearing BIPAP at night * Pulmonary following Related to CHF Recommend BiPAP at 12/6 with respiratory rate of 14 and supplemental oxygen 3 liter/minute at night per Pulmonary. * (2) Acute on chronic heart failure with preserved ejection fraction (HFpEF): Code(s): I50.33 - Acute on chronic diastolic (congestive) heart failure Status: Acute Assessment and Plan: * Improved with diuresis, continue and transition to oral Lasix per Cardiology * Diuresis per cardiology on oral Lasix spironolactone held due to hyperkalemia. Recheck BMP with stable creatinine * EF about 2 weeks ago from outpatient records showed ef 60-65% * Nighttime bIPAP to be set up by customer care representative * Diuresis limited due to borderline blood pressure. Add albumin Hyperkalemia has improved with holding spironolactone and 2 does Lokelma ye sterday. Will continue to monitor Re-dose Lokelma (3) A-fib: Qualifiers: Atrial fibrillation type: paroxysmal Qualified Code(s): I48.0 - Paroxysmal atrial fibrillation Code(s): I48.91 - Unspecified atrial fibrillation Status: Acute Assessment and Plan: * 2/4 rate control remained suboptimal. Increase metoprolol ER from 50-100 mg p.o. daily. Soft blood pressure noted but improvement and rate may improve perfusion. If BP drops, could reduce valsartan. Valsartan currently on hold * Continue Xarelto. (4) Acute UTI: Code(s): N39.0 - Urinary tract infection, site not specified Status: Acute Assessment and Plan: * Tcompleted Abx * UC positive for Citrobacter, (5) Left breast mass: Code(s): N63.20 - Unspecified lump in the left breast, unspecified quadrant Status: Acute Assessment and Plan: * 2/4 U/S breast showed suspicious mass * gen surgery evaluated and recommend f/u with Dr Farooq for biopsy and further outpatient workup (6) Cirrhosis of liver: Code(s): K74.60 - Unspecified cirrhosis of liver Status: Acute Assessment and Plan: * Etiology unclear. * 2/4 ordered chronic viral hepatitis screen, LKM1 Ab, and iron panel. (7) Thrombocytopenia: Code(s): D69.6 - Thrombocytopenia, unspecified Status: Acute Assessment and Plan: * Chronic, mildly worsened. plts 107 * Possibly related to cirrhosis and splenic sequestration. continue to monitor Subjective Date/time seen: 12/27/23 12:48 Interval history: No overnight events. Urine output not charted due to incontinent voids. Using BiPAP at night. Denies any breathing problem. Leg swelling persist. Blood pressure slightly improved today. Insurance authorization has lapsed and we need to redo the authorization. Review of Systems Review of Systems: All systems reviewed & are unremarkable except as noted in HPI and below Exam Narrative: - GENERAL: elderly frail cognitive issu es - EYES: PERRL. Anicteric. - HENT: Moist mucous membranes. - NECK: No JVD. - LUNGS: Coarse breath sound bilateral base no wheezing, rhonchi. - CARDIOVA
--- NOTE | 2023-12-27 12:48 | PM.IMPN ---
Progress Note: A&P Assessment and Plan (1) Respiratory failure: Code(s): J96.90 - Respiratory failure, unspecified, unspecified whether with hypoxia or hypercapnia Status: Acute Assessment and Plan: 2/4 oxygen weaned to 1 L by nasal cannula. pt wearing BIPAP at night Pulmonary following Related to CHF Recommend BiPAP at 12/6 with respiratory rate of 14 and supplemental oxygen 3 liter/minute at night per Pulmonary. (2) Acute on chronic heart failure with preserved ejection fraction (HFpEF): Code(s): I50.33 - Acute on chronic diastolic (congestive) heart failure Status: Acute Assessment and Plan: Improved with diuresis, continue and transition to oral Lasix per Cardiology Diuresis per cardiology on oral Lasix spironolactone held due to hyperkalemia. Recheck BMP with stable creatinine EF about 2 weeks ago from outpatient records showed ef 60-65% Nighttime bIPAP to be set up by healthcare management Diuresis limited due to borderline blood pressure. Add albumin Hyperkalemia has improved with holding spironolactone and 2 does Lokelma yesterday. Will continue to monitor Re-dose Lokelma (3) A-fib: Qualifiers: Atrial fibrillation type: paroxysmal Qualified Code(s): I48.0 - Paroxysmal atrial fibrillation Code(s): I48.91 - Unspecified atrial fibrillation Status: Acute Assessment and Plan: 2/ rate control remained suboptimal. Increase metoprolol ER from 50-100 mg p.o. daily. Soft blood pressure noted but improvement and rate may improve perfusion. If BP drops, could reduce valsartan. Valsartan currently on hold Continue Xarelto. (4) Acute UTI: Code(s): N39.0 - Urinary tract infection, site not specified Status: Acute Assessment and Plan: Tcompleted Abx UC positive for Citrobacter, (5) Left breast mass: Code(s): N63.20 - Unspecified lump in the left breast, unspecified quadrant Status: Acute Assessment and Plan: 2/4 U/S breast showed suspicious mass gen surgery evaluated and recommend f/u with Dr Farooq for biopsy and further outpatient workup (6) Cirrhosis of liver: Code(s): K74.60 - Unspecified cirrhosis of liver Status: Acute Assessment and Plan: Etiology unclear. 2/4 ordered chronic viral hepatitis screen, LKM1 Ab, and iron panel. (7) Thrombocytopenia: Code(s): D69.6 - Thrombocytopenia, unspecified Status: Acute Assessment and Plan: Chronic, mildly worsened. plts 107 Possibly related to cirrhosis and splenic sequestration. continue to monitor Subjective Date/time seen: 12/27/23 12:48 Interval history: No overnight events. Urine output not charted due to incontinent voids. Using BiPAP at night. Denies any breathing problem. Leg swelling persist. Blood pressure slightly improved today. Insurance authorization has lapsed and we need to redo the authorization. Review of Systems Review of Systems: All systems reviewed & are unremarkable except as noted in HPI and below Exam Narrative: - GENERAL: elderly frail cognitive issues - EYES: PERRL. Anicteric. - HENT: Moist mucous membranes. - NECK: No JVD. - LUNGS: Coarse breath sound bilateral base no wheezing, rhonchi. - CARDIOVASCULAR: S1 and S2 normal. Rate controlled and irregular. No audible murmur. - ABDOMEN: Soft, non-tender and non-distended. No palpable masses. - EXTREMITIES: No edema. - NEUROLOGIC: CN's symmetric to inspection. Symmetric, generalized weakness. - PSYCHIATRIC: Alert. Oriented to person, not to place year or month. - SKIN: No rashes or lesions visible. Objective Data Vital Signs Vital Signs: Vital Signs - 24 hr 12/26/23 13:46 12/26/23 15:45 12/26/23 20:00 Temperature 97.8 F Pulse Rate 69 81 Respiratory Rate 22 H 20 Blood Pressure 91/47 L Pulse Oximetry 98 100 Oxygen Delivery Nasal Cannula Oxygen Flow Rate 2 12/26/23 22:00
[2023-12-27] MEDS: SODIUM ZIRCONIUM CYCLOSILICATE 10 GM POWD.PACK PO (13:00)
[2023-12-27] MEDS: RIVAROXABAN 20 MG TABLET PO (16:39)
[2023-12-27] MEDS: FLUTICASONE PROPIONATE 0.05% NA SPR 16 GM BTL (*BKC) 1 SPRAY NASAL (20:00)
--- NOTE | 2023-12-27 22:29 | PC.NURSE ---
recheck bp 110/71
[2023-12-28] VITALS (12 sets, daily range): BP systolic 93–98; BP diastolic 58–59; PULSE 63–84; RESP 14–20; TEMP 36.2–36.6; O2SAT 94–100
[2023-12-28] MEDS: ALBUTEROL SULFATE (*SP) AEROSOL 1 PUFF 2 PUFF INHALATION ×4 (00:30→23:30)
[2023-12-28 06:39] LABS: Basophils Percent Auto 0.7 % (0.2-1.2); Eosinophils Absolute Auto 0.2 K/mm3 (0-0.3); Eosinophils Percent Auto 3.9 % (0-4.4); Hematocrit 34.7 % (37.0-47.0); Hemoglobin 10.6 g/dL (12.0-15.0); Immature Granulocyte Absolute 0.01 K/mm3 (0.00-0.031); Immature Granulocyte Percent A 0.2 % (0-0.5); Lymphocytes Absolute Auto 1.57 K/mm3 (0.9-3.2); Lymphocytes Percent Auto 25.6 % (18.3-44.2); Mean Corpuscular HGB Conc 30.5 g/dl (32-36); Mean Corpuscular Volume 94.8 fl (80-100); Mean Platelet Volume 11.7 fl (7.4-10.4); Monocytes Absolute Auto 0.9 K/mm3 (0.1-0.6); Neutrophils Absolute Auto 3.4 K/mm3 (1.3-6.7); Neutrophils Percent Auto 55.6 % (45.5-73.1); Platelet Count Result 55 k/mm3 (150-375); Red Blood Count 3.66 M/mm3 (4.2-5.4); Red Cell Distribution Width 17.3 % (11.5-14.5); White Blood Count 6.1 K/mm3 (4.5-10.0)
[2023-12-28 06:44] LABS: Alanine Aminotransferase 16 U/L (6-35); Albumin Level 3.6 g/dL (3.5-5.1); Alkaline Phosphatase 51 U/L (38-126); Aspartate Amino Transferase 24 U/L (14-36); Bilirubin,Total 0.9 mg/dL (0.2-1.3); Blood Urea Nitrogen 24 mg/dL (7-17); Calcium 10.2 mg/dL (8.4-10.2); Carbon Dioxide > 40 mmol/L (22-30); Chloride 96 mmol/L (98-107); Estimated CRCL calculation 44 ml/min; Estimated Glomerular Filt Rate > 60; Glucose 79 mg/dL (65-110); Potassium 3.7 mmol/L (3.4-5.0); Sodium 138 mmol/L (137-145)
[2023-12-28] MEDS: ALBUMIN HUMAN 25% 25 GM/100 ML 100 ML IVPB ×3 (07:13→17:08)
--- NOTE | 2023-12-28 07:55 | PM.IMPN ---
Progress Note: A&P Assessment and Plan (1) Electrolyte imbalance: Code(s): E87.8 - Other disorders of electrolyte and fluid balance, not elsewhere classified Status: Acute (2) Thrombocytopenia: Code(s): D69.6 - Thrombocytopenia, unspecified Status: Acute (3) Cirrhosis of liver: Code(s): K74.60 - Unspecified cirrhosis of liver Status: Acute (4) Left breast mass: Code(s): N63.20 - Unspecified lump in the left breast, unspecified quadrant Status: Acute (5) Persistent atrial fibrillation: Code(s): I48.19 - Other persistent atrial fibrillation Status: Acute (6) Acute on chronic heart failure with preserved ejection fraction (HFpEF): Code(s): I50.33 - Acute on chronic diastolic (congestive) heart failure Status: Acute (7) Bilateral edema of lower extremity: Code(s): R60.0 - Localized edema Status: Acute (8) CHF (congestive heart failure): Code(s): I50.9 - Heart failure, unspecified Status: Acute Plan Acute respiratory failure with hypoxemia and hypercapnia 2/4 oxygen weaned to 1 L by nasal cannula. pt wearing BIPAP at night Pulmonary followingRelated to CHF Recommend BiPAP at 12/6 with respiratory rate of 14 and supplemental oxygen 3 liter/minute at night per Pulmonary. ABG showed decompensated respiratory failure with CO2 retention and hypoxemia Place patient on BiPAP Metrology Technician considers 6 retention and rest failure due to fluid overload, not related to hypoventilation syndrome Metabolic alkalosis Bicarbonate over 40 Possible due to CO2 retention Order ABG for evaluation (2) Acute on chronic heart failure with preserved ejection fraction (HFpEF): ?Code(s): I50.33 - Acute on chronic diastolic (congestive) heart failure ?Status:?Acute ?Assessment and Plan: Improved with diuresis, continue and transition to oral Lasix per Cardiology Diuresis per cardiology on oral Lasix spironolactone held due to hyperkalemia.? Recheck BMP with stable creatinine EF about 2 weeks ago from outpatient records showed ef 60-65% Nighttime bIPAP to be set up by vocational childcare teacher Diuresis limited due to borderline blood pressure.? Add albumin Currently patient is on Lasix 80 mg b.i.d. p.o. Repeat chest x-ray shows bilateral pleural effusion, moderate on the left side and small on the right side, cardiomegaly and pulmonary congestion Provide Lasix 40 mg IV push once Rest management per mainframe systems administrator Hyperkalemia has improved with holding spironolactone and 2 does Lokelma yesterday.? Will continue to monitor Re-dose Lokelma (3) A-fib: ?Qualifiers: ?Atrial fibrillation type:?paroxysmal? Qualified Code(s):?I48.0 - Paroxysmal atrial fibrillation ?Code(s): I48.91 - Unspecified atrial fibrillation ?Status:?Acute ?Assessment and Plan: 2/ rate control remained suboptimal.? Increase metoprolol ER from 50-100 mg p.o. daily.? Soft blood pressure noted but improvement and rate may improve perfusion. If BP drops, could reduce valsartan.? Valsartan currently on hold Continue Xarelto. (4) Acute UTI: ?Code(s): N39.0 - Urinary tract infection, site not specified ?Status:?Acute ?Assessment and Plan: Tcompleted Abx UC positive for Citrobacter, (5) Left breast mass: ?Code(s): N63.20 - Unspecified lump in the left breast, unspecified quadrant ?Status:?Acute ?Assessment and Plan: 2/ U/S breast showed suspicious mass gen surgery evaluated and recommend f/u with Dr Farooq for biopsy and further outpatient workup (6) Cirrhosis of liver: ?Code(s): K74.60 - Unspecified cirrhosis of liver ?Status:?Acute ?Assessment and Plan: Etiology unclear. 2/4 ordered chronic viral hepatitis screen, LKM1 Ab, and iron panel. Possible secondary to heart failure Consult GI for evaluation treatment (7) Thrombocytopenia: ?Code(s): D69.6 - Thrombocytopenia, unspecifie
[2023-12-28] MEDS: MULTIVITAMINS THERAPEUTIC TAB (*BKC) 1 TABLET PO (08:48)
[2023-12-28] MEDS: MAGNESIUM OXIDE 400 MG TABLET PO (08:48)
[2023-12-28] MEDS: ESCITALOPRAM OXALATE 10 MG TABLET 20 MG PO (08:48)
[2023-12-28] MEDS: OPTI-GEN TAB 1 TABLET PO (08:49)
[2023-12-28] MEDS: LORATADINE 10 MG TABLET PO (08:49)
[2023-12-28] MEDS: FUROSEMIDE 80 MG TABLET PO ×2 (08:49→16:22)
[2023-12-28] MEDS: RALOXIFENE HCL (*CHEMO) 60 MG TABLET PO (08:49)
[2023-12-28] MEDS: busPIRone HCL 5 MG TABLET PO ×3 (08:53→16:22)
[2023-12-28] MEDS: METOPROLOL SUCCINATE EXT REL 50 MG TABCR 100 MG PO (08:53)
--- NOTE | 2023-12-28 10:30 | PCNFU ---
Nutrition Follow-Up Complete: Suboptimal po intake related to varied appetite and intake as evidenced by charted intake PO intake greater than 50% of meals - Goal not being met. Continue with same goal Goal: Pt current nutrition is Heart healthy diet Ensure Compact BID for additional 220 kcal and 9 g protein each. Nutrition recommendation: Easy to chew diet. Add Magic Cup nutritional ice cream BID for additional 290 kcal and 9 g protein each Last recorded weight is 83.7 kg. Bowel Motility: +1 BM 12/27/23 Labs Reviewed: Hgb 10.6, Hct 34.7, BUN 24 Meds Noted: Lasix, spironolactone, albumin Skin: Chronic venous stasis BLE Additional Notes: Spoke to pt's son, who reports pt is not eating much solid food. She does better with softer foods. Added soft foods to diet order, without downgrading to level 6. Pt does drink Ensure and we will try nutritional ice cream BID. Any weight changes likely related to fluid shifts from diuresis. pt may be discharging. Monitor intake, wt, labs. Follow up in 5 days.
[2023-12-28 10:35] LABS: Alveolar/Arterial O2 Gradient < 0.0 mmHg; Fractional Inspired Oxygen 28 %; HCO3 ABG 41.7 mEq/l (22.0-26.0); Oxygen Content ABG 16.1 %vol (16.0-22.0); Oxygen Saturation ABG 97.6 % (95.0-100.0); Oxyhemoglobin 96.3 % THb (90.0-100.0); PO2 ABG 111.1 mmHg (80.0-100.0); PO2 FiO2 Ratio Arterial Blood 3.97 %; Total Hemoglobin 11.8 g/dL (12.0-18.0); pH ABG 7.345 (7.350-7.450)
[2023-12-28 10:37] LABS: Device NASAL CANNULA; Modified Allen's Test Pass; PCO2 ABG 78.1 mmHg (35.0-45.0); Site Drawn RIGHT RADIAL
--- NOTE | 2023-12-28 11:23 | PM.PNCARD ---
Progress Note: A&P Assessment and Plan (1) Acute on chronic heart failure with preserved ejection fraction (HFpEF): Code(s): I50.33 - Acute on chronic diastolic (congestive) heart failure Status: Acute Assessment and Plan: 88-year-old female with CHF with preserved ejection fraction, right heart failure, persistent atrial fibrillation on anticoagulation with rivaroxaban, hypertension. Patient has acute chronic CHF with preserved ejection fraction and right heart failure with significant volume overload. -continue current dose of furosemide.- difficult to assess diuresis now that voss is out; doubt output is being documented accurately. Metolazone 2.5 mg p.o. x1 -Holding spironolactone, KCL because of hyperkalemia -May start other standard medical treatment when able (addition of medical therapy limited by BP) (2) Persistent atrial fibrillation: Code(s): I48.19 - Other persistent atrial fibrillation Status: Acute Assessment and Plan: Rate control with metoprolol succinate, and anticoagulation with rivaroxaban. Borderline tachy. (3) Respiratory failure with hypoxia and hypercapnia: Code(s): J96.91 - Respiratory failure, unspecified with hypoxia; J96.92 - Respiratory failure, unspecified with hypercapnia Status: Acute Assessment and Plan: Pulmonology evaluation and management. (4) Electrolyte imbalance: Code(s): E87.8 - Other disorders of electrolyte and fluid balance, not elsewhere classified Status: Acute Assessment and Plan: Hold potassium. Hold spironolactone. Subjective Date/time seen: 12/28/23 11:23 Interval history: Acute on chronic diastolic CHF, persistent atrial fibrillation, respiratory failure. Also history of cirrhosis, thrombocytopenia, date of service: 12/18/2023 Interval history: Patient reports improvement in her shortness of breath. Previously, she was on BiPAP, currently sitting up in the chair and on supplemental oxygen through nasal cannula. On telemetry, she is in atrial fibrillation with heart rates in 100s. Date of service 12/19/23: She is feeling better today. On O2 per nasal cannula sitting up in the chair. Atrial fibrillation seen on telemetry with rate controlled. Continue IV Lasix and p.o. spironolactone. Date of service 12/21/2023: Pt denies SOB. Son at bedside. SBP 92-110 mmHg. Remains on 2 L nasal cannula; used BiPAP last night. Palliative care consulted. CXR today: MOderate left effusion, mild R effusion, mild CHF. ON my personal review, does't look much different fr 12/12/2023. Date of service 12/23/2023: Feeling better every day. No shortness of breath. Date of service 12/24/2023: Resting in bed comfortably without chest pain or shortness of breath. Date of service 12/25/2023: Swelling is still present but denies any chest pain or shortness of breath. Date of service 12/27/2023: No acute events overnight. Still has swelling but it is slowly improving, less swelling above the knees to the abdomen. She states she is feeling mildly short of breath. Date of service 12/28/2023: Swelling persists. No chest pain. Review of Systems Review of Systems: No SOB at rest, no CP, abdom pain, palps, less edema Constitutional: Constitutional: Denies body ache(s) Cardiovascular: Cardiovascular: Denies chest pain Gastrointestinal: Gastrointestinal: Denies abdominal pain Neurologic: Denies confusion Psychiatric: Psychiatric: Denies confusion Exam Const: General: cooperative and comfortable; No confusion Orientation/consciousness: oriented to person, patient oriented x3 and No confusion Other: Pillow around post neck HENMT: Mouth: Yes moist mucous membranes Eyes: General: appearance normal, both eyes and all related structures Neck: Neck: supple Resp: Effort & Inspection: normal respiratory effort Auscultation: rales (few rales LLL) and diminished lung sounds (both bases)
--- NOTE | 2023-12-28 11:57 | PCOTNOTE ---
Per RN, Patient can not be seen at this time. MD wants Patient on a continuous Bipap for now, check back this afternoon.
[2023-12-28] MEDS: metOLazone 2.5 MG TABLET PO (13:24)
[2023-12-28 13:56] LABS: Alveolar/Arterial O2 Gradient 36.1 mmHg; Base Excess ABG 15.7 mEq/l (+/-2.0); Fractional Inspired Oxygen 32 %; HCO3 ABG 41.4 mEq/l (22.0-26.0); Oxygen Content ABG 15.2 %vol (16.0-22.0); Oxygen Saturation ABG 98.6 % (95.0-100.0); Oxyhemoglobin 97.1 % THb (90.0-100.0); PCO2 ABG 56.6 mmHg (35.0-45.0); PO2 ABG 125.8 mmHg (80.0-100.0); PO2 FiO2 Ratio Arterial Blood 3.93 %; pH ABG 7.482 (7.350-7.450)
[2023-12-28 13:57] LABS: Device NON-INVASIVE VENT; Modified Allen's Test Pass; Non-Invasive Expiratory Pressure 6 CMH2O; Non-Invasive Inspiratory Pressure 12 CMH2O; Non-Invasive Vent Rate 16 /MIN; Site Drawn RIGHT RADIAL
--- NOTE | 2023-12-28 13:57 | PCOTNOTE ---
Per RN, Patient is still to be on continuous BIPAPP this P.M. Patient was not seen this date.
[2023-12-28] MEDS: RIVAROXABAN 20 MG TABLET PO (16:22)
[2023-12-28] MEDS: AMOXICILLIN/CLAVULANATE K 875-125 MG TAB 1 TABLET PO (21:45)
[2023-12-28] MEDS: SENNOSIDES 8.6 MG TABLET PO (21:45)
[2023-12-28] MEDS: DOXYCYCLINE HYCLATE 100 MG TABLET PO (21:46)
[2023-12-28] MEDS: FLUTICASONE PROPIONATE 0.05% NA SPR 16 GM BTL (*BKC) 1 SPRAY NASAL (21:46)
[2023-12-29] MEDS: ALBUMIN HUMAN 25% 25 GM/100 ML 100 ML IVPB ×2 (00:29→05:20)
[2023-12-29 02:43] VITALS: RESP 18; O2SAT 97
[2023-12-29 05:35] VITALS: RESP 23; O2SAT 97
[2023-12-29 06:00] VITALS: BP 113/70; PULSE 73; RESP 18; TEMP 36.4; O2SAT 98
[2023-12-29] MEDS: ALBUTEROL SULFATE (*SP) AEROSOL 1 PUFF 2 PUFF INHALATION (07:31)
[2023-12-29 07:32] VITALS: PULSE 68; RESP 18; O2SAT 97
--- NOTE | 2023-12-29 08:29 | PM.IMPN ---
Progress Note: A&P Assessment and Plan (1) Electrolyte imbalance: Code(s): E87.8 - Other disorders of electrolyte and fluid balance, not elsewhere classified Status: Acute (2) Thrombocytopenia: Code(s): D69.6 - Thrombocytopenia, unspecified Status: Acute (3) Cirrhosis of liver: Code(s): K74.60 - Unspecified cirrhosis of liver Status: Acute (4) Left breast mass: Code(s): N63.20 - Unspecified lump in the left breast, unspecified quadrant Status: Acute (5) Persistent atrial fibrillation: Code(s): I48.19 - Other persistent atrial fibrillation Status: Acute (6) Acute on chronic heart failure with preserved ejection fraction (HFpEF): Code(s): I50.33 - Acute on chronic diastolic (congestive) heart failure Status: Acute (7) Bilateral edema of lower extremity: Code(s): R60.0 - Localized edema Status: Acute (8) CHF (congestive heart failure): Code(s): I50.9 - Heart failure, unspecified Status: Acute Plan Acute respiratory failure with hypoxemia and hypercapnia 2/4 oxygen weaned to 1 L by nasal cannula. pt wearing BIPAP at night Pulmonary followingRelated to CHF Recommend BiPAP at 12/6 with respiratory rate of 14 and supplemental oxygen 3 liter/minute at night per Pulmonary. ABG showed decompensated respiratory failure with CO2 retention and hypoxemia Place patient on BiPAP Personnel Technician considers CO2 retention resulting from fluid overload, not related to hypoventilation syndrome 12/28/23 metabolic alkalosiss Bicarbonate over 40 Possible due to CO2 retention Order ABG for evaluation test suggested CO2 retention and decompensated respiratory failure Patient was placed BiPAP, repeated ABG suggested improvement of CO2 retention I discussed with historical manuscripts curator Mariza about patient condition, he considers the the CO2 retention is not related to obesity hypoventilation syndrome but because by heart failure. He recommended to continue BiPAP when patient is discharged assisted (2) Acute on chronic heart failure with preserved ejection fraction (HFpEF): ?Code(s): I50.33 - Acute on chronic diastolic (congestive) heart failure ?Status:?Acute ?Assessment and Plan: Improved with diuresis, continue and transition to oral Lasix per Cardiology Diuresis per cardiology on oral Lasix spironolactone held due to hyperkalemia.? Recheck BMP with stable creatinine EF about 2 weeks ago from outpatient records showed ef 60-65% Nighttime bIPAP to be set up by progressive care unit registered nurse Diuresis limited due to borderline blood pressure.? Add albumin Currently patient is on Lasix 80 mg b.i.d. p.o. Repeat chest x-ray shows bilateral pleural effusion, moderate on the left side and small on the right side, cardiomegaly and pulmonary congestion Received metolazone 2.5 mg p.o. once per quiller runner, continue current diuretic medication with Lasix 80 mg b.i.d. p.o. Hyperkalemia has improved with holding spironolactone and 2 does Lokelma yesterday.? Will continue to monitor Re-dose Lokelma Hypokalemia is corrected Hold spironolactone (3) A-fib: ?Qualifiers: ?Atrial fibrillation type:?paroxysmal? Qualified Code(s):?I48.0 - Paroxysmal atrial fibrillation ?Code(s): I48.91 - Unspecified atrial fibrillation ?Status:?Acute ?Assessment and Plan: 2/ rate control remained suboptimal.? Increase metoprolol ER from 50-100 mg p.o. daily.? Soft blood pressure noted but improvement and rate may improve perfusion. If BP drops, could reduce valsartan.? Valsartan currently on hold Continue Xarelto. Continue metoprolol 100 mg daily p.o. at discharge Essential hypertension Hold home hypertension medication because of low blood pressure Resume home hypertension medication per PCP or quiller runner by evaluation in the office (4) Acute UTI: ?Code(s): N39.0 - Urinary tract infection, site not specified ?Status:?Acute ? ? ?
--- NOTE | 2023-12-29 08:57 | PM.DS ---
DS: Admitting Diagnosis Discharge Date 12/29/23 Admitting Diagnosis (1) Electrolyte imbalance: ?Code(s): E87.8 - Other disorders of electrolyte and fluid balance, not elsewhere classified ?Status:?Acute (2) Thrombocytopenia: ?Code(s): D69.6 - Thrombocytopenia, unspecified ?Status:?Acute (3) Cirrhosis of liver: ?Code(s): K74.60 - Unspecified cirrhosis of liver ?Status:?Acute (4) Left breast mass: ?Code(s): N63.20 - Unspecified lump in the left breast, unspecified quadrant ?Status:?Acute (5) Persistent atrial fibrillation: ?Code(s): I48.19 - Other persistent atrial fibrillation ?Status:?Acute (6) Acute on chronic heart failure with preserved ejection fraction (HFpEF): ?Code(s): I50.33 - Acute on chronic diastolic (congestive) heart failure ?Status:?Acute (7) Bilateral edema of lower extremity: ?Code(s): R60.0 - Localized edema ?Status:?Acute (8) CHF (congestive heart failure): ?Code(s): I50.9 - Heart failure, unspecified ?Status:?Acute DS: Discharge Diagnosis Discharge Diagnosis (1) Electrolyte imbalance: Code(s): E87.8 - Other disorders of electrolyte and fluid balance, not elsewhere classified Status: Acute (2) Thrombocytopenia: Code(s): D69.6 - Thrombocytopenia, unspecified Status: Acute (3) Cirrhosis of liver: Code(s): K74.60 - Unspecified cirrhosis of liver Status: Acute (4) Left breast mass: Code(s): N63.20 - Unspecified lump in the left breast, unspecified quadrant Status: Acute (5) Persistent atrial fibrillation: Code(s): I48.19 - Other persistent atrial fibrillation Status: Acute (6) Acute on chronic heart failure with preserved ejection fraction (HFpEF): Code(s): I50.33 - Acute on chronic diastolic (congestive) heart failure Status: Acute (7) Bilateral edema of lower extremity: Code(s): R60.0 - Localized edema Status: Acute (8) CHF (congestive heart failure): Code(s): I50.9 - Heart failure, unspecified Status: Acute DS: Summary Hospital Course Hospital Course: A 8-year-old female with a history of atrial fibrillation on Xarelto, heart failure preserved ejection fraction, anxiety, chronic wounds, dementia with a baseline a and O x1, history of breast cancer, chronic anemia, fibromyalgia, history of gastric ulcer and GI bleed, hypertension, hyperlipidemia.? She was recently discharged from [facility] to long-term for rehab.? That was for UTI and CHF.? She returns as she had been having increasing oxygen requirements. The following med issues have been addressed during hospitalization Acute respiratory failure with hypoxemia and hypercapnia 2/4 oxygen weaned to 1 L by nasal cannula. pt wearing BIPAP at night Pulmonary followingRelated to CHF Materials Branch Chief recommended BiPAP at 12/6 with respiratory rate of 14 and supplemental oxygen 3 liter/minute at night ABG showed decompensated respiratory failure with CO2 retention and hypoxemia Place patient on BiPAP Materials Branch Chief considers CO2 retention resulting from fluid overload, not related to hypoventilation syndrome 12/28/23 metabolic alkalosiss Bicarbonate over 40 Possible due to CO2 retention Order ABG for evaluation test suggested CO2 retention and decompensated respiratory failure Patient was placed BiPAP, repeated ABG suggested improvement of CO2 retention I discussed with cake winder Mariza about patient condition, he considers the the CO2 retention is not related to obesity hypoventilation syndrome but because by heart failure. He recommended to continue BiPAP when patient is discharged long-term (2) Acute on chronic heart failure with preserved ejection fraction (HFpEF): ?Code(s): I50.33 - Acute on chronic diastolic (congestive) heart failure ?Status:?Acute ?Assessment and Plan: Improved with diuresis, continue and transition to oral Las
[2023-12-29 09:10] VITALS: O2SAT 96
[2023-12-29] MEDS: AMOXICILLIN/CLAVULANATE K 875-125 MG TAB 1 TABLET PO (09:11)
[2023-12-29] MEDS: FUROSEMIDE 80 MG TABLET PO (09:11)
[2023-12-29] MEDS: RALOXIFENE HCL (*CHEMO) 60 MG TABLET PO (09:12)
[2023-12-29] MEDS: MULTIVITAMINS THERAPEUTIC TAB (*BKC) 1 TABLET PO (09:12)
[2023-12-29] MEDS: ESCITALOPRAM OXALATE 10 MG TABLET 20 MG PO (09:12)
[2023-12-29] MEDS: DOXYCYCLINE HYCLATE 100 MG TABLET PO (09:12)
[2023-12-29] MEDS: LORATADINE 10 MG TABLET PO (09:13)
[2023-12-29] MEDS: busPIRone HCL 5 MG TABLET PO (09:13)
[2023-12-29 09:17] VITALS: PULSE 84
[2023-12-29] MEDS: METOPROLOL SUCCINATE EXT REL 50 MG TABCR 100 MG PO (09:17)
[2023-12-29 11:16] LABS: SARS-CoV-2 RNA PCR Negative (Negative)
--- NOTE | 2023-12-29 11:58 | PC.NURSE ---
On 12/29/23, the MELTING FURNACE SKIMMER, SANDY BROOKS, provided care and completed [employer] documentation on this patient. I have reviewed the MELTING FURNACE SKIMMER's documentation and agree with the findings.
== END 2023-12-29 13:50 | DRG 291 ==
LOC: ANHED 23:34 → ANH3MEDSUR 12-13 01:37 → ANHIMU 12-16 17:15 → ANH3MEDSUR 12-19 16:55
PROVIDERS: Emergency Medicine; Family Medicine; General Practice; Internal Medicine; Internal Medicine Cardiovascular Disease; Internal Medicine Pulmonary Disease; Admitting Provider Internal Medicine; Emergency Provider Emergency Medicine; Visit Provider Hospitalist
DX: I13.0 Hypertensive heart and chronic kidney disease with heart failure and stage 1 through stage 4 chronic kidney disease, or unspecified chronic kidney disease (principal); I50.33 Acute on chronic diastolic (congestive) heart failure; J96.21 Acute and chronic respiratory failure with hypoxia; J96.22 Acute and chronic respiratory failure with hypercapnia; N39.0 Urinary tract infection, site not specified; E87.3 Alkalosis; I48.19 Other persistent atrial fibrillation; N17.9 Acute kidney failure, unspecified; L97.819 Non-pressure chronic ulcer of other part of right lower leg with unspecified severity; L97.829 Non-pressure chronic ulcer of other part of left lower leg with unspecified severity; I11.0 Hypertensive heart disease with heart failure; M79.7 Fibromyalgia; E78.5 Hyperlipidemia, unspecified; F03.90 Unspecified dementia, unspecified severity, without behavioral disturbance, psychotic disturbance, mood disturbance, and anxiety; Z20.822 Contact with and (suspected) exposure to COVID-19; E87.6 Hypokalemia; Z85.3 Personal history of malignant neoplasm of breast; Z79.01 Long term (current) use of anticoagulants; I45.10 Unspecified right bundle-branch block; B96.89 Other specified bacterial agents as the cause of diseases classified elsewhere; M41.9 Scoliosis, unspecified; I36.1 Nonrheumatic tricuspid (valve) insufficiency; N63.0 Unspecified lump in unspecified breast; Z66 Do not resuscitate; K74.60 Unspecified cirrhosis of liver; D69.6 Thrombocytopenia, unspecified; I27.20 Pulmonary hypertension, unspecified; I83.018 Varicose veins of right lower extremity with ulcer other part of lower leg; I83.028 Varicose veins of left lower extremity with ulcer other part of lower leg; N63.24 Unspecified lump in the left breast, lower inner quadrant; N18.30 Chronic kidney disease, stage 3 unspecified; N63.22 Unspecified lump in the left breast, upper inner quadrant; G47.36 Sleep related hypoventilation in conditions classified elsewhere; E87.5 Hyperkalemia
CPT/HCPCS: 36415; 36600; 70450; 71045; 71250; 74176; 76641; 80048; 80053; 81001; 82803; 82805; 83540; 83550; 83605; 83690; 83735; 83880; 84100; 84443; 84484; 85025; 85027; 85055; 85610; 85730; 86376; 86803; 87040; 87086; 87186; 87340; 87635; 87637; 93005; 94002; 94003; 94640; 94762; 96365; 96375; 97110; 97161; 97165; 97166; 97530; 97535; 99285; A9270; J0295; J0696; J1120; J1940; J2060; J3480; P9047

== ENCOUNTER 2024-01-04 08:50 | Emergency (ER) | payer MEDICARE, SELFPAY ==
--- NOTE | 2024-01-04 08:57 | ED.GENADULT ---
HPI - General Adult General Chief complaint: Altered Mental Status Stated complaint: unresponsive Time Seen by Provider: 01/04/24 08:51 History of Present Illness HPI narrative: Patient is an 88-year-old female who presents the ER with unresponsiveness. Arrived by EMS. EN route patient stop breathing on her own and appears to be agonal breathing. They gave her supportive bagging. Patient has a pulse form that show she is comfort treatment only and DNR. I have called the patient's [id number] Nhan, her son. He confirms her DNR status and would only want comfort related measures. I discussed that she is unresponsive and her breathing is not compatible with life.. Related Data Home Medications Medication Instructions Recorded Confirmed potassium chloride 20 mEq 20 meq PO BID 01/14/20 12/13/23 tablet,extended release(part/cryst) raloxifene 60 mg tablet 60 mg PO DAILY 01/14/20 12/13/23 rivaroxaban 20 mg tablet (Xarelto) 20 mg PO DAILY 01/14/20 12/13/23 acetaminophen 500 mg capsule 1,000 mg PO Q6H PRN Pain (Scale 11/22/23 12/13/23 Score 1-3) albuterol sulfate 90 mcg/actuation 2 puff inhalation TID 11/22/23 12/13/23 aerosol inhaler buspirone 5 mg tablet 5 mg PO TID 11/22/23 12/13/23 escitalopram oxalate 10 mg tablet 20 mg PO DAILY 11/22/23 12/13/23 fluticasone propionate 50 1 spray intranasal HS 11/22/23 12/13/23 mcg/actuation nasal spray,suspension loratadine 10 mg tablet 10 mg PO DAILY 11/22/23 12/13/23 magnesium oxide 400 mg (241.3 mg 400 mg PO DAILY 11/22/23 12/13/23 magnesium) tablet multivitamin with folic acid 400 1 tablet PO DAILY 11/22/23 12/13/23 mcg tablet (Tab-A-Bita) nystatin 100,000 unit/gram topical 1 applic topical PRN PRN yeast 11/22/23 12/13/23 cream sennosides 8.6 mg tablet (senna) 8.6 mg PO HS 11/22/23 12/13/23 vit C 250 mg-vit E 90 mg-zinc 40 1 tablet PO DAILY 11/22/23 12/13/23 mg-copper 1 [id number] capsule (PreserVision AREDS-2) Allergies Allergy/AdvReac Type Severity Reaction Status Date / Time No Known Allergies Allergy Verified 07/02/23 03:23 Review of Systems Review of Systems: ROS unobtainable: Yes unobtainable due to medical condition PMFSH Past Medical History Medical History A-fib Anemia Arthritis Back pain Breast cancer, left Cataracts, bilateral CHF (congestive heart failure) Fibromyalgia Fracture of right patella Gastric ulcer GI bleed Glaucoma HLD (hyperlipidemia) HTN (hypertension) Kidney stones Osteoporosis UTI (urinary tract infection) Surgical History Surgical History History of lumpectomy of left breast Hx of cataract surgery Family History Family History Other Cerebrovascular accident Family history of arthritis Family history of malignant neoplasm Family history of seizure disorder Social History Social History Smoking status: Never smoker Second hand tobacco smoke exposure: No Alcohol intake: never Substance use: never Substance use type: does not use Do You Feel Safe in your Home?: Yes Lack of Transportation: No Lack of Food: Never True Current Housing: I Have Housing Concerned About Future Housing: No Difficulty Paying Gas/Electric Bills: No Difficulty Paying for Meds: No Currently Unemployed: No Education: Associate Degree Difficulty w/ Childcare or Family Care: No Gender identity (if verbalized by the patient): Female Spiritual care concerns: No Exam Narrative: GENERAL: Well-nourished, unresponsive. HEAD: Normocephalic, atraumatic. EYES: Pupils fixed and dilated. ENT: Mucous membranes moist. CHEST: Clear to auscultation. No respiratory distress. HEART: Bradycardic and irregular, weak distal pulses. ABDOMEN: Soft, nontender, nondistended EXTREMITIES:
[2024-01-04 08:58] VITALS: BP 36/19; RESP 0; O2SAT 0
--- NOTE | 2024-01-04 09:10 | PC.NURSE ---
Dr Hollingsworth called time of at 0902. Pt son at bedside.
--- NOTE | 2024-01-04 10:58 | PC.NURSE ---
[facility] notified pt has .
--- NOTE | 2024-01-04 11:10 | PC.NURSE ---
Dr Marshall called back to speak with Dr Perez - Dr Marshall told Dr Perez she will not sign the certificate since she has not evaluated the pt since she was admitted to long-term. Called Michelle at [facility] - states their office will take care of it.
== END 2024-01-04 11:00 | disposition expired ==
LOC: ANHED 11:34
PROVIDERS: Emergency Provider Emergency Medicine
DX: I46.9 Cardiac arrest, cause unspecified (principal); I48.91 Unspecified atrial fibrillation; D64.9 Anemia, unspecified; M19.90 Unspecified osteoarthritis, unspecified site; I11.0 Hypertensive heart disease with heart failure; I50.9 Heart failure, unspecified; Z87.442 Personal history of urinary calculi; Z66 Do not resuscitate
CPT/HCPCS: 99282